=== PATIENT | female | born 1940 | race Caucasian/White ===

== ENCOUNTER 2016-12-11 19:08 | Emergency (ER) | payer OTHER ==
[~2016-12-11] VITALS: Ht 160 cm; Wt 60.0 kg
[~2016-12-11 19:08] MED LIST: ACYC-251 PO; B-COCAP2 PO; BIMA0.038 OPB; CRS10 PO; EYE; GLCPUNK PO; LABE300T PO; SYMIN160 INH
[2016-12-11 19:15] VITALS: TEMP 36.5; Ht 160 cm; Wt 60.0 kg
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
[2016-12-11] MEDS ORDERED: LEVO25TA5 PO (21:01)
[2016-12-11] MEDS ORDERED: LABE100T23 PO (21:01)
[2016-12-11] MEDS ORDERED: CLOTCRE33 TOP (21:01)
[2016-12-11] MEDS ORDERED: CHOL2000 PO (21:01)
[2016-12-11] MEDS ORDERED: SPRIN/30 INH (21:02)
[2016-12-11] MEDS ORDERED: VNTHFA/IN INH (21:02)
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
[2016-12-11 21:48] VITALS: BP 192/125; PULSE 85; O2SAT 95
== END 2016-12-11 21:49 | disposition home or self-care (01) ==
LOC: EDBD 19:08 → EDSEX 19:08 → C.EDB 19:10 → MERGE 19:10 → C.EDB 21:49
DX: S70.02XA Contusion of left hip, initial encounter (principal); S20.212A Contusion of left front wall of thorax, initial encounter; V09.20XA Pedestrian injured in traffic accident involving unspecified motor vehicles, initial encounter; Z79.899 Other long term (current) drug therapy

== ENCOUNTER → 2016-12-14 | Outpatient (CLI) | payer OTHER ==
[~2016-12-14] MED LIST changes: +ACET-1311 PO; +ASPI81TA28 PO; +BIMA0.01 OPB; +CHOL2000 PO; +CHOL20007 PO; +CLOTCRE33 TOP; +CRS/10 PO; +LABE100T23 PO; +LEVO25TA5 PO; +LEVO88TA3 PO; +MECL1TAB42 PO; +SPRIN/30 INH; +VNTHFA/IN INH
--- NOTE | 2016-12-14 16:42 | MAMMOGRAPHY REPORT ---
BILATERAL DIGITAL SCREENING MAMMOGRAM WITH CAD: 12/14/2016 CLINICAL HISTORY: Routine screening examination. TECHNIQUE: Bilateral CC and MLO views were obtained. Current study was also evaluated with a Comput er Aided Detection (CAD) system. COMPARISON: Comparison is made to exams dated: 12/12/2015 mammogram, 12/11/2014 mammogram, 10/24/2013 mammogram, and 08/15/2013 ultrasound - [facility]. BREAST COMPOSITION: The tissue of both breasts is heterogeneously dense, which may obscure small ma sses. FINDINGS: There are moderate vascular calcifications in the breasts. Benign popcorn and rim calcifi cations. There is a loose grouping of punctate microcalcifications in the 11:00 left breast that ap pears similar dating back to at least 08/12/2007, therefore likely benign with nearly [address] ability. No new suspicious mass, architectural distortion or cluster of microcalcifications is seen . IMPRESSION: ACR BI-RADS CATEGORY 1: NEGATIVE There is no mammographic evidence of malignancy. A 1 year screening mammogram is recommended. The p atient will receive written notification of the results. Approximately 10% of breast cancers are not detected with mammography. A negative mammographic repor t should not delay biopsy if a clinically suggestive mass is present. Georgina Whalen M.D. ay/:12/14/2016 15:44:47 Flat Ironer: Kalee KEYS)(Jay), [facility] letter sent: Normal 1/2 BI-RADS Code: ACR BI-RADS Category 1: Negative
== END | disposition home or self-care (01) ==
LOC: C.MAMM 14:05
PROVIDERS: ATTEND Family Medicine
DX: Z12.31 Encounter for screening mammogram for malignant neoplasm of breast (principal)

== ENCOUNTER → 2017-01-14 | Outpatient (CLI) | payer OTHER ==
--- NOTE | 2017-01-14 15:30 | DIAGNOSTIC IMAGING REPORT ---
RIGHT SHOULDER MIN 2 VIEWS ROUTINE CLINICAL HISTORY: Right shoulder pain COMPARISON: None. DISCUSSION: No fractures or dislocations are visualized. There are no visible periarticular calcifications. IMPRESSION: No fractures or dislocations are visualized. No destructive lesions are evident. Electronically signed by: Satya Wilkinson M.D. 01/14/2017 3:28 PM Dictated Date/Time: 01/14/2017 3:28 PM
--- NOTE | 2017-01-14 15:32 | DIAGNOSTIC IMAGING REPORT ---
C-SPINE ROUTINE 4 OR 5 VIEWS CLINICAL HISTORY: Neck pain. Right shoulder pain. COMPARISON STUDY: None. FINDINGS: There is straightening of the normal cervical lordosis. There is no acute fracture. No suspicious lesion is identified by radiography. There is moderate disc space narrowing with osteophytosis at C4-C5, C5-C6 and C6-C7. IMPRESSION: 1. Moderate multilevel degenerative disc disease and facet arthrosis, most pronounced at C4-C5. 2. No cervical spine fracture. Electronically signed by: Duglas Baker M.D. 01/14/2017 3:31 PM Dictated Date/Time: 01/14/2017 3:28 PM
== END | disposition home or self-care (01) ==
LOC: C.RAD1850 14:56
PROVIDERS: ATTEND Family Medicine
DX: M25.511 Pain in right shoulder (principal); M50.321 Other cervical disc degeneration at C4-C5 level; M47.892 Other spondylosis, cervical region

== ENCOUNTER → 2017-02-02 | Outpatient (CLI) | payer OTHER ==
--- NOTE | 2017-02-02 21:13 | DIAGNOSTIC IMAGING REPORT ---
HEAD CT NONCONTRAST CT DOSE: 537.48 mGy.cm HISTORY: Headache. TECHNIQUE: Multiaxial CT images of the head were performed without the use of intravenous contrast. Automated exposure control was utilized for this study. Comparison: Head CT 12/27/2007. Findings: The paranasal sinuses and mastoid air cells are clear. The calvarium and skull base are intact. There is no mass, hematoma, midline shift, acute infarct. White matter hypodensity is nonspecific but suggestive of moderate microvascular ischemic change. This has progressed. The ventricles and sulci demonstrate mild age-related involutional changes. 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 Impression: No acute intracranial abnormality. Atrophy and microvascular ischemic changes. Electronically signed by: Thaddeus Morgan M.D. 02/02/2017 9:12 PM Dictated Date/Time: 02/02/2017 9:07 PM
== END | disposition home or self-care (01) ==
LOC: C.CTS 20:27
PROVIDERS: ATTEND Family Medicine
DX: R51 Headache (principal)

== ENCOUNTER → 2017-02-02 | Outpatient (CLI) | payer OTHER ==
[2017-02-02 20:49] LABS: BASO % 0.5 %; BASO ABS # 0.03 K/uL (0-0.2); COMPLETE YES; EOS % 3.3 %; HEMATOCRIT 36.9 % (37-47); IG% 0.2 %; LYMPH % 36.3 %; LYMPH ABS # 2.07 K/uL (1.2-3.4); MEAN CELL VOLUME 93.2 fL (80-100); MEAN CORPUSCULAR HEMOGLOBIN 31.6 pg (25-34); MEAN CORPUSCULAR HGB CONC 33.9 g/dl (32-36); MEAN PLATELET VOLUME 9.8 fL (7.4-10.4); MONO % 8.4 %; NEUT % 51.3 %; PLATELET COUNT 354 K/uL (130-400); RED BLOOD COUNT 3.96 M/uL (4.2-5.4); WHITE BLOOD COUNT 5.71 K/uL (4.8-10.8)
[2017-02-02 20:59] LABS: PROTHROMBIN TIME (PATIENT) 10.7 SECONDS (9.0-12.0)
[2017-02-02 21:10] LABS: ALT/SGPT 25 U/L (12-78); AST/SGOT 13 U/L (15-37); BLOOD UREA NITROGEN 12 mg/dl (7-18); CALCIUM 8.6 mg/dl (8.5-10.1); CARBON DIOXIDE 30 mmol/L (21-32); CHLORIDE 105 mmol/L (98-107); CREATININE 0.72 mg/dl (0.60-1.20); GLUCOSE 100 mg/dl (70-99); POTASSIUM 3.8 mmol/L (3.5-5.1); SODIUM 142 mmol/L (136-145)
[2017-02-02 21:21] LABS: ALB/GLOB RATIO 1.3 (0.9-2); ALKALINE PHOSPHATASE 91 U/L (45-117)
== END | disposition home or self-care (01) ==
LOC: C.LAB 20:19
PROVIDERS: ATTEND Family Medicine
DX: R51 Headache (principal)

== ENCOUNTER 2017-07-05 19:22 | Inpatient (IN) | payer OTHER ==
[~2017-07-05] VITALS: Ht 160 cm; Wt 62.1 kg
[~2017-07-05 19:22] MED LIST changes: -ACET-1311 PO; -ASPI81TA28 PO; -BIMA0.01 OPB; -CHOL20007 PO; -CRS/10 PO; -LEVO88TA3 PO; -MECL1TAB42 PO
[2017-07-05] MEDS ORDERED: LABETALOL HCL 300 MG TAB PO STA (19:57)
--- NOTE | 2017-07-05 19:57 | EMERGENCY ROOM VISIT NOTE ---
History Report prepared by Klever: Kriss Torres Under the Supervision of: Dr. Tez Smyth M.D. First contact with patient: 19:47 Chief Complaint: NEURO SYMPTOMS Stated Complaint: ABD PAIN, SENT WITH EKG History of Present Illness The patient is a 76 year old female who presents to the Emergency Room with complaints of constant neurological symptoms beginning today. The patient states that she has been having left sided abdominal pain. She reports that she has been having numbness in her head and stomach and states that she feels like she is answering slowly and her brain is not working properly. The patient states that she has a history of hypertension and notes that she is on medication that she took this morning but not tonight. She notes that she was recently on vacation and did not bring her medication with her. The patient complains of nausea. She denies any vomiting. Source of History: patient Onset: today Position: other (neurological) Timing: constant Associated Symptoms: + nausea, + abdominal pain, + numbness, No vomiting Review of Systems See HPI for pertinent positives & negatives. A total of 10 systems reviewed and were otherwise negative. Past Medical & Surgical Medical Problems: (1) Acute confusional state (2) No Known Active Medical Problems Family History No pertinent family history stated. Social History Smoking Status: Never Smoker Marital Status: Occupation Status: retired Current/Historical Medications Scheduled Aspirin (Aspirin Ec), 81 MG PO DAILY Bimatoprost (Lumigan), 1 DROPS OPB HS Budesonide/Formoterol Fumarate (Symbicort 160/4.5 Inhaler ), 2 PUFFS INH BID Cholecalciferol (Vitamin D3), 2,000 UNITS PO DAILY Labetalol (Normodyne), 300 MG PO BID Levothyroxine Sodium (Levothyroxine Sodium), 88 MCG PO DAILY Rosuvastatin Calcium (Crestor), 10 MG PO DAILY Scheduled PRN Acetaminophen (Tylenol), 650 MG PO Q4H PRN for Pain or Fever Albuterol Hfa (Ventolin Hfa), 2 PUFFS INH Q6H PRN for SOB/Wheezing Meclizine Hcl (Meclizine Hcl), 25 MG PO TID PRN for Dizziness or Vertigo Allergies Coded Allergies: No Known Allergies (Verified , 07/05/17) Physical Exam Vital Signs Date Time Temp Pulse Resp B/P (MAP) Pulse Ox O2 Delivery O2 Flow Rate FiO2 8/22/17 00:05 83 18 146/101 96 07/05/17 23:50 83 18 146/101 96 Room Air 07/05/17 23:06 Room Air 07/05/17 22:30 85 14 177/99 97 Room Air 07/05/17 20:57 84 12 191/101 96 Room Air 07/05/17 20:10 Room Air 07/05/17 19:39 36.7 82 18 212/116 98 Room Air Physical Exam GENERAL: Patient is a healthy-appearing well-nourished female HEAD: Normocephalic atraumatic EYES: Ocular movements intact pupils equal and react to light OROPHARYNX mucous membranes are moist no exudates present no erythema or edema present NECK: Supple no nuchal rigidity CHEST: Good equal expansion LUNGS: Clear and equal to auscultation CARDIAC: Normal S1 and S2 ABDOMEN: Soft, tender to the LUQ, no guarding BACK: No CVA tenderness EXTREMITIES: No pain upon palpation normal muscle strength in all groups no clubbing cyanosis or edema NEURO: Patient is following commands and answering questions appropriately. Alert and oriented x3 Cranial Nerves 2-12 grossly intact Medical Decision & Procedures ER Provider Diagnostic Interpretation: Radiology results as stated below per my review and radiologist interpretation: CHEST ONE VIEW PORTABLE FINDINGS: The lungs are clear. Cardiac silhouette is borderline enlarged. This remains unchanged. No pleural effusions. No pneumothorax. IMPRESSION: No significant change compared to the prior study. No acute process. Electronically signed by: Thaddeus Morgan M.D. 07/05/2017 8:30 PM Dictated Date/Time: 07/05/2017 8:[address] NONCONTRAST Comparison: Head CT 02/02/2017 Findings: The paranasal sinuses and mastoid air cells are clear. The calvarium and skull base are intact. There is no mass, hematoma, midline shift, acute infarct. White matter hypodensity is nonspecific but suggestive of moderate microvascular ischemic change. The ventricles and sulci demonstrate mild age-related involutional changes. 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 Impression: No significant change compared to the prior study. No acute intracranial abnormality. Electronically signed by: Thaddeus Morgan M.D. 07/05/2017 8:53 PM Dictated Date/Time: 07/05/2017 8:51 PM [address] AND PELVIS CT WITH IV CONTRAST FINDINGS: The lung bases are clear. No pneumoperitoneum. No pneumatosis. No fractures within the visualized osseous structures. The liver, gallbladder, spleen, adrenal glands, and kidneys are unremarkable. No retroperitoneal lymphadenopathy. A 7 mm cyst at the tail the pancreas. This is best seen on image 81. No retroperitoneal lymphadenopathy. The bladder, uterus, bilateral adnexa are unremarkable. Trace pelvic free fluid. Colonic diverticulosis. No bowel wall thickening or obstruction. IMPRESSION: 1. No bowel wall thickening or obstruction. 2. Colonic diverticulosis. 3. A 7 mm cystic lesion within the tail the pancreas. 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 A 1 year pancreatic MRI can be performed to ensure stability. Electronically signed by: Thaddeus Morgan M.D. 07/05/2017 9:01 PM Dictated Date/Time: 07/05/2017 8:54 PM Laboratory Results 07/05/17 20:09 Red Blood Count 3.95, Mean Corpuscular Volume 94.9, Mean Corpuscular Hemoglobin 31.9, Mean Corpuscular Hemoglobin Concent 33.6, Mean Platelet Volume 9.7, Neutrophils (%) (Auto) 58.2, Lymphocytes (%) (Auto) 33.6, Monocytes (%) (Auto) 5.5, Eosinophils (%) (Auto) 2.5, Basophils (%) (Auto) 0.1, Neutrophils # (Auto) 4.13, Lymphocytes # (Auto) 2.39, Monocytes # (Auto) 0.39, Eosinophils # (Auto) 0.18, Basophils # (Auto) 0.01 07/05/17 20:09 Test 07/05/17 19:52 07/05/17 20:09 Urine Color YELLOW Urine Appearance CLEAR (CLEAR) Urine pH 6.0 (4.5-7.5) Urine Specific [place] 1.009 (1.000-1.030) Urine Protein NEG (NEG) Urine Glucose (UA) NEG (NEG) Urine Ketones NEG (NEG) Urine Occult Blood NEG (NEG) Urine Nitrite NEG (NEG) Urine Bilirubin NEG (NEG) Urine Urobilinogen NEG (NEG) Urine Leukocyte Esterase NEG (NEG) White Blood Count 7.11 K/uL (4.8-10.8) Red Blood Count 3.95 M/uL (4.2-5.4) Hemoglobin 12.6 g/dL (12.0-16.0) Hematocrit 37.5 % (37-47) Mean Corpuscular Volume 94.9 fL (80-100) Mean Corpuscular Hemoglobin 31.9 pg (25-34) Mean Corpuscular Hemoglobin Concent 33.6 g/dl (32-36) Platelet Count 333 K/uL (130-400) Mean Platelet Volume 9.7 fL (7.4-10.4) Neutrophils (%) (Auto) 58.2 % Lymphocytes (%) (Auto) 33.6 % Monocytes (%) (Auto) 5.5 % Eosinophils (%) (Auto) 2.5 % Basophils (%) (Auto) 0.1 % Neutrophils # (Auto) 4.13 K/uL (1.4-6.5) Lymphocytes # (Auto) 2.39 K/uL (1.2-3.4) Monocytes # (Auto) 0.39 K/uL (0.11-0.59) Eosinophils # (Auto) 0.18 K/uL (0-0.5) Basophils # (Auto) 0.01 K/uL (0-0.2) RDW Standard Deviation 42.9 fL (36.4-46.3) RDW Coefficient of Variation 12.4 % (11.5-14.5) Immature Granulocyte % (Auto) 0.1 % Immature Granulocyte # (Auto) 0.01 K/uL (0.00-0.02) Prothrombin Time 10.4 SECONDS (9.0-12.0) Prothromb Time International Ratio 1.0 (0.9-1.1) Activated Partial Thromboplast Time 27.1 SECONDS (21.0-31.0) Partial Thromboplastin Ratio 1.0 Anion Gap 4.0 mmol/L (3-11) Est Creatinine Clear Calc Drug Dose 51.1 ml/min Estimated GFR () 88.5 Estimated GFR (Non- 76.3 BUN/Creatinine Ratio 12.7 (10-20) Calcium Level 9.0 mg/dl (8.5-10.1) Total Bilirubin 0.4 mg/dl (0.2-1) Direct Bilirubin 0.1 mg/dl (0-0.2) Aspartate Amino Transf (AST/SGOT) 15 U/L (15-37) Alanine Aminotransferase (ALT/SGPT) 29 U/L (12-78) Alkaline Phosphatase 100 U/L (45-117) Total Creatine Kinase 139 U/L (26-192) Creatine Kinase MB 1.6 ng/ml (0.5-3.6) Creatine Kinase MB Ratio 1.2 (0-3.0) Troponin I < 0.015 ng/ml (0-0.045) Total Protein 7.6 gm/dl (6.4-8.2) Albumin 4.6 gm/dl (3.4-5.0) Lipase 123 U/L (73-393) Thyroid Stimulating Hormone (TSH) 1.550 uIu/ml (0.300-4.500) Labs reviewed by ED physician. Medications Administered Medications (Trade) Dose Ordered Sig/Jameson Route Start Time Stop Time Status Last Admin Dose Admin Labetalol HCl (Normodyne Tab) 300 mg NOW STAT PO 07/05/17 19:57 07/05/17 19:59 DC 07/05/17 20:18 300 MG Sodium Chloride 500 ml @ 999 mls/hr Q31M STAT IV 07/05/17 20:14 07/05/17 20:44 DC 07/05/17 20:18 999 MLS/HR Potassium Chloride (Klor-Con Tab) 70 meq NOW STAT PO 07/05/17 21:26 07/05/17 21:27 DC 07/05/17 22:09 70 MEQ ECG Indication: abdominal pain Rate (beats per minute): 87 Rhythm: normal sinus Findings: no acute ischemic change, no ectopy, other (old septal infarct) Comparison ECG Date: 24-OCT-2009 Change: no significant change ED Course 1946: Past medical records reviewed. The patient was evaluated in room C3. A complete history and physical examination was performed. 1956: Labetalol HCl 300mg PO. 2013: Sodium Chloride 500 ml @ 999 mls/hr IV. 2125: Klor-Con Tab 70meq PO. 2133: I discussed the patient's case with Dr. Mcmahon, he has agreed to evaluate the patient for further management and care. 2151: Upon reexamination the patient is doing well. I discussed results and treatment plan with the patient. She verbalizes agreement and understanding. I spoke with Dr. Mcmahon from the [facility] Hospitalist Service. The patient will be evaluated for further management. Medical Decision Differential diagnosis: Etiologies such as appendicitis, diverticulitis, PUD, biliary pathology, UTI, pancreatitis, obstruction, mesenteric ischemia, aortic pathology, infections, inflammatory bowel disease, renal colic, as well as others were entertained. This is 76-year-old female who presents emergency department complaining of altered mental status. The patient to be appears acutely confused and I suspect has been confused all week. She has not been taking her medications as she forgot them at home and went on vacation. She is complaining of left-sided numbness as well as left-sided abdominal pain. She is hypertensive upon arrival to the emergency department. Based on these findings I did discuss the case with the hospitalist service who agreed to admit the patient. Patient was in agreement with the treatment plan. Medication Reconcilliation Current Medication List: was personally reviewed by me Blood Pressure Screening Patient's blood pressure: Elevated blood pressure Blood pressure disposition: Referred to PCP Consults Time Called: 2129 Consulting Physician: Dr. Mcmahon - [facility] Returned Call: [phone] I discussed the patient's case with Dr. Mcmahon, he has agreed to evaluate the patient for further management and care. Impression Primary Impression: Hypertensive urgency Scribe Attestation The scribe's documentation has been prepared under my direction and personally reviewed by me in its entirety. I confirm that the note above accurately reflects all work, treatment, procedures, and medical decision making performed by me. Departure Information Dispostion Being Evaluated By Hospitalist Referrals Cara Cooper M.D. (PCP) Patient Instructions My [facility]
[2017-07-05] MEDS ORDERED: SODIUM CHLORIDE 0.9% 500ML 500 ML IV STA (20:14)
[2017-07-05] MEDS ORDERED: OPTIRAY 320 IV PRN (20:15)
[2017-07-05 20:24] LABS: BASO % 0.1 %; BASO ABS # 0.01 K/uL (0-0.2); COMPLETE YES; EOS % 2.5 %; HEMATOCRIT 37.5 % (37-47); IG% 0.1 %; LYMPH % 33.6 %; LYMPH ABS # 2.39 K/uL (1.2-3.4); MEAN CELL VOLUME 94.9 fL (80-100); MEAN CORPUSCULAR HEMOGLOBIN 31.9 pg (25-34); MEAN CORPUSCULAR HGB CONC 33.6 g/dl (32-36); MEAN PLATELET VOLUME 9.7 fL (7.4-10.4); MONO % 5.5 %; NEUT % 58.2 %; PLATELET COUNT 333 K/uL (130-400); RED BLOOD COUNT 3.95 M/uL (4.2-5.4); WHITE BLOOD COUNT 7.11 K/uL (4.8-10.8)
[2017-07-05 20:27] LABS: URINE APPEARANCE CLEAR (CLEAR); URINE BILIRUBIN NEG (NEG); URINE COLOR YELLOW; URINE NITRITE NEG (NEG); URINE SPECIFIC GRAVITY 1.009 (1.000-1.030); UROBILINOGEN NEG (NEG)
[2017-07-05 20:28] LABS: MANUAL MICROSCOPIC REQUIRED? NO; REVIEW REQ? NO
--- NOTE | 2017-07-05 20:31 | DIAGNOSTIC IMAGING REPORT ---
CHEST ONE VIEW PORTABLE HISTORY: severe hypertension COMPARISON: Chest 12/11/2016. FINDINGS: The lungs are clear. Cardiac silhouette is borderline enlarged. This remains unchanged. No pleural effusions. No pneumothorax. IMPRESSION: No significant change compared to the prior study. No acute process. Electronically signed by: Thaddeus Morgan M.D. 07/05/2017 8:30 PM Dictated Date/Time: 07/05/2017 8:28 PM
[2017-07-05 20:33] LABS: PROTHROMBIN TIME (PATIENT) 10.4 SECONDS (9.0-12.0)
[2017-07-05 20:42] LABS: ALT/SGPT 29 U/L (12-78); AST/SGOT 15 U/L (15-37); BLOOD UREA NITROGEN 10 mg/dl (7-18); BUN/CREATININE RATIO 12.7 (10-20); CARBON DIOXIDE 32 mmol/L (21-32); CHLORIDE 106 mmol/L (98-107); CREATININE 0.75 mg/dl (0.60-1.20); GLUCOSE 106 mg/dl (70-99); POTASSIUM 3.3 mmol/L (3.5-5.1); SODIUM 142 mmol/L (136-145)
[2017-07-05 20:52] LABS: ALKALINE PHOSPHATASE 100 U/L (45-117); CKMB/CK RATIO 1.2 (0-3.0)
--- NOTE | 2017-07-05 20:55 | DIAGNOSTIC IMAGING REPORT ---
HEAD CT NONCONTRAST CT DOSE: 963.14 mGy.cm HISTORY: Hypertension. Headache. TECHNIQUE: Multiaxial CT images of the head were performed without the use of intravenous contrast. Automated exposure control was utilized for this study. A dose lowering technique was utilized adhering to the principles of ALARA. Comparison: Head CT 02/02/2017 Findings: The paranasal sinuses and mastoid air cells are clear. The calvarium and skull base are intact. There is no mass, hematoma, midline shift, acute infarct. White matter hypodensity is nonspecific but suggestive of moderate microvascular ischemic change. The ventricles and sulci demonstrate mild age-related involutional changes. 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 Impression: No significant change compared to the prior study. No acute intracranial abnormality. Electronically signed by: Thaddeus Morgan M.D. 07/05/2017 8:53 PM Dictated Date/Time: 07/05/2017 8:51 PM
--- NOTE | 2017-07-05 21:03 | DIAGNOSTIC IMAGING REPORT ---
ABDOMEN AND PELVIS CT WITH IV CONTRAST CT DOSE: HISTORY: Left upper quadrant abdominal pain. TECHNIQUE: Multiaxial CT images of the abdomen and pelvis were performed following the use of intravenous contrast. A dose lowering technique was utilized adhering to the principles of ALARA. COMPARISON STUDY: None. FINDINGS: The lung bases are clear. No pneumoperitoneum. No pneumatosis. No fractures within the visualized osseous structures. The liver, gallbladder, spleen, adrenal glands, and kidneys are unremarkable. No retroperitoneal lymphadenopathy. A 7 mm cyst at the tail the pancreas. This is best seen on image 81. No retroperitoneal lymphadenopathy. The bladder, uterus, bilateral adnexa are unremarkable. Trace pelvic free fluid. Colonic diverticulosis. No bowel wall thickening or obstruction. IMPRESSION: 1. No bowel wall thickening or obstruction. 2. Colonic diverticulosis. 3. A 7 mm cystic lesion within the tail the pancreas. 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 A 1 year pancreatic MRI can be performed to ensure stability. Electronically signed by: Thaddeus Morgan M.D. 07/05/2017 9:01 PM Dictated Date/Time: 07/05/2017 8:54 PM
[2017-07-05] MEDS ORDERED: POTASSIUM CHLORIDE 10 MEQ TABCR PO STA (21:21)
[2017-07-05] MEDS ORDERED: POTASSIUM CHLORIDE 20 MEQ TABCR PO STA (21:26)
[2017-07-05] MEDS ORDERED: ASPI81TA28 PO (21:59)
[2017-07-05] MEDS ORDERED: BIMA0.01 OPB (22:00)
[2017-07-05] MEDS ORDERED: LEVO88TA3 PO (22:02)
[2017-07-05] MEDS ORDERED: CHOL20007 PO (22:03)
[2017-07-05] MEDS ORDERED: CRS/10 PO (22:04)
[2017-07-05] MEDS ORDERED: SYMIN160 INH (22:05)
[2017-07-05] MEDS ORDERED: MECL1TAB42 PO (22:07)
[2017-07-05] MEDS ORDERED: ACET-1311 PO (22:08)
[2017-07-05] MEDS ORDERED: PHARMACIST DISCHARGE MED REC CONSULT PRN (23:00)
[2017-07-05] MEDS ORDERED: ONDANSETRON INJ 2 MG/ML 2 ML VIAL IV PRN (23:00)
[2017-07-05 23:06] VITALS: Ht 160 cm; Wt 62.1 kg
--- NOTE | 2017-07-05 23:41 | History and Physical ---
History & Physical Date & Time of Service: Jul 05, 2017 at 23:41 Chief Complaint: Abd Pain, Sent With Ekg Primary Care Physician: Cara Cooper M.D. History of Present Illness Source: patient, family The patient is a 76-year-old female presents emergency department with confusion as a primary symptom but also reports some intermittent left-sided abdominal pain and numbness in her head stomach. She was recently on vacation, and did not bring her antihypertensive medications with her, did take medication this morning but not tonight. She also reports having some epigastric area discomfort with radiation up her sternum. Her family is with her, reports that she is confused, can't those symptoms are not her baseline. Family also reports that they have not noticed anything else unusual with the patient. The patient did have spicy [place] food last night, and she takes 2 baby aspirin at bedtime. Family History noncontributory Social History Smoking Status: Never Smoker Smokeless Tobacco Use: No Alcohol Use: none Drug Use: none Marital Status: Housing status: lives with family Occupational Status: retired Immunizations History of Influenza Vaccine: Yes Influenza Vaccine Date: Aug 23, 2009 History of Tetanus Vaccine?: Unknown History of Pneumococcal: Unknown History of Hepatitis B Vaccine: Unknown Multi-Drug Resistant Organisms History of MDRO: No Allergies Coded Allergies: No Known Allergies (Verified , 07/05/17) Home Medications Scheduled Aspirin (Aspirin Ec), 81 MG PO DAILY Bimatoprost (Lumigan), 1 DROPS OPB HS Budesonide/Formoterol Fumarate (Symbicort 160/4.5 Inhaler ), 2 PUFFS INH BID Cholecalciferol (Vitamin D3), 2,000 UNITS PO DAILY Labetalol (Normodyne), 300 MG PO BID Levothyroxine Sodium (Levothyroxine Sodium), 88 MCG PO DAILY Rosuvastatin Calcium (Crestor), 10 MG PO DAILY Scheduled PRN Acetaminophen (Tylenol), 650 MG PO Q4H PRN for Pain or Fever Albuterol Hfa (Ventolin Hfa), 2 PUFFS INH Q6H PRN for SOB/Wheezing Meclizine Hcl (Meclizine Hcl), 25 MG PO TID PRN for Dizziness or Vertigo Review of Systems The patient denies chest pain, palpitations, shortness of breath, cough, lower extremity swelling, vision change, hearing change, sore throat, fevers, chills, sweats, weight change, fatigue, nausea, vomiting, abdominal pain, pelvic pain, blood in urine or stool, dysuria, urinary frequency or urgency, lightheadedness , dizziness, headache, rash, abnormal bruising or bleeding, imbalance, focal or generalized weakness, numbness or tingling in arms or legs, generalized arthralgias or myalgias, back or neck pain, night sweats, or allergy symptoms. The review of systems is otherwise negative other than for that already noted above, and at least 10 systems have been reviewed. Physical Exam Vital Signs Date Time Temp Pulse Resp B/P (MAP) Pulse Ox O2 Delivery O2 Flow Rate FiO2 07/05/17 23:06 Room Air 07/05/17 22:30 85 14 177/99 97 Room Air 07/05/17 20:57 84 12 191/101 96 Room Air 07/05/17 20:10 Room Air 07/05/17 19:39 36.7 82 18 212/116 98 Room Air The patient is awake, well-developed and adequately nourished, alert and oriented 3 for the most part, intermittently confused, normocephalic and atraumatic, sitting upright in bed and in no acute distress. HEENT--PERRL, EOMI, mucous membranes and oropharynx dry. Neck--supple, no JVD or bruits, thyroid normal, trachea midline, no adenopathy. Heart--normal S1 and S2, no extra beats, no murmurs, rubs or gallops. Lungs--clear bilaterally with good air movement, no respiratory distress, no accessory muscle use. Abdomen--normal bowel sounds and soft, nontender and nondistended, no hernias or masses, no organomegaly. Extremities--no cyanosis, clubbing or edema. There are good distal pulses b/l. Dermatologic--normal skin turgor, normal color, warm and dry, no abnormal lymph nodes, no rash. Neurologic--cranial nerves II through XII grossly intact. Rheumatologic--normal range of motion, nontender, muscles and joints. Psychiatric--normal affect. Diagnostics Laboratory Results Results Past 24 Hours Test 07/05/17 19:52 07/05/17 20:09 Range/Units Urine Color YELLOW Urine Appearance CLEAR CLEAR Urine pH 6.0 4.5-7.5 Urine Specific Hugo 1.009 1.000-1.030 Urine Protein NEG NEG Urine Glucose (UA) NEG NEG Urine Ketones NEG NEG Urine Occult Blood NEG NEG Urine Nitrite NEG NEG Urine Bilirubin NEG NEG Urine Urobilinogen NEG NEG Urine Leukocyte Esterase NEG NEG White Blood Count 7.11 4.8-10.8 K/uL Red Blood Count 3.95 4.2-5.4 M/uL Hemoglobin 12.6 12.0-16.0 g/dL Hematocrit 37.5 37-47 % Mean Corpuscular Volume 94.9 80-100 fL Mean Corpuscular Hemoglobin 31.9 25-34 pg Mean Corpuscular Hemoglobin Concent 33.6 32-36 g/dl Platelet Count 333 130-400 K/uL Mean Platelet Volume 9.7 7.4-10.4 fL Neutrophils (%) (Auto) 58.2 % Lymphocytes (%) (Auto) 33.6 % Monocytes (%) (Auto) 5.5 % Eosinophils (%) (Auto) 2.5 % Basophils (%) (Auto) 0.1 % Neutrophils # (Auto) 4.13 1.4-6.5 K/uL Lymphocytes # (Auto) 2.39 1.2-3.4 K/uL Monocytes # (Auto) 0.39 0.11-0.59 K/uL Eosinophils # (Auto) 0.18 0-0.5 K/uL Basophils # (Auto) 0.01 0-0.2 K/uL RDW Standard Deviation 42.9 36.4-46.3 fL RDW Coefficient of Variation 12.4 11.5-14.5 % Immature Granulocyte % (Auto) 0.1 % Immature Granulocyte # (Auto) 0.01 0.00-0.02 K/uL Prothrombin Time 10.4 9.0-12.0 SECONDS Prothromb Time International Ratio 1.0 0.9-1.1 Activated Partial Thromboplast Time 27.1 21.0-31.0 SECONDS Partial Thromboplastin Ratio 1.0 Sodium Level 142 136-145 mmol/L Potassium Level 3.3 3.5-5.1 mmol/L Chloride Level 106 98-107 mmol/L Carbon Dioxide Level 32 21-32 mmol/L Anion Gap 4.0 3-11 mmol/L Blood Urea Nitrogen 10 7-18 mg/dl Creatinine 0.75 0.60-1.20 mg/dl Est Creatinine Clear Calc Drug Dose 51.1 ml/min Estimated GFR () 88.5 Estimated GFR (Non- 76.3 BUN/Creatinine Ratio 12.7 10-20 Random Glucose 106 70-99 mg/dl Calcium Level 9.0 8.5-10.1 mg/dl Total Bilirubin 0.4 0.2-1 mg/dl Direct Bilirubin 0.1 0-0.2 mg/dl Aspartate Amino Transf (AST/SGOT) 15 15-37 U/L Alanine Aminotransferase (ALT/SGPT) 29 12-78 U/L Alkaline Phosphatase 100 45-117 U/L Total Creatine Kinase 139 26-192 U/L Creatine Kinase MB 1.6 0.5-3.6 ng/ml Creatine Kinase MB Ratio 1.2 0-3.0 Troponin I < 0.015 0-0.045 ng/ml Total Protein 7.6 6.4-8.2 gm/dl Albumin 4.6 3.4-5.0 gm/dl Lipase 123 73-393 U/L Thyroid Stimulating Hormone (TSH) 1.550 0.300-4.500 uIu/ml Diagnostic Radiology Patient Name: YULY HAIRSTON Unit Number: [id number] Dictated: 07/05/172027 Transcribed: 07/05/172027 Vint Printed Date/Time: [~ rep prt dt]/[~ rep prt tm] [~ rep ct labl] - [~ rep ct ivnm] [facility] [place] [address] Dictated: 07/05/172027 Transcribed: 07/05/172027 Vint Printed Date/Time: [~ rep prt dt]/[~ rep prt tm] [~ rep ct labl] - [~ rep ct ivnm] CHEST ONE VIEW PORTABLE HISTORY: severe hypertension COMPARISON: Chest 12/11/2016. FINDINGS: The lungs are clear. Cardiac silhouette is borderline enlarged. This remains unchanged. No pleural effusions. No pneumothorax. IMPRESSION: No significant change compared to the prior study. No acute process. Electronically signed by: Thaddeus Morgan M.D. 07/05/2017 8:30 PM Dictated Date/Time: 07/05/2017 8:28 PM The status of this report is Signed. Draft = Not yet reviewed or approved by Radiologist. Signed = Reviewed and approved by Radiologist. <AttendingPhy></AttendingPhy> <FamilyPhy>Cara Cooper M.D.</FamilyPhy> < PrimaryPhy>Cara Cooper M.D.</PrimaryPhy> <UnitNumber>[id number]</UnitNumber > <VisitNumber>[id number]</VisitNumber> <PatientName>MARIKAYULY</ PatientName> <DateOfBirth>1940</DateOfBirth> <Location>[facility]</Location> < ServiceDate>07/05/17</ServiceDate> <MNE>ESINDI</MNE> <OrderingPhy>Tez Smyth MD</OrderingPhy> <OrderingPhyMNE>f rep ord dr faria</OrderingPhyMNE> < DictatingPhyMNE>f rep dict dr faria</DictatingPhyMNE> <CCListMNE>f rep ct mne</ CCListMNE> <AdmittingPhyMNE>f pt admit dr faria</AdmittingPhyMNE> <AttendingPhyMNE >f pt attend dr faria</AttendingPhyMNE> <ConsultingPhyMNE>f pt consult dr faria</ConsultingPhyMNE> <FamilyPhyMNE>f pt fam dr faria</FamilyPhyMNE> <OtherPhyMNE>f pt other dr faria</OtherPhyMNE> < PrimaryPhyMNE>f pt prim care dr faria</PrimaryPhyMNE> <ReferringPhyMNE>f pt referring dr faria</ReferringPhyMNE> Patient Name: HER MARIKABELENRIKEFabián Unit Number: [id number] Dictated: 07/05/172050 Transcribed: 07/05/172050 CHANO Printed Date/Time: [~ rep prt dt]/[~ rep prt tm] [~ rep ct labl] - [~ rep ct ivnm] [facility] [place] [address] Dictated: 07/05/172050 Transcribed: 07/05/172050 [facility] Printed Date/Time: [~ rep prt dt]/[~ rep prt tm] [~ rep ct labl] - [~ rep ct ivnm] [~ rep ct add3]] HEAD CT NONCONTRAST CT DOSE: 963.14 mGy.cm HISTORY: Hypertension. Headache. TECHNIQUE: Multiaxial CT images of the head were performed without the use of intravenous contrast. Automated exposure control was utilized for this study. A dose lowering technique was utilized adhering to the principles of ALARA. Comparison: Head CT 02/02/2017 Findings: The paranasal sinuses and mastoid air cells are clear. The calvarium and skull base are intact. There is no mass, hematoma, midline shift, acute infarct. White matter hypodensity is nonspecific but suggestive of moderate microvascular ischemic change. The ventricles and sulci demonstrate mild age-related involutional changes. 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 Impression: No significant change compared to the prior study. No acute intracranial abnormality. Electronically signed by: Thaddeus Morgan M.D. 07/05/2017 8:53 PM Dictated Date/Time: 07/05/2017 8:51 PM The status of this report is Signed. Draft = Not yet reviewed or approved by Radiologist. Signed = Reviewed and approved by Radiologist. <AttendingPhy></AttendingPhy> <FamilyPhy>Cara Cooper M.D.</FamilyPhy> < PrimaryPhy>Cara Cooper M.D.</PrimaryPhy> <UnitNumber>[id number]</UnitNumber > <VisitNumber>[id number]</VisitNumber> <PatientName>YULY HAIRSTON</ PatientName> <DateOfBirth>1940</DateOfBirth> <Location>[facility]</Location> < ServiceDate>07/05/17</ServiceDate> <MNE>ESINDI</MNE> <OrderingPhy>Tez Smyth MD</OrderingPhy> <OrderingPhyMNE>f rep ord dr faria</OrderingPhyMNE> < DictatingPhyMNE>f rep dict dr faria</DictatingPhyMNE> <CCListMNE>f rep ct mne</ CCListMNE> <AdmittingPhyMNE>f pt admit dr faria</AdmittingPhyMNE> <AttendingPhyMNE >f pt attend dr faria</AttendingPhyMNE> <ConsultingPhyMNE>f pt consult dr faria</ConsultingPhyMNE> <FamilyPhyMNE>f pt fam dr faria</FamilyPhyMNE> <OtherPhyMNE>f pt other dr faria</OtherPhyMNE> < PrimaryPhyMNE>f pt prim care dr faria</PrimaryPhyMNE> <ReferringPhyMNE>f pt referring dr faria</ReferringPhyMNE> Patient Name: YULY HAIRSTON Unit Number: [id number] Dictated: 07/05/172053 Transcribed: 07/05/172053 [facility] Printed Date/Time: [~ rep prt dt]/[~ rep prt tm] [~ rep ct labl] - [~ rep ct ivnm] [facility] [place] [address] Dictated: 07/05/172053 Transcribed: 07/05/172053 [facility] Printed Date/Time: [~ rep prt dt]/[~ rep prt tm] [~ rep ct labl] - [~ rep ct ivnm] [~ rep ct add3]] ABDOMEN AND PELVIS CT WITH IV CONTRAST CT DOSE: HISTORY: Left upper quadrant abdominal pain. TECHNIQUE: Multiaxial CT images of the abdomen and pelvis were performed following the use of intravenous contrast. A dose lowering technique was utilized adhering to the principles of ALARA. COMPARISON STUDY: None. FINDINGS: The lung bases are clear. No pneumoperitoneum. No pneumatosis. No fractures within the visualized osseous structures. The liver, gallbladder, spleen, adrenal glands, and kidneys are unremarkable. No retroperitoneal lymphadenopathy. A 7 mm cyst at the tail the pancreas. This is best seen on image 81. No retroperitoneal lymphadenopathy. The bladder, uterus, bilateral adnexa are unremarkable. Trace pelvic free fluid. Colonic diverticulosis. No bowel wall thickening or obstruction. IMPRESSION: 1. No bowel wall thickening or obstruction. 2. Colonic diverticulosis. 3. A 7 mm cystic lesion within the tail the pancreas. 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 A 1 year pancreatic MRI can be performed to ensure stability. Electronically signed by: Thaddeus Morgan M.D. 07/05/2017 9:01 PM Dictated Date/Time: 07/05/2017 8:54 PM The status of this report is Signed. Draft = Not yet reviewed or approved by Radiologist. Signed = Reviewed and approved by Radiologist. <AttendingPhy></AttendingPhy> <FamilyPhy>Cara Cooper M.D.</FamilyPhy> < PrimaryPhy>Cara Cooper M.D.</PrimaryPhy> <UnitNumber>[id number]</UnitNumber > <VisitNumber>[id number]</VisitNumber> <PatientName>YULY HAIRSTON</ PatientName> <DateOfBirth>1940</DateOfBirth> <Location>[facility]</Location> < ServiceDate>07/05/17</ServiceDate> <MNE>ESINDI</MNE> <OrderingPhy>Tez Smyth MD</OrderingPhy> <OrderingPhyMNE>f rep ord dr faria</OrderingPhyMNE> < DictatingPhyMNE>f rep dict dr faria</DictatingPhyMNE> <CCListMNE>f rep ct daphnee</ CCListMNE> <AdmittingPhyMNE>f pt admit dr faria</AdmittingPhyMNE> <AttendingPhyMNE >f pt attend dr faria</AttendingPhyMNE> <ConsultingPhyMNE>f pt consult dr faria</ConsultingPhyMNE> <FamilyPhyMNE>f pt fam dr faria</FamilyPhyMNE> <OtherPhyMNE>f pt other dr faria</OtherPhyMNE> < PrimaryPhyMNE>f pt prim care dr faria</PrimaryPhyMNE> <ReferringPhyMNE>f pt referring dr faria</ReferringPhyMNE> EKG EKG shows normal sinus rhythm at 87 bpm, there are no acute ST-T changes. Impression Assessment and Plan Altered mental status--The patient will be admitted to telemetry for serial cardiac enzymes, cardiac rhythm monitoring and a 2-D echocardiogram with Dopplers. Order an MRI the brain combo, MRA of the neck combo, and MRA of the head without contrast. Continue aspirin 81 mg by mouth daily. Differential includes TIA, CVA, metabolic encephalopathy, uncorrected hypothyroidism, hypertensive encephalopathy among others. CT of the brain without contrast does show an old left cerebellar infarct and moderate small vessel disease. Consult neurology. Hypertension--resume patient's usual medications of labetalol 300 mg by mouth twice a day and aspirin 81 mg by mouth daily. Follow her mental status improvement in association with improved control of blood pressure. Hypothyroidism--continue levothyroxine sodium 88 g by mouth daily. COPD--continue Symbicort 160/4.5, 2 puffs twice a day. Hyperlipidemia--continue Crestor 10 mg by mouth daily. Glaucoma--continue Lumigan 1 drop OPB at bedtime IPMN --7 mm lesion in the tail of the pancreas was noted on CT. She will need a follow-up MRCP and/or endoscopic ultrasound for further assessment. This was communicated to patient and family Level of Care Telemetry Advanced Directives Existing Advance Directive: No Existing Living Will: No Existing Power of Railroad Emergency Services Manager: No Resuscitation Status FULL RESUSCITATION VTE Prophylaxis VTE Risk Assessment Done? Y/N: Yes Risk Level: Moderate Given or contraindicated: SCD's Social Service Consult None Apply
[2017-07-06] VITALS (7 sets, daily range): BP systolic 132–156; BP diastolic 77–93; PULSE 66–81; TEMP 36.5–37; O2SAT 95–97
[2017-07-06] MEDS ORDERED: ACETAMINOPHEN 325 MG TAB PO PRN (01:15)
[2017-07-06] MEDS ORDERED: GADAVIST IV PRN (01:15)
[2017-07-06] MEDS ORDERED: ALBUTEROL HFA 8 GM INHALER INH PRN (01:15)
[2017-07-06] MEDS ORDERED: MECLIZINE HCL 25 MG TAB PO PRN (01:15)
[2017-07-06 05:08] LABS: BASO % 0.3 %; BASO ABS # 0.02 K/uL (0-0.2); COMPLETE YES; EOS % 2.7 %; HEMATOCRIT 35.6 % (37-47); IG% 0.2 %; LYMPH % 21.6 %; LYMPH ABS # 1.26 K/uL (1.2-3.4); MEAN CELL VOLUME 93.4 fL (80-100); MEAN CORPUSCULAR HEMOGLOBIN 31.8 pg (25-34); MEAN PLATELET VOLUME 9.3 fL (7.4-10.4); MONO % 3.4 %; NEUT % 71.8 %; PLATELET COUNT 285 K/uL (130-400); RED BLOOD COUNT 3.81 M/uL (4.2-5.4); WHITE BLOOD COUNT 5.82 K/uL (4.8-10.8)
[2017-07-06 05:50] LABS: BLOOD UREA NITROGEN 6 mg/dl (7-18); BUN/CREATININE RATIO 8.9 (10-20); CALCIUM 8.7 mg/dl (8.5-10.1); CARBON DIOXIDE 29 mmol/L (21-32); CHLORIDE 107 mmol/L (98-107); CHOLESTEROL 139 mg/dl (0-200); CHOLESTEROL/HDL RATIO 1.8; CKMB/CK RATIO 1.3 (0-3.0); CREATININE 0.72 mg/dl (0.60-1.20); GLUCOSE 115 mg/dl (70-99); HDL CHOLESTEROL 79 mg/dl; LDL CHOLESTEROL CALCULATED 43 mg/dl; SODIUM 141 mmol/L (136-145); TRIGLYCERIDES 86 mg/dl (0-150); VERY LOW DENSITY LIPOPROT CALC 17 mg/dl
[2017-07-06] MEDS ORDERED: LEVOTHYROXINE 88 MCG TAB PO SCH (06:00)
[2017-07-06 06:57] LABS: ESTIMATED AVERAGE GLUCOSE 131 mg/dl; HA1C FLAG Normal (Normal)
--- NOTE | 2017-07-06 07:14 | DIAGNOSTIC IMAGING REPORT ---
MR ANGIOGRAM OF THE BRAIN CLINICAL HISTORY: Hypertension and headache. Strokelike symptoms.. COMPARISON STUDY: MRI of the brain performed concurrently on 07/06/2017. TECHNIQUE: 3-D [id number] MR angiography of the intracranial circulation is performed. 3-D tumble views are created and assessed. IV contrast was not administered for this examination. FINDINGS: The ute of [place] is developmentally complete with large posterior communicating arteries. The internal carotid arteries are widely patent bilaterally, as are the anterior and middle cerebral arteries. The vertebrobasilar system and posterior cerebral arteries are widely patent. The vertebral arteries are codominant. There is no aneurysm, high-grade stenosis, or focal vessel cutoff seen throughout the intracranial circulation. The brain parenchyma is normal as visualized. IMPRESSION: Unremarkable MR angiogram of the brain. Electronically signed by: Maycol Mullen M.D. 07/06/2017 7:12 AM Dictated Date/Time: 07/06/2017 7:09 AM
--- NOTE | 2017-07-06 07:18 | DIAGNOSTIC IMAGING REPORT ---
MRA NECK COMBO CLINICAL HISTORY: 76 years-old Female presenting with stroke. TECHNIQUE: MR angiography of the neck was performed before and after the administration of intravenous contrast. 3-D volumetric and/or maximum intensity projection (MIP) images were subsequently reconstructed for review. IV contrast: 6 mL of Gadavist. All measurements were calculated based on NASCET-like criteria. COMPARISON: None. FINDINGS: Localizer images: Unremarkable. Three-vessel aortic arch. Bilateral common and internal carotid arteries patent without significant stenosis, aneurysm, or dissection. Patent origins and courses of the codominant vertebral arteries. Limited visualization of the intracranial arteries demonstrates grossly normal anterior and posterior circulation. Delayed images demonstrate patent cervical veins. IMPRESSION: 1. No significant stenosis, aneurysm, or focal vessel occlusion. Electronically signed by: Kenrick Adame M.D. 07/06/2017 7:17 AM Dictated Date/Time: 07/06/2017 7:13 AM
--- NOTE | 2017-07-06 07:39 | DIAGNOSTIC IMAGING REPORT ---
BRAIN COMBO HISTORY: 76 years-old Female acute stroke-like symptoms with elevated blood pressure, headache and dizziness. COMPARISON: MRA head and neck of same day, CT head 07/05/2017. TECHNIQUE: Multiplanar multisequence MRI of the brain was obtained both with and without the use of 6 mL Gadavist. FINDINGS: There is no restricted diffusion to suggest acute ischemia or infarction. Midline structures including the corpus callosum, optic chiasm, brainstem, pituitary gland appear unremarkable. There is no cerebellar tonsillar herniation. There is mild to moderate brain atrophy with associated ex vacuo ventriculomegaly. [place] areas of T2 prolongation are present within the deep, subcortical and periventricular white matter of the cerebral arteries bilaterally compatible with moderate chronic microvascular ischemic changes. Focal area of T2 prolongation involving the left mid cerebellar hemisphere measuring up to 7 mm suggests prior lacunar infarction. No acute intracranial hemorrhage, midline shift, hydrocephalus, abnormal extra-axial collections or intracranial mass. Flow voids at the skull base appear normal. There has been prior right cataract repair. There is mild mucosal thickening of the ethmoid air cells. No abnormal foci of enhancement are identified. IMPRESSION: 1. No acute intracranial abnormality. No evidence of acute ischemia or hemorrhage. 2. Age-related findings of atrophy and moderate chronic microvascular ischemic changes. Small remote lacunar infarction involves the mid left cerebellar hemisphere. 3. No abnormal enhancement. The above report was generated using voice recognition software. It may contain grammatical, syntax or spelling errors. Electronically signed by: Gino Millan M.D. 07/06/2017 7:38 AM Dictated Date/Time: 07/06/2017 7:24 AM
[2017-07-06] MEDS ORDERED: PNEUMOCOCCAL POLYSACCHARIDES 25 MCG/0.5 ML VIAL/SYR IM. ONE (08:00)
[2017-07-06] MEDS ORDERED: PNEUMOCOCCAL ADMINISTRATION CHARGE ONE (08:00)
[2017-07-06] MEDS ORDERED: ROSUVASTATIN CALCIUM 10 MG TAB PO SCH (09:00)
[2017-07-06] MEDS ORDERED: BUDESONIDE/FORMOTEROL FUMARATE 160/4.5 60 PUFFS/INHALER INH SCH (09:00)
[2017-07-06] MEDS ORDERED: ASPIRIN 81 MG ECTAB PO SCH ×2 (09:00)
[2017-07-06] MEDS ORDERED: LABETALOL HCL 300 MG TAB PO SCH (09:00)
[2017-07-06] MEDS ORDERED: CHOLECALCIFEROL 1000 INTER.UNIT TAB PO SCH (09:00)
--- NOTE | 2017-07-06 09:44 | Medical Student: [facility] ---
Med Student Progress Note Date of Service Jul 06, 2017. Subjective Pt evaluation today including: conversation w/ patient, physical exam, lab review, review of studies Voiding: no voiding problems Patient was examined sitting up at edge of bed this morning. No acute events overnight. She feels that her mentation is back to baseline. She no longer has abdominal pain. No bowel or bladder issues. Also denies fever, chills, headache , dizziness, slurring of speech, cp, sob, numbness/tingling, muscle weakness, calf pain. No other complaints at this time and she is looking forward to discharge this morning. Review of Systems Constitutional: No fever, No chills Eyes: No worsening of vision, No diplopia ENT: No sore throat, No trouble swallowing Respiratory: No cough, No shortness of breath Cardiac: No chest pain, No palpitations Abdomen: No pain, No nausea, No vomiting, No diarrhea, No constipation Musculoskeletal: No muscle pain, No calf pain Female : No dysuria, No incontinence Neurologic: No paralysis, No weakness, No numbness/tingling, No vertigo, No balance problems Psychiatric: No depression symptoms, No anxiety Skin: No rash, No itch Objective Vital Signs Date Time Temp Pulse Resp B/P (MAP) Pulse Ox O2 Delivery O2 Flow Rate FiO2 07/06/17 08:12 36.5 66 16 152/80 (104) 97 Room Air 07/06/17 08:00 Room Air 07/06/17 03:58 36.7 71 16 156/88 (110) 95 Room Air 07/06/17 03:24 36.6 74 22 146/86 (106) 97 Room Air 07/06/17 02:04 80 20 132/77 (95) Room Air 07/06/17 01:38 Room Air 07/06/17 01:30 37.0 81 21 150/93 (112) 97 Room Air 07/06/17 00:05 83 18 146/101 96 07/05/17 23:50 83 18 146/101 96 Room Air 07/05/17 23:06 Room Air 07/05/17 22:30 85 14 177/99 97 Room Air 07/05/17 20:57 84 12 191/101 96 Room Air 07/05/17 20:10 Room Air 07/05/17 19:39 36.7 82 18 212/116 98 Room Air Physical Exam General Appearance: WD/WN, no apparent distress Eyes: bilateral eyes normal inspection, bilateral eyes PERRL, bilateral eyes EOMI ENT: normal ENT inspection, hearing grossly normal, pharynx normal Neck: supple, no adenopathy, no carotid bruits Respiratory/Chest: lungs clear, normal breath sounds, no respiratory distress, no accessory muscle use Cardiovascular: regular rate, rhythm, no gallop, no murmur Abdomen: normal bowel sounds, non tender, soft Extremities: normal range of motion, no pedal edema, no calf tenderness, normal capillary refill 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, no motor/sensory deficits, alert, normal mood/affect, oriented x 3 Skin: normal color, warm/dry, no rash Lymphatic: no adenopathy Comments: Neuro exam CN II: visual barrientos full III, IV, : PERRLA, EOMI V: intact sensation bilaterally V1, V2, V3, symmetrical jaw opening and closing VII: symmetrical eyebrow raise, eyelid close, smile, pucker VIII: hearing grossly intact IX, X: normal palate elevation, swallow XI: lateral head rotation and shoulder shrug symmetrical and strong XII: tongue protrudes in the midline Sensation to pinprick and light touch grossly intact BUE and BLE Strength: 5/5 all muscle groups BUE and BLE Reflexes: 2+ at biceps, triceps, brachioradialis, patellar reflexes bilaterally , Achilles reflexes 1+ bilaterally, Babinski is downgoing bilaterally Cerebellum: finger to nose and heel to galarza are normal bilaterally, Romberg normal, tandem Romberg normal Gait: tandem gait normal with no deviation Laboratory Results Last 24 Hours Test 07/05/17 19:52 07/05/17 20:09 07/06/17 04:58 Urine Color YELLOW Urine Appearance CLEAR Urine pH 6.0 Urine Specific [place] 1.009 Urine Protein NEG Urine Glucose (UA) NEG Urine Ketones NEG Urine Occult Blood NEG Urine Nitrite NEG Urine Bilirubin NEG Urine Urobilinogen NEG Urine Leukocyte Esterase NEG White Blood Count 7.11 K/uL 5.82 K/uL Red Blood Count 3.95 M/uL 3.81 M/uL Hemoglobin 12.6 g/dL 12.1 g/dL Hematocrit 37.5 % 35.6 % Mean Corpuscular Volume 94.9 fL 93.4 fL Mean Corpuscular Hemoglobin 31.9 pg 31.8 pg Mean Corpuscular Hemoglobin Concent 33.6 g/dl 34.0 g/dl Platelet Count 333 K/uL 285 K/uL Mean Platelet Volume 9.7 fL 9.3 fL Neutrophils (%) (Auto) 58.2 % 71.8 % Lymphocytes (%) (Auto) 33.6 % 21.6 % Monocytes (%) (Auto) 5.5 % 3.4 % Eosinophils (%) (Auto) 2.5 % 2.7 % Basophils (%) (Auto) 0.1 % 0.3 % Neutrophils # (Auto) 4.13 K/uL 4.17 K/uL Lymphocytes # (Auto) 2.39 K/uL 1.26 K/uL Monocytes # (Auto) 0.39 K/uL 0.20 K/uL Eosinophils # (Auto) 0.18 K/uL 0.16 K/uL Basophils # (Auto) 0.01 K/uL 0.02 K/uL RDW Standard Deviation 42.9 fL 42.4 fL RDW Coefficient of Variation 12.4 % 12.5 % Immature Granulocyte % (Auto) 0.1 % 0.2 % Immature Granulocyte # (Auto) 0.01 K/uL 0.01 K/uL Prothrombin Time 10.4 SECONDS Prothromb Time International Ratio 1.0 Activated Partial Thromboplast Time 27.1 SECONDS Partial Thromboplastin Ratio 1.0 Sodium Level 142 mmol/L 141 mmol/L Potassium Level 3.3 mmol/L 4.0 mmol/L Chloride Level 106 mmol/L 107 mmol/L Carbon Dioxide Level 32 mmol/L 29 mmol/L Anion Gap 4.0 mmol/L 5.0 mmol/L Blood Urea Nitrogen 10 mg/dl 6 mg/dl Creatinine 0.75 mg/dl 0.72 mg/dl Est Creatinine Clear Calc Drug Dose 51.1 ml/min 53.2 ml/min Estimated GFR () 88.5 93.0 Estimated GFR (Non- 76.3 80.2 BUN/Creatinine Ratio 12.7 8.9 Random Glucose 106 mg/dl 115 mg/dl Estimated Average Glucose 131 mg/dl Hemoglobin A1c 6.2 % Calcium Level 9.0 mg/dl 8.7 mg/dl Total Bilirubin 0.4 mg/dl Direct Bilirubin 0.1 mg/dl Aspartate Amino Transf (AST/SGOT) 15 U/L Alanine Aminotransferase (ALT/SGPT) 29 U/L Alkaline Phosphatase 100 U/L Total Creatine Kinase 139 U/L 115 U/L Creatine Kinase MB 1.6 ng/ml 1.5 ng/ml Creatine Kinase MB Ratio 1.2 1.3 Troponin I < 0.015 ng/ml < 0.015 ng/ml Total Protein 7.6 gm/dl Albumin 4.6 gm/dl Lipase 123 U/L Thyroid Stimulating Hormone (TSH) 1.550 uIu/ml Triglycerides Level 86 mg/dl Cholesterol Level 139 mg/dl HDL Cholesterol 79 mg/dl LDL Cholesterol, Calculated 43 mg/dl VLDL Cholesterol, Calculated 17 mg/dl Cholesterol/HDL Ratio 1.8 Assessment and Plan Assessment and Plan: This is a 76yo female with history of HTN and HLD who presented to the ED with altered mental status and vague left-sided abdominal pain. BP 212/116 on arrival and she had not taken her labetalol for one day. Cardiac workup negative. Extensive stroke workup negative. She has returned to her baseline cognition and no longer has abdominal pain. Her symptoms are most likely due to hypertensive encephalopathy although TIA cannot be excluded. At this time she is medically stable for discharge to home. Plan 1. 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 Recommend a 1yr pancreatic MRI f/u # HTN -continue labetalol 300mg BID as above # Hypothyroidism -TSH 1.55 -levothyroxine 88mcg PO daily # Hyperlipidemia -lipid panel wnl -continue rosuvastatin 10mg PO daily # COPD -symbicort 2puff BID # Glaucoma -bimatoprost 1 drop each eye QHS # DVT prophylaxis -pharmacologic AC held at this time -SCD # Discharge planning -Location: home -Date: 07/06/17 Discharge planning: home
--- NOTE | 2017-07-06 09:55 | Discharge Instructions ---
Discharge Instructions Date of Service Jul 06, 2017. Admission Reason for Admission: Hypertensive encephalopathy Discharge Discharge Diagnosis / Problem: Hypertensive encephalopathy Discharge Goals Goal(s): Improve function, Improve disease control Activity Recommendations Activity Limitations: resume your previous activity Exercise/Sports Limitations: as tolerated May Resume Sexual Activity: when tolerated Shower/Bathe: no limitations Driving or Machine Use: no limitations . Instructions / Follow-Up Instructions / Follow-Up Medications: no changes, be sure to always take your blood pressure medications as prescribed, do not miss doses In summary, you had a full work up for you symptoms of confusion and left upper quadrant abdominal pain... - MRI and MRA brain and neck: no evidence of acute stroke, normal arteries - CT abdomen/pelvis: no acute inflammatory or infectious changes, incidental finding of small lesion in tail of pancreas recommend MRI of the pancreas in ONE YEAR - normal EKG and negative heart enzymes, no signs of heart attack Diagnosis is hypertensive encephalopathy which is altered mental status due to extremely high blood pressure mental status now improved with blood pressure control, systolic pressures in the 150's from 200's yesterday FOLLOW UP - call Dr. Cooper for follow up in one week, blood pressure check Current Hospital Diet Patient's current hospital diet: AHA Diet (Heart Healthy) Discharge Diet Recommended Diet: AHA Diet (Heart Healthy) Pending Studies Studies pending at discharge: no Laboratory Results Hemoglobin A1c Test 07/05/17 20:09 Range/Units Estimated Average Glucose 131 mg/dl Hemoglobin A1c 6.2 H 4.5-5.6 % Lipid Panel Test 07/06/17 04:58 Range/Units Triglycerides Level 86 0-150 mg/dl Cholesterol Level 139 0-200 mg/dl HDL Cholesterol 79 mg/dl Cholesterol/HDL Ratio 1.8 LDL Cholesterol, Calculated 43 mg/dl Medical Emergencies . Who to Call and When: Medical Emergencies: If at any time you feel your situation is an emergency, please call 911 immediately. . Non-Emergent Contact Non-Emergency issues call your: Primary Care Provider Call Non-Emergent contact if: you have any medication questions . . "Provider Documentation" section prepared by Chidi Ovalles. . VTE Core Measure Inpt VTE Proph given/why not?: SCD's [place] Drug Monitoring Program Search Results: no issues identified
--- NOTE | 2017-07-06 13:16 | ECHOCARDIOGRAM REPORT ---
*NOTICE TO RECEIVING REPUBLICAN AGENCY This information is strictly Confidential and protected under [place] law. [place] law prohibits you from making any further disclosure of this information unless further disclosure is expressly permitted by the written consent of the person to whom it pertains or is authorized by law. A general authorization for the release of medical or other information is not sufficient for this purpose. Hospital accepts no responsibility if the information is made available to any other person, INCLUDING THE PATIENT. Interpretation Summary * Name: YULY MCKEON Study Date: 07/06/2017 10:16 AM BP: 152/80 mmHg * Patient Location: [facility] HR: 66 * : 1940 (M/d/yyyy) Gender: Female Height: 63 in * Age: 76 yrs Ethnicity: [place] Weight: 136 lb * Ordering Physician: CHRISTINE * Referring Physician: CHRISTINE * Performed By: Monik Sapp RDCS * * Reason For Study: CEREBRAL ISCHEMIA/EMBOLUS * BSA: 1.6 m2 * -- Conclusions -- * Left ventricular systolic function is normal. * No regional wall motion abnormalities noted. * Ejection Fraction = 55-60%. * There is mild tricuspid regurgitation. * No patent foramen ovale or atrial septal defect. Procedure Details * A saline contrast injection was performed to assess for cardiac shunting. * The injection was performed through an intravenous line in the right arm. * The attending nurse who injected the saline contrast was ROWAN PAUL RN. * A total of 20 cc of agitated saline was given. Left Ventricle * The left ventricle is normal in size. * There is borderline concentric left ventricular hypertrophy. * Ejection Fraction = 55-60%. * Left ventricular systolic function is normal. * No regional wall motion abnormalities noted. Right Ventricle * The right ventricle is normal size. * The right ventricular systolic function is normal as assessed by tricuspid annular plane systolic excursion (TAPSE) (normal >1.5 cm). Atria * The left atrial size is normal. * Right atrial size is normal. * Injection of contrast documented no interatrial shunt. Mitral Valve * The mitral valve is grossly normal. * There is no mitral valve stenosis. * Significant mitral regurgitation is absent. Tricuspid Valve * The tricuspid valve is not well visualized, but is grossly normal. * There is no tricuspid stenosis. * There is mild tricuspid regurgitation. * Right ventricular systolic pressure is normal. Aortic Valve * The aortic valve is normal in structure and function. * No hemodynamically significant valvular aortic stenosis. * Trace aortic regurgitation. Pulmonic Valve * The pulmonary valve is not well seen, but the Doppler examination is normal without significant regurgitation or stenosis. Great Vessels * The aortic root is normal size. * The pulmonary is not well visualized. Pericardium/Pleural * There is no pericardial effusion. Great Vessels * Normal inferior vena cava size and collapsability with sniff indicates a normal right atrial pressure of 3 mmHg Left Ventricular Diastolic Function * Grade I diastolic dysfunction, (abnormal relaxation pattern). MMode 2D Measurements and Calculations IVSd 1.0 cm IVSs 1.5 cm LVIDd 4.5 cm LVIDs 3.0 cm LVPWd 1.0 cm LVPWs 1.4 cm IVS/LVPW 0.99 FS 33.1 % EDV(Teich) 91.1 ml ESV(Teich) 34.7 ml EF(Teich) 61.9 % EDV(cubed) 89.4 ml ESV(cubed) 26.7 ml EF(cubed) 70.1 % % IVS thick 51.9 % % LVPW thick 35.6 % LV mass(C)d 154.9 grams LV mass(C)dI 94.3 grams/m\S\2 LV mass(C)s 149.8 grams LV mass(C)sI 91.3 grams/m\S\2 SV(Teich) 56.4 ml SI(Teich) 34.3 ml/m\S\2 SV(cubed) 62.7 ml SI(cubed) 38.2 ml/m\S\2 Ao root diam 3.1 cm Ao root area 7.6 cm\S\2 LA dimension 3.6 cm LA/Ao 1.1 LVAd ap4 25.8 cm\S\2 LVLd ap4 7.5 cm EDV(MOD-sp4) 75.6 ml EDV(sp4-el) 74.8 ml LVAs ap4 15.3 cm\S\2 LVLs ap4 6.3 cm ESV(MOD-sp4) 33.9 ml ESV(sp4-el) 31.9 ml EF(MOD-sp4) 55.2 % EF(sp4-el) 57.4 % SV(MOD-sp4) 41.7 ml SI(MOD-sp4) 25.4 ml/m\S\2 SV(sp4-el) 42.9 ml SI(sp4-el) 26.2 ml/m\S\2 Doppler Measurements and Calculations MV E max karthikeyan 64.5 cm/sec MV A max karthikeyan 73.2 cm/sec MV E/A 0.88 MV dec time 0.28 sec Ao V2 max 107.6 cm/sec Ao max PG 4.6 mmHg Ao max PG (full) 2.8 mmHg LV V1 max PG 1.8 mmHg LV V1 max 67.9 cm/sec
--- NOTE | 2017-07-06 13:50 | Discharge Summary ---
Discharge Summary Date of Service Jul 06, 2017. Discharge Summary Admission Date: Jul 05, 2017 at 22:57 Discharge Date: Jul 06, 2017 Discharge Disposition: Home Principal Diagnosis: Hypertensive encephalopathy Problems/Secondary Diagnoses: Pancreatic tail lesion Anxiety Nausea/vomiting and abdominal pain Immunizations: Have You Had Influenza Vaccine: Yes Influenza Vaccine Date: Aug 23, 2009 History of Tetanus Vaccine?: Unknown History of Pneumococcal: Unknown History of Hepatitis B Vaccine: Unknown Procedures: Echocardiogram - normal MRI brain - normal MRA head and neck - normal Consultations: none Medication Reconciliation Continued Medications: Acetaminophen (Tylenol) 325 Mg Tab 650 MG PO Q4H PRN for Pain or Fever, TAB Albuterol Hfa (Ventolin Hfa) 200 Puffs/57916 Mcg Aers 2 PUFFS INH Q6H PRN for SOB/Wheezing, INHALER Aspirin (Aspirin Ec) 81 Mg Tab 81 MG PO DAILY Bimatoprost (Lumigan) 0.01 % Basia 1 DROPS OPB HS Budesonide/Formoterol Fumarate (Symbicort 160/4.5 Inhaler ) Aero 2 PUFFS INH BID, INHALER Cholecalciferol (Vitamin D3) 2,000 Unit Tab 2000 UNITS PO DAILY Labetalol (Normodyne) 300 Mg Tab 300 MG PO BID, 0 Refills Levothyroxine Sodium (Levothyroxine Sodium) 88 Mcg Tab 88 MCG PO DAILY Meclizine Hcl (Meclizine Hcl) 25 Mg Tab 25 MG PO TID PRN for Dizziness or Vertigo Rosuvastatin Calcium (Crestor) 10 Mg Tab 10 MG PO DAILY Discharge Exam Patient was feeling much better in the morning with better blood pressure control. Her memory was intact. She denied any further abdominal pain or N/V. She was eating well. Systolic BP in the 150's now back on labetalol. full work up all normal. Review of Systems: Constitutional: No fever, No chills, No sweats, No weight loss, No weakness , No fatigue, No problem reported Eyes: No worsening of vision, No eye pain, No redness, No discharge, No diplopia, No problem reported ENT: No hearing loss, No unusual epistaxis, No nasal symptoms, No sore throat, No tinnitus, No dental problems, No trouble swallowing, No problem reported Respiratory: No cough, No sputum, No wheezing, No shortness of breath, No dyspnea on exertion, No dyspnea at rest, No hemoptysis, No problem reported Cardiovascular: No chest pain, No orthopnea, No PND, No edema, No claudication, No palpitations, No problem reported Abdomen: No pain, No nausea, No vomiting, No diarrhea, No constipation, No GI bleeding, No problem reported Musculoskeletal: No joint pain, No muscle pain, No swelling, No calf pain, No problem reported Genitourinary - Female: No dysuria, No urinary frequency, No urinary urgency , No urinary incontinence, No urinary retention Neurologic: + memory loss (surrounding events of her admission yesterday), No paralysis, No weakness, No numbness/tingling, No vertigo, No balance problems , No problem reported Psychiatric: + anxiety (lots of stress with family issues currently), No depression symptoms, No anhedonism, No insomnia, No substance abuse, No problem reported Endocrine: No fatigue, No excessive thirst, No excessive urination, No problem reported Hematologic / Lymphatic: No abnormal bleeding/bruising, No clotting problems , No swollen lymph nodes, No night sweats, No problem reported Integumentary: No rash, No itch, No new/changing skin lesions, No color change, No bleeding, No problem reported Physical Exam: General Appearance: WD/WN, no apparent distress Eyes: normal inspection, EOMI, sclerae normal ENT: normal ENT inspection, hearing grossly normal, pharynx normal Neck: supple, no adenopathy, no JVD, trachea midline Respiratory/Chest: chest non-tender, lungs clear, normal breath sounds, no respiratory distress, no accessory muscle use Cardiovascular: regular rate, rhythm, no edema, no gallop, no JVD, no murmur , normal peripheral pulses Abdomen / GI: normal bowel sounds, non tender, soft, no organomegaly Extremities: normal inspection, no calf tenderness, normal capillary refill , no pedal edema, normal range of motion, pelvis stable 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, no motor/sensory deficits , alert, normal mood/affect, normal reflexes, oriented x 3 Skin: normal color, warm/dry, no rash Lymphatic: no adenopathy Hospital Course 76 yo female presented with acute mental status changes and elevated blood pressure greater than 200 systolic, missed a few doses of Labetalol Hypertensive encephalopathy: resolved with blood pressure control, simply resuming Labetalol at 300mg BID MRI and MRA brain and neck was normal, no evidence of stroke as cause of altered mental status Cr and electrolytes stable, echocardiogram normal, troponin negative no signs of infection patient mentating clearly this morning and would like to go home instructed to be compliant with Labetalol and low sodium diet, follow up with PCP 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 COPD--continue Symbicort 160/4.5, 2 puffs twice a day. Hyperlipidemia--continue Crestor 10 mg by mouth daily. Glaucoma--continue Lumigan 1 drop OPB at bedtime Total Time Spent: Greater than 30 minutes This includes examination of the patient, discharge planning, medication reconciliation, and communication with other providers. Discharge Instructions Please refer to the electronic Patient Visit Report (Discharge Instructions) for additional information. Follow-Up Dr. Cooper in one week Additional Copies To Cara Cooper M.D.
[2017-07-06] MEDS ORDERED: BIMATOPROST 0.01% OP SOLN 2.5 ML BTL OPB SCH (21:00)
== END 2017-07-06 11:18 | disposition home or self-care (01) | DRG 79 ==
LOC: C.EDB 19:23 → C.2T 22:57 → ENRESERV 23:12
PROVIDERS: ADMIT Hospitalist; ATTEND Internal Medicine
DX: I67.4 Hypertensive encephalopathy (principal); I10 Essential (primary) hypertension; E03.9 Hypothyroidism, unspecified; J44.9 Chronic obstructive pulmonary disease, unspecified; E78.5 Hyperlipidemia, unspecified; H40.9 Unspecified glaucoma; F41.9 Anxiety disorder, unspecified; Z79.82 Long term (current) use of aspirin; Z79.899 Other long term (current) drug therapy

== ENCOUNTER → 2017-08-20 | Outpatient (CLI) | payer OTHER ==
[~2017-08-20] MED LIST changes: +ACET-1311 PO; -ACYC-251 PO; +ASPI81TA28 PO; -B-COCAP2 PO; +BIMA0.01 OPB; -BIMA0.038 OPB; -CHOL2000 PO; +CHOL20007 PO; -CLOTCRE33 TOP; +CRS/10 PO; -CRS10 PO; -EYE; -GLCPUNK PO; -LABE100T23 PO; -LEVO25TA5 PO; +LEVO88TA3 PO; +MECL1TAB42 PO; -SPRIN/30 INH
--- NOTE | 2017-08-20 14:21 | DIAGNOSTIC IMAGING REPORT ---
THORACIC SPINE 3 VIEWS CLINICAL HISTORY: Dorsalgia. FINDINGS: AP, lateral, and swimmer's views of the thoracic spine are obtained. No prior studies are available for comparison at the time of dictation. The skeletal structures are osteopenic. There is no radiographic evidence of fracture or malalignment involving the thoracic spine. Vertebral body height and alignment are maintained. There is hyperkyphosis. Anterior osteophytes are seen throughout. Multilevel degenerative disc space narrowing is noted. The transverse processes and pedicles are grossly intact as seen on the frontal view. The imaged lung parenchyma appears clear. There is mild atherosclerotic calcification of the thoracic aorta. IMPRESSION: 1. No acute bony abnormality is seen involving the thoracic spine. 2. Osteopenia with degenerative change and hyperkyphosis as above. Electronically signed by: Maycol Mullen M.D. 08/20/2017 2:20 PM Dictated Date/Time: 08/20/2017 2:18 PM
== END | disposition home or self-care (01) ==
LOC: C.RAD1850 14:00
PROVIDERS: ATTEND Family Medicine
DX: M54.6 Pain in thoracic spine (principal); M85.88 Other specified disorders of bone density and structure, other site

== ENCOUNTER 2017-10-20 16:49 | Emergency (ER) | payer OTHER ==
[~2017-10-20] VITALS: Ht 160 cm; Wt 61.7 kg
[2017-10-20 17:05] VITALS: TEMP 36.7; Ht 160 cm; Wt 61.7 kg
[2017-10-20 17:18] VITALS: O2SAT 96
--- NOTE | 2017-10-20 17:48 | EMERGENCY ROOM VISIT NOTE ---
History Report prepared by Klever: Simran Avila Under the Supervision of: Dr. Yaneth Ennis D.O. First contact with patient: 17:22 Chief Complaint: HYPERTENSION Stated Complaint: HIGH BP History of Present Illness The patient is a 77 year old female who presents to the Emergency Room with complaints of an episode of high blood pressure occurring last night. The patient states that when she took her blood pressure last night it was 199/115. She reports taking three lisinopril last night and her labetalol this morning. She takes labetalol twice a day and lisinopril once a day. Today, the patient reports her blood pressure was 159/113. The patient takes her blood pressure daily. At baseline, the patient's blood pressure runs high. The patient notes that her lisinopril was recently decreased. The patient also reports episodes of feeling dizzy and off balance when she gets up. States has been going on for a while, and is not new. She is unsure if her dizziness symptoms occur when her blood pressure goes up. However, she notes feeling shaky, having a headache, blurry vision, and shortness of breath when her blood pressure goes up. The patient was in the hospital on July 04 for similar symptoms. Pt denies fevers, nausea, vomiting, diarrhea, pain with urination, and melena. Patient states she feels that her anxiety contributes to her elevated blood pressure. Source of History: patient Onset: last night Position: other (global) Quality: other (high blood pressure) Timing: other (episode) Associated Symptoms: + headache, + chest pain, + SOB, No nausea, No vomiting , No urinary symptoms Review of Systems See HPI for pertinent positives & negatives. A total of 10 systems reviewed and were otherwise negative. Past Medical & Surgical Medical Problems: (1) Acute confusional state (2) No Known Active Medical Problems Family History Patient reports no known family medical history. Social History Smoking Status: Never Smoker Drug Use: none Marital Status: Occupation Status: retired Current/Historical Medications Scheduled Aspirin (Aspirin Ec), 81 MG PO DAILY Brimonidine Tartrate-Timolol M (Combigan), 1 DROP OP UD Budesonide/Formoterol Fumarate (Symbicort 160/4.5 Inhaler ), 2 PUFFS INH BID Cholecalciferol (Vitamin D3), 2,000 UNITS PO DAILY Clotrimazole (Topical) (Anti-Fungal), 1 APPLN TOP UD Labetalol (Normodyne), 300 MG PO BID Levothyroxine Sodium (Levothyroxine Sodium), 88 MCG PO DAILY Ranitidine HCl (Ranitidine HCl), 1 TAB PO PRN Rosuvastatin Calcium (Crestor), 10 MG PO DAILY Scheduled PRN Acetaminophen (Tylenol), 650 MG PO Q4H PRN for Pain or Fever Albuterol Hfa (Ventolin Hfa), 2 PUFFS INH Q6H PRN for SOB/Wheezing Allergies Coded Allergies: No Known Allergies (Verified , 10/20/17) Physical Exam Vital Signs Date Time Temp Pulse Resp B/P (MAP) Pulse Ox O2 Delivery O2 Flow Rate FiO2 10/20/17 23:40 79 16 145/100 98 Room Air 10/20/17 21:53 88 16 146/93 98 Room Air 90 135/83 90 120/83 10/20/17 19:51 82 16 161/92 98 10/20/17 18:54 67 16 167/108 98 Room Air 10/20/17 17:43 72 10/20/17 17:22 66 16 168/90 98 Room Air 10/20/17 17:18 96 Room Air 10/20/17 17:05 36.7 72 20 162/92 97 Room Air Physical Exam GENERAL: alert, well appearing, well nourished, no distress, non-toxic EYE EXAM: normal conjunctiva, PERRL and EOM's grossly intact OROPHARYNX: no exudate, no erythema, lips, buccal mucosa, and tongue normal and mucous membranes are moist NECK: supple, no nuchal rigidity, no adenopathy, non-tender LUNGS: Clear to auscultation. Normal chest wall mechanics HEART: no murmurs, S1 normal and S2 normal ABDOMEN: abdomen soft, non-tender, normo-active bowel sounds, no masses, no rebound or guarding. BACK: Back is symmetrical on inspection and there is no deformity, no midline tenderness, no CVA tenderness. SKIN: no rashes and no bruising UPPER EXTREMITIES: upper extremities are grossly normal. Normal range of motion and normal pulses. LOWER EXTREMITIES: No pitting edema. Normal range of motion and normal pulses. NEURO EXAM: Normal sensorium, cranial nerves II-XII grossly intact, normal speech, no gross weakness of arms, no gross weakness of legs. No ataxia, no facial droop. Medical Decision & Procedures ER Provider Diagnostic Interpretation: Radiology results have been interpreted by the radiologist and reviewed by me. SINGLE VIEW CHEST FINDINGS: An AP, portable, upright chest radiograph is compared to study dated 07/05/2017. The examination is degraded by portable technique and patient rotation. The cardiomediastinal heart is enlarged and there is atherosclerotic calcification of the thoracic aorta. The pulmonary vasculature is noncongested. The lungs and pleural spaces are clear. No pneumothorax is seen. The skeletal structures are osteopenic. The bony thorax is grossly intact. IMPRESSION: Cardiomegaly with no acute cardiopulmonary abnormality. Electronically signed by: Maycol Mullen M.D. CT SCAN OF THE BRAIN WITHOUT IV CONTRAST FINDINGS: Brain parenchyma: There are age-related involutional changes noting moderate to advanced subcortical and periventricular microangiopathic change. There is no hemorrhage, mass effect, or evidence of acute territorial ischemia by CT criteria. Jennings-white matter is preserved. No extra-axial fluid collection is seen. Ventricles, sulci, cisterns: Prominent secondary to involutional change. Intracranial vasculature: There is atherosclerotic calcification of the cavernous carotid arteries. Calvarium: Unremarkable. Sinuses and mastoids: The visualized paranasal sinuses are clear. The mastoid air cells are well pneumatized. Orbits: The bony orbits are grossly intact. There is a right ocular lens implant. IMPRESSION: Senescent changes as above with no hemorrhage, mass effect, or evidence of acute territorial ischemia by CT criteria. Electronically signed by: Maycol Mullen M.D. Laboratory Results 10/20/17 17:56 Red Blood Count 4.06, Mean Corpuscular Volume 92.9, Mean Corpuscular Hemoglobin 31.5, Mean Corpuscular Hemoglobin Concent 34.0, Mean Platelet Volume 10.4, Neutrophils (%) (Auto) 63.7, Lymphocytes (%) (Auto) 25.6, Monocytes (%) (Auto) 6.1, Eosinophils (%) (Auto) 3.9, Basophils (%) (Auto) 0.5, Neutrophils # (Auto) 4.21, Lymphocytes # (Auto) 1.69, Monocytes # (Auto) 0.40, Eosinophils # (Auto) 0.26, Basophils # (Auto) 0.03 10/20/17 17:56 Test 10/20/17 17:56 10/20/17 19:00 White Blood Count 6.60 K/uL (4.8-10.8) Red Blood Count 4.06 M/uL (4.2-5.4) Hemoglobin 12.8 g/dL (12.0-16.0) Hematocrit 37.7 % (37-47) Mean Corpuscular Volume 92.9 fL (80-100) Mean Corpuscular Hemoglobin 31.5 pg (25-34) Mean Corpuscular Hemoglobin Concent 34.0 g/dl (32-36) Platelet Count 316 K/uL (130-400) Mean Platelet Volume 10.4 fL (7.4-10.4) Neutrophils (%) (Auto) 63.7 % Lymphocytes (%) (Auto) 25.6 % Monocytes (%) (Auto) 6.1 % Eosinophils (%) (Auto) 3.9 % Basophils (%) (Auto) 0.5 % Neutrophils # (Auto) 4.21 K/uL (1.4-6.5) Lymphocytes # (Auto) 1.69 K/uL (1.2-3.4) Monocytes # (Auto) 0.40 K/uL (0.11-0.59) Eosinophils # (Auto) 0.26 K/uL (0-0.5) Basophils # (Auto) 0.03 K/uL (0-0.2) RDW Standard Deviation 41.9 fL (36.4-46.3) RDW Coefficient of Variation 12.3 % (11.5-14.5) Immature Granulocyte % (Auto) 0.2 % Immature Granulocyte # (Auto) 0.01 K/uL (0.00-0.02) Anion Gap 7.0 mmol/L (3-11) Est Creatinine Clear Calc Drug Dose 37.0 ml/min Estimated GFR () 60.6 Estimated GFR (Non- 52.3 BUN/Creatinine Ratio 9.9 (10-20) Calcium Level 9.1 mg/dl (8.5-10.1) Magnesium Level 2.3 mg/dl (1.8-2.4) Total Bilirubin 0.3 mg/dl (0.2-1) Aspartate Amino Transf (AST/SGOT) 15 U/L (15-37) Alanine Aminotransferase (ALT/SGPT) 20 U/L (12-78) Alkaline Phosphatase 106 U/L (45-117) Troponin I < 0.015 ng/ml (0-0.045) Pro-B-Type Natriuretic Peptide 514 pg/ml (0-1800) Total Protein 7.3 gm/dl (6.4-8.2) Albumin 4.1 gm/dl (3.4-5.0) Globulin 3.2 gm/dl (2.5-4.0) Albumin/Globulin Ratio 1.3 (0.9-2) Urine Color YELLOW Urine Appearance CLEAR (CLEAR) Urine pH 8.0 (4.5-7.5) Urine Specific [place] 1.006 (1.000-1.030) Urine Protein NEG (NEG) Urine Glucose (UA) NEG (NEG) Urine Ketones NEG (NEG) Urine Occult Blood NEG (NEG) Urine Nitrite NEG (NEG) Urine Bilirubin NEG (NEG) Urine Urobilinogen NEG (NEG) Urine Leukocyte Esterase NEG (NEG) Laboratory results per my review. ECG Indication: other (hypertension) Rhythm: normal sinus Findings: no acute ischemic change, no ectopy, other (normal axis, normal interval) ED Course 1725: The patient was evaluated in room B7. A complete history and physical exam was performed. 1852: I updated the patient on her test results. She is going to take her routine night time Lebetalol. 2159: The patient completed walk test and would like to go home. 2240: The patient lives with her daughter and will go home with her. 2330: The patient's daughter is at bedside. The patient is ready to go home 2338: Upon reevaluation, the patient is feeling better. I discussed the findings and the treatment plan with the patient. She verbalizes agreement and understanding. The patient was discharged home. Medical Decision Differential diagnosis: Etiologies such as benign hypertension, hypertensive emergency, cardiovascular pathology, pheochromocytoma, electrolyte abnormality, renal disease, endorgan damage, as well as others were entertained. Patient well-appearing here despite complaints. Patient with recent admission for hypertensive urgency with negative MRI and MRA. Patient states medication adjustments have been made recently to by her primary care physician. Patient states she does check her blood pressure once daily, does feel that her anxiety contributes to elevated readings. Patient took extra of her lisinopril overnight, and then took her usual medications today. On arrival here patient states she is having some symptoms and first blood pressure was mildly elevated. Patient with no focal neuro deficits to suggest CVA or intracranial hemorrhage. Patient with stable blood pressure while here despite mild elevation, given her usual routine medications for the evening and blood pressure did improve. Patient he drinking normally, discussed with her adequate oral hydration given mild dehydration noted with the labs and mild drop in blood pressure on checking orthostatics. Patient however and not symptomatic with checking orthostatics or with ambulation. I do not suspect ACS , dissection, tamponade, effusion, no evidence of hypertensive emergency, doubt occult infectious etiology. Patient well-appearing time of discharge, offered admission for continued monitoring and would like to go home and follow up with her family doctor. Discussed symptoms to watch and return for, appropriate checking of blood pressure as an outpatient, use of her routine medications, hydration, she verbalized understanding was agreeable with plan. Medication Reconcilliation Current Medication List: was personally reviewed by me Blood Pressure Screening Patient's blood pressure: Elevated blood pressure Blood pressure disposition: Referred to PCP Impression Primary Impression: Hypertensive urgency Additional Impression: Anxiety Scribe Attestation The scribe's documentation has been prepared under my direction and personally reviewed by me in its entirety. I confirm that the note above accurately reflects all work, treatment, procedures, and medical decision making performed by me. Departure Information Dispostion Home / Self-Care Referrals Cara Cooper M.D. (PCP) Forms HOME CARE DOCUMENTATION FORM, IMPORTANT VISIT INFORMATION, WORK / SCHOOL INSTRUCTIONS Patient Instructions My [facility] Additional Instructions Please take your regular medications as prescribed and follow up with your family doctor as your blood pressure medications may need to be changed. Please do not take your blood pressure more than once a day unless you develop symptoms such as headaches, chest pain, vision changes, dizziness. If you have any recurrent symptoms or have a blood pressure reading that is greater than 180 /100, please return to the emergency room. Problem Qualifiers
--- NOTE | 2017-10-20 18:07 | DIAGNOSTIC IMAGING REPORT ---
SINGLE VIEW CHEST CLINICAL HISTORY: Atypical chest pain. FINDINGS: An AP, portable, upright chest radiograph is compared to study dated 07/05/2017. The examination is degraded by portable technique and patient rotation. The cardiomediastinal heart is enlarged and there is atherosclerotic calcification of the thoracic aorta. The pulmonary vasculature is noncongested. The lungs and pleural spaces are clear. No pneumothorax is seen. The skeletal structures are osteopenic. The bony thorax is grossly intact. IMPRESSION: Cardiomegaly with no acute cardiopulmonary abnormality. Electronically signed by: Maycol Mullen M.D. 10/20/2017 6:06 PM Dictated Date/Time: 10/20/2017 6:05 PM
[2017-10-20 18:18] LABS: BASO % 0.5 %; BASO ABS # 0.03 K/uL (0-0.2); COMPLETE YES; EOS % 3.9 %; HEMATOCRIT 37.7 % (37-47); IG% 0.2 %; LYMPH % 25.6 %; LYMPH ABS # 1.69 K/uL (1.2-3.4); MEAN CELL VOLUME 92.9 fL (80-100); MEAN CORPUSCULAR HEMOGLOBIN 31.5 pg (25-34); MEAN PLATELET VOLUME 10.4 fL (7.4-10.4); MONO % 6.1 %; NEUT % 63.7 %; PLATELET COUNT 316 K/uL (130-400); RED BLOOD COUNT 4.06 M/uL (4.2-5.4)
--- NOTE | 2017-10-20 18:18 | DIAGNOSTIC IMAGING REPORT ---
CT SCAN OF THE BRAIN WITHOUT IV CONTRAST CLINICAL HISTORY: Dizziness. Hypertension. COMPARISON STUDY: CT of the brain dated 07/05/2017. TECHNIQUE: Unenhanced axial CT scan of the brain is performed from the vertex to the skull base. CT DOSE: 601.98 mGy.cm FINDINGS: Brain parenchyma: There are age-related involutional changes noting moderate to advanced subcortical and periventricular microangiopathic change. There is no hemorrhage, mass effect, or evidence of acute territorial ischemia by CT criteria. Jennings-white matter is preserved. No extra-axial fluid collection is seen. Ventricles, sulci, cisterns: Prominent secondary to involutional change. Intracranial vasculature: There is atherosclerotic calcification of the cavernous carotid arteries. Calvarium: Unremarkable. Sinuses and mastoids: The visualized paranasal sinuses are clear. The mastoid air cells are well pneumatized. Orbits: The bony orbits are grossly intact. There is a right ocular lens implant. IMPRESSION: Senescent changes as above with no hemorrhage, mass effect, or evidence of acute territorial ischemia by CT criteria. Electronically signed by: Maycol Mullen M.D. 10/20/2017 6:17 PM Dictated Date/Time: 10/20/2017 6:15 PM
[2017-10-20 18:37] LABS: ALT/SGPT 20 U/L (12-78); BLOOD UREA NITROGEN 10 mg/dl (7-18); BUN/CREATININE RATIO 9.9 (10-20); CALCIUM 9.1 mg/dl (8.5-10.1); CARBON DIOXIDE 29 mmol/L (21-32); CHLORIDE 102 mmol/L (98-107); CREATININE 1.02 mg/dl (0.60-1.20); GLUCOSE 99 mg/dl (70-99); MAGNESIUM 2.3 mg/dl (1.8-2.4); POTASSIUM 3.7 mmol/L (3.5-5.1); SODIUM 137 mmol/L (136-145)
[2017-10-20 18:42] LABS: ALB/GLOB RATIO 1.3 (0.9-2); ALKALINE PHOSPHATASE 106 U/L (45-117); AST/SGOT 15 U/L (15-37)
[2017-10-20] MEDS ORDERED: BRIM0.2S OP (19:00)
[2017-10-20] MEDS ORDERED: RANI150T2 PO (19:00)
[2017-10-20] MEDS ORDERED: CLOT1CRE80 TOP (19:02)
[2017-10-20 19:47] LABS: URINE APPEARANCE CLEAR (CLEAR); URINE BILIRUBIN NEG (NEG); URINE COLOR YELLOW; URINE NITRITE NEG (NEG); URINE SPECIFIC GRAVITY 1.006 (1.000-1.030); UROBILINOGEN NEG (NEG); ZZUR CULT IF INDIC CLEAN CATCH NO
[2017-10-20 20:07] LABS: MANUAL MICROSCOPIC REQUIRED? NO; REVIEW REQ? NO
[2017-10-20 23:40] VITALS: BP 145/100; PULSE 79; O2SAT 98
== END 2017-10-20 23:45 | disposition home or self-care (01) ==
LOC: C.EDB 16:52
DX: I10 Essential (primary) hypertension (principal); F41.9 Anxiety disorder, unspecified; Z79.82 Long term (current) use of aspirin; Z79.899 Other long term (current) drug therapy

== ENCOUNTER → 2017-12-16 | Outpatient (CLI) | payer OTHER ==
[~2017-12-16] MED LIST changes: -BIMA0.01 OPB; +BRIM0.2S OP; +CLOT1CRE80 TOP; -MECL1TAB42 PO; +RANI150T2 PO
--- NOTE | 2017-12-20 07:40 | MAMMOGRAPHY REPORT ---
BILATERAL DIGITAL SCREENING MAMMOGRAM TOMOSYNTHESIS WITH CAD: 12/16/2017 CLINICAL HISTORY: Routine screening. Patient has no complaints. TECHNIQUE: Breast tomosynthesis in addition to standard 2D mammography was performed. Current study was also evaluated with a Computer Aided Detection (CAD) system. COMPARISON: Comparison is made to exams dated: 12/14/2016 mammogram, 12/12/2015 mammogram, 12/11/2014 m ammogram, 10/24/2013 mammogram, 10/13/2012 mammogram, and 09/10/2011 mammogram - [facility]. BREAST COMPOSITION: The tissue of both breasts is heterogeneously dense, which may obscure small mas ses. FINDINGS: No suspicious masses, calcifications, or areas of architectural distortion are noted in ei ther breast. There has been no significant interval change compared to prior exams. Bilateral benign -appearing calcifications are not significantly changed. IMPRESSION: ACR BI-RADS CATEGORY 2: BENIGN There is no mammographic evidence of malignancy. A 1 year screening mammogram is recommended. The pa tient will receive written notification of the results. Approximately 10% of breast cancers are not detected with mammography. A negative mammographic report should not delay biopsy if a clinically suggestive mass is present. Melani Frost M.D. /:12/16/2017 15:15:59 [employer]: Diane KEYS)(M), [facility] letter sent: Normal 1/2 BI-RADS Code: ACR BI-RADS Category 2: Benign
== END | disposition home or self-care (01) ==
LOC: C.MAMM 14:21
PROVIDERS: ATTEND Family Medicine
DX: Z12.31 Encounter for screening mammogram for malignant neoplasm of breast (principal)

== ENCOUNTER → 2017-12-29 | Outpatient (CLI) | payer OTHER ==
--- NOTE | 2017-12-29 12:20 | DIAGNOSTIC IMAGING REPORT ---
(BARIUM SWALLOW) ESOPHAGUS CLINICAL HISTORY: LUMP IN THROAT COMPARISON STUDY: None. FLUOROSCOPY TIME: 1.4 minutes. 20 images submitted. FINDINGS: The patient swallowed barium without difficulty. The contours of the hypopharynx are within normal limits. The esophagus is normal in course and caliber. Mild esophageal dysmotility. No hiatus hernia. No gastroesophageal reflux. The barium tablet passed without difficulty. IMPRESSION: Mild esophageal dysmotility. Otherwise, normal barium swallow. Electronically signed by: Thaddeus Morgan M.D. 12/29/2017 12:18 PM Dictated Date/Time: 12/29/2017 12:17 PM
== END | disposition home or self-care (01) ==
LOC: C.RAD 11:35
PROVIDERS: ATTEND Family Medicine
DX: R22.1 Localized swelling, mass and lump, neck (principal)

== ENCOUNTER 2024-01-20 13:28 | Inpatient (IN) ==
--- NOTE | 2024-01-20 13:35 | Emergency Department Note ---
ED Provider Note History of Present Illness Chief Complaint: Fall Stated Complaint: FALL, PAIN WITH AMBULATION Time Seen by Provider: 01/20/24 13:37 This patient is a 83-year-old Female who presents to the ED via EMS for evaluation of injuries from a fall in her home. The patient reports that she was reaching for a television remote, lost her balance and fell between her bed and the wall. The physical therapist was at her home around noon time, when the stated reported that she fell earlier this morning. The patient complains of left hip pain since the fall. The patient does not think that she hit her head, and denies any loss of consciousness. She denies headache, neck pain, back pain or other injuries other than her hip. EMS reports that she was able to stand and bear weight upon their arrival, and did walk to her door to let her therapist into her home. The patient rates her discomfort a 6 out of 10. Home Medications Medication Instructions Recorded Confirmed Type brimonidine 0.2 %-timolol 0.5 % 1 drp OPB BID 08/23/18 01/20/24 History eye drops (Combigan) levothyroxine 75 mcg tablet 75 mcg PO QAM 09/06/19 01/20/24 History latanoprost 0.005 % eye drops 1 drp OPB HS 07/20/23 01/20/24 History rosuvastatin 10 mg tablet 10 mg PO DAILY 07/20/23 01/20/24 History lisinopril 20 mg tablet 20 mg PO DAILY 01/20/24 01/20/24 History Allergies Allergy/AdvReac Type Severity Reaction Status Date / Time No Known Drug Allergies Allergy Unknown Verified 01/20/24 17:47 Past Med/Surg History Medical History Stomach ulcer Asthma well controlled per pt Depression Diabetes mellitus diet controlled > no meds Thyroid disorder Vulvitis History of syncope 2018 ER visit [facility]. Presented with elevated BP. Treated in ER and d/c. Syncopal episode upon returning to home. Believes r/t antihypertensives administered in ER. ? med compliance at home. Osteoarthritis Insomnia Poor historian Pancreatic cyst just monitoring GERD (gastroesophageal reflux disease) Depression History of TIA (transient ischemic attack) pt poor historian. could not recall date of TIA. says it should be in records. "years ago" Glaucoma Hyperlipidemia COPD (chronic obstructive pulmonary disease) well controlled per pt report Hypothyroidism Hypertension Surgical History Status post ORIF of fracture of ankle Left History of esophagogastroduodenoscopy (EGD) History of colonoscopy History of toe surgery BL great toe History of cataract surgery bilat Family History Other Family history non-contributory Hypertension Denies family history of Hearing loss No family history of adverse response to anesthesia No family history of bleeding disorder Heart disease Allergies Cancer Stroke Asthma Social History Smoking Status: Never smoker Second Hand Exposure: No; Do You Dip or Chew Tobacco: No; Hx Alcohol Use: No Hx Substance Use: No Preferred Language: Congolese Communication Ability: Effective Diaper Machine Tender Required: No Beliefs That Will Affect Care: Mu-Ism Mu-Ism Beliefs: lizbetmau wittness > no blood marital status: / Current Living Situation: Family Current Living Situation Comment: dtr lives with patient current occupational status: retired Feels Safe at Home: Yes Assistive Devices: Cane and Glasses Physical Exam Vital Signs Vital Signs - 24 hr 01/20/24 13:31 Temperature 36.6 C Temperature Source Temporal Artery Scan Pulse Rate 70 Respiratory Rate 20 Respiratory Effort / Characteristics Non-Labored Spontaneous Respiratory Depth Normal Blood Pressure 189/93 H Blood Pressure Mean 125 Blood Pressure Position Sitting Pulse Oximetry 95 Oxygen Delivery Method Room Air Sepsis Recent Fever Within 48 Hours No Sepsis New/Unexplained Change in Mental Status N/A Sepsis Action Taken by Nursing No Action Required CONSTITUTIONAL: Healthy and well nourished. Alert and oriented X 3. Patient does not appear in any acute distress. HEENT: Normocephalic, atraumatic. No hematomas, facial abrasions, subconjunctival hemorrhage, raccoon's eyes or Wilson sign. NECK: Full active range of motion without discomfort. RESPIRATORY: Clear to auscultation bilaterally with no wheezing, crackles, rhonchi or stridor. CARDIOVASCULAR: Regular rate and rhythm with no murmurs, rubs or gallops. MUSCULOSKELETAL: Examination shows minimal discomfort with logroll of the left hip. No focal tenderness to palpation through the lower lumbar spine. INTEGUMENTARY: No rash or other significant dermatologic conditions noted. HEMATOLOGIC: No ecchymosis or petechiae. PSYCHIATRIC: Positive affect. NEUROLOGIC: Left lower extremity is sensory intact. Course Course Patient history and physical exam were performed. Nurses notes reviewed. Vital signs were reviewed. The patient refused any analgesics on initial exam. X- rays of the left hip and pelvis shows a subcapital hip fracture. Findings were discussed with the patient and daughter, and I recommended further admission for orthopedic evaluation. The patient was in agreement to do so. The case was then further discussed with the [facility] Hospitalist service (Dr. Coronel). I also discussed the case with orthopedic surgeon on-call (Dr. Valentine with [facility]). Prior to transfer of care, I did order initial labs, portable chest x-ray and ECG. Labs were reviewed and show a mild hypokalemia and hyponatremia. Urinalysis is not suggestive of infection. Coag studies were normal. A portable chest x-ray showed cardiomegaly without evidence for failure pattern, pneumothorax or pneumonia. Noncontrast CT imaging of the head and cervical spine also were normal. The case was also discussed with Dr. Camarena, ED attending physician, who agrees with workup and admission for hip fracture. Administered Medications Potassium Chloride/Dextrose/Sod Cl (D5nss + 20meq Kcl) 20 meq in 1,000 mls @ 80 mls/hr IV .[id number] Stop: 02/19/24 17:44 Last Admin: 01/20/24 18:39 Dose: 80 mls/hr Documented By: Medical Decision Making Medical Records Attestation: I reviewed the patient's medical records. Home Medications was personally reviewed by pr Laboratory Data Attestation: I reviewed the patient's lab results. 01/20/24 16:10 01/20/24 16:10 Lab Results 01/20/24 Range/Units 16:10 WBC 11.05 H (4.8-10.8) K/ul RBC 4.20 (4.20-5.40) M/uL Hgb 13.1 (12.0-16.0) g/dl Hct 37.2 (37.0-47.0) % MCV 88.6 (80.0-100.0) fL MCH 31.2 (25.0-34.0) pg MCHC 35.2 (32.0-36.0) g/dL RDW Std Deviation 38.8 (36.4-46.3) fL RDW Coeff of Antonia 12.0 (11.5-14.5) % Plt Count 372 (130-400) K/uL MPV 9.8 (9.4-12.4) fL Immature Gran % (Auto) 0.5 % Neut % (Auto) 80.3 % Lymph % (Auto) 13.6 % [place] % (Auto) 4.5 % Eos % (Auto) 0.7 % Baso % (Auto) 0.4 % Neut # (Auto) 8.88 H (1.40-6.50) K/uL Lymph # (Auto) 1.50 (1.20-3.40) K/uL [place] # (Auto) 0.50 (0.11-0.59) K/uL Eos # (Auto) 0.08 (0.00-0.50) K/uL Baso # (Auto) 0.04 (0.00-0.20) K/uL Immature Gran # (Auto) 0.05 (0.01-0.20) K/uL Sodium 132 L (136-145) mmol/L Potassium 3.3 L (3.5-5.1) mmol/L Chloride 96 L (98-107) mmol/L Carbon Dioxide 29 (21-32) mmol/L Anion [place] 7 (3-11) BUN 6 (6-23) mg/dl Creatinine 0.60 (0.6-1.2) mg/dl Est Cr Clr Drug Dosing 51.7 ml/min Est GFR ( Amer) 96.3 ml/min Est GFR (Non-Af Amer) 83.1 ml/min BUN/Creatinine Ratio 10.0 (10-20) Glucose 94 (70-99(Fasting)) mg/dl Calcium 8.9 (8.6-10.3) mg/dl Total Bilirubin 0.7 (0.2-1.0) mg/dl AST 14 (13-39) U/L ALT 12 (7-52) U/L Alkaline Phosphatase 80 (34-104) U/L Total Creatine Kinase 63 (26-192) U/L Total Protein 7.0 (6.0-8.3) gm/dl Albumin 4.7 (3.4-5.0) gm/dl Globulin 2.3 L (2.5-4.0) gm/dl Albumin/Globulin Ratio 2.0 (0.9-2) Urine Color Yellow Urine Appearance Clear (Clear) Urine pH 7.5 (4.5-7.5) Ur Specific [place] 1.006 (1.000-1.030) Urine Protein Negative (Negative) Urine Glucose (UA) Negative (Negative) Urine Ketones Negative (Negative) Urine Blood Negative (Negative) Urine Nitrite Negative (Negative) Urine Bilirubin Negative (Negative) Urine Urobilinogen Negative (Negative) Ur Leukocyte Esterase Trace H (Negative) Urine WBC (Auto) 1-5 (0-5) /hpf Urine RBC (Auto) 0-4 (0-4) /hpf U Hyaline Cast (Auto) 0 (0-5) /lpf U Epithel Cells (Auto) 20-30 H (0-5) /lpf Urine Bacteria (Auto) Negative (Negative) Imaging Data Attestation: I personally reviewed and interpreted this imaging study as follows: My Impression: My interpretation of a left hip x-ray with pelvic view shows a subcapital hip fracture. My interpretation of a portable chest x-ray does not show evidence for pneumothorax, pneumonia or failure pattern. Radiologist reports were also reviewed with concurrence. Radiologist's Impression: Hip/Pelvis X-Ray 01/20/24 13:37 SINGLE VIEW PELVIS; 2 VIEWS LEFT HIP CLINICAL HISTORY: Fall with left hip injury. FINDINGS: An AP view of the pelvis with AP and frog leg views of the left hip are compared to study dated 12/11/2016. The skeletal structures are osteopenic. There is an impacted subcapital fracture of the left femur with overlying soft tissue edema. No additional acute fracture is seen involving the right hip or the bony pelvis. Mild arthritic change and joint space narrowing is seen in the hips. There is degenerative sclerosis of the sacroiliac joints. Lumbosacral spondylosis is partially visualized. There is advanced atherosclerotic calcification of the femoral arteries. IMPRESSION: Impacted subcapital fracture of the left femur. Electronically signed by: Maycol Mullen M.D. 01/20/2024 2:08 PM ECG Data Attestation: I personally reviewed and interpreted this ECG as follows: Indication: + other (Preop) Rate (beats per minute): 66 Rhythm: + normal sinus ECG Intervals/blocks: + Normal QRS, + Normal QT and + Normal MN ECG [place]: + Normal ECG ST segments: + Nonspecific ST abnormalities Comparison ECG Date: from (03/19/2023) Change: no significant change MDM Narrative See ED Course section for further details of today's visit. The patient reports falling in her bedroom earlier this morning. She was able to get up off of the floor herself, and ambulate around her home. The patient does have a therapist that comes to her house at noon time, and she was able to let them into her home. With complaint of left hip pain, EMS was contacted, and the patient was able to transfer to a litter. X-rays of the left hip shows an impacted subcapital left hip fracture. The patient denies any other injuries from her fall. The case was discussed with [facility], as well as the [facility] Hospitalist service. Please see their dictations for further treatment and final disposition. Further preoperative testing was ordered and reviewed by me, showing a mild hyponatremia and hypokalemia. ECG and troponin were not suggestive of acute myocardial injury. Total CK was also normal, therefore I do not suspect rhabdomyolysis. The case was also discussed with Dr. Camarena, ED attending physician, who agrees with workup and admission for hip fracture. Impression Subcapital fracture of left hip, Status post fall, Hyponatremia, Hypokalemia Discharge Plan Visit Data Chief Complaint: Fall Stated Complaint: FALL, PAIN WITH AMBULATION ED Provider: Mehrdad Camarena ED Midlevel Provider: Rodrick Dickson Discharge Problem: Subcapital fracture of left hip, Status post fall, Hyponatremia, Hypokalemia Patient Disposition: Admitted As Inpatient Discharge Instructions Interventions: ED Discharge Assessment Last Done: 01/20/24 17:44 Discharge Problem: Subcapital fracture of left hip Qualifiers: Encounter type: initial encounter Fracture type: closed Qualified Code(s): S 72.012A - Unspecified intracapsular fracture of left femur, initial encounter for closed fracture
--- NOTE | 2024-01-20 14:09 | XRay Report ---
SINGLE VIEW PELVIS; 2 VIEWS LEFT HIP CLINICAL HISTORY: Fall with left hip injury. FINDINGS: An AP view of the pelvis with AP and frog leg views of the left hip are compared to study d ated 12/11/2016. The skeletal structures are osteopenic. There is an impacted subcapital fracture of t he left femur with overlying soft tissue edema. No additional acute fracture is seen involving the ri ght hip or the bony pelvis. Mild arthritic change and joint space narrowing is seen in the hips. Ther e is degenerative sclerosis of the sacroiliac joints. Lumbosacral spondylosis is partially visualized . There is advanced atherosclerotic calcification of the femoral arteries. IMPRESSION: Impacted subcapital fracture of the left femur. Electronically signed by: Maycol Mullen M.D. 01/20/2024 2:08 PM
--- NOTE | 2024-01-20 15:41 | Emergency Department Note ---
ED Visit Note I was consulted in regards to the patient's presentation and plan of care by the Advanced Practice Provider. I engaged in a detailed/meaningful discussion with the Advanced Practice Provider in regards to this patient's workup and plan of care. Please see the Advanced Practice Provider's note for full details of the patient encounter. I agree with the assessment and plan of Rodrick Dickson PA-C. Mehrdad Camarena, DO Emergency Medicine .
--- NOTE | 2024-01-20 16:02 | History & Physical Report ---
Date of Service January 20, 2024 Assessment & Plan (1) Hip fracture, left: Plan: Assessment: 1. Acute fracture left hip/impacted subcapital femur fracture. Orthopedics consulted. N.p.o. after midnight. Laboratory studies are pending at the time of this dictation we have an order to be called with results. 2. Left head contusion status post fall. Stat CT of the head and cervical spine have been ordered. We have orders to call with results. 3. History of hypertension continue home medications. 4. History of hypothyroidism continue home medications check level TSH in the morning. 5. Dyslipidemia continue statin therapy. 6. Mechanical DVT prophylaxis for now postoperatively chemical DVT prophylaxis can be ordered appropriately Plan: As described above. Please refer to orders for further planning. History of Present Illness Chief Complaint: Fall, left hip pain. Primary Care Provider: Cara Cooper MD Very pleasant 83-year-old female of Citizen Of [place] descent. She was trying to stretch across her bed to get her TV remote today when the bedsheet slipped she fell to the ground between her nightstand and bed with left hip pain. She came to the ER for further evaluation and treatment. The patient denies any loss of consciousness pre or post fall. She did strike her head as discussed below. In the ER plain film x-rays demonstrated a left hip fracture -impacted subcapital fracture of the left femur. We are contacted admit the patient for further evaluation and treatment orthopedics was contacted by the ER provider. Will keep the patient n.p.o. after midnight anticipating ORIF in the morning. At the time of this dictation laboratory studies are pending. EKG was done at the bedside which per my read showed a normal sinus rhythm without acute ST-T abnormalities.With ventricular rate of approximately 65 bpm. With a ventricular rate of approximately 65 bpm. The patient did hit her head when she fell with the left occipital region. She is mildly tender there without any obvious injury however. Therefore we have ordered a stat CT of the head and CT of the cervical spine to rule out occult injury. Allergies Allergy/AdvReac Type Severity Reaction Status Date / Time No Known Drug Allergies Allergy Verified 04/22/22 13:55 Home Medications Medication Instructions Recorded Confirmed Type brimonidine 0.2 %-timolol 0.5 % 1 drp OPB BID 08/23/18 01/20/24 History eye drops (Combigan) levothyroxine 75 mcg tablet 75 mcg PO QAM 09/06/19 01/20/24 History latanoprost 0.005 % eye drops 1 drp OPB HS 07/20/23 01/20/24 History rosuvastatin 10 mg tablet 10 mg PO DAILY 07/20/23 01/20/24 History lisinopril 20 mg tablet 20 mg PO DAILY 01/20/24 01/20/24 History Past Med/Surg History Medical History Stomach ulcer Asthma well controlled per pt Depression Diabetes mellitus diet controlled > no meds Thyroid disorder Vulvitis History of syncope 2018 ER visit [facility]. Presented with elevated BP. Treated in ER and d/c. Syncopal episode upon returning to home. Believes r/t antihypertensives administered in ER. ? med compliance at home. Osteoarthritis Insomnia Poor historian Pancreatic cyst just monitoring GERD (gastroesophageal reflux disease) Depression History of TIA (transient ischemic attack) pt poor historian. could not recall date of TIA. says it should be in records. "years ago" Glaucoma Hyperlipidemia COPD (chronic obstructive pulmonary disease) well controlled per pt report Hypothyroidism Hypertension Surgical History Status post ORIF of fracture of ankle Left History of esophagogastroduodenoscopy (EGD) History of colonoscopy History of toe surgery BL great toe History of cataract surgery bilat Family History Other Family history non-contributory Hypertension Denies family history of Hearing loss No family history of adverse response to anesthesia No family history of bleeding disorder Heart disease Allergies Cancer Stroke Asthma Social History Smoking Status: Never smoker Second Hand Exposure: No; Do You Dip or Chew Tobacco: No; Hx Alcohol Use: No Hx Substance Use: No Preferred Language: Setswana Communication Ability: Effective Survey Rodman Required: No Beliefs That Will Affect Care: Tenriism Tenriism Beliefs: gloria wittness > no blood marital status: / Current Living Situation: Family Current Living Situation Comment: dtr lives with patient current occupational status: retired Feels Safe at Home: Yes Assistive Devices: Cane and Glasses Review of Systems Review of Systems: A 10 point review of system was obtained and unless otherwise stated here or in history of present illness are negative and noncontributory to chief complaint. Physical Exam Physical Exam: In General: Pleasant 83-year-old female of Citizen Of [place] descent who is alert and oriented x 3 at the time my examination and accompanied by her daughter at the time my exam. She has no other complaints except left hip pain. As well as mild soreness of her left occipital/parietal region HEENT: Normocephalic atraumatic pupils are equal round and reactive to light bilaterally. No scleral icterus no conjunctival injection external auditory canals are patent septum is in the midline nose is without discharge oral mucosa is pink and moist without lesion. NECK: Supple no rigidity no lymphadenopathy no thyromegaly no carotid bruits no JVD no masses. There is no midline tenderness. HEART: Regular rate and rhythm I do not appreciate any ectopy or rub. No murmur. LUNGS: Clear to auscultation bilaterally and anteriorly with no evidence of adventitious sounds/wheezes rales or rhonchi. ABDOMEN: Soft nontender, no rebound, no peritoneal signs, positive bowel sounds, no appreciable organomegaly. EXTREMITIES: Intact, no peripheral cyanosis, clubbing or edema. Neurovascularly her extremities are intact. NEUROLOGICAL: Cranial nerves II through XII are grossly intact with no focal deficit elicited upon examination. No tremor. Results & Data Results & Data Vital Signs (Past 12 Hours) Vital Signs Temp Pulse Resp BP Pulse Ox O2 Del Method 01/20/24 13:31 36.6 C 70 20 189/93 H 95 Room Air Code Status & VTE Plan Code Status Full code. I did discuss with the patient personally today. VTE Prophylaxis Plan VTE Prophylaxis will be ordered: Yes PG Care Time/CCT Total # of Minutes Spent Total Time Spent with Patient: Total time spent is greater than 50% in coordination of care (as documented) at patient's floor/unit and/or counseling patient: Coding Level of Care Code 71343 INT INP/OBS CARE 3/75MIN Diagnoses Hip fracture, left S72.002A
[2024-01-20 16:38] LABS: Appearance Urine Clear (Clear); Bacteria Urine Automated Negative (Negative); Bilirubin Urine Negative (Negative); Blood Urine Negative (Negative); Cast Urine Automated 0 /lpf (0-5); Color Urine Yellow; Epithelial Cell Urine Auto 20-30 /lpf (0-5); Glucose Urine UA Negative (Negative); Ketones Urine Negative (Negative); Leukocyte Esterase Urine Trace (Negative); Nitrite Urine Negative (Negative); Protein Urine Negative (Negative); RBC Urine Automated 0-4 /hpf (0-4); Specific Gravity Urine 1.006 (1.000-1.030); Urobilinogen Urine Negative (Negative); pH Urine 7.5 (4.5-7.5)
[2024-01-20 17:01] LABS: Basophils # (auto) 0.04 K/uL (0.00-0.20); Basophils % (auto) 0.4 %; Eosinophils # (auto) 0.08 K/uL (0.00-0.50); Eosinophils % (auto) 0.7 %; Hematocrit (blood only) 37.2 % (37.0-47.0); Hemoglobin 13.1 g/dl (12.0-16.0); Immature Granulocytes # (auto) 0.05 K/uL (0.01-0.20); Immature Granulocytes % (auto) 0.5 %; Lymphocytes % (auto) 13.6 %; Mean Corpuscular Hemoglobin 31.2 pg (25.0-34.0); Mean Corpuscular Hgb Conc 35.2 g/dL (32.0-36.0); Mean Corpuscular Volume 88.6 fL (80.0-100.0); Mean Platelet Volume 9.8 fL (9.4-12.4); Monocytes % (auto) 4.5 %; Neutrophils # (auto) 8.88 K/uL (1.40-6.50); Neutrophils % (auto) 80.3 %; Platelet Count 372 K/uL (130-400); RDW Standard Deviation 38.8 fL (36.4-46.3); White Blood Count 11.05 K/ul (4.8-10.8)
--- NOTE | 2024-01-20 17:14 | CT Scan Report ---
CT SCAN OF THE BRAIN WITHOUT IV CONTRAST CLINICAL HISTORY: Fall. Head injury. COMPARISON STUDY: CT of the brain dated 08/05/2023. TECHNIQUE: Unenhanced axial CT scan of the brain is performed from the vertex to the skull base. A do se lowering technique was utilized adhering to the principles of ALARA. FINDINGS: Brain parenchyma: There is age-related involutional change noting moderate to advanced confluent subc ortical and periventricular microangiopathic disease. There is no hemorrhage, mass effect, or evidenc e of acute territorial ischemia by CT criteria. A focus of left temporal encephalomalacia is consiste nt with a remote insult. 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 Jennings -white matter differentiation is preserved. No extra-axial fluid collection is seen. Ventricles, sulci, cisterns: Prominent secondary to involutional change. Intracranial vasculature: There is atherosclerotic calcification of the cavernous carotid and vertebr al arteries. Calvarium: The skeletal structures are osteopenic. No depressed calvarial fracture is seen. Sinuses and mastoids: The visualized paranasal sinuses are clear. The mastoid air cells are well pneu matized. Orbits: The bony orbits are grossly intact. There are bilateral ocular lens implants. IMPRESSION: There is no hemorrhage, mass effect, or evidence of acute territorial ischemia by CT adam macario. ACT 112: Negative or not required by law. Electronically signed by: Maycol Mullen M.D. 01/20/2024 5:12 PM
[2024-01-20 17:18] LABS: Albumin Level 4.7 gm/dl (3.4-5.0); Bilirubin,Total 0.7 mg/dl (0.2-1.0); Calcium 8.9 mg/dl (8.6-10.3); Creatinine Clr Calc Pharmacy 51.7 ml/min; Est GFR (African American) 96.3 ml/min; Est GFR (Non-African American) 83.1 ml/min; Globulin 2.3 gm/dl (2.5-4.0); Potassium 3.3 mmol/L (3.5-5.1)
--- NOTE | 2024-01-20 17:18 | CT Scan Report ---
CT SCAN OF THE CERVICAL SPINE CLINICAL HISTORY: Trauma. Fall. COMPARISON STUDY: Cervical spine CT dated 08/05/2023. TECHNIQUE: CT scan of the cervical spine is performed from the skull base to the upper thoracic spine . Images are reviewed in the axial, sagittal, and coronal planes. IV contrast was not administered fo r this examination. A dose lowering technique was utilized adhering to the principles of ALARA. CT DOSE: 1013.21 mGy.cm FINDINGS: Skeletal structures: The skeletal structures are osteopenic. There is no evidence of fracture or subl uxation involving the cervical spine. Vertebral body height and alignment are maintained. There is st raightening of the cervical lordosis. Anterior osteophytes are seen throughout. The odontoid process and lateral masses are intact. The atlantoaxial articulation is preserved noting productive degenerat amadeo change. The spinous processes appear intact. There is mild to moderate multilevel cervical spondy losis. Uncovertebral and facet arthropathy contribute to neural foraminal narrowing at several levels . Intervertebral discs: There is moderate to severe disc space narrowing at C4-C5, C5-C6, and C6-C7. Mi ld narrowing is seen at the remaining cervical levels. Central canal: Posterior disc osteophyte complexes at C4-C5, C5-C6, and C6-C7 may contribute to mild acquired compromise of the central canal. Soft tissues: The prevertebral and paraspinous soft tissues are within normal limits. There is athero sclerotic calcification of the carotid bulbs. Calvarium: The visualized calvarium at the skull base appears intact. Brain parenchyma: Partially visualized brain parenchyma at the skull base is within normal limits. Sinuses and mastoids: The visualized paranasal sinuses are clear. The mastoid air cells are well pneu matized. Lung apices: Clear as visualized. IMPRESSION: 1. There is no evidence of cervical spine fracture or subluxation. 2. Osteopenia and spondylotic change as above. ACT 112: Negative or not required by law. Electronically signed by: Maycol Mullen M.D. 01/20/2024 5:17 PM
--- NOTE | 2024-01-20 17:21 | Electrocardiogram Report ---
Test Reason : Blood Pressure : / mmHG Vent. Rate : 066 BPM Atrial Rate : 066 BPM P-R Int : 188 ms QRS Dur : 094 ms QT Int : 404 ms P-R-T Axes : 093 032 030 degrees QTc Int : 423 ms Normal sinus rhythm Left ventricular hypertrophy with repolarization abnormality ( Nonspecific T wave abnormality Inferior leads Nonspecific T wave abnormality Lateral leads Abnormal ECG When compared with ECG of 20-JUL-2023 15:32, Nonspecific T wave abnormality now evident in Inferior leads Confirmed by Anmol Wang ([id number]) on 01/20/2024 5:21:21 PM Referred By: REFERRED SELF Confirmed By:Anmol Wang
[2024-01-20 17:28] LABS: Partial Thromboplastin Time 28 Seconds (21-31); Prothrombin Time 11.4 Seconds (9.0-12.0)
--- NOTE | 2024-01-20 18:03 | Consultation ---
Date of Consultation January 20, 2024 Assessment & Plan (1) Subcapital fracture of left hip: Plan I discussed the findings of the x-rays with her. Given subcapital hip fracture, she is best served with surgical treatment. Surgical treatment options can include closed reduction and pinning versus bipolar hemiarthroplasty. Given her age, bipolar hemiarthroplasty may be more reliable fix for her. At this point in time we will await medical clearance and results of CAT scan of the head given that she did strike her head when she fell. She to be cleared for surgery plan for surgical treatment tomorrow. Will discuss with the orthopedic team further timing and surgeon available for fixation. History of Present Illness Reason for Consultation: Left hip fracture Attending Physician: Prasanth Coronel, PhD, DO History of Present Illness An 83-year-old female who sustained a fall from standing height when she reached to grab the remote control. She is complains of pain in the left hip. She was initially able to bear weight. But subsequent noted increasing pain in the left hip. Allergies Allergy/AdvReac Type Severity Reaction Status Date / Time No Known Drug Allergies Allergy Unknown Verified 01/20/24 17:47 Home Medications Medication Instructions Recorded Confirmed Type brimonidine 0.2 %-timolol 0.5 % 1 drp OPB BID 08/23/18 01/20/24 History eye drops (Combigan) levothyroxine 75 mcg tablet 75 mcg PO QAM 09/06/19 01/20/24 History latanoprost 0.005 % eye drops 1 drp OPB HS 07/20/23 01/20/24 History rosuvastatin 10 mg tablet 10 mg PO DAILY 07/20/23 01/20/24 History lisinopril 20 mg tablet 20 mg PO DAILY 01/20/24 01/20/24 History Patient History Medical History Stomach ulcer Asthma well controlled per pt Depression Diabetes mellitus diet controlled > no meds Thyroid disorder Vulvitis History of syncope 2018 ER visit [facility]. Presented with elevated BP. Treated in ER and d/c. Syncopal episode upon returning to home. Believes r/t antihypertensives administered in ER. ? med compliance at home. Osteoarthritis Insomnia Poor historian Pancreatic cyst just monitoring GERD (gastroesophageal reflux disease) Depression History of TIA (transient ischemic attack) pt poor historian. could not recall date of TIA. says it should be in records. "years ago" Glaucoma Hyperlipidemia COPD (chronic obstructive pulmonary disease) well controlled per pt report Hypothyroidism Hypertension Surgical History Status post ORIF of fracture of ankle Left History of esophagogastroduodenoscopy (EGD) History of colonoscopy History of toe surgery BL great toe History of cataract surgery bilat Family History Other Family history non-contributory Hypertension Denies family history of Hearing loss No family history of adverse response to anesthesia No family history of bleeding disorder Heart disease Allergies Cancer Stroke Asthma Social History Smoking Status: Never smoker Second Hand Exposure: No; Do You Dip or Chew Tobacco: No; Hx Alcohol Use: No Hx Substance Use: No Preferred Language: Lithuanian Communication Ability: Effective Trust And Estates Attorney Required: No Beliefs That Will Affect Care: Taoism Taoism Beliefs: [place] > no blood marital status: / Current Living Situation: Family Current Living Situation Comment: dtr lives with patient current occupational status: retired Feels Safe at Home: Yes Assistive Devices: Cane and Glasses Review of Systems Musculoskeletal: Denies numbness Physical Exam Musculoskeletal: Left upper extremity exam: She has pain with logroll of the hip. Her compartments are soft. She can flex and extend the ankle and is grossly neurovascularly intact. No open injuries. Results & Data Vital Signs (Past 12 Hours) Vital Signs Temp Pulse Resp BP Pulse Ox O2 Del Method 01/20/24 13:31 36.6 C 70 20 189/93 H 95 Room Air Diagnostic Findings I dependently reviewed AP and lateral of the left hip does show an impacted nondisplaced femoral neck fracture, subcapital.
[2024-01-20 18:10] LABS: Troponin I High Sensitivity 8.5 pg/ml (0-14)
--- NOTE | 2024-01-20 18:20 | XRay Report ---
SINGLE VIEW CHEST CLINICAL HISTORY: Preoperative examination. Hip fracture. FINDINGS: An AP, supine, upright chest radiograph is compared to study dated 08/05/2023. The heart is enlarged noting atherosclerotic calcification of the thoracic aorta. The pulmonary vasculature is non congested. Chronic interstitial thickening similar to previous. The lungs and pleural spaces are jose r. No pneumothorax is seen. The skeletal structures are osteopenic. The bony thorax is grossly intact . IMPRESSION: Cardiomegaly with no active disease in the chest. ACT 112: Negative or not required by law. Electronically signed by: Maycol Mullen M.D. 01/20/2024 6:19 PM
[2024-01-20] MEDS: D5NSS + 20MEQ KCL 20 MEQ/1,000 ML BAG IV SCH (18:39)
[2024-01-20] MEDS ORDERED: NON-FORMULARY MEDICATION (Brimonidine-Timolol [Combigan] 0.2-0.5 % Drops) OPB SCH (21:00)
[2024-01-20] MEDS: LATANOPROST 0.005% OP SOLN 2.5 ML BTL OPB SCH (21:58)
[2024-01-20] MEDS: BRIMONIDINE TARTRATE 0.2% 5ML OPB SCH (21:59)
[2024-01-20] MEDS: TIMOLOL GFS 0.5% OPH SOLN 74 DROPS/5 ML BTL OPB SCH (21:59)
[2024-01-20] MEDS: ACETAMINOPHEN 325 MG TAB PO PRN (22:50)
[2024-01-20] MEDS ORDERED: SODIUM CHLORIDE 0.9% 1,000 ML IV SCH (23:55)
[2024-01-21 06:54] LABS: INR 1.1 (0.9-1.1); Prothrombin Time 11.7 Seconds (9.0-12.0)
[2024-01-21 07:01] LABS: Albumin Globulin Ratio 1.9 (0.9-2); Albumin Level 3.9 gm/dl (3.4-5.0); BUN Creatinine Ratio 10.7 (10-20); Bilirubin,Total 0.9 mg/dl (0.2-1.0); Calcium 8.3 mg/dl (8.6-10.3); Creatinine Clr Calc Pharmacy 55.4 ml/min; Est GFR (African American) 98.5 ml/min; Globulin 2.1 gm/dl (2.5-4.0); Magnesium 1.9 mg/dl (1.7-2.4); Potassium 3.7 mmol/L (3.5-5.1)
[2024-01-21 07:16] LABS: Thyroid Stimulating Hormone 1.269 uIu/ml (0.300-4.500)
--- OUTSIDE RECORDS SUMMARY | 2024-01-21 07:46 | External Medical Summary | Continuity of Care Document ---
Author Name Unknown Organization [address] Address [address] [place] [address] [place], [place] [id number] Care Team Providers Care [facility] Technician Name Role Phone Cara Cooper Primary Care Physician [phone] Encounter [facility] [id number] Date(s): 12/22/23 - 12/22/[address] [place] [id number] [facility] [address] [place] [address] [place] [phone] Encounter Diagnosis Body mass index [BMI] 22.0-22.9, adult(Discharge Diagnosis) - 12/22/23 Recurrent falls while walking(Discharge Diagnosis) - 12/22/23 Asthma(Discharge Diagnosis) - 12/22/23 Hypertension(Discharge Diagnosis) - 12/22/23 Pain around toenail, right foot(Discharge Diagnosis) - 12/22/23 Chest pain(Discharge Diagnosis) - 12/22/23 Discharge Disposition: Home or Self Care Attending Physician: JESSICA Alas Katy Marie Referring Physician: JESSICA Alas Katy Marie Allergies, Adverse Reactions, Alerts No Known Allergies Assessment and Plan Extracted from: Title:HTN Author:JESSICA Alas Katy Marie Date:12/22/23 1.Recurrent falls while wa lking Problem isChronic Goal:maintence Data:_ Plan:use cane as needed, rise slowly 2.Asthma Problem isChronic Goal:maintence Data:_ Plan:start using inhalers again to relieve chest tightness 3.Hypertension Problem isChronic Goal:maintence Data:_ Plan:Get a new home BP cuff, discussed risk of adding on a new medication with her history of falls. Discussed the option of adding a low dose of amlodipine if BP remains elevated with home readings. Daughter and patient agree to get a new BP cuff and log home readings and return in 4 weeks with readings or sooner if needed. 4.Pain around toenail, right foot Problem isAcute Goal:resolution Data:_ Plan:needs to referral to podiatry, previously managed by them 5.Chest pain Problem isSubacute Goal:resolution Data:_EKG without acute findings. Reviewed with Dr. Vigil Plan:use inhalers regularly, discussed red flag s/s that would prompt an ER visit. Immunizations Given and Recorded Vaccine Date Status Refusal Reason influenza virus vaccine, inactivated 11/04/23 Give n influenza virus vaccine, inactivated 1 09/09/22 Gi katie influenza virus vaccine, inactivated 2 09/03/21 Gi katie influenza virus vaccine, inactivated 08/07/19 Give n influenza virus vaccine, inactivated 08/17/18 Give n influenza virus vaccine, inactivated 08/20/17 Give n influenza virus vaccine, inactivated 3 07/24/16 Gi katie influenza virus vaccine, inactivated 07/23/15 Give n influenza virus vaccine, inactivated 10/04/14 Give n influenza virus vaccine, inactivated 07/31/13 Give n influenza virus vaccine, inactivated 08/03/12 Give n tetanus/diphtheria/pertuss, acel (Tdap) 04/22/23 G iven tetanus/diphtheria/pertuss, acel (Tdap) 10/29/11 G iven tetanus/diphtheria/pertuss, acel (Tdap) 10/29/11 G iven SARS-CoV-2 mRNA (tozinameran 5y-11y) 11/18/22 Neri rded pneumococcal 23-valent vaccine 4 07/06/17 Recorded pneumococcal 23-valent vaccine 5 08/28/10 Recorded diphtheria/tetanus/pertuss, acel (DTaP) 6 06/22/17 Recorded measles/mumps/rubella/varicella vaccine 7 02/17/17 Recorded measles/mumps/rubella/varicella vaccine 8 02/17/17 Recorded pneumococcal 13-valent vaccine 9 07/24/16 Given hepatitis B adult vaccine 10/27/13 Given hepatitis B adult vaccine 10/27/13 Recorded hepatitis B adult vaccine 08/03/12 Given zoster vaccine live 02/02/12 Recorded tetanus toxoids-diphtheria, Td (Adult) 10 05/27/99 Recorded 1Result 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 immunization not given 7Result Comment: wrong record. vaccine not given 8Result Comment: wrong record. vaccine not given 9Result Comment: witnessed by Venus Paiz LPN 10Result Comment: 2019-12-19: Historical information-source unspecified Medications Advil Start: 08/05/23 16:12:00 EDT, See Instructions, uses as needed for pain Start Date: 08/05/23 Status: Ordered albuterol CFC free 90 mcg/inh MDI Start: 07/24/16 13:42:00, 1 puff, inhaled, qid, Disp# 1 each, Refills: 2, PRN: as needed for wheezing, [id number] Start Date: 07/24/16 Status: Ordered budesonide-formoterol 160 mcg-4.5 mcg/inh inhalation aerosol Start: 02/10/23 11:21:00 EDT, See Instructions, Disp# 10.2 each, Refills: 3, TAKE 2 PUFFS BY MOUTH TWICE A DAY, Pharmacy: [id number] Start Date: 02/10/23 Status: Ordered clotrimazole 1% topical cream Start: 11/04/23 9:52:00 EST, 1 appl, topical, bid Start Date: 11/04/23 Status: Ordered Combigan Start: 11/04/23 9:52:00 EST Start Date: 11/04/23 Status: Ordered levothyroxine 75 mcg (0.075 mg) oral tablet Start: 04/28/23 13:39:00 EDT, See Instructions, Disp# 90 tab, Refills: 3, TAKE 1 TABLET BY MOUTH EVERY DAY, Pharmacy: [id number] Start Date: 04/28/23 Status: Ordered lisinopril 20 mg oral tablet Start: 11/22/23 14:28:00 EST, 1 tab, PO, Daily, Disp# 30 tab, Refills: 3, [id number] Start Date: 11/22/23 Stop Date: 03/21/24 Status: Ordered Lumigan Start: 08/11/11 11:42:00, both eyes, qPM, mL Start Date: 08/11/11 Status: Ordered pantoprazole 40 mg oral delayed release tablet Start: 11/04/23 9:53:00 EST, 1 tab, PO, Daily Start Date: 11/04/23 Status: Ordered rosuvastatin 10 mg oral tablet Start: 04/28/23 13:39:00 EDT, See Instructions, Disp# 90 tab, Refills: 3, TAKE 1 TABLET BY MOUTH EVERY DAY FOR 30 DAYS, Pharmacy: [id number] Start Date: 04/28/23 Status: Ordered Problem List Condition Confirmation Course Effective Dates Status H ealth Status Informant Asthma Confirmed Active Hypothyroidism Confirmed 10/29/11 Active Back pain Confirmed Active Carotid artery syndrome 1 Confirmed Active Carotid atherosclerosis Confirmed Active Pancreatic lesion 2 Confirmed Active Disturbance, sleep Confirmed Active GERD (gastroesophageal reflux disease) Confirmed Active Glaucoma Confirmed Active Glaucoma 3, 4 Confirmed 08/16/19 Active HYPERTENSION Confirmed Active Hyponatremia Confirmed Active Cognitive deficits Confirmed Active Irregular heartbeat Confirmed Active Hyperlipidemia Confirmed 10/29/11 Active Osteopenia Confirmed Active Recurrent falls while walking Confirmed Active Thrombocytosis Confirmed Active Type 2 diabetes mellitus with hemoglobin A1c goal of less than 8.5% Confirmed Active Urinary incontinence Confirmed Active Venous stasis syndrome Confirmed Active 02/04/2023 - carotid doppler ordered by ophthalmology showing <50% stenosis. 27 mm 07/05/17 3Dgianni Lawrence 4[facility] K[facility] eye. Diagnosis Diagnosis Type Effective Dates Health Status Clinical Service Informant Recurrent falls while walking Discharge Diagnosis 12/22/23 Body mass index [BMI] 22.0-22.9, adult Discharge Diagnosis 12/22/23 Non-Specified Pain around toenail, right foot Discharge Diagnosis 12/22/23 Non-Specified Asthma Discharge Diagnosis 12/22/23 Hypertension Discharge Diagnosis 12/22/23 Non-Specified Chest pain Discharge Diagnosis 12/22/23 Non-Specified Procedures Procedure Date Related Diagnosis Body Site Status Doppler ultrasound scan of b ilateral carotid arteries 1 07/20/23 Completed Chest X-ray 2 10/22/22 Completed Upper GI (gastrointestinal) endoscopy 3, 4, 5 04/22/22 Completed MRI of abdomen 6 12/31/21 Complete d Ultrasound 7 11/12/21 Completed Mammogram 8 09/17/21 Completed Cataract Surgery 9 09/19/19 Comple geraldine Diabetic retinal eye exam 08/17/19 Completed Mammogram 10 02/03/19 Completed MRI of abdomen 11 04/20/18 Complet ed Ultrasound--abdomen 12 04/20/18 Co mpleted Barium swallow 13 12/29/17 Complet ed Mammogram 14, 15 12/16/[address] brain w/o contrast 16 10/20/17 Completed X-ray of thoracic spine 17 08/20/17 Completed MRA neck 18 07/06/17 Completed Admission to [facility] [place] 19 07/05/17 Completed Chest x-ray 20 07/05/[address] brain without contrast 21 07/05/[address] of abdomen and pelvis 22 07/05/17 Completed Echocardiogram 23 07/05/17 Complet ed MRA Brain 24 07/05/17 Completed Seen by java groovy developer 25 02/04/17 Completed Shoulder X-ray 26 01/14/17 Complet ed X-ray of cervical spine 27 01/14/17 Completed DEXA - Dual energy X-ray meir ton absorptiometry 28 09/11/16 Completed Mammogram - screening 29 12/12/15 Completed Doppler ultrasonography (US) of vein of lower limb 30 07/02/15 Completed Hand X-ray 31 02/03/15 Completed Mammogram 32 12/11/14 Completed Papanicolaou smear 33 07/13/14 Com pleted Eye examination 34 03/16/14 Comple geraldine mri of breast bilateral 35 08/23/13 Completed Colonoscopy 09/23/10 Completed Ankle reoperations [facility] unilateral left digital diag nostic mammogram and targeted left ultra sound 36 Completed 1RIGHT CAROTID: The peak systolic velocity measured within the right ICA is 53 cm/sec. The end diastolic velocity measured 17 cm/sec. The ICA to CCA ratio measured 0.9 which correlates with a stenosis of 0-50%. Moderate atherosclerotic plaque within the carotid bulb and proximal cervical segment right ICA. LEFT CAROTID: The peak systolic velocity measured within the left ICA is 57 cm/sec. The end diastolic velocity measured 15 cm/sec. The ICA to CCA ratio measured 1.0 which correlates with a stenosis of 0-50%. Moderate to severe atherosclerotic plaque within the carotid bulb and proximal cervical segment left ICA. There is normal antegrade vertebral flow bilaterally. IMPRESSION: 1. Atherosclerosis without hemodynamically significant stenosis. 2. Normal antegrade vertebral flow bilaterally. 2Impression: No acute abnormalities and in particular no evidence of pneumonia. 3Repeat in 5 years 4Zline regular, 36 cm from the incisors. 1cm hiatal hernia. Two gastric polyps- resected and retrieved. Normal examined duodenum. 5Pathology results: Stomach, polyps, polypectomy: Hyperplastic polyp, negative for dysplasia and malignancy 6Stable pancreatic tail cyst. Pancreas divisum is seen. 71) No gallstones or biliary ductal dilation 2) Nonvisualization of the previously described small pancreatic tail cystic lesion d/t technigque.Partially obscured pancreas. 3) No hydronephrosis. 8IMPRESSION: ACR BI-RADS CATEGORY 2: BENIGN, ULTRASOUND ACR BI-RADS CATEGORY 2: BENIGN 1. Stable bilateral mammograms, without mammographic evidence of malignancy. 2. No new suspicious mammographic or sonographic findings, focal ductal dilation or intraductal mass identified to explain the patient's bilateral nonspontaneous nipple discharge with squeezing. Continued clinical follow-up is therefore recommended. Also recommend routine screening mammography in 1year (September 2022). 9Left Eye cataract surgery 10ACR BI RADS CAT 2 BENIGN: There is no mammographic evidence of malignancy . 1 year screen recommended 11Stable 7mm cystic density the pancreatic tail. 12Stable 7mm cystic density the pancreatic tail. 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 A repeat 12-18 months MRI study is again suggested. 13mild esophageal dysmotility. Otherwise, normal barium swallow 14there is no mammographic evidence of malignancy. A 1 year screening mammogram is recommended 15No malignancy. repeat 1 year 16Senescent changes with no hemorrhage, mass effect or evidence of acute territorial achemi by CT criteria 17Impression: 1. No acute bony abnormality is seen involving the thoracic spine. 2. Osteopenia with deggenerative change and hyperkyphosis as above. 18no significant stenosis, aneurysm or focal vessel occlusion 19from [place] to [facility] for eval then admitted. Pt felt stroke like sx. 20no significant changed compared to the prior study. 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 Colonic diverticulosis. A 7 mm cystic lesion within the tail of the pancreas. 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 a 1 year pacreatic MRI can be performed to ensure stability 23left ventricular function is normal No regional wall motion abnormalities 24Unremarkable MRA of brain 25Recent neurologic symptoms which resolved within 24-30 hours, most likely due to ministroke, which I discussed with the patient 26No fractures or dislocations are visualized. No destructive lesions are evident. 271. Moderate multilevel degenerative disc disease and facet arthrosis, most pronounced at C4-C5 2. No cervical spine fracture 28ap spine/wnl dual/femur / osteopenia 29WNL-1 yr 30No evidence of deep venous thrombus within the left lower extremity. 31No acute bony abnormality. Mild to moderate degenerative change. 32wnl/repeat 1 yr 33Neg for intraepithelial lesion or malignancy 34No diabetic retinopathy. 35see scanned report 36The oval asymmetry in the left breast persists on mammography, but there is no sonographic correlate. It is intermediate. Given the concurrent nipple discharge, an MRI is recommended. Clinical followup is advised for the left areola pruritis. Patient has been notified of the results Vital Signs Most recent to oldest [Reference Range]: 1 Height 155.2 cm (12/22/23 8:40 AM) Patient Weight 53.6 kg (12/22/23 8:40 AM) Body Mass Index 22.25 kg/m2 (12/22/23 8:40 AM) Temperature [36.5-37.9 DegC] 36.5 DegC (12/22/23 8:40 AM) Heart Rate 78 bpm (12/22/23 8:40 AM) Respiratory Rate 16 br/min (12/22/23 8:40 AM) Blood Pressure 138/88mmHg (12/22/23 8:40 AM) Social History Social History Type Response Smoking Status Never smoked cigaret [place] Sex Female Cardiology * Contributor_system, [id number]: VERIFY, PERFORM Event Display: EKG Authored Date: Please click on link to see image. FCM Outpt Note * JESSICA Alas Katy Marie: PERFORM Event Display: FCM Outpt Note Authored Date: [id number] Chief Complaint follow up on medication for bp History of Present Illness Bryanna is an 83 year old female who presents for re-evaluation of blood pressure. At home she reports that her readings have been significantly elevated. Gets home PT and they were concerned. My manual reading is156/88 and her home BP monitor is reading 166/102. concern for cuff reliability. Is compliant with her lisinopril No recent falls, no dizziness or headaches, no vision changes Reports daily chest pain and tightness, does not change or radiate, hx of asthma and has not been using her inhalers Review of Systems A total of 10 systems were reviewed. Pertinent positive and negatives addressed in HPI, all other findings are negative. Physical Exam Vitals & Measurements T:36.5C HR:78(Monitored) RR:16 BP:138/88 SpO2:98% HT:155.2cm WT:53.600kg(Dosing) WT:53.6kg BMI:22.25 Constitutional: Alert and oriented, No acute distress, Well-appearing, Normal mood and affect Respiratory: Lung sounds are clear, equal chest rise and fall with breathing, no pursed lip breathing Cardiovascular: Heart sounds regular rate and rhythm, without gallop or murmur, no edema HEENT: Normocephalic, atraumatic, conjunctiva are clear, sclera non-icteric, EOM intact, Ear canalsclear, TM pearly vo and mobile, hearing intact, Mucous membranes are moist, No tonsillar exudate,neck is supple without lymphadenopathy, thyroid is mobile without palpable masses Neurological: CN 2-12 grossly intact, sensation intact Skin: Warm, pink, dry, intact Assessment/Plan 1.Recurrent falls while walking Problem isChronic Goal:maintence Data:_ Plan:use cane as needed, rise slowly 2.Asthma Problem isChronic Goal:maintence Data:_ Plan:start using inhalers again to relieve chest tightness 3.Hypertension Problem isChronic Goal:maintence Data:_ Plan:Get a new home BP cuff, discussed risk of adding on a new medication with her history of falls. Discussed the option of adding a low dose of amlodipine if BP remains elevated with home readings. Daughter and patient agree to get a new BP cuff and log home readings and return in 4 weeks with readings or sooner if needed. 4.Pain around toenail, right foot Problem isAcute Goal:resolution Data:_ Plan:needs to referral to podiatry, previously managed by them 5.Chest pain Problem isSubacute Goal:resolution Data:_EKG without acute findings. Reviewed with Dr. Vigil Plan:use inhalers regularly, discussed red flag s/s that would prompt an ER visit. Problem List/Past Medical History Ongoing Asthma Back pain Carotid artery syndrome Carotid atherosclerosis Cognitive deficits Disturbance, sleep Gait disturbance Genital herpes GERD (gastroesophageal reflux disease) Glaucoma Glaucoma Hyperlipidemia HYPERTENSION Hyponatremia Hypothyroidism Irregular heartbeat Osteopenia Pancreatic lesion Recurrent falls while walking Thrombocytosis Type 2 diabetes mellitus with hemoglobin A1c goal of less than 8.5% Urinary incontinence Venous stasis syndrome Vitamin D insufficiency Weight disorder Historical Ankle fracture, left DM (diabetes mellitus), type 2 Laceration of fifth finger, right Mid back pain on left side Rash ROUTINE GENERAL MEDICAL EXAMINATION AT A HEALTH CARE FACILITY SHINGLES Procedure/Surgical History Doppler ultrasound scan of bilateral carotid arteries (07/20/2023)Chest X- ray (10/22/2022)Upper GI (gastrointestinal) endoscopy (04/22/2022)MRI of abdomen (12/31/2021)Ultrasound (11/12/2021)Mammogram (09/17/2021)Cataract Surgery (09/19/2019)Diabetic retinal eye exam (08/17/2019)Mammogram (02/03/2019)Ultrasound--abdomen (04/20/2018)MRI of abdomen (04/20/2018)Barium swallow (12/29/2017)Mammogram (12/16/2017)CT brain w/o contrast (10/20/2017)X-ray of thoracic spine (08/20/2017)MRA neck (07/06/2017)Echocardiogram (07/05/2017)MRA Brain (07/05/2017)CT of abdomen and pelvis (07/05/2017)CT brain without contrast (07/05/2017)Chest x-ray (07/05/2017)Admission to [facility] [place] (07/05/2017)Seen by java groovy developer (02/04/2017)X-ray of cervical spine (01/14/2017)Shoulder X-ray (01/14/2017)DEXA - Dual energy X-ray photon absorptiometry (09/11/2016)Mammogram - screening (12/12/2015)Doppler ultrasonography (US) ofvein of lower limb (07/02/2015)Hand X-ray (02/03/2015)Mammogram (12/11/2014)Papanicolaou smear (07/13/2014)Eye examination (03/16/2014)mri of breast bilateral (08/23/2013)Colonoscopy (09/23/2010)unilateral left digital diagnostic mammogram and targeted left ultra soundAnkle reoperations Medications albuterol(albuterol CFC free 90 mcg/inh MDI), 90 mcg= 1 puff, inhaled, qid, PRN, 2 refills bimatoprost ophthalmic(Lumigan), both eyes, qPM brimonidine-timolol ophthalmic(Combigan) budesonide-formoterol(budesonide-formoterol 160 mcg-4.5 mcg/inh inhalation aerosol), See Instructions clotrimazole topical(clotrimazole 1% topical cream), 1 appl, topical, bid ibuprofen(Advil), See Instructions levothyroxine(levothyroxine 75 mcg (0.075 mg) oral tablet), See Instructions, 3 refills lisinopril(lisinopril 20 mg oral tablet), 20 mg= 1 tab, PO, Daily, 3 refills pantoprazole(pantoprazole 40 mg oral delayed release tablet), 40 mg= 1 tab, PO, Daily rosuvastatin(rosuvastatin 10 mg oral tablet), See Instructions, 3 refills Allergies NKA Social History Smoking Status Never smoked cigarettes Alcohol - Denies Alcohol Use Employment/School Status:Retired Description:use to work at [employer] Exercise - Regular exercise Home/Environment - Comments: Oldest daughter in [place] - helps mom in managing her health problems - Dominguez Desouza - [phone] Substance Abuse - Denies Substance Abuse Tobacco - Denies Tobacco Use Family History Asthma: Unknown. Diabetes mellitus type 2: Mother and Father. Heart Failure: Father. Heart attack: Mother and Father. Hypertension: Mother and Father. Stroke: Unknown. Health Status Family Member(s) Family Member(s) Relationship: Mother, Age: 82 Years, Cause: HEART ATTACK Immunizations Vaccine Date Status influenza virus vaccine, inactivated 11/04/2023 Given tetanus/diphtheria/pertuss, acel (Tdap) 04/22/2023 Given SARS-CoV-2 mRNA (tozinameran 5y-11y) 11/18/2022 Recorded influenza virus vaccine, inactivated 09/09/2022 Given Comments : Irena hill CMA influenza virus vaccine, inactivated 2021 Given Comments : constantine hill ma influenza virus vaccine, inactivated 08/07/2019 Given influenza virus vaccine, inactivated 08/17/2018 Given influenza virus vaccine, inactivated 08/20/2017 Given pneumococcal 23-valent vaccine 07/06/2017 Recorded Comments : 2019-12-19: Historical information-source unspecified influenza virus vaccine, inactivated 07/24/2016 Given Comments : ex: 04/18/2017 pneumococcal 13-valent vaccine 07/24/2016 Given Comments : witnessed by Venus Paiz LPN influenza virus vaccine, inactivated 07/23/2015 Given influenza virus vaccine, inactivated 10/04/2014 Given hepatitis B adult vaccine 10/27/2013 Given hepatitis B adult vaccine 10/27/2013 Recorded influenza virus vaccine, inactivated 07/31/2013 Given hepatitis B adult vaccine 08/03/2012 Given influenza virus vaccine, inactivated 08/03/2012 Given zoster vaccine live 02/02/2012 Recorded tetanus/diphtheria/pertuss, acel (Tdap) 10/29/2011 Given tetanus/diphtheria/pertuss, acel (Tdap) 10/29/2011 Given pneumococcal 23-valent vaccine 08/28/2010 Recorded Comments : 2019-12-19: Historical information-source unspecified tetanus toxoids-diphtheria, Td (Adult) 05/27/1999 Recorded Comments : 2019-12-19: Historical information-source unspecified Recommendations Health Maintenance Pending(in the next year) OverDue Diabetic Eye Exam due08/31/21and every 366day Falls Plan of Care due09/09/23and every 1year Medicare Annual Wellness Visit due09/09/23and every 1year Due Adult COVID-19 Vaccination due12/22/23Unknown Frequency Adult Social Determinants of Health Screening due12/22/23Unknown Frequency Shingles Vaccine due12/22/23One-time only Due In Future Adult Influenza Vaccine not due until05/14/24and every 1year Diabetes Management A1c not due until10/26/24and every 366day Satisfied(in the past 1 year) Satisfied Adult Influenza Vaccine on11/04/23.Satisfied by JAMAL Wang Paula Adult Tdap/Td Vaccine on04/22/23.Satisfied by JAMAL Wang Paula Body Mass Index on12/22/23.Satisfied by ERMA Garcia Angela Breast Cancer Screening on01/20/23.Satisfied by ERMA Jasmine Kiara Diabetes Management A1c on10/26/23.Satisfied by Contributor_system, [id number] Electronic Signature on File CC: Josi Carrasco, DO [address] [facility] [address] [facility] [address] Electronically Reviewed/Signed by: JESSICA Winters Author Signature Dt/Tm:12/22/2023 09:58 AM Department of Family Medicine [facility] Patient Care team information Care Team Personnel Name: MD Kenneth, Cara Position: Physician - Family Med Member Role: Primary Care Provider Address: Address: [address] [place] [address] [address] [place] [address] [place] Care Team Related Persons Name: DOMINGUEZ DESOUZA Address: home Unknown [place], [place] [id number] Name: DOMINGUEZ DESOUZA Name: BERNICE DEL ROSARIO Address: [place] Address: home [address] [facility] [address] [place] [phone]
--- OUTSIDE RECORDS SUMMARY | 2024-01-21 07:47 | External Medical Summary | Continuity of Care Document ---
Author Name Unknown Organization [facility] [address] Address [address] [place] [place], [place] [id number] Care Team Providers Care Teller Coordinator Name Role Phone Cara Cooper Primary Care Physician [phone] [id number] Date(s): 10/26/23 - 10/26/23 [facility] [address] [facility] [address] [facility] 1 [place], [place] [phone] Encounter Diagnosis Type 2 diabetes mellitus without complications(Final) - Discharge Disposition: Home or Self Care Attending Physician: MD Cooper Madhavi Referring Physician: MD Cooper Madhavi Allergies, Adverse Reactions, Alerts No Known Allergies Immunizations Given and Recorded Vaccine Date Status Refusal Reason tetanus/diphtheria/pertuss, acel (Tdap) 04/22/23 G iven tetanus/diphtheria/pertuss, acel (Tdap) 10/29/11 G iven tetanus/diphtheria/pertuss, acel (Tdap) 10/29/11 G iven SARS-CoV-2 mRNA (tozinameran 5y-11y) 11/18/22 Neri rded influenza virus vaccine, inactivated 1 09/09/22 Gi [...] influenza virus vaccine, inactivated 08/03/12 Give n pneumococcal 23-valent vaccine 4 07/06/17 Recorded pneumococcal [...] 10 05/27/99 Recorded 1Result Comment: Irena hill CMA 2Result Comment: constantine hill ma 3Result Comment: [...] 2, PRN: as needed for wheezing, Pharmacy: [facility]/pharmacy #[id number] Start Date: 07/24/16 Status: Ordered budesonide-formoterol 160 mcg-4.5 mcg/inh inhalation aerosol Start: 02/10/23 11:21:00 EDT, See Instructions, Disp# 10.2 each, Refills: 3, TAKE 2 PUFFS BY MOUTH TWICE A DAY, Pharmacy: [facility] STORE [id number] Start Date: 02/10/23 Status: Ordered levothyroxine 75 mcg (0.075 mg) oral tablet Start: 04/28/23 13:39:00 EDT, See Instructions, Disp# 90 tab, Refills: 3, TAKE 1 TABLET BY MOUTH EVERY DAY, Pharmacy: [facility]/pharmacy #[id number] Start Date: 04/28/23 Status: Ordered lisinopril 5 mg oral tablet Start: 04/28/23 13:39:00 EDT, See Instructions, Disp# 90 tab, Refills: 3, TAKE 1 TABLET BY MOUTH EVERY DAY FOR 30 DAYS, Pharmacy: [facility]/pharmacy #[id number] Start Date: 04/28/23 Status: Ordered Lumigan Start: 08/11/11 11:42:00, both eyes, qPM, mL Start Date: 08/11/11 Status: Ordered rosuvastatin 10 mg oral tablet Start: 04/28/23 13:39:00 EDT, See Instructions, Disp# 90 tab, Refills: 3, TAKE 1 TABLET BY MOUTH EVERY DAY FOR 30 DAYS, Pharmacy: [facility] #[id number] Start Date: 04/28/23 Status: Ordered Problem List Condition Confirmation Course Effective Dates Status H ealth Status Informant Asthma Confirmed Active Hypothyroidism Confirmed 10/29/11 Active Back pain Confirmed Active Carotid artery syndrome 1 Confirmed Active Pancreatic lesion 2 Confirmed Active Disturbance, sleep Confirmed Active GERD (gastroesophageal reflux disease) Confirmed Active Glaucoma Confirmed Active Glaucoma 3, 4 Confirmed 08/16/19 Active HYPERTENSION Confirmed Active Hyponatremia Confirmed Active Cognitive deficits Confirmed Active Irregular heartbeat Confirmed Active Hyperlipidemia Confirmed 10/29/11 Active Osteopenia Confirmed Active Type 2 diabetes mellitus with hemoglobin A1c goal of less than 8.5% Confirmed Active Urinary incontinence Confirmed Active Venous stasis syndrome Confirmed Active 02/04/2023 - carotid doppler ordered by ophthalmology showing <50% stenosis. 27 mm 07/05/17 3Dr. Melinda 4[facility]. Procedures Procedure Date Related Diagnosis Body Site [...] MRA neck 18 07/06/17 Completed Admission to [facility] 19 07/05/17 Completed Chest x-ray 20 07/05/[address] brain without contrast 21 07/05/[address] of abdomen and pelvis 22 07/05/17 Completed Echocardiogram 23 07/05/17 Complet ed MRA Brain 24 07/05/17 Completed Seen by home care nurse 25 02/04/17 Completed Shoulder X-ray 26 01/14/17 [...] 08/23/13 Completed Colonoscopy 09/23/10 Completed Ankle reoperations Comple geraldine unilateral left digital diag nostic mammogram and [...] or focal vessel occlusion 19from [place] to [facility] for eval then admitted. Pt felt stroke [...] Patient has been notified of the results Results Laboratory List Name Date Hemoglobin A1C (HEMOGLOBIN, A1C) 3 Most recent to oldest [Reference Range]: 1 Estimated Average Glucose 146 mg/dL 1 (10/26/23 2:05 PM) HbA1c [4.0-6.0 %] 6.7 % *HI* (10/26/23 2:05 PM) 1Result Comment: Testing Performed By: Dept of Pathology [facility] [address], [address], [place] [address] Social History Social History Type Response Smoking Status Never smoked cigaret garrison Sex Female Patient Care team information Care Team Personnel Name: MD Kenneth, Cara Position: Physician - Family Med Member Role: Primary Care Provider Address: Address: [facility] [facility] [address] [place] [address] [place] Care Team Related Persons Name: DOMINGUEZ DESOUZA Address: home Unknown [place], [place] [id number] Name: DOMINGUEZ DESOUZA Name: BERNICE DEL ROSARIO Address: [place] Address: home [address] [place], [place] [id number]
--- OUTSIDE RECORDS SUMMARY | 2024-01-21 07:47 | External Medical Summary | Continuity of Care Document ---
Author Name Unknown Organization [facility] [address] [facility] [address] [place] [phone] Care Team Providers Care Electronic Sales And Service Technician Name Role Phone Diane Hastings Primary Care Physician [phone] [facility] [id number] Date(s): 08/05/23 - 08/05/23 [facility] [address] [facility] 207 [facility] [address] [facility], [facility] 207 [place] [address] [place] [phone] Discharge Disposition: Home or Self Care Attending Physician: ADELINA Cortes, Shraddha Lockwood Allergies, Adverse Reactions, Alerts No Known Allergies Immunizations Given and Recorded Vaccine Date Status Refusal Reason tetanus/diphtheria/pertuss, acel (Tdap) 04/22/23 G iven tetanus/diphtheria/pertuss, acel (Tdap) 10/29/11 G iven tetanus/diphtheria/pertuss, acel (Tdap) 10/29/11 G iven SARS-CoV-2 mRNA (tohumzanameran 5y-11y) 11/18/22 Neri rded influenza virus vaccine, [...] 2, PRN: as needed for wheezing, [facility]: [id number] Start Date: 07/24/16 Status: Ordered budesonide-formoterol 160 mcg-4.5 mcg/inh inhalation aerosol Start: 02/10/23 11:21:00 EDT, See Instructions, Disp# 10.2 each, Refills: 3, TAKE 2 PUFFS BY MOUTH TWICE A DAY, Pharmacy: [id number] Start Date: 02/10/23 Status: Ordered levothyroxine 75 mcg (0.075 mg) oral tablet Start: 04/28/23 13:39:00 EDT, See Instructions, Disp# 90 tab, Refills: 3, TAKE 1 TABLET BY MOUTH EVERY DAY, [facility]: [id number] Start Date: 04/28/23 Status: Ordered lisinopril 5 mg oral tablet Start: 04/28/23 13:39:00 EDT, See Instructions, Disp# 90 tab, Refills: 3, TAKE 1 TABLET BY MOUTH EVERY DAY FOR 30 DAYS, Pharmacy: [id number] Start Date: 04/28/23 Status: Ordered Lumigan Start: 08/11/11 11:42:00, both eyes, qPM, mL Start Date: 08/11/11 Status: Ordered rosuvastatin 10 mg oral tablet Start: 04/28/23 13:39:00 EDT, See Instructions, Disp# 90 tab, Refills: 3, TAKE 1 TABLET BY MOUTH EVERY DAY FOR 30 DAYS, Pharmacy: [id number] Start Date: 04/28/23 Status: Ordered Problem [...] ophthalmology showing <50% stenosis. 27 mm 07/05/17 3DrObed Lawrence 4[facility]. Procedures Procedure Date [...] Complete d CT brain w/o contrast 16 12/6/17 Completed X-ray of thoracic spine 17 08/20/17 Completed MRA neck 18 07/06/17 [facility] 07/05/17 Completed Chest x-ray 20 07/05/[address] brain without contrast 21 07/05/[address] of abdomen and pelvis 22 07/05/17 Completed Echocardiogram 23 07/05/17 Complet ed MRA Brain 24 07/05/17 Completed Seen by county administrator 25 02/04/17 Completed Shoulder X-ray 26 01/14/17 [...] focal vessel occlusion 19from [place] to [facility] for eval then admitted. Pt felt [...] Patient has been notified of the results Social History Social History Type Response Smoking Status Never smoked cigaret garrison Sex Female Patient Care team information Care Team Personnel Name: JESSICA Hastings Susan M Position: Provider - Terminated Member Role: Primary Care Provider Address: Address: [address] [facility] [address] [place] [address] Care Team Related Persons Name: DOMINGUEZ DESOUZA Address: home Unknown [place], [place] [id number] Name: DOMINGUEZ DESOUZA Name: BERNICE DEL ROSARIO Address: [place] Address: home [address] [place], [place] [id number]
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
--- OUTSIDE RECORDS SUMMARY | 2024-01-21 07:47 | External Medical Summary | Continuity of Care Document ---
Author Name Unknown Organization [address] Address [address] [place], [place] [id number] Care Team Providers Care Data Abstractor Name Role Phone Diane Hastings Primary Care Physician [phone] Encounter [facility] [id number] Date(s): 08/05/23 - 08/05/23 [address] [address] [phone] Encounter Diagnosis Fall at home(Discharge Diagnosis) - 08/05/23 Carotid artery syndrome(Discharge Diagnosis) - 08/05/23 Discharge Disposition: Home or Self Care Attending Physician: JESSICA Santana Tara Allergies, Adverse Reactions, Alerts No Known Allergies Assessment and Plan Extracted from: Title:follow up Author:JESSICA Santana Tara Date: 1.Fall at home Acute/Chronic: acute Goal:Resolution/ control Status:ongoing Data: records/pt report Plan:Prior to patient's appointment she states that she fell in the bathtub. Shereports that she fell backwards and did hit her head. She is havingheadache, dizzinessand some nausea. We did callher daughterand my recommendation was thatshe was taken to the emergency room for evaluationas she most likely needs imaging of the head and also imaging of the neck and the shoulders. Daughter was in agreement. The patient and the sister are going to meet the daughter at home and then they will take her to the emergency room. 2.Carotid artery syndrome Acute/Chronic: chronic Goal:Resolution/ control Status:stable/controlled Data: records/pt report Plan: Patient's carotid ultrasound did show atherosclerosis however it did not showany stenosis. Follow with Dr. Cooper in Oct. time spent reviewing chart, face to face visit, ordersand documentation: 32 min Immunizations Given and Recorded Vaccine Date Status Refusal Reason tetanus/diphtheria/pertuss, acel (Tdap) 04/22/23 G iven tetanus/diphtheria/pertuss, acel (Tdap) 10/29/11 G iven tetanus/diphtheria/pertuss, acel (Tdap) 10/29/11 G iven SARS-CoV-2 mRNA (onin 5y-11y) 11/18/22 Neri rded influenza virus vaccine, [...] 2, PRN: as needed for wheezing, Pharmacy: [id number] Start Date: 07/24/16 Status: Ordered budesonide-formoterol 160 mcg-4.5 mcg/inh inhalation aerosol Start: 02/10/23 11:21:00 EDT, See Instructions, Disp# 10.2 each, Refills: 3, TAKE 2 PUFFS BY MOUTH TWICE A DAY, Pharmacy: [facility] ST[id number] Start Date: 02/10/23 Status: Ordered levothyroxine 75 mcg (0.075 mg) oral tablet Start: 04/28/23 13:39:00 EDT, See Instructions, Disp# 90 tab, Refills: 3, TAKE 1 TABLET BY MOUTH EVERY DAY, Pharmacy: [id number] Start Date: 04/28/23 Status: Ordered lisinopril 5 mg oral tablet Start: 04/28/23 13:39:00 EDT, See Instructions, Disp# 90 tab, Refills: 3, TAKE 1 TABLET BY MOUTH EVERY DAY FOR 30 DAYS, Pharmacy: [id number] Start Date: 04/28/23 Status: Ordered Lumigan Start: 08/11/11 11:42:00, both eyes, qPM, mL Start Date: 08/11/11 Status: Ordered rosuvastatin 10 mg oral tablet Start: 04/28/23 13:39:00 EDT, See Instructions, Disp# 90 tab, Refills: 3, TAKE 1 TABLET BY MOUTH EVERY DAY FOR 30 DAYS, Pharmacy: [id number] Start Date: 04/28/23 Status: Ordered Mental Status 08/05/23 Barriers to Learning one year Cognitive deficit, Cultural barrier Mandatory Health Literacy Documentation Yes Health Literacy Communication Barriers N ever Primary Language Yemeni Problem List Condition Confirmation Course Effective Dates [...] stenosis. 27 mm 07/05/17 3DrObed Lawrence 4Advanced Boby King eye. Diagnosis Diagnosis Type Effective Dates Health Status Cl inical Service Informant Carotid artery syndrome Discharge Diagnosis 08/05/23 Fall at home Discharge Diagnosis 08/05/23 Procedures Procedure Date Related Diagnosis Body Site [...] MRA neck 18 07/06/17 Completed Admission to [facility] [place] [place] 19 07/05/17 Completed Chest x-ray 20 07/05/[address] brain without contrast 21 07/05/[address] of abdomen and pelvis 22 07/05/17 Completed Echocardiogram 23 07/05/17 Complet ed MRA Brain 24 07/05/17 Completed Seen by counseling center director 25 02/04/17 Completed Shoulder X-ray 26 01/14/17 [...] or focal vessel occlusion 19from [place] to [facility] for eval then admitted. Pt felt [...] recent to oldest [Reference Range]: 1 Height 154.6 cm (08/05/23 4:13 PM) Patient Weight 54 kg (08/05/23 4:13 PM) Body Mass Index 22.59 kg/m2 (08/05/23 4:13 PM) Heart Rate 81 bpm (08/05/23 4:13 PM) Respiratory Rate 18 br/min (08/05/23 4:13 PM) Blood Pressure 146/88mmHg (08/05/23 4:13 PM) Cuff Pulse Pressure 58 mmHg (08/05/23 4:13 PM) Social History Social History Type Response Smoking Status Never smoked cigaret garrison Sex Female [facility] Outpt Note * JESSICA Santana Tara: PERFORM Event Display: [facility] Outpt Note Authored Date: Chief Complaint routine follow up. fell in tub today and hit head. having head and shoulder pain from fall- advil helped some with the pain History of Present Illness Patient was brought in today by her sister. At first it was unclear what the appointment was for so we calledthe daughterwho stated thatit was to go overan ultrasound that her eye doctor hadorderedand the results should have been forwarded. After some searching we found the ultrasoundof the carotids. It showed atherosclerosis but did not show anystenosis. Patient alsohad noted thatprior to coming into the office that she did fallin the tub. She fell backwards and did hit her head. She was reporting a headache, dizzinessand some nausea. She also states that she was having some pain in her neck and her shoulders. Review of Systems Constitutional: No fever, chills, sweats EENT:No vision change, eye pain, rhinorrhea, sinus pain, epistaxis, dysphagia, change in hearing,tinnitus, vertigo, oral ulcers or lesions. Pulmonary: No shortness of breath, dyspnea with exertion, cough, hemoptysis, wheezing, chest pain. Cardiovascular: No chest pain, palpitations, syncope, edema, cyanosis, claudication, orthopnea.. Musculoskeletal: No joint swelling or pain, muscle pain.+neck pain Neurologic: No headache, lightheadedness. +dizziness Physical Exam Vitals & Measurements HR:81(Monitored) RR:18 BP:146/88 SpO2:97% HT:154.6cm WT:54.000kg(Dosing) WT:54kg BMI:22.59 head- normocephalic eyes- PERRLA , conjunctiva clear, sclera white, anicteric, neck-no lymphadenopathy, masses, or thyromegaly, +carotid pulses, no bruits, trachea midline Pulmonary- chest expansion symmetric, CTA (clear to auscultation), eupnea, no adventitious sounds (rales, crackles, wheezes) CV (cardiovascular)- RRR no m/r/g (systolic ejection murmur, rubs, gallops), good peripheral perfusion extremitiesNo edema or erythema. skin-good turgor w/o lesions, redness, cyanosis, edema. No abrasions, lacerationsbruising or swelling notedon back of skull. nails- no clubbing or deformities w good cap refill Neuro:Alert, Oriented, Cranial Nerves II-XII intact, Psy:no homicidal or suicidal ideations. Assessment/Plan 1.Fall at home Acute/Chronic: acute Goal:Resolution/ control Status:ongoing Data: records/pt report Plan:Prior to patient's appointment she states that she fell in the bathtub. Shereports that she fell backwards and did hit her head. She is havingheadache, dizzinessand some nausea. Cathy debora daughterand my recommendation was thatshe was taken to the emergency room for evaluationas she most likely needs imaging of the head and also imaging of the neck and the shoulders. Daughter was in agreement. The patient and the sister are going to meet the daughter at home and then they will take her to the emergency room. 2.Carotid artery syndrome Acute/Chronic: chronic Goal:Resolution/ control Status:stable/controlled Data: records/pt report Plan:Patient's carotid ultrasound did show atherosclerosis however it did not showany stenosis. Follow with Dr. Cooper in Oct. time spent reviewing chart, face to face visit, ordersand documentation: 32 min Problem List/Past Medical History Ongoing Asthma Back pain Carotid artery syndrome Cognitive deficits Disturbance, sleep Gait disturbance Genital herpes GERD (gastroesophageal reflux disease) Glaucoma Glaucoma Hyperlipidemia HYPERTENSION Hyponatremia Hypothyroidism Irregular heartbeat Osteopenia Pancreatic lesion Type 2 diabetes mellitus with hemoglobin A1c [...] brain without contrast (07/05/2017)Chest x-ray (07/05/2017)Admission to [facility] [place] [place] (07/05/2017)Seen by counseling center director (02/04/2017)X-ray of cervical spine (01/14/2017)Shoulder X-ray (01/14/2017)DEXA [...] 2 refills bimatoprost ophthalmic(Lumigan), both eyes, qPM budesonide-formoterol(budesonide-formoterol 160 mcg-4.5 mcg/inh inhalation aerosol), See Instructions ibuprofen(Advil), See Instructions levothyroxine(levothyroxine 75 mcg (0.075 mg) oral tablet), See Instructions, 3 refills lisinopril(lisinopril 5 mg oral tablet), See Instructions, 3 refills rosuvastatin(rosuvastatin 10 mg oral tablet), See Instructions, 3 refills Allergies NKA Social History Smoking Status Never smoked cigarettes Alcohol - Denies Alcohol Use 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 Diabetes mellitus type 2: Mother and Father. Heart Failure: Father. Heart attack: Mother and Father. Hypertension: Mother and Father. Stroke: Unknown. Health Status Family Member(s) Family Member(s) Relationship: Mother, Age: 82 Years, Cause: HEART ATTACK Immunizations Vaccine Date Status tetanus/diphtheria/pertuss, acel (Tdap) 04/22/2023 Given SARS-CoV-2 mRNA (tohumzanameran 5y-11y) 11/18/2022 Recorded influenza virus vaccine, inactivated [...] the next year) OverDue Diabetic Eye Exam due08/30/21and every 1year Adult Influenza Vaccine due05/15/23and every 1year Due Adult COVID-19 Vaccination due08/05/23Unknown Frequency Shingles Vaccine due08/05/23One-time only Due In Future Falls Plan of Care not due until09/09/23and every 1year Medicare Annual Wellness Visit not due until09/09/23and every 1year Diabetes Management A1c not due until04/12/24and every 1year Body Mass Index not due until08/04/24and every 1year Satisfied(in the past 1 year) Satisfied Adult Influenza Vaccine on09/09/22.Satisfied by ERMA Garcia Angela Adult Tdap/Td Vaccine on04/22/23.Satisfied by JAMAL Wang Paula Body Mass Index on08/05/23.Satisfied by ERMA Schmidt Bobbi Breast Cancer Screening on01/20/23.Satisfied by ERMA Jasmine Kiara Diabetes Management A1c on04/13/23.Satisfied by Contributor_system, [id number] Medicare Annual Wellness Visit on09/09/22.Satisfied by SYSTEM Osteoporosis Screening on12/18/22.Satisfied by JAMAL Stein Courtney Electronic Signature on File Electronically Reviewed/Signed by: JESSICA De Leon Author Signature Dt/Tm:08/05/2023 08:01 PM Department of Family Medicine TB Patient Care team information Care Team Personnel Name: JESSICA Hastings Susan M Position: Provider - Terminated Member Role: Primary Care Provider Address: Address: [address] [facility] [address] [address] [place] [address] [place] Care Team Related Persons Name: DOMINGUEZ DESOUZA Address: home Unknown [place], [place] [id number] Name: DOMINGUEZ DESOUZA Name: BERNICE DEL ROSARIO Address: [place] Address: home [address] [place], [place] [id number]
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
[2024-01-21 07:54] LABS: Basophils # (auto) 0.05 K/uL (0.00-0.20); Basophils % (auto) 0.7 %; Eosinophils # (auto) 0.26 K/uL (0.00-0.50); Eosinophils % (auto) 3.6 %; Hematocrit (blood only) 34.5 % (37.0-47.0); Immature Granulocytes # (auto) 0.03 K/uL (0.01-0.20); Immature Granulocytes % (auto) 0.4 %; Lymphocytes # (auto) 1.15 K/uL (1.20-3.40); Lymphocytes % (auto) 15.7 %; Mean Corpuscular Hemoglobin 30.7 pg (25.0-34.0); Mean Corpuscular Hgb Conc 34.8 g/dL (32.0-36.0); Mean Corpuscular Volume 88.2 fL (80.0-100.0); Mean Platelet Volume 9.2 fL (9.4-12.4); Monocytes % (auto) 6.8 %; Neutrophils # (auto) 5.32 K/uL (1.40-6.50); Neutrophils % (auto) 72.8 %; Platelet Count 323 K/uL (130-400); RDW Coefficient of Variation 12.2 % (11.5-14.5); RDW Standard Deviation 39.5 fL (36.4-46.3); Red Blood Count 3.91 M/uL (4.20-5.40); White Blood Count 7.31 K/ul (4.8-10.8)
--- NOTE | 2024-01-21 08:01 | Hospitalist Progress Note ---
Date of Service January 21, 2024 Assessment & Plan (1) Hip fracture, left: Plan: Acute fracture left hip/impacted subcapital femur fracture. Mechanical reported stretching across bed to get TV remote and bedsheet slpped and she fell to ground between night stand and bed with resultant left hip pain Xray with Impacted subcapital fracture of the left femur. Orthopedics consulted. N.p.o. this morning in event for possible surgery IVF D5NS + 20meq KCL while NPO Pain control, antiemetics prn, added PO oxycodone WBC normalized on repeat CXR w/o acute process, UA did not appear infected EKG w/ non-specific T wave abn in inferior/lateral leads--> K was low on admission, repleted on AM labs. Troponin NOT elevated on high sensitivity testing. Will repeat EKG for this morning/monitoring on telemetry Repeat EKG obtained, reviewed by supervising provider and stable. No further CP Discussed w Dr Valentine and waiting to hear back about surgery --> notified this afternoon Dr Hale will plan for surgery in AM and NPO cancelled/diet ordered and will hold further IVF and resume at midnight Asked about 1x dose of lovenox for overnight -- orthopedics wanting to hold off for now as surgery likely being <18hrs away. SCDs ordered for now Labs in AM Will need PT/OT evals eventually 2. Left head contusion status post fall. CT head negative for acute process Mild headache/soreness, controlled with tylenol. Not confused Continued to monitor 3. History of hypertension continue home medications. Lisinopril continued, will hold post-operatively 4. History of hypothyroidism continue home medications check level TSH in the morning. TSH wnl, continues on Synthroid 5. Dyslipidemia continue statin therapy. 6. DVT proph: SCDs for now, chemo proph following surgery when appropriate from surgery standpoint Continued inpatient stay Admission and Anticipated Discharge Date Admission Date: January 20, 2024 Supervising Physician Co-Signing Physician Notes The patient was not seen by me. The chart was reviewed. Case discussed with CHANO Gaston. Agree with assessment and plan Subjective Eval this morning, resting in bed. Reports got tylenol last night and this morning, has a little bit of a headache from hitting her head with the fall but controlled and improved since tylenol. Denied need for increased control at present time currently but will monitor. Pain to her left hip and unable to move her leg at this time. She reports she did have a little bit of chest discomfort yesterday but that has "gone away". ?2nd to fall. Has been NSR on monitor, no CP/SOB at present, currently 95% on room air. She lives with her daughter - reports has cane with alert button on and had with her last night as this is her "helper" but they have been searching for this. She denies her daughter taking this home and will have nursing investigate. Remains NPO for hopeful surgical intervention later today -- messaged orthopedics, Dr Valentine, for follow up this morning. Questions/concerns addressed at this time. Physical Exam Physical Exam: General: 83yo female resting in bed, NAD, medicated with tylenol for pain/headache HEENT: head atraumatic (mild soreness to L occipital region), headband in place, trachea midline, mm slightly dry Resp: even/unlabored, no w/c/r, on room air CV: RRR, no significant m/r/g, no pitting edema GI: +BS, soft/NT MSK/Neuro: L hip tenderness, +pain with logroll, compartments soft, pulses palpable, sensation intact Psych: AOX3, cooperative with exam Results & Data Results & Data Vital Signs (Past 12 Hours) Vital Signs Temp Pulse Pulse Pulse Resp BP Pulse Ox 01/21/24 03:37 36.9 C 74 18 138/77 96 01/20/24 22:43 79 01/20/24 22:35 36.8 C 77 18 176/95 H 95 01/20/24 22:00 80 20 159/94 H 95 01/20/24 22:00 80 20 95 01/20/24 21:00 100 H 25 H 90 01/20/24 20:00 88 21 95 O2 Del Method 01/21/24 03:37 Room Air 01/20/24 22:43 01/20/24 22:35 Room Air 01/20/24 22:00 Room Air 01/20/24 22:00 Room Air 01/20/24 21:00 Room Air 01/20/24 20:00 Room Air Laboratory Results 01/21/24 01/21/24 01/20/24 Range/Units 12:25 05:43 16:10 WBC 7.31 11.05 H (4.8-10.8) K/ul RBC 3.91 L 4.20 (4.20-5.40) M/uL Hgb 12.0 13.1 (12.0-16.0) g/dl Hct 34.5 L 37.2 (37.0-47.0) % MCV 88.2 88.6 (80.0-100.0) fL MCH 30.7 31.2 (25.0-34.0) pg MCHC 34.8 35.2 (32.0-36.0) g/dL RDW Std Deviation 39.5 38.8 (36.4-46.3) fL RDW Coeff of [place] 12.2 12.0 (11.5-14.5) % Plt Count 323 372 (130-400) K/uL MPV 9.2 L 9.8 (9.4-12.4) fL Immature Gran % (Auto) 0.4 0.5 % Neut % (Auto) 72.8 80.3 % Lymph % (Auto) 15.7 13.6 % [place] % (Auto) 6.8 4.5 % Eos % (Auto) 3.6 0.7 % Baso % (Auto) 0.7 0.4 % Neut # (Auto) 5.32 8.88 H (1.40-6.50) K/uL Lymph # (Auto) 1.15 L 1.50 (1.20-3.40) K/uL [place] # (Auto) 0.50 0.50 (0.11-0.59) K/uL Eos # (Auto) 0.26 0.08 (0.00-0.50) K/uL Baso # (Auto) 0.05 0.04 (0.00-0.20) K/uL Immature Gran # (Auto) 0.03 0.05 (0.01-0.20) K/uL PT 11.7 11.4 (9.0-12.0) Seconds INR 1.1 1.0 (0.9-1.1) APTT 28 (21-31) Seconds PTT Ratio 1.0 Sodium 132 L 132 L (136-145) mmol/L Potassium 3.7 3.3 L (3.5-5.1) mmol/L Chloride 99 96 L (98-107) mmol/L Carbon Dioxide 28 29 (21-32) mmol/L Anion Gap 5 7 (3-11) BUN 6 6 (6-23) mg/dl Creatinine 0.56 L 0.60 (0.6-1.2) mg/dl Est Cr Clr Drug Dosing 55.4 51.7 ml/min Est GFR ( Amer) 98.5 96.3 ml/min Est GFR (Non-Af Amer) 85.0 83.1 ml/min BUN/Creatinine Ratio 10.7 10.0 (10-20) Glucose 128 H 94 (70-99(Fasting)) mg/dl POC Glucose 145 H (70-99) mg/dl Calcium 8.3 L 8.9 (8.6-10.3) mg/dl Magnesium 1.9 (1.7-2.4) mg/dl Total Bilirubin 0.9 0.7 (0.2-1.0) mg/dl AST 11 L 14 (13-39) U/L ALT 10 12 (7-52) U/L Alkaline Phosphatase 67 80 (34-104) U/L Total Creatine Kinase 63 (26-192) U/L Troponin I High Sens 8.5 (0-14) pg/ml Total Protein 6.0 7.0 (6.0-8.3) gm/dl Albumin 3.9 4.7 (3.4-5.0) gm/dl Globulin 2.1 L 2.3 L (2.5-4.0) gm/dl Albumin/Globulin Ratio 1.9 2.0 (0.9-2) TSH 1.269 (0.300-4.500) uIu/ml Urine Color Yellow Urine Appearance Clear (Clear) Urine pH 7.5 (4.5-7.5) Ur Specific [place] 1.006 (1.000-1.030) Urine Protein Negative (Negative) Urine Glucose (UA) Negative (Negative) Urine Ketones Negative (Negative) Urine Blood Negative (Negative) Urine Nitrite Negative (Negative) Urine Bilirubin Negative (Negative) Urine Urobilinogen Negative (Negative) Ur Leukocyte Esterase Trace H (Negative) Urine WBC (Auto) 1-5 (0-5) /hpf Urine RBC (Auto) 0-4 (0-4) /hpf U Hyaline Cast (Auto) 0 (0-5) /lpf U Epithel Cells (Auto) 20-30 H (0-5) /lpf Urine Bacteria (Auto) Negative (Negative) Diagnostic Findings Hip/Pelvis X-Ray 01/20/24 13:37 SINGLE VIEW PELVIS; 2 VIEWS LEFT HIP CLINICAL HISTORY: Fall with left hip injury. FINDINGS: An AP view of the pelvis with AP and frog leg views of the left hip are compared to study dated 12/11/2016. The skeletal structures are osteopenic. There is an impacted subcapital fracture of the left femur with overlying soft tissue edema. No additional acute fracture is seen involving the right hip or the bony pelvis. Mild arthritic change and joint space narrowing is seen in the hips. There is degenerative sclerosis of the sacroiliac joints. Lumbosacral spondylosis is partially visualized. There is advanced atherosclerotic calcification of the femoral arteries. IMPRESSION: Impacted subcapital fracture of the left femur. Electronically signed by: Maycol Mullen M.D. 01/20/2024 2:[address] 01/20/24 15:54 CT SCAN OF THE CERVICAL SPINE CLINICAL HISTORY: Trauma. Fall. COMPARISON STUDY: Cervical spine CT dated 08/05/2023. TECHNIQUE: CT scan of the cervical spine is performed from the skull base to the upper thoracic spine. Images are reviewed in the axial, sagittal, and coronal planes. IV contrast was not administered for this examination. A dose lowering technique was utilized adhering to the principles of ALARA. CT DOSE: 1013.21 mGy.cm FINDINGS: Skeletal structures: The skeletal structures are osteopenic. There is no ev idence of fracture or subluxation involving the cervical spine. Vertebral body height and alignment are maintained. There is straightening of the cervical lordosis. Anterior osteophytes are seen throughout. The odontoid process and lateral masses are intact. The atlantoaxial articulation is preserved noting productive degenerative change. The spinous processes appear intact. There is mild to moderate multilevel cervical spondylosis. Uncovertebral and facet arthropathy contribute to neural foraminal narrowing at several levels. Intervertebral discs: There is moderate to severe disc space narrowing at C4-C5, C5-C6, and C6-C7. Mild narrowing is seen at the remaining cervical levels. Central canal: Posterior disc osteophyte complexes at C4-C5, C5-C6, and C6-C7 may contribute to mild acquired compromise of the central canal. Soft tissues: The prevertebral and paraspinous soft tissues are within normal limits. There is atherosclerotic calcification of the carotid bulbs. Calvarium: The visualized calvarium at the skull base appears intact. Brain parenchyma: Partially visualized brain parenchyma at the skull base is within normal limits. Sinuses and mastoids: The visualized paranasal sinuses are clear. The mastoid air cells are well pneumatized. Lung apices: Clear as visualized. IMPRESSION: 1. There is no evidence of cervical spine fracture or subluxation. 2. Osteopenia and spondylotic change as above. ACT 112: Negative or not required by law. Electronically signed by: Maycol Mullen M.D. 01/20/2024 5:[address] 01/20/24 15:54 CT SCAN OF THE BRAIN WITHOUT IV CONTRAST CLINICAL HISTORY: Fall. Head injury. COMPARISON STUDY: CT of the brain dated 08/05/2023. TECHNIQUE: Unenhanced axial CT scan of the brain is performed from the vertex to the skull base. A dose lowering technique was utilized adhering to the principles of ALARA. FINDINGS: Brain parenchyma: There is age-related involutional change noting moderate to advanced confluent subcortical and periventricular microangiopathic disease. There is no hemorrhage, mass effect, or evidence of acute territorial ischemia by CT criteria. A focus of left temporal encephalomalacia is consistent with a remote insult. 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 Jennings-white matter differentiation is preserved. No extra-axial fluid collection is seen. Ventricles, sulci, cisterns: Prominent secondary to involutional change. Intracranial vasculature: There is atherosclerotic calcification of the cavernous carotid and vertebral arteries. Calvarium: The skeletal structures are osteopenic. No depressed calvarial fracture is seen. Sinuses and mastoids: The visualized paranasal sinuses are clear. The mastoid air cells are well pneumatized. Orbits: The bony orbits are grossly intact. There are bilateral ocular lens implants. IMPRESSION: There is no hemorrhage, mass effect, or evidence of acute territorial ischemia by CT criteria. ACT 112: Negative or not required by law. Electronically signed by: Maycol Mullen M.D. 01/20/2024 5:12 PM Chest X-Ray 01/20/24 17:22 SINGLE VIEW CHEST CLINICAL HISTORY: Preoperative examination. Hip fracture. FINDINGS: An AP, supine, upright chest radiograph is compared to study dated 08/05/2023. The heart is enlarged noting atherosclerotic calcification of the thoracic aorta. The pulmonary vasculature is noncongested. Chronic interstitial thickening similar to previous. The lungs and pleural spaces are clear. No pneumothorax is seen. The skeletal structures are osteopenic. The bony thorax is grossly intact. IMPRESSION: Cardiomegaly with no active disease in the chest. ACT 112: Negative or not required by law. Electronically signed by: Maycol Mullen M.D. 01/20/2024 6:19 PM PG Care Time/CCT Total # of Minutes Spent Total Time Spent with Patient: Total time spent is greater than 50% in coordination of care (as documented) at patient's floor/unit and/or counseling patient: Coding Level of Care Code 38610 SUB INP/OBS CARE 3/50MIN Diagnoses Hip fracture, left S72.002A
[2024-01-21] MEDS ORDERED: oxyCODONE HCL IR 5 MG TAB (IMMEDIATE RELEASE) PO PRN (09:08)
[2024-01-21] MEDS ORDERED: ONDANSETRON INJ 2 MG/ML 2 ML VIAL IV PRN (09:08)
[2024-01-21] MEDS: LEVOTHYROXINE SODIUM 75 MCG TABLET PO SCH (09:41)
[2024-01-21] MEDS: lisinopril 20 MG TAB PO SCH (09:42)
[2024-01-21] MEDS: ROSUVASTATIN CALCIUM 10 MG TAB PO SCH (09:42)
--- NOTE | 2024-01-21 10:57 | Electrocardiogram Report ---
Test Reason : Blood Pressure : / mmHG Vent. Rate : 078 BPM Atrial Rate : 078 BPM P-R Int : 196 ms QRS Dur : 094 ms QT Int : 382 ms P-R-T Axes : 075 -29 098 degrees QTc Int : 435 ms Normal sinus rhythm Anteroseptal infarct , age undetermined (cited on or before 21-JAN-2024) Left ventricular hypertrophy with repolarization abnormality Abnormal ECG When compared with ECG of 20-JAN-2024 15:23, No significant change Confirmed by Anmol Wang ([id number]) on 01/21/2024 10:56:29 AM Referred By: REFERRED SELF Confirmed By:Anmol Wang
[2024-01-22 06:28] LABS: BUN Creatinine Ratio 10.2 (10-20); Calcium 8.3 mg/dl (8.6-10.3); Creatinine Clr Calc Pharmacy 52.6 ml/min; Est GFR (African American) 96.9 ml/min; Est GFR (Non-African American) 83.6 ml/min; Potassium 4.1 mmol/L (3.5-5.1)
[2024-01-22 06:29] LABS: Hematocrit (blood only) 36.5 % (37.0-47.0); Hemoglobin 12.3 g/dl (12.0-16.0); Mean Corpuscular Hemoglobin 30.6 pg (25.0-34.0); Mean Corpuscular Hgb Conc 33.7 g/dL (32.0-36.0); Mean Corpuscular Volume 90.8 fL (80.0-100.0); Mean Platelet Volume 9.5 fL (9.4-12.4); Platelet Count 308 K/uL (130-400); RDW Coefficient of Variation 12.3 % (11.5-14.5); RDW Standard Deviation 40.8 fL (36.4-46.3); Red Blood Count 4.02 M/uL (4.20-5.40); White Blood Count 7.08 K/ul (4.8-10.8)
[2024-01-22] MEDS ORDERED: fentaNYL citrate PF 100 MCG/2 ML VIAL ONE ×3 (07:04→09:10)
[2024-01-22] MEDS ORDERED: PROPOFOL IV EMULSION 10 MG/ML 20 ML VIAL IV ONE (07:06)
[2024-01-22] MEDS ORDERED: LIDOCAINE 2% 2 ML VIAL/AMP(20MG/ML) INFIL ONE (07:06)
[2024-01-22] MEDS ORDERED: ACETAMINOPHEN 1000 MG/100 ML IV IV ONE (07:07)
[2024-01-22] MEDS ORDERED: FAMOTIDINE/PF 20 MG/2 ML VIAL IV ONE (07:07)
[2024-01-22] MEDS ORDERED: ONDANSETRON INJ 2 MG/ML 2 ML VIAL ONE (07:10)
[2024-01-22 07:12] LABS: Estimated Average Glucose 146 mg/dl; Hemoglobin A1C 6.7 % (4.5-5.6)
[2024-01-22] MEDS ORDERED: ATROPINE SULFATE 0.1 MG/ML 10ML SYR IV PRN (07:26)
[2024-01-22] MEDS ORDERED: ePHEDrine sulfate 50 MG/ML AMP IV PRN (07:26)
[2024-01-22] MEDS ORDERED: ONDANSETRON INJ 2 MG/ML 2 ML VIAL IV PRN (07:26)
[2024-01-22] MEDS ORDERED: HYDROmorphone INJ 1 MG/ML SYRINGE IV PRN (07:26)
[2024-01-22] MEDS ORDERED: fentaNYL citrate PF 100 MCG/2 ML VIAL IV PRN (07:26)
--- NOTE | 2024-01-22 07:26 | Anesthesiology Consultation ---
Date of Service January 22, 2024 Assessment & Plan ASA ASA3 Proposed Anesthesia Anesthesia Type: General Risk / Benefits Reviewed With: PT / POA / Parent / Guardian, Accepts Plan and Informed Consent Obtained History Surgery Operation Date: 01/22/24 07:30 Proposed Procedures p Left Hip Anterior Bipolar Arthroplasty - Daniel Hale, Height/Weight Height: 5 ft 1 in Weight: 54.3 kg Allergies Allergy/AdvReac Type Severity Reaction Status Date / Time No Known Drug Allergies Allergy Unknown Verified 01/20/24 17:47 Medications Home Medications Medication Instructions Recorded Confirmed Last Taken brimonidine 0.2 %-timolol 0.5 % 1 drp OPB BID 08/23/18 01/20/24 04/21/22 eye drops (Combigan) levothyroxine 75 mcg tablet 75 mcg PO QAM 09/06/19 01/20/24 04/21/22 latanoprost 0.005 % eye drops 1 drp OPB HS 07/20/23 01/20/24 Unknown rosuvastatin 10 mg tablet 10 mg PO DAILY 07/20/23 01/20/24 Unknown lisinopril 20 mg tablet 20 mg PO DAILY 01/20/24 01/20/24 Unknown Active Medications Generic Name Dose Route Start Last Admin Trade Name Freq PRN Reason Stop Dose Admin Acetaminophen 650 mg 01/20/24 15:44 01/21/24 20:47 Acetaminophen 325 Mg Tab PO 02/19/24 15:43 650 mg Q4H PRN Administration Pain or Fever Brimonidine Tartrate 1 drops 01/20/24 21:00 01/21/24 20:46 Brimonidine Tartrate 0.2% 5ml OPB 02/19/24 20:59 1 drops BID RAMYA Administration Potassium Chloride/Dextrose/Sod Cl 20 meq in 1,000 mls @ 80 mls/hr 01/20/24 17:45 01/22/24 07:23 D5nss + 20meq Kcl IV 02/19/24 17:44 0 mls/hr .[id number] RAMYA Infusion Latanoprost 1 drops 01/20/24 21:00 01/21/24 20:45 Latanoprost 0.005% Op Soln 2.5 Ml Btl OPB 02/19/24 20:59 1 drops HS RAMYA Administration Levothyroxine Sodium 75 mcg 01/21/24 06:30 01/22/24 06:42 Levothyroxine Sodium 75 Mcg Tablet PO 02/20/24 06:29 75 mcg DAILYBB RAMYA Administration Lisinopril 20 mg 01/21/24 09:00 01/21/24 09:42 Lisinopril 20 Mg Tab PO 02/20/24 08:59 20 mg DAILY RAMYA Administration Rosuvastatin Calcium 10 mg 01/21/24 09:00 01/21/24 09:42 Rosuvastatin Calcium 10 Mg Tab PO 02/20/24 08:59 10 mg DAILY RAMYA Administration Timolol Maleate 1 drops 01/20/24 21:00 01/21/24 20:47 Timolol Gfs 0.5% Oph Soln 74 Drops/5 Ml Btl OPB 02/19/24 20:59 Not Given BID RAMYA NPO Date Last Intake of Fluids: 01/22/24 Time Last Intake of Fluids: 00:00 Date Last Intake of Solids: 01/22/24 Time Last Intake of Solids: 00:00 Past Medical History Medical History Stomach ulcer Asthma well controlled per pt Depression Diabetes mellitus diet controlled > no meds Thyroid disorder Vulvitis History of syncope [address] [facility]. Presented with elevated BP. Treated in ER and d/c. Syncopal episode upon returning to home. Believes r/t antihypertensives administered in ER. ? med compliance at home. Osteoarthritis Insomnia Poor historian Pancreatic cyst just monitoring GERD (gastroesophageal reflux disease) Depression History of TIA (transient ischemic attack) pt poor historian. could not recall date of TIA. says it should be in records. "years ago" Glaucoma Hyperlipidemia COPD (chronic obstructive pulmonary disease) well controlled per pt report Hypothyroidism Hypertension Exercise / Class Metabolic Activity II 4-5 Yardwork/Stairs/Walk up hill Past Family History Family History Other Family history non-contributory Hypertension Denies family history of Hearing loss No family history of adverse response to anesthesia No family history of bleeding disorder Heart disease Allergies Cancer Stroke Asthma Past Surgical History Surgical History Status post ORIF of fracture of ankle Left History of esophagogastroduodenoscopy (EGD) History of colonoscopy History of toe surgery BL great toe History of cataract surgery bilat Past Anesthesia History No Hx of Anesthesia Complications and No Family Hx of Anesthesia Complications History of PONV No Hx of PONV and No Hx of Motion Sickness Social History Smoking Status: Never smoker Do You Dip or Chew Tobacco: No Hx Alcohol Use: No Hx Substance Use: No substance use type: does not use Review of Systems denies fever/cough/ colds/ chest pain/ SOB/ CHET denies CHET Physical Exam Vital Signs Last Vital Signs Temp 36.6 C 01/22/24 02:58 Pulse 77 01/22/24 02:58 Resp 16 01/22/24 02:58 BP 159/89 H 01/22/24 02:58 Pulse Ox 96 01/22/24 02:58 O2 Del Method Room Air 01/22/24 02:58 ENMT Mouth: no TMJ abnormality and no dentition abnormality Thyromental Distance: > or= 3.5 Finger Breadths Mallampati Class: II Neck neck extension not limited Respiratory normal respiratory effort; no respiratory distress Auscultation: lungs clear to auscultation bilaterally Cardiovascular Rate/Rhythm: regular rate and regular rhythm Neurologic moves all extremities Psychiatric Orientation: alert and oriented x 3 Testing Laboratory Results 01/22/24 05:45 01/22/24 05:45 PT 11.7 Seconds (9.0-12.0) 01/21/24 05:43 INR 1.1 (0.9-1.1) 01/21/24 05:43 APTT 28 Seconds (21-31) 01/20/24 16:10 Hemoglobin A1c 6.7 % (4.5-5.6) H 01/22/24 05:45 Urine Color Yellow 01/20/24 16:10 Urine Appearance Clear (Clear) 01/20/24 16:10 Urine pH 7.5 (4.5-7.5) 01/20/24 16:10 Ur Specific [place] 1.006 (1.000-1.030) 01/20/24 16:10 Urine Protein Negative (Negative) 01/20/24 16:10 Urine Glucose (UA) Negative (Negative) 01/20/24 16:10 Urine Ketones Negative (Negative) 01/20/24 16:10 Urine Nitrite Negative (Negative) 01/20/24 16:10 Ur Leukocyte Esterase Trace (Negative) H 01/20/24 16:10 Urine WBC (Auto) 1-5 /hpf (0-5) 01/20/24 16:10 Urine RBC (Auto) 0-4 /hpf (0-4) 01/20/24 16:10 U Hyaline Cast (Auto) 0 /lpf (0-5) 01/20/24 16:10 U Epithel Cells (Auto) 20-30 /lpf (0-5) H 01/20/24 16:10 Urine Bacteria (Auto) Negative (Negative) 01/20/24 16:10 01/22/24 01/22/24 01/21/24 05:57 00:15 20:21 POC Glucose 176 H 108 H 133 H
--- NOTE | 2024-01-22 07:26 | History & Physical Bridge Note ---
Date of Service January 22, 2024 History & Physical Bridge Note I have examined the patient, reviewed the History & Physical and in the interval since the performance of the History & Physical I have noted the following changes of clinical significance: no changes noted
--- NOTE | 2024-01-22 07:29 | Orthopedic Progress Note ---
Date of Service January 22, 2024 Assessment & Plan (1) Subcapital fracture of left hip: I discussed the diagnosis and treatment options with her and her family at bedside. Given her age, and the likely poor bone quality, I recommended left hip hemiarthroplasty. Her and her family understand the risk, benefits, alternatives to procedure elected to proceed. Questions were answered at bedside and consents were signed. Time was spent scribing the procedure and postop expectations. A decision was made for surgery. Subjective The patient was seen and examined at bedside. Her family was present. She still having some pain in the left hip but she is resting comfortably. Review of Systems All systems reviewed & are unremarkable except as noted in HPI & below. Physical Exam Physical examination left hip shows significant pain in the left groin with logroll of the left leg. There are no abrasions, lesions, or lacerations of the skin.. Results & Data Results & Data Laboratory Results . Diagnostic Findings X-rays of the left hip and pelvis show a very minimally displaced valgus impacted left femoral neck fracture.. PG Care Time/CCT Total # of Minutes Spent Total Time Spent with Patient: Total time spent is greater than 50% in coordination of care (as documented) at patient's floor/unit and/or counseling patient: Coding Level of Care Code 30845 SUB INP/OBS CARE 2/35MIN (57 - DECISION FOR SURGERY) Diagnoses Subcapital fracture of left hip S72.012A
[2024-01-22] MEDS: ceFAZolin 1000MG 1,000 MG/7.5 ML SYR IV ONE (07:54)
--- NOTE | 2024-01-22 07:57 | Hospitalist Progress Note ---
Date of Service January 22, 2024 Assessment & Plan (1) Hip fracture, left: Plan: Acute fracture left hip/impacted subcapital femur fracture. Mechanical reported stretching across bed to get TV remote and bedsheet slpped and she fell to ground between night stand and bed with resultant left hip pain Xray with Impacted subcapital fracture of the left femur. Orthopedics consulted, Dr Valentine NPO on 01/20 however surgery moved to today IVF while NPO Pain control, bowel regimen, antiemetics prn -- reporting pain controlled at present time/no pain DVT proph: SCDs, added ASA 81mg BID post-op PT/OT consults pending, expect need for rehab. Daughter updated at bedside afternoon 01/21 post-op and on board. CM to follow once therapy evals completed Has been stable on telemetry, no CP reported. If stable overnight, will downgrade to med/surg Monitor labs on repeat (2) Vitamin D deficiency: Plan: checked due to fall/fracture LOW at 10.8, ergocalciferol ordered q7d and should continue at discharge (3) Hypothyroidism: Plan: Chronic, stable TSH wnl on check continues on Synthroid 75mcg daily (4) Hypertension: Plan: BP stable/elevated post-op in setting of pain Home lisinopril not given prior to surgery but was given post-op -- BP presently 157/[address] order for hold in AM until BP/Cr assessed Hydralazine available prn if needed Monitor HLD chronic, stable. continues on home rosuvastatin 10mg daily (5) Contusion: Plan: Left head contusion status post fall. Slight tenderness/headache AM 01/20, improved/resolved with tylenol CT head negative for acute process No further tenderness on 01/21, no confusion Monitor (6) Hyponatremia: Plan: Na remaining 132. ?2nd to head trauma from fall vs uncontrolled pain. TSH wnl IVF as outlined above, pain control Monitor BMP in AM (7) Hypokalemia: Plan: low on admission, replacement ordered and resolved on repeat. monitor bmp in am (8) Diabetes mellitus: Plan: hx pre-DM, diet controlled at home A1c checked, 6.7 on repeat, BSG AC/HS and sliding scale insulin ordered while inpatient POC most recently 152 and has been stable/controlled continue to monitor/adjustment to SSI as needed (family brought in cookies this afternoon of note -- monitor) Will need f/u discussions about current level -- consider starting metformin 500mg XR daily at discharge vs f/u discussion with PCP Plan continued inpatient stay and likely need for acute inpatient rehab at discharge, PT/OT consults pending. CM to follow Updated daughters at bedside 01/21 If telemetry remaining stable overnight will downgrade to med/surg in AM. Admission and Anticipated Discharge Date Admission Date: January 20, 2024 Supervising Physician Co-Signing Physician Notes The patient was not seen by me. The chart was reviewed. Case discussed with CHANO Gaston. Agree with assessment and plan Subjective Evaluated post-op in room 239-2, daughter at bedside. When asked if having pain, she said "what pain" and joked as she is not having any at present. Currently just ate lunch, tolerated well. Discussed will await therapy evals and likely need for rehab -- daughter are on board with rehab. NO CP/SOB. On room air. No abdominal pain/nausea/vomiting reported. No headache reported today. Wanting to take a shower -- will have nursing assist with cleaning up as needed but did discuss some third floor rooms do have showers and if stable on tele overnight will transfer to med/surg bed. Questions/concerns addressed at this time. Physical Exam Physical Exam: General: 83yo female resting in bed, just finished lunch, daughter at bedside, NAD Head atraumatic, normocephalic, no further scalp tenderness, headband in place, mmm, trachea midline Resp: even/unlabored, no w/c/r, on room air CV: RRR, no significant m/r/g, no pitting edema GI: +BS, soft/NT MSK/Neuro: dressing to LEFT hip c/d/i, nontender, mild edema, pulses palpable, toes mobile Psych: AOx3, cooperative with exam Results & Data Results & Data Vital Signs (Past 12 Hours) Vital Signs Temp Pulse Pulse Resp BP Pulse Ox O2 Del Method 01/22/24 07:00 75 01/22/24 02:58 36.6 C 77 16 159/89 H 96 Room Air 01/22/24 00:15 81 01/21/24 23:00 37.0 C 78 16 144/78 H 92 Room Air Laboratory Results 01/22/24 01/22/24 01/22/24 Range/Units 05:57 05:45 00:15 WBC 7.08 (4.8-10.8) K/ul RBC 4.02 L (4.20-5.40) M/uL Hgb 12.3 (12.0-16.0) g/dl Hct 36.5 L (37.0-47.0) % MCV 90.8 (80.0-100.0) fL MCH 30.6 (25.0-34.0) pg MCHC 33.7 (32.0-36.0) g/dL RDW Std Deviation 40.8 (36.4-46.3) fL RDW Coeff of Antonia 12.3 (11.5-14.5) % Plt Count 308 (130-400) K/uL MPV 9.5 (9.4-12.4) fL Sodium 132 L (136-145) mmol/L Potassium 4.1 (3.5-5.1) mmol/L Chloride 100 (98-107) mmol/L Carbon Dioxide 28 (21-32) mmol/L Anion Gap 4 (3-11) BUN 6 (6-23) mg/dl Creatinine 0.59 L (0.6-1.2) mg/dl Est Cr Clr Drug Dosing 52.6 ml/min Est GFR ( Amer) 96.9 ml/min Est GFR (Non-Af Amer) 83.6 ml/min BUN/Creatinine Ratio 10.2 (10-20) Glucose 143 H (70-99(Fasting)) mg/dl POC Glucose 176 H 108 H (70-99) mg/dl Estimat Average Glucose 146 mg/dl Hemoglobin A1c 6.7 H (4.5-5.6) % Calcium 8.3 L (8.6-10.3) mg/dl Magnesium 2.0 (1.7-2.4) mg/dl 25-OH Vitamin D Total 10.8 L (30-100) ng/ml 01/21/24 01/21/24 01/21/24 Range/Units 20:21 16:12 12:25 WBC (4.8-10.8) K/ul RBC (4.20-5.40) M/uL Hgb (12.0-16.0) g/dl Hct (37.0-47.0) % MCV (80.0-100.0) fL MCH (25.0-34.0) pg MCHC (32.0-36.0) g/dL RDW Std Deviation (36.4-46.3) fL RDW Coeff of Antonia (11.5-14.5) % Plt Count (130-400) K/uL MPV (9.4-12.4) fL Sodium (136-145) mmol/L Potassium (3.5-5.1) mmol/L Chloride (98-107) mmol/L Carbon Dioxide (21-32) mmol/L Anion Gap (3-11) BUN (6-23) mg/dl Creatinine (0.6-1.2) mg/dl Est Cr Clr Drug Dosing ml/min Est GFR ( Amer) ml/min Est GFR (Non-Af Amer) ml/min BUN/Creatinine Ratio (10-20) Glucose (70-99(Fasting)) mg/dl POC Glucose 133 H 167 H 145 H (70-99) mg/dl Estimat Average Glucose mg/dl Hemoglobin A1c (4.5-5.6) % Calcium (8.6-10.3) mg/dl Magnesium (1.7-2.4) mg/dl 25-OH Vitamin D Total (30-100) ng/ml Diagnostic Findings Hip X-Ray 01/22/24 00:00 FL hip LT 1V CLINICAL HISTORY: LEFT ANTERIOR LISSETT TECHNIQUE: 1 views were obtained with the C-arm in the OR with the above procedure. Total fluoroscopy time was 6 seconds. Radiation dose was 0.54 mGy. Comparison: Comparison is made to left hip radiograph 01/20/2024 FINDINGS/IMPRESSION: Intraoperative images were obtained of left anterior total hip arthroplasty. Please correlate with intraoperative fluoroscopy and operative report. ACT 112: Negative or not required by law. Electronically signed by: Chidi Merrill M.D. 01/22/2024 9:20 AM PG Care Time/CCT Total # of Minutes Spent Total Time Spent with Patient: Total time spent is greater than 50% in coordination of care (as documented) at patient's floor/unit and/or counseling patient: Coding Level of Care Code 09422 SUB INP/OBS CARE 3/50MIN Diagnoses Hip fracture, left S72.002A Vitamin D deficiency E55.9 Hypothyroidism, unspecified type E03.9 Hypothyroidism type: unspecified Hypertension I10 Contusion T14.8XXA Hyponatremia E87.1 Hypokalemia E87.6 Diabetes mellitus E11.9 (3) Hypothyroidism Hypothyroidism type: unspecified Qualified Code(s): E03.9 - Hypothyroidism, unspecified
[2024-01-22] MEDS ORDERED: ceFAZolin 330 MG/ML 1 GM VIAL ONE (08:01)
[2024-01-22] MEDS ORDERED: ePHEDrine sulfate 50 MG/5 ML SYR ONE (08:02)
[2024-01-22] MEDS: ROPIVACAINE 0.5% HCL/PF 246 MG, Ketorolac (*for OR use only*) 30 MG, EPINEPHrine 30MG/3... INFIL ONE (08:33)
--- NOTE | 2024-01-22 08:56 | Operative Report ---
PG Post Operative Report Pre & Post Diagnosis Operation Date: 01/22/24 07:30 Pre-Op Diagnosis: Displaced left femoral neck fracture Post-Op Diagnosis: Displaced left femoral neck fracture I identified the patient and participated in the time-out.: Yes Procedure Operation Date: 01/22/24 07:30 Actual Procedures p Left Hip Anterior Bipolar Arthroplasty(Left) - Daniel Hale DO Surgeon Daniel Hale DO Centrifuge Separator Tender Daniel Fernandez PA-C Estimated Blood Loss 200 Findings Consistent with Post-Op Diagnosis Specimens Left femoral head Description of Procedure On January 22, 2024 the patient was brought down from her hospital room to the preoperative holding area. The operative extremity identified and signed. She was given a preoperative antibiotic. She was taken back the operating room and laid on the table in supine position. She was put under general anesthesia. The left leg was then brought out to a purist and leg positioner. The left hip was then prepped and draped in sterile fashion. A timeout was done. The patient and the operative extremity was properly identified. An anterior approach was used. Dissection was taken down through the fascia. The rectus was retracted anteriorly and the tensor was retracted laterally. The capsule was exposed. The capsule was then incised and tagged for later repair. The femoral neck was then resected and the femoral neck was removed. The femoral head was then removed. The acetabulum was then exposed. Time was spent removing any soft tissue remnants from within the acetabulum. I did not see any cartilage damage in the acetabulum. The femoral head manage should to be a size 43. A 43 trial was used and seem to be a good fit. The proximal femur was then exposed. Sequential broaching up to a size 12 broach was done. A standard femoral neck was placed and a 28 mm head with a 43 mm shell was then snapped into place. The hip was then reduced. Fluoroscopic images showed anatomic alignment of the hip. The hip was then dislocated. The trials were removed. The final size 11 Umberto LDFX smooth stem was then cemented into place with Palacos cement. Once cement had hardened a 28 mm head with a 0 neck was then snapped into a 43 mm shell. The head and shell assembly was then impacted onto the femoral stem. The hip was then reduced. Final fluoroscopic images showed anatomic alignment. The wound was then irrigated. Surrounding soft tissues were injected with 100 cc of an orthopedic pain control cocktail. The capsule was then closed with #1 Vicryl. The fascia was then closed with #0 PDS suture. Skin was closed with 2-0 Vicryl and yimi. She was then placed in a Silverlon dressing. She was then extubated and transferred to a hospital bed. She was taken to the postanesthesia care unit in stable condition. She tolerated the procedure well. Daniel Fernandez PA-C, was present for the entire procedure. He was critical for patient positioning, prepping, draping, retraction exposure, wound closure and application of sterile dressing. I attest to the content of the Intraoperative Record and any orders documented therein. Any exceptions are noted below.
[2024-01-22] MEDS ORDERED: LABETALOL HCL IV 5 MG/ML 20ML IV ONE (09:10)
--- NOTE | 2024-01-22 09:23 | Fluoroscopy Report ---
FL hip LT 1V CLINICAL HISTORY: LEFT ANTERIOR LISSETT TECHNIQUE: 1 views were obtained with the C-arm in the OR with the above procedure. Total fluoroscopy time was 6 seconds. Radiation dose was 0.54 mGy. Comparison: Comparison is made to left hip radiograph 01/20/2024 FINDINGS/IMPRESSION: Intraoperative images were obtained of left anterior total hip arthroplasty. Please correlate with intraoperative fluoroscopy and operative report. ACT 112: Negative or not required by law. Electronically signed by: Chidi Merrill M.D. 01/22/2024 9:20 AM
[2024-01-22] MEDS ORDERED: hydrALAZINE HCL 20 MG/ML VIAL IV PRN (10:21)
--- NOTE | 2024-01-22 10:45 | Anesthesiology Progress Note ---
Date of Service January 22, 2024 Anesthesia Post Procedure Vital Signs Vital Signs: Temp Pulse Pulse Pulse Resp BP BP 01/22/24 10:12 65 18 175/76 H 01/22/24 09:53 36.5 C 62 16 169/81 H 01/22/24 09:35 36.6 C 67 16 164/91 H 01/22/24 09:25 65 18 182/104 H 01/22/24 09:15 66 16 171/101 H 01/22/24 09:05 36.2 C L 77 12 184/94 H 01/22/24 07:00 75 01/22/24 02:58 36.6 C 77 16 159/89 H 01/22/24 00:15 81 01/21/24 23:00 37.0 C 78 16 144/78 H 01/21/24 19:00 36.7 C 80 18 150/88 H 01/21/24 17:03 36.6 C 75 18 153/54 H 01/21/24 11:29 36.7 C 77 19 139/81 Pulse Ox O2 Del Method O2 Flow Rate 01/22/24 10:12 92 Room Air 01/22/24 09:53 93 Room Air 01/22/24 09:35 94 Room Air 01/22/24 09:25 96 Oxymask 4 01/22/24 09:15 99 Oxymask 4 01/22/24 09:05 99 Oxymask 6 01/22/24 07:00 01/22/24 02:58 96 Room Air 01/22/24 00:15 01/21/24 23:00 92 Room Air 01/21/24 19:00 96 Room Air 01/21/24 17:03 95 Room Air 01/21/24 11:29 95 Room Air Pain Intensity Left Hip: Pain Intensity: 3 Transfer of Care Handoff Completed per policy Notes Mental Status: alert / awake / arousable and participated in evaluation Patient Amnestic to Procedure: Yes Nausea / Vomiting: adequately controlled Pain: adequately controlled Airway Patency, RR, SpO2: stable & adequate BP & HR: stable & adequate Hydration State: stable & adequate Anesthetic Complications: no major complications apparent and Pt Satisfied with anesthetic care
[2024-01-22] MEDS: ERGOCALCIFEROL 1250 MCG (50,000 UNITS) CAP PO SCH (11:10)
[2024-01-22] MEDS: ASPIRIN 81 MG ECTAB PO SCH (11:10)
[2024-01-22] MEDS: ceFAZolin 2000MG 2,000 MG/15 ML SYR IV SCH (15:52)
--- NOTE | 2024-01-22 20:01 | XRay Report ---
XR hip LT min 2V CLINICAL HISTORY: Post-Operative implant position TECHNIQUE: 2 views of the left hip and single frontal view of the pelvis were obtained. Comparison: Comparison is made to hip radiographs 01/20/2024 FINDINGS: Patient is status post total hip arthroplasty with expected postsurgical changes including soft tissu e swelling and subcutaneous emphysema. IMPRESSION: Expected postoperative appearance status post placement of total hip arthroplasty. ACT 112: Negative or not required by law. Electronically signed by: Chidi Merrill M.D. 01/22/2024 8:00 PM
[2024-01-23 07:01] LABS: Hemoglobin 10.4 g/dl (12.0-16.0); Mean Corpuscular Hemoglobin 30.7 pg (25.0-34.0); Mean Corpuscular Hgb Conc 33.5 g/dL (32.0-36.0); Mean Corpuscular Volume 91.4 fL (80.0-100.0); Mean Platelet Volume 9.8 fL (9.4-12.4); Platelet Count 274 K/uL (130-400); RDW Coefficient of Variation 12.3 % (11.5-14.5); RDW Standard Deviation 40.8 fL (36.4-46.3); Red Blood Count 3.39 M/uL (4.20-5.40); White Blood Count 7.61 K/ul (4.8-10.8)
[2024-01-23 07:21] LABS: BUN Creatinine Ratio 16.9 (10-20); Calcium 8.2 mg/dl (8.6-10.3); Creatinine Clr Calc Pharmacy 43.7 ml/min; Est GFR (Non-African American) 77.7 ml/min; Magnesium 1.9 mg/dl (1.7-2.4); Potassium 4.1 mmol/L (3.5-5.1)
--- NOTE | 2024-01-23 07:53 | Orthopedic Progress Note ---
Date of Service January 23, 2024 Assessment & Plan (1) Subcapital fracture of left hip: Overall she is doing about as well as expected. She is having some soreness in the hip and she is pretty exhausted. She can be weightbearing as tolerated on the left hip. She will be seen by physical therapy today for ambulation and range of motion exercises. She is on aspirin for DVT prophylaxis. She is orthopedically stable for discharge when medically ready. Full orthopedic discharge instructions were placed in the discharge summary. Subjective The patient was seen and examined at bedside this morning. Overall she is doing okay. She seems to be pretty exhausted. She is having some pain in her hip but it is tolerable. Review of Systems All systems reviewed & are unremarkable except as noted in HPI & below. Physical Exam On physical examination left hip, the dressing is clean and dry. Her leg is out full extension. She has active dorsiflexion plantarflexion of her left ankle.. Results & Data Results & Data Laboratory Results . Diagnostic Findings Postoperative x-rays of the left hip show the prosthesis to be in anatomic alignment without any evidence of fracture complication, or loosening.. PG Care Time/CCT Total # of Minutes Spent Total Time Spent with Patient: Total time spent is greater than 50% in coordination of care (as documented) at patient's floor/unit and/or counseling patient: Coding Level of Care Code 73169 Post Operative Follow-Up Diagnoses Subcapital fracture of left hip S72.012A
--- NOTE | 2024-01-23 08:02 | Hospitalist Progress Note ---
Date of Service January 23, 2024 Assessment & Plan (1) Hip fracture, left: Plan: Acute fracture left hip/impacted subcapital femur fracture. Mechanical reported stretching across bed to get TV remote and bedsheet slipped and she fell to ground between night stand and bed with resultant left hip pain Xray with Impacted subcapital fracture of the left femur. Orthopedics consulted, Dr Valentine 01/22 s/p p Left Hip Anterior Bipolar Arthroplasty(Left) - Daniel Hale, DO on 01/21. EBL 200cc - WBC wnl, afebrile - Hgb 12.3--> 10.4, acute blood loss anemia from surgery as well as some dilutional aspect from IVF - BUN/Cr stable, BP elevated 159/91 and home lisinopril resumed - Na 131, checking serum osm, however could be aspect of uncontrolled pain. Check serum osm. Was agreeable to oxycodone 2.5mg dose and will monitor. Tylenol increased to 1g q8h prn from 650mg Added colace BID, miralax prn DVT proph: SCDs, added ASA 81mg BID post-op Monitor PT/OT evals but suspect some rehab, discussed w/ daughter at bedside Pain being controlled with tylenol alone at present time. Adding colace BID, miralax prn (2) Vitamin D deficiency: Plan: checked due to fall/fracture LOW at 10.8, ergocalciferol ordered q7d and should continue at discharge (3) Hypothyroidism: Plan: Chronic, stable TSH wnl on check continues on Synthroid 75mcg daily (4) Hypertension: Plan: BP stable/elevated post-op in setting of pain Lisinopril resumed for this morning, hydralazine available prn HLD chronic, stable. continues on home rosuvastatin 10mg daily (5) Contusion: Plan: Left head contusion status post fall. Slight tenderness/headache AM 01/20, improved/resolved with tylenol CT head negative for acute process No further tenderness on 01/21, no confusion above her baseline status Monitor (6) Hyponatremia: Plan: Na remaining 132. ?2nd to head trauma from fall vs uncontrolled pain. TSH wnl IVF as outlined above, pain control and ddid not appear controlled w/ 650mg tylenol as had been taking but doesn't like to take medications. Discussed low dose oxycodone 2.5mg as above and will monitor Monitor BMP in AM (7) Hypokalemia: Plan: low on admission, replacement ordered and resolved on repeat. monitor bmp in am (8) Diabetes mellitus: Plan: hx pre-DM, diet controlled at home A1c checked, 6.7 on repeat, BSG AC/HS and sliding scale insulin ordered while inpatient Will need f/u discussions about current level -- consider starting metformin 500mg XR daily at discharge vs f/u discussion with PCP (9) PAT (paroxysmal atrial tachycardia): Plan: episode 10:30am 3/10 when using bathroom, was not alerted. patient denied having any chest pain, electrolytes wnl except Na 131 from 132 but denied lightheaded/dizziness no CP/SOB reported will continue to monitor on telemetry overnight, EKG w/ CP if needed Plan PT/OT consulted and likely will need rehab, family updated in room 3/10 CM to f/u in AM Monitor on telemetry overnight, if no further episodes PAT or other issue can downgrade in AM Admission and Anticipated Discharge Date Admission Date: January 20, 2024 Supervising Physician Co-Signing Physician Notes The patient was not seen by me. The chart was reviewed. Case discussed with CHANO Gaston. Agree with assessment and plan Subjective Evaluated this morning, had been up to bathroom with nursing. Around time of using bathroom, moving her bowels, had brief episode of MAT, quickly terminated. Patient denies CP/SOB at present, working with therapy. Given tylenol this morning however patient reported increased pain with therapy and discussed with daughter at bedside about low dose oxycodone, possibly even decreased to 2.5mg as needed. Patient agreeable but said she didn't feel like herself last night, doesn't like to take medicine. Daughter in room also endorsed she doesn't like to take medications at baseline. Notes she had been on the ground but crawled to the door to let therapy in prior to admission. Daughter notes she can be forgetful and was unable to call, sometimes does forget. No increased confusion per daughters at bedside. Physical Exam Physical Exam: General: 83yo female working with therapy, painful with movement but using walker and did fairly well, NAD, daughter at bedside Head atraumatic, normocephalic, no further scalp tenderness, headband in place, mmm, trachea midline Resp: even/unlabored, no w/c/r, on room air CV: RRR, no significant m/r/g, no pitting edema GI: +BS, soft/NT MSK/Neuro: dressing to LEFT hip c/d/i, nontender, mild edema, pulses palpable, toes mobile Psych: AO, cooperative with exam, jokes at times per family but at baseline Results & Data Results & Data Vital Signs (Past 12 Hours) Vital Signs Temp Pulse Pulse Resp BP Pulse Ox O2 Del Method 01/23/24 07:13 36.7 C 78 16 159/91 H 97 Room Air 01/23/24 04:00 36.7 C 77 18 137/78 97 Room Air 01/23/24 00:00 81 01/22/24 22:58 37 C 84 20 165/81 H 94 Room Air 01/22/24 19:11 36.8 C 84 20 136/76 95 Room Air Laboratory Results 01/23/24 01/22/24 01/22/24 Range/Units 06:08 09:16 05:45 WBC 7.61 (4.8-10.8) K/ul RBC 3.39 L (4.20-5.40) M/uL Hgb 10.4 L (12.0-16.0) g/dl Hct 31.0 L (37.0-47.0) % MCV 91.4 (80.0-100.0) fL MCH 30.7 (25.0-34.0) pg MCHC 33.5 (32.0-36.0) g/dL RDW Std Deviation 40.8 (36.4-46.3) fL RDW Coeff of Antonia 12.3 (11.5-14.5) % Plt Count 274 (130-400) K/uL MPV 9.8 (9.4-12.4) fL Sodium 131 L (136-145) mmol/L Potassium 4.1 (3.5-5.1) mmol/L Chloride 97 L (98-107) mmol/L Carbon Dioxide 27 (21-32) mmol/L Anion Gap 7 (3-11) BUN 12 (6-23) mg/dl Creatinine 0.71 (0.6-1.2) mg/dl Est Cr Clr Drug Dosing 43.7 ml/min Est GFR ( Amer) 90.0 ml/min Est GFR (Non-Af Amer) 77.7 ml/min BUN/Creatinine Ratio 16.9 (10-20) Glucose 124 H (70-99(Fasting)) mg/dl POC Glucose 152 H (70-99) mg/dl Estimat Average Glucose 146 mg/dl Hemoglobin A1c 6.7 H (4.5-5.6) % Calcium 8.2 L (8.6-10.3) mg/dl Magnesium 1.9 (1.7-2.4) mg/dl Diagnostic Findings Hip X-Ray 01/22/24 09:53 XR hip LT min 2V CLINICAL HISTORY: Post-Operative implant position TECHNIQUE: 2 views of the left hip and single frontal view of the pelvis were obtained. Comparison: Comparison is made to hip radiographs 01/20/2024 FINDINGS: Patient is status post total hip arthroplasty with expected postsurgical changes including soft tissue swelling and subcutaneous emphysema. IMPRESSION: Expected postoperative appearance status post placement of total hip arthroplasty. ACT 112: Negative or not required by law. Electronically signed by: Chidi Merrill M.D. 01/22/2024 8:00 PM PG Care Time/CCT Total # of Minutes Spent Total Time Spent with Patient: Total time spent is greater than 50% in coordination of care (as documented) at patient's floor/unit and/or counseling patient: Coding Level of Care Code 80618 SUB INP/OBS CARE 350MIN Diagnoses Hip fracture, left S72.002A Vitamin D deficiency E55.9 Hypothyroidism, unspecified type E03.9 Hypothyroidism type: unspecified Hypertension I10 Contusion T14.8XXA Hyponatremia E87.1 Hypokalemia E87.6 Diabetes mellitus E11.9 PAT (paroxysmal atrial tachycardia) I47.19 (3) Hypothyroidism Hypothyroidism type: unspecified Qualified Code(s): E03.9 - Hypothyroidism, unspecified
[2024-01-23] MEDS: DOCUSATE SODIUM 100 MG CAP PO SCH (08:12)
[2024-01-23] MEDS: oxyCODONE HCL IR 5 MG TAB (IMMEDIATE RELEASE) PO PRN (18:09)
[2024-01-23] MEDS: FAMOTIDINE 10 MG TABLET PO SCH (18:12)
[2024-01-23] MEDS ORDERED: THIAMINE HCL 100 MG TAB PO SCH (21:00)
[2024-01-23] MEDS: ACETAMINOPHEN 500 MG TAB PO PRN (23:14)
[2024-01-24 07:38] LABS: Hematocrit (blood only) 31.8 % (37.0-47.0); Hemoglobin 10.7 g/dl (12.0-16.0); Mean Corpuscular Hemoglobin 30.5 pg (25.0-34.0); Mean Corpuscular Hgb Conc 33.6 g/dL (32.0-36.0); Mean Corpuscular Volume 90.6 fL (80.0-100.0); Mean Platelet Volume 9.5 fL (9.4-12.4); Platelet Count 320 K/uL (130-400); RDW Coefficient of Variation 12.5 % (11.5-14.5); RDW Standard Deviation 40.8 fL (36.4-46.3); Red Blood Count 3.51 M/uL (4.20-5.40); White Blood Count 6.76 K/ul (4.8-10.8)
[2024-01-24 07:54] LABS: BUN Creatinine Ratio 11.9 (10-20); Calcium 8.6 mg/dl (8.6-10.3); Creatinine Clr Calc Pharmacy 50.5 ml/min; Est GFR (African American) 92.9 ml/min; Est GFR (Non-African American) 80.2 ml/min
--- NOTE | 2024-01-24 07:59 | Hospitalist Progress Note ---
Date of Service January 24, 2024 Assessment & Plan (1) Hip fracture, left: Plan: Acute fracture left hip/impacted subcapital femur fracture. Mechanical reported stretching across bed to get TV remote and bedsheet slipped and she fell to ground between night stand and bed with resultant left hip pain Xray with Impacted subcapital fracture of the left femur. Orthopedics consulted, Dr Valentine 01/23 s/p p Left Hip Anterior Bipolar Arthroplasty(Left) - Daniel Hale, DO on 01/21. EBL 200cc WBC wnl, afebrile Hgb 12.3--> 10.4, acute blood loss anemia from surgery as well as some dilutional aspect from IVF. IMproved on repeat to 10.7 Pain control -- tylenol increased to 1gm Q8H w/ effectiveness, ice pack. Low dose oxycodone 2.5mg available however patient wanting to avoid Bowel regimen - colace BID, miralax prn. small BM reported, monitor Vit D 10.8-- PO supplementation ordered DVT proph: SCDs, ASA 81mg BID Of note, patient had brief episode of PAT overnight around 10:30pm (day prior in morning w/ using bathroom) , denied symptoms. Cards consulted but if no issues can downgrade to med/surg this afternoon PT/OT consults recommend rehab --> CM notified. Wanting referrals to [facility], will monitor, possible SNF if denied (2) Vitamin D deficiency: Plan: checked due to fall/fracture LOW at 10.8, ergocalciferol ordered q7d and should continue at discharge (3) Hypothyroidism: Plan: Chronic, stable TSH wnl on check continues on Synthroid 75mcg daily (4) Hypertension: Plan: BP stable/elevated post-op in setting of pain, lisinopril resumed and hydralazine available prn --> BP stable at present time 116/71 Of note, prior on labetalol however issues w/ hypotension and not on anymore Monitor HLD chronic, stable. continues on home rosuvastatin 10mg daily (5) Contusion: Plan: Left head contusion status post fall. Slight tenderness/headache AM 3/8, improved/resolved with tylenol CT head negative for acute process No further tenderness, no increased confusion above baseline per family (6) Hyponatremia: Plan: Na remaining 132. ?2nd to head trauma from fall vs uncontrolled pain. TSH wnl IVF as outlined above, pain control and did not appear controlled w/ 650mg tylenol as had been taking 01/22, increased to 1gm q8h as above, low dose oxycodo ne --> Reports improvement in pain today, Na improved/stable 133 and monitor. Placed on fluid restriction in meantime given low serum osm BMP in AM (7) Hypokalemia: Plan: low on admission, replacement ordered and resolved on repeat. (8) Diabetes mellitus: Plan: hx pre-DM, diet controlled at home A1c checked, 6.7 on repeat, BSG AC/HS and sliding scale insulin ordered while inpatient w/ stable BSGs Will need f/u discussions about current level -- consider starting metformin 500mg XR daily at discharge vs f/u discussion with PCP (9) PAT (paroxysmal atrial tachycardia): Plan: episode 10:30am 01/22 when using bathroom, was not alerted. patient denied having any chest pain, electrolytes wnl except Na 131 from 132 but denied lightheaded/dizziness no CP/SOB reported will continue to monitor on telemetry overnight, EKG w/ CP if needed cards consulted above but appearing brief, await eval - otherwise remaining NSR on tele --> if not further issues/ok w/ cards plan to downgrade this afternoon Plan needing rehab at discharge, CM to send referrals continued inpatient stay likely downgrade off tele this evening if no further issues Admission and Anticipated Discharge Date Admission Date: January 20, 2024 Subjective Evaluated this morning, sitting up in the chair eating lunch. Ate most of her food with exception of the fish which she doesn't like. Pain improving, did avoid the oxycodone but took increased dose tylenol and presently with ice pack in place. DId have bried run PAT overnight to 160s, patient unaware of any symptoms. Moving her bowels, small amounts. Continues on colace BID. Appears at baseline, no concerns from daughter at bedside who was with her day prior. PT/OT consults recommend rehab -- CM following, [facility] vs SNF. Questions/concerns addressed at this time. Physical Exam Physical Exam: General: 83yo female sitting up in chair, NAD, eating lunch, daughter in room Head atraumatic, normocephalic, no further scalp tenderness, headband in place, mmm, trachea midline Resp: even/unlabored, no w/c/r, on room air CV: RRR, no significant m/r/g, no pitting edema GI: +BS, soft, slight distension but nontender MSK/Neuro: dressing to LEFT hip c/d/i, slight edema, +tenderness around incision, no drainage/redness/erythema, pulses palpable/calves nontender Psych: AO, cooperative, at baseline per family in room Results & Data Results & Data Vital Signs (Past 12 Hours) Vital Signs Temp Pulse Pulse Resp BP BP Pulse Ox 01/24/24 07:00 68 01/24/24 02:22 36.5 C 79 18 139/78 95 01/23/24 23:00 82 01/23/24 22:39 37.0 C 88 16 158/87 H 97 O2 Del Method 01/24/24 07:00 01/24/24 02:22 Room Air 01/23/24 23:00 01/23/24 22:39 Room Air Laboratory Results 01/24/24 01/23/24 01/23/24 Range/Units 07:16 20:11 15:00 WBC 6.76 (4.8-10.8) K/ul RBC 3.51 L (4.20-5.40) M/uL Hgb 10.7 L (12.0-16.0) g/dl Hct 31.8 L (37.0-47.0) % MCV 90.6 (80.0-100.0) fL MCH 30.5 (25.0-34.0) pg MCHC 33.6 (32.0-36.0) g/dL RDW Std Deviation 40.8 (36.4-46.3) fL RDW Coeff of Antonia 12.5 (11.5-14.5) % Plt Count 320 (130-400) K/uL MPV 9.5 (9.4-12.4) fL Sodium 133 L (136-145) mmol/L Potassium 4.0 (3.5-5.1) mmol/L Chloride 97 L (98-107) mmol/L Carbon Dioxide 31 (21-32) mmol/L Anion Gap 5 (3-11) BUN 8 (6-23) mg/dl Creatinine 0.67 (0.6-1.2) mg/dl Est Cr Clr Drug Dosing 50.5 ml/min Est GFR ( Amer) 92.9 ml/min Est GFR (Non-Af Amer) 80.2 ml/min BUN/Creatinine Ratio 11.9 (10-20) Glucose 112 H (70-99(Fasting)) mg/dl POC Glucose 168 H (70-99) mg/dl Osmolality Pending (280-300) mOsm/kg Calcium 8.6 (8.6-10.3) mg/dl Magnesium 2.0 (1.7-2.4) mg/dl Vitamin B1 Pending Cortisol AM Sample Pending Urine Osmolality 362 L (500-800) mOsm/kg 01/23/24 Range/Units 08:19 WBC (4.8-10.8) K/ul RBC (4.20-5.40) M/uL Hgb (12.0-16.0) g/dl Hct (37.0-47.0) % MCV (80.0-100.0) fL MCH (25.0-34.0) pg MCHC (32.0-36.0) g/dL RDW Std Deviation (36.4-46.3) fL RDW Coeff of Antonia (11.5-14.5) % Plt Count (130-400) K/uL MPV (9.4-12.4) fL Sodium (136-145) mmol/L Potassium (3.5-5.1) mmol/L Chloride (98-107) mmol/L Carbon Dioxide (21-32) mmol/L Anion Gap (3-11) BUN (6-23) mg/dl Creatinine (0.6-1.2) mg/dl Est Cr Clr Drug Dosing ml/min Est GFR ( Amer) ml/min Est GFR (Non-Af Amer) ml/min BUN/Creatinine Ratio (10-20) Glucose (70-99(Fasting)) mg/dl POC Glucose (70-99) mg/dl Osmolality 273 L (280-300) mOsm/kg Calcium (8.6-10.3) mg/dl Magnesium (1.7-2.4) mg/dl Vitamin B1 Cortisol AM Sample Urine Osmolality (500-800) mOsm/kg PG Care Time/CCT Total # of Minutes Spent Total Time Spent with Patient: Total time spent is greater than 50% in coordination of care (as documented) at patient's floor/unit and/or counseling patient: Coding Level of Care Code 46168 SUB INP/OBS CARE 35MIN Diagnoses Hip fracture, left S72.002A Vitamin D deficiency E55.9 Hypothyroidism, unspecified type E03.9 Hypothyroidism type: unspecified Hypertension I10 Contusion T14.8XXA Hyponatremia E87.1 Hypokalemia E87.6 Diabetes mellitus E11.9 PAT (paroxysmal atrial tachycardia) I47.19 (3) Hypothyroidism Hypothyroidism type: unspecified Qualified Code(s): E03.9 - Hypothyroidism, unspecified
[2024-01-24] MEDS: POLYETHYLENE (MIRALAX) 17 GM PACK PO PRN (09:01)
--- NOTE | 2024-01-24 14:01 | Orthopedic Progress Note ---
Date of Service January 24, 2024 Assessment & Plan (1) Subcapital fracture of left hip: Overall she is doing about as well as expected. She is having some soreness in the hip but overall says she is doing quite well. She can be weightbearing as tolerated on the left hip. She will continue with physical therapy for ambulation and range of motion exercises. She is on aspirin for DVT prophylaxis. She is orthopedically stable for discharge when medically ready. Full orthopedic discharge instructions were placed in the discharge summary. Subjective . Meaghan was seen and evaluated resting comfortably at bedside in no apparent distress. She notes that she is doing very well today with good pain control. She has been up and out of bed with physical therapy with no significant issues. She denies any other concerns today. Review of Systems All systems reviewed & are unremarkable except as noted in HPI & below. Physical Exam . On physical examination of the left hip, the dressings are clean, dry, intact. Her leg is out in full extension. She has active plantarflexion dorsiflexion to the left ankle. +2 DP and PT pulses. Less than 2-second capillary refill. Normal sensation. Neurovascular intact. Results & Data Results & Data Laboratory Results . Diagnostic Findings . PG Care Time/CCT Total # of Minutes Spent Total Time Spent with Patient: Total time spent is greater than 50% in coordination of care (as documented) at patient's floor/unit and/or counseling patient: Coding Level of Care Code 68772 Post Operative Follow-Up Diagnoses Subcapital fracture of left hip S72.012A
[2024-01-24] MEDS: THIAMINE HCL 100 MG TAB PO SCH (20:38)
--- NOTE | 2024-01-24 22:07 | Cardiology Consultation ---
Date of Consultation January 24, 2024 Assessment & Plan (1) PAT (paroxysmal atrial tachycardia): (2) Hypertension: Plan ASSESSMENT/PLAN: 1. Paroxysmal atrial tachycardia: Brief nonsustained episodes that appear to be asymptomatic as she has not had palpitations or any symptoms that seem attributable to these very brief episodes that have happened intermittently throughout her hospital stay. No specific treatment is necessary or recommended at this time. If she has more sustained episodes in the future, would consider initiating a beta-wendy. 2. Hypertension: Blood pressure has been normotensive to mildly hypertensive for the most part. Can continue current regimen now and make adjustments if necessary as she recovers from her surgical procedure. 3. Disposition: Cardiology will sign off. Follow-up with PCP. Patient care communicated with primary hospitalist, Vanessa Jimenez PA-C. Today's visit was 45 minutes in duration, which includes [id number] time, counseling patient/friend, coordinating care, reviewing records, and completing documentation. History of Present Illness Reason for Consultation: "in w/ fall/hip fracture, PAT, ? contributing" Requesting Physician: Vanessa Jimenez PA-C Attending Physician: Vinny Penny MD History of Present Illness Ms. Fallon is a pleasant 83-year-old female with a history significant for type 2 diabetes (diet-controlled), possible TIA, dyslipidemia, COPD, and hypertension. She was admitted on 01/20/2024 with left hip fracture after mechanical fall. She was seen by orthopedics and underwent left hip anterior bipolar arthroplasty on 01/22/2024. Hospitalist service consulted cardiology today for concern of atrial tachycardia. She was seen earlier this evening. She does not recall having palpitations during this hospital stay. She denies chest pain, shortness of breath, syncope, near syncope, edema, or bleeding. She had a close friend at the bedside (Addie) who stated that she has been somewhat confused since being sedated but generally is relatively sharp from a memory standpoint. She states that she chronically has dizziness, even before this hospital stay but has not been dizzy here. She has chronic sleeping issues. She ambulates with a cane typically. Review of systems: As above. Review of systems otherwise negative/unremarkable. Family history: No known premature CAD. Social history: She denies tobacco, alcohol, or drug abuse. She is from [place]. She lives with her daughter. She has daughters and 1 son. She was accompanied by her friend, Addie. Allergies Allergy/AdvReac Type Severity Reaction Status Date / Time No Known Drug Allergies Allergy Unknown Verified 01/20/24 17:47 Home Medications Medication Instructions Recorded Confirmed Type brimonidine 0.2 %-timolol 0.5 % 1 drp OPB BID 08/23/18 01/20/24 History eye drops (Combigan) levothyroxine 75 mcg tablet 75 mcg PO QAM 09/06/19 01/20/24 History latanoprost 0.005 % eye drops 1 drp OPB HS 07/20/23 01/20/24 History rosuvastatin 10 mg tablet 10 mg PO DAILY 07/20/23 01/20/24 History lisinopril 20 mg tablet 20 mg PO DAILY 01/20/24 01/20/24 History Patient History Medical History Stomach ulcer Asthma well controlled per pt Depression Diabetes mellitus diet controlled > no meds Thyroid disorder Vulvitis History of syncope 2018 ER visit [facility]. Presented with elevated BP. Treated in ER and d/c. Syncopal episode upon returning to home. Believes r/t antihypertensives administered in ER. ? med compliance at home. Osteoarthritis Insomnia Poor historian Pancreatic cyst just monitoring GERD (gastroesophageal reflux disease) Depression History of TIA (transient ischemic attack) pt poor historian. could not recall date of TIA. says it should be in records. "years ago" Glaucoma Hyperlipidemia COPD (chronic obstructive pulmonary disease) well controlled per pt report Hypothyroidism Hypertension Surgical History Status post ORIF of fracture of ankle Left History of esophagogastroduodenoscopy (EGD) History of colonoscopy History of toe surgery BL great toe History of cataract surgery bilat Family History Other Family history non-contributory Hypertension Denies family history of Hearing loss No family history of adverse response to anesthesia No family history of bleeding disorder Heart disease Allergies Cancer Stroke Asthma Social History Smoking Status: Never smoker Second Hand Exposure: No; Do You Dip or Chew Tobacco: No; Hx Alcohol Use: No Hx Substance Use: No Preferred Language: Thai Communication Ability: Effective Hand Glove Cleaner Required: No Beliefs That Will Affect Care: Latter-Day Latter-Day Beliefs: Jehovahs Witness- no blood containing products marital status: / Current Living Situation: Family Current Living Situation Comment: Lives with daughterDot current occupational status: retired Feels Safe at Home: Yes Assistive Devices: Cane and Walker Physical Exam Physical Exam: Gen.: No acute distress. Alert. HEENT: Anicteric sclera. Neck: No JVD. No bruits. Normal carotid upstrokes bilaterally. Cardiac: No ventricular heave. Regular. Normal S1-S2. No murmurs, rubs, or gallops. Pulmonary: Clear to auscultation bilaterally without wheezes, rales, or rhonchi. Abdomen: Soft, nontender, nondistended, with normoactive bowel sounds. No bruits noted. Extremities: 2+ radial pulses bilaterally. 2+ posterior tibialis pulses bilaterally. No edema or cyanosis. Results & Data Vital Signs (Past 12 Hours) Vital Signs Temp Pulse Pulse Resp BP BP Pulse Ox 01/24/24 19:25 36.9 C 86 17 150/82 H 98 01/24/24 15:44 36.3 C L 66 18 145/77 H 97 01/24/24 15:00 78 01/24/24 11:51 36.7 C 77 18 116/71 96 O2 Del Method 01/24/24 19:25 Room Air 01/24/24 15:44 Room Air 01/24/24 15:00 01/24/24 11:51 Room Air Laboratory Results Laboratory Results - last 24 hr 01/24/24 07:16 WBC 6.76 RBC 3.51 L Hgb 10.7 L Hct 31.8 L MCV 90.6 MCH 30.5 MCHC 33.6 RDW Std Deviation 40.8 RDW Coeff of Antonia 12.5 Plt Count 320 MPV 9.5 Sodium 133 L Potassium 4.0 Chloride 97 L Carbon Dioxide 31 Anion Gap 5 BUN 8 Creatinine 0.67 Est Cr Clr Drug Dosing 50.5 Est GFR ( Amer) 92.9 Est GFR (Non-Af Amer) 80.2 BUN/Creatinine Ratio 11.9 Glucose 112 H Osmolality 276 L Calcium 8.6 Magnesium 2.0 Vitamin B1 Pending Cortisol AM Sample 16.22 Diagnostic Findings Telemetry personally reviewed: Predominantly sinus rhythm. There have been several episodes of nonsustained atrial tachycardia: On 01/21/2024 at 6:40 AM and 9:10 PM; 01/22/2024 at 0036, 0553, 1527; 01/23/2024 at 0735, 1038; and 01/24/2024 at 0514 and 11/21/2006. All noted episodes were nonsustained, typically 10-12 beats. Chart reviewed including hospitalist notes, history and physical report, Ortho op note and progress note from today. Labs reviewed and notable for mild postop anemia, stable renal function, normal potassium, mild hyponatremia, nonelevated transaminase levels, normal TSH. ECGs personally reviewed: ECG 01/20/2024 at 1523: Sinus rhythm 66 bpm. LVH. Possible anteroseptal infarct. Nonspecific T wave abnormality. ECG 01/21/2024 at 9:28 AM: Sinus rhythm 78 bpm. Anteroseptal infarct. LVH. Chest x-ray 01/20/2024: Chronic interstitial thickening similar to previous chest x-ray per radiology. Medications Administered Current Inpatient Medications Acetaminophen (Acetaminophen 500 Mg Tab) 1,000 mg PO Q8H PRN PRN Reason: Pain or Fever Stop: 02/19/24 15:43 Last Admin: 01/24/24 18:12 Dose: 1,000 mg Aspirin (Aspirin 81 Mg Ectab) 81 mg PO BID [facility] Stop: 02/21/24 09:52 Last Admin: 01/24/24 20:38 Dose: 81 mg Brimonidine Tartrate (Brimonidine Tartrate 0.2% 5ml) 1 drops OPB BID [facility] Stop: 02/19/24 20:59 Last Admin: 01/24/24 20:39 Dose: 1 drops Docusate Sodium (Docusate Sodium 100 Mg Cap) 100 mg PO BID [facility] Stop: 02/22/24 08:59 Last Admin: 01/24/24 20:38 Dose: 100 mg Ergocalciferol (Ergocalciferol 1250 Mcg (50,000 Units) Cap) 1,250 mcg PO Q7D@0900 [facility] Stop: 02/21/24 08:59 Last Admin: 01/22/24 11:10 Dose: 1,250 mcg Famotidine (Famotidine 10 Mg Tablet) 10 mg PO QAM [facility] Stop: 02/22/24 17:29 Last Admin: 01/24/24 08:56 Dose: 10 mg Hydralazine HCl (Hydralazine Hcl 20 Mg/Ml Vial) 10 mg IV Q8H PRN PRN Reason: hypertension Stop: 02/21/24 10:20 Latanoprost (Latanoprost 0.005% Op Soln 2.5 Ml Btl) 1 drops OPB HS [facility] Stop: 02/19/24 20:59 Last Admin: 01/24/24 20:39 Dose: 1 drops Levothyroxine Sodium (Levothyroxine Sodium 75 Mcg Tablet) 75 mcg PO DAILYBB [facility] Stop: 02/20/24 06:29 Last Admin: 01/24/24 06:39 Dose: 75 mcg Lisinopril (Lisinopril 20 Mg Tab) 20 mg PO DAILY [facility] Stop: 02/20/24 08:59 Last Admin: 01/24/24 08:55 Dose: 20 mg Ondansetron HCl (Ondansetron Inj 2 Mg/Ml 2 Ml Vial) 4 mg IV Q4H PRN PRN Reason: Nausea Stop: 02/20/24 09:07 Oxycodone HCl (Oxycodone Hcl Ir 5 Mg Tab (Immediate Release)) 2.5 mg PO Q4H PRN PRN Reason: moderate to severe pain Stop: 02/04/24 09:07 Last Admin: 01/23/24 18:09 Dose: 2.5 mg Polyethylene Glycol (Polyethylene (Miralax) 17 Gm Pack) 17 gm PO DAILY PRN PRN Reason: Constipation Stop: 02/22/24 08:05 Last Admin: 01/24/24 09:01 Dose: 17 gm Rosuvastatin Calcium (Rosuvastatin Calcium 10 Mg Tab) 10 mg PO DAILY [facility] Stop: 02/20/24 08:59 Last Admin: 01/24/24 08:56 Dose: 10 mg Thiamine HCl (Thiamine Hcl 100 Mg Tab) 100 mg PO BID [facility] Stop: 02/23/24 20:59 Last Admin: 01/24/24 20:38 Dose: 100 mg Timolol Maleate (Timolol Gfs 0.5% Oph Soln 74 Drops/5 Ml Btl) 1 drops OPB BID [facility] Stop: 02/19/24 20:59 Last Admin: 01/24/24 20:39 Dose: 1 drops PG Care Time/CCT Total # of Minutes Spent Total Time Spent with Patient: Total time spent is greater than 50% in coordination of care (as documented) at patient's floor/unit and/or counseling patient: Coding Level of Care Code 60690 INT INP/OBS CARE 2/55MIN Diagnoses PAT (paroxysmal atrial tachycardia) I47.19 Hypertension I10
[2024-01-25 07:09] LABS: BUN Creatinine Ratio 13.5 (10-20); Calcium 8.6 mg/dl (8.6-10.3); Creatinine Clr Calc Pharmacy 59.7 ml/min; Est GFR (Non-African American) 87.1 ml/min
--- NOTE | 2024-01-25 10:57 | Orthopedic Progress Note ---
Date of Service January 25, 2024 Assessment & Plan (1) Subcapital fracture of left hip: Overall she is doing about as well as expected. She is having some soreness in the hip but overall says she is doing quite well. She can be weightbearing as tolerated on the left hip. She will continue with physical therapy for ambulation and range of motion exercises. She is on aspirin for DVT prophylaxis. She is orthopedically stable for discharge when medically ready. Full orthopedic discharge instructions were placed in the discharge summary. Subjective .Meaghan was seen and evaluated resting comfortably at bedside in no apparent distress. She notes that she is doing very well today with good pain control. She has been up and out of bed with physical therapy with no significant issues. She denies any other concerns today. Review of Systems All systems reviewed & are unremarkable except as noted in HPI & below. Physical Exam .On physical examination of the left hip, the dressings are clean, dry, intact. Her leg is out in full extension. She has active plantarflexion dorsiflexion to the left ankle. +2 DP and PT pulses. Less than 2-second capillary refill. Normal sensation. Neurovascular intact. Results & Data Results & Data Laboratory Results . Diagnostic Findings . PG Care Time/CCT Total # of Minutes Spent Total Time Spent with Patient: Total time spent is greater than 50% in coordination of care (as documented) at patient's floor/unit and/or counseling patient: Coding Level of Care Code 36856 Post Operative Follow-Up Diagnoses Subcapital fracture of left hip S72.012A
--- NOTE | 2024-01-25 17:23 | Hospitalist Progress Note ---
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: Plan: Acute left hip/impacted subcapital femur fracture s/p p Left Hip Anterior Bipolar Arthroplasty by Dr Daniel Hale - 01/22/24 Thus, POD #3 Pain control -- tylenol 1gm TID, oxycodone 2.5mg prn Bowel regimen -- colace BID, miralax daily 25-OH Vit D 10.8 -- replace DVT proph -- ASA 81mg BID Doing well from orthopedic standpoint (2) Vitamin D deficiency: Plan: 25-OH vit D level = 10.8 ergocalciferol 50,000 units qweekly x 8 weeks (3) Hypothyroidism: Plan: TSH wnl continue Synthroid 75mcg daily (4) Hypertension: Plan: stable, controlled on lisinopril (5) Contusion: Plan: Left head contusion s/p fall with head injury prior to admission Still with soreness but no large area of swelling on scalp today Monitor carefully (6) Hyponatremia: Plan: present since admission Na level 131 today Appears euvolemic on examination Not on medication that would cause low Na Serum osm < urine osm Urine Na 36 Supplement NaCl 1gm daily, repeat BMP am (7) Hypokalemia: Plan: replaced resolved (8) Diabetes mellitus: Plan: HbA1c 6.7% Check BSGs ac/hs Change diet to DM diet Should be able to control this with diet alone (9) PAT (paroxysmal atrial tachycardia): Plan: appreciate cardiology consultation no Rx needed if her episodes become more frequent or if she has symptoms consider beta wendy (10) Abnormal head CT: Plan: 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 hospital psychosis? other? no agitation will follow for now u/a at admission was wnl doubt low sodium is contributing as hyponatremia is only mild at this time (13) DVT prophylaxis: Plan: aspirin 81mg BID Plan pt's daughter updated by phone I was notified by social work that peer to peer has been requested by her [employer] insurance I have peer to peer phone call with Dr Caleb Matias on 01/25 (will call between 2 and 4pm) phone # - [phone] family aware of the above Admission and Anticipated Discharge Date Admission Date: January 20, 2024 Subjective no issues overnight per staff she has episodes of confusion did have bowel movement today ate well at breakfast/lunch (100% per nursing flowsheets) during the visit a close family friend was at bedside patient herself was sitting in the chair she was cheerful, laughing, telling jokes, etc due to her heavy accent it was sometimes difficult to understand her speech however, her only complaints were that of left scalp tenderness/soreness and mild L hip pain had mild stomach pain earlier today but she felt better after having a BM I spoke with the pt's daughter by phone -- she reports her mother has been forgetful for some time (months, year or two? but otherwise has remained very independent Review of Systems Review of Systems: cv - no chest pain GI - no nausea/emesis pulm - no cough or dyspnea Physical Exam Physical Exam: gen - sitting in chair, NAD, pleasant neck - no JVD mouth - MMM skin - dressings left thigh intact, clean heart - RRR, s1 s2, no murmur lungs - CTA b/l abd - soft NT ND BS+ ext - mild L thigh swelling, but no ankle edema b/l, pulses 2+ b/l feet head - mildly tender L scalp but no significant swelling Results & Data Results & Data Vital Signs (Past 12 Hours) Vital Signs Temp Pulse Pulse Resp BP BP Pulse Ox 01/25/24 15:47 36.6 C 90 18 118/78 98 01/25/24 13:00 67 01/25/24 11:31 36.6 C 69 18 151/75 H 100 01/25/24 07:30 36.4 C L 77 16 145/84 H 97 O2 Del Method 01/25/24 15:47 Room Air 01/25/24 13:00 01/25/24 11:31 Room Air 01/25/24 07:30 Room Air Laboratory Results Laboratory Results - last 24 hr 01/25/24 01/25/24 01/25/24 05:52 11:05 Unknown Sodium 131 L Potassium 4.0 Chloride 96 L Carbon Dioxide 30 Anion Gap 5 BUN 7 Creatinine 0.52 L Est Cr Clr Drug Dosing 59.7 Est GFR ( Amer) 101.0 Est GFR (Non-Af Amer) 87.1 BUN/Creatinine Ratio 13.5 Glucose 125 H Osmolality 276 L Calcium 8.6 Urine Osmolality 328 L Ur Random Sodium 36 PG Care Time/CCT Total # of Minutes Spent Total Time Spent with Patient: Total time spent is greater than 50% in coordination of care (as documented) at patient's floor/unit and/or counseling patient: Coding Level of Care Code 97210 SUB INP/OBS CARE 235MIN Diagnoses 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
[2024-01-25] MEDS: SODIUM CHLORIDE 1 GM TABLET PO SCH (20:11)
[2024-01-26 07:32] LABS: BUN Creatinine Ratio 12.9 (10-20); Calcium 8.6 mg/dl (8.6-10.3); Creatinine Clr Calc Pharmacy 54.1 ml/min; Est GFR (African American) 95.3 ml/min; Est GFR (Non-African American) 82.2 ml/min; Potassium 4.2 mmol/L (3.5-5.1)
[2024-01-26] MEDS: POLYETHYLENE (MIRALAX) 17 GM PACK PO SCH (09:08)
--- NOTE | 2024-01-26 20:28 | Hospitalist Progress Note ---
Date of Service January 26, 2024 Assessment & Plan (1) Pathological fracture 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: Plan: Acute left hip/impacted subcapital femur fracture s/p p Left Hip Anterior Bipolar Arthroplasty by Dr Daniel Hale - 01/22/24 Thus, POD #4 Pain control -- tylenol 1gm TID (make scheduled rather than prn), oxycodone 2.5mg prn Bowel regimen -- colace BID, miralax daily 25-OH Vit D 10.8 -- replace with ergocalciferol 59419 units qweekly x 8 weeks DVT proph -- ASA 81mg BID Doing well from orthopedic standpoint (2) Vitamin D deficiency: Plan: 25-OH vit D level = 10.8 ergocalciferol 50,000 units qweekly x 8 weeks (3) Hypothyroidism: Plan: TSH wnl continue Synthroid 75mcg daily (4) Hypertension: Plan: stable, controlled on lisinopril occasional high readings but most are acceptable (5) Contusion: Plan: Left head contusion s/p fall with head injury prior to admission Still with soreness but no large area of swelling on scalp Monitor (6) Hyponatremia: Plan: present since admission Na level 133 today Appears euvolemic on examination Not on medication that would cause low Na Serum osm < urine osm Urine Na 36 Supplement NaCl 1gm daily, repeat BMP am once again (7) Hypokalemia: Plan: replaced resolved (8) Diabetes mellitus: Plan: HbA1c 6.7% Check BSGs ac/hs Change diet to DM diet Cont dietary control alone (9) PAT (paroxysmal atrial tachycardia): Plan: appreciate cardiology consultation no Rx needed if her episodes become more frequent or if she has symptoms consider beta wendy (10) Abnormal head CT: Plan: 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 hospital psychosis? other? no agitation will follow for now u/a at admission was wnl doubt low sodium is contributing as hyponatremia is only mild at this time daughter reports her mother is at neurocognitive baseline today thus, suspect her confusion was "hospital delirium" earlier in the admission (13) DVT prophylaxis: Plan: aspirin 81mg BID Plan pt's daughter updated at bedside today Unsuccessful peer to peer today with [employer] insurance - Dr Caleb Matias phone # - [phone] denial for inpatient rehab at [facility] thus, referrals to SNF have been made Admission and Anticipated Discharge Date Admission Date: January 20, 2024 Subjective no PAT or other dysrhythmia overnight I completed the peer to peer with her [employer] insurance today denial for acute rehab at [facility] medical csr stated she did not meet Medicare criteria for inpatient rehab including "medical complexity" requiring visits by a provider on daily basis family made aware of denial - referrals to SNFs made pt sitting in chair during the visit pleasant, no complaints except mild L hip pain daughter at bedside - states her mother is at neurocognitive baseline Review of Systems Review of Systems: gen - eating well cv - no chest pain pulm - no dyspnea GI - no abd pain Physical Exam Physical Exam: gen - sitting in chair, NAD, pleasant neck - no JVD mouth - MMM skin - dressings left thigh intact, clean heart - RRR, s1 s2, no murmur lungs - CTA b/l, scant dry rales R base only abd - soft NT ND BS+ ext - mild L thigh swelling, but no edema b/l of feet; pulses 2+ b/l feet Results & Data Results & Data Vital Signs (Past 12 Hours) Vital Signs Temp Pulse Pulse Resp BP BP Pulse Ox 01/26/24 19:38 36.6 C 75 20 149/83 H 96 01/26/24 15:20 36.7 C 89 18 118/80 98 01/26/24 15:00 79 01/26/24 10:46 36.5 C 77 16 117/70 96 O2 Del Method 01/26/24 19:38 Room Air 01/26/24 15:20 Room Air 01/26/24 15:00 01/26/24 10:46 Room Air Laboratory Results Laboratory Results - last 24 hr 01/26/24 01/26/24 01/26/24 06:22 07:06 11:18 Sodium 133 L Potassium 4.2 Chloride 97 L Carbon Dioxide 31 Anion Gap 5 BUN 8 Creatinine 0.62 Est Cr Clr Drug Dosing 54.1 Est GFR ( Amer) 95.3 Est GFR (Non-Af Amer) 82.2 BUN/Creatinine Ratio 12.9 Glucose 118 H POC Glucose 122 H 185 H Calcium 8.6 01/26/24 15:56 Sodium Potassium Chloride Carbon Dioxide Anion Gap BUN Creatinine Est Cr Clr Drug Dosing Est GFR ( Amer) Est GFR (Non-Af Amer) BUN/Creatinine Ratio Glucose POC Glucose 109 H Calcium PG Care Time/CCT Total # of Minutes Spent Total Time Spent with Patient: Total time spent is greater than 50% in coordination of care (as documented) at patient's floor/unit and/or counseling patient: Coding Level of Care Code 40085 SUB INP/OBS CARE 2MIN Diagnoses 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
[2024-01-27 07:25] LABS: Calcium 8.3 mg/dl (8.6-10.3); Creatinine Clr Calc Pharmacy 61.3 ml/min; Est GFR (African American) 99.1 ml/min; Est GFR (Non-African American) 85.5 ml/min; Potassium 3.8 mmol/L (3.5-5.1)
[2024-01-27] MEDS: ACETAMINOPHEN 500 MG TAB PO SCH (08:01)
--- NOTE | 2024-01-27 20:56 | Hospitalist Progress Note ---
Date of Service January 27, 2024 Assessment & Plan (1) Pathological fracture 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: Plan: Acute left hip/impacted subcapital femur fracture s/p p Left Hip Anterior Bipolar Arthroplasty by Dr Daniel Hale - 01/22/24 Thus, POD #5 Pain control -- tylenol 1gm TID (make scheduled rather than prn), oxycodone 2.5mg prn Bowel regimen -- colace BID, miralax daily 25-OH Vit D 10.8 -- replace with ergocalciferol 15616 units qweekly x 8 weeks DVT proph -- ASA 81mg BID Doing well from orthopedic standpoint (2) Vitamin D deficiency: Plan: 25-OH vit D level = 10.8 ergocalciferol 50,000 units qweekly x 8 weeks (3) Hypothyroidism: Plan: TSH wnl continue Synthroid 75mcg daily (4) Hypertension: Plan: stable, controlled on lisinopril (5) Contusion: Plan: Left head contusion s/p fall with head injury prior to admission CT head without ICH Monitor (6) Hyponatremia: Plan: present since admission Na level 133 again today Appears euvolemic on examination Not on medication that would cause low Na Serum osm < urine osm Urine Na 36 Supplement NaCl 1gm daily, repeat BMP am (7) Hypokalemia: Plan: replaced resolved (8) Diabetes mellitus: Plan: HbA1c 6.7% Check BSGs ac/hs Change diet to DM diet Cont dietary control alone all BSGs < 200 (9) PAT (paroxysmal atrial tachycardia): Plan: appreciate cardiology consultation no Rx needed if her episodes become more frequent or if she has symptoms consider beta wendy (10) Abnormal head CT: Plan: 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 CT last MRI brain was 10+ years ago -- no stroke seen on that MRI could consider repeat MRI brain if #12 persists or worsens (11) Acute blood loss anemia: Plan: mild repeat H/H in am for stability could consider IV venofer if H/H remain low (12) Encephalopathy acute: Plan: resolved now at baseline per family likely had hospital delirium earlier on in the stay (13) DVT prophylaxis: Plan: aspirin 81mg BID Plan pt's daughters updated at bedside today Unsuccessful peer to peer yesterday with [employer] insurance - Dr Caleb Matias phone # - [phone] denial for inpatient rehab at [facility] upheld Ally requesting peer to peer for SNF auth phone call scheduled for 1430 on 01/28/24 Admission and Anticipated Discharge Date Admission Date: January 20, 2024 Subjective no issues overnight tele - no a.fib, no PAT ambulating with walker, a little unsteady, and impulsive (I walked with her from bathroom to chair) mild pleasant confusion remains 2 daughters at bedside informed today by Al[employer] they are requesting peer to peer for SNF auth Physical Exam Physical Exam: gen - sitting in chair, NAD, pleasant neck - no JVD mouth - MMM skin - dressings left thigh intact, clean heart - RRR, s1 s2, no murmur lungs - CTA b/l abd - soft NT ND BS+ ext - mild L thigh swelling unchanged, but no edema b/l of feet; pulses 2+ b/l feet psych - alert, pleasant confusion Results & Data Results & Data Vital Signs (Past 12 Hours) Vital Signs Temp Pulse Pulse Resp BP Pulse Ox O2 Del Method 01/27/24 20:04 36.4 C L 73 20 167/84 H 99 Room Air 01/27/24 15:36 76 01/27/24 14:44 36.6 C 68 20 157/87 H 97 Room Air 01/27/24 11:16 36.6 C 81 18 132/77 97 Room Air Laboratory Results Laboratory Results - last 24 hr 01/27/24 01/27/24 01/27/24 06:25 07:27 11:35 Sodium 133 L Potassium 3.8 Chloride 99 Carbon Dioxide 29 Anion Gap 5 BUN 11 Creatinine 0.55 L Est Cr Clr Drug Dosing 61.3 Est GFR ( Amer) 99.1 Est GFR (Non-Af Amer) 85.5 BUN/Creatinine Ratio 20.0 Glucose 107 H POC Glucose 109 H 172 H Calcium 8.3 L Vitamin B12 398 01/27/24 01/27/24 16:31 20:31 Sodium Potassium Chloride Carbon Dioxide Anion Gap BUN Creatinine Est Cr Clr Drug Dosing Est GFR ( Amer) Est GFR (Non-Af Amer) BUN/Creatinine Ratio Glucose POC Glucose 94 115 H Calcium Vitamin B12 PG Care Time/CCT Total # of Minutes Spent Total Time Spent with Patient: Total time spent is greater than 50% in coordination of care (as documented) at patient's floor/unit and/or counseling patient: Coding Level of Care Code 90968 SUB INP/OBS CARE Diagnoses 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
[2024-01-28 06:55] LABS: Hematocrit (blood only) 27.8 % (37.0-47.0); Hemoglobin 9.5 g/dl (12.0-16.0)
[2024-01-28] MEDS: IRON SUCROSE 200 MG in 0.9 % SODIUM CHLORIDE 100 ML IV ONE (10:31)
--- NOTE | 2024-01-28 20:03 | Hospitalist Progress Note ---
Date of Service January 28, 2024 Assessment & Plan (1) Pathological fracture 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: Plan: Acute left hip/impacted subcapital femur fracture s/p p Left Hip Anterior Bipolar Arthroplasty by Dr Daniel Hale - 01/22/24 Thus, POD #6 Pain control -- tylenol 1gm TID (make scheduled rather than prn), oxycodone 2.5mg prn Bowel regimen -- colace BID, miralax daily 25-OH Vit D 10.8 -- replace with ergocalciferol 03880 units qweekly x 8 weeks DVT proph -- ASA 81mg BID Doing well from orthopedic standpoint (2) Vitamin D deficiency: Plan: 25-OH vit D level = 10.8 ergocalciferol 50,000 units qweekly x 8 weeks (3) Hypothyroidism: Plan: TSH wnl continue Synthroid 75mcg daily (4) Hypertension: Plan: stable, controlled cont lisinopril (5) Contusion: Plan: Left head contusion s/p fall with head injury prior to admission CT head without ICH No concussion symptoms at this time (6) Hyponatremia: Plan: present since admission Na level 133 again today Appears euvolemic on examination Not on medication that would cause low Na Serum osm < urine osm Urine Na 36 Cont NaCl 1gm daily, repeat BMP am (7) Hypokalemia: Plan: replaced resolved (8) Diabetes mellitus: Plan: HbA1c 6.7% Check BSGs ac/hs Change diet to DM diet Cont dietary control alone all BSGs < 200 (9) PAT (paroxysmal atrial tachycardia): Plan: appreciate cardiology consultation no Rx needed if her episodes become more frequent or if she has symptoms consider beta wendy no PAT on tele in 4+ days can d/c tele - move to med/surg (10) Abnormal head CT: Plan: 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 CT last MRI brain was 10+ years ago -- no stroke seen on that MRI could consider repeat MRI brain if #12 persists or worsens (11) Acute blood loss anemia: Plan: mild repeat H/H noted (Hb 9.5) will give 2 doses of IV venofer - 200mg today and 200mg tomorrow repeat a CBC later in weekend (12) Encephalopathy acute: Plan: resolved now at baseline per family likely had hospital delirium earlier on in the stay (13) DVT prophylaxis: Plan: aspirin 81mg BID Plan pt's daughter updated at bedside today they are aware of successful peer to peer call today with [employer] insurance approved for rehab at [facility] can likely take on Wednesday, 01/30 Admission and Anticipated Discharge Date Admission Date: January 20, 2024 Subjective tele - no a.fib or PAT overnight; NSR only pt eating/drinking well +stool dressing changed over L hip today she was in good spirits with only c/o L hip pain daughter at bedside I performed peer to peer phone call with [facility] medical records administrator - yoanna Casanova - this afternoon SNF rehab APPROVED family made aware Review of Systems Review of Systems: cv - no cp pulm - no dyspnea or SPIVEY GI - no abd pain or N/V; passing lots of flatus Physical Exam Physical Exam: gen - sitting in chair, NAD, pleasant neck - no JVD mouth - MMM skin - dressings left thigh clean heart - RRR, s1 s2, no murmur lungs - CTA b/l abd - soft NT ND BS+ ext - mild L thigh swelling unchanged; no edema b/l feet; pulses 2+ b/l feet psych - alert, pleasant confusion - baseline Results & Data Results & Data Vital Signs (Past 12 Hours) Vital Signs Temp Pulse Pulse Resp BP Pulse Ox O2 Del Method 01/28/24 15:42 36.3 C L 67 17 144/84 H 98 Room Air 01/28/24 15:02 73 01/28/24 12:08 50 L 01/28/24 11:25 36.8 C 73 16 155/76 H 97 Room Air Laboratory Results Laboratory Results - last 24 hr 01/24/24 01/27/24 01/28/24 07:16 20:31 05:25 Hgb 9.5 L Hct 27.8 L Sodium 133 L POC Glucose 115 H Vitamin B1 12 01/28/24 01/28/24 01/28/24 07:03 11:23 16:25 Hgb Hct Sodium POC Glucose 102 H 259 H 82 Vitamin B1 PG Care Time/CCT Total # of Minutes Spent Total Time Spent with Patient: Total time spent is greater than 50% in coordination of care (as documented) at patient's floor/unit and/or counseling patient: Coding Level of Care Code 82287 SUB INP/OBS CARE 2/35MIN Diagnoses 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
[2024-01-29 07:51] LABS: BUN Creatinine Ratio 15.8 (10-20); Creatinine Clr Calc Pharmacy 60.2 ml/min; Est GFR (Non-African American) 84.5 ml/min
[2024-01-29 07:52] LABS: Calcium 8.7 mg/dl (8.6-10.3)
[2024-01-29] MEDS: IRON SUCROSE 200 MG in 0.9 % SODIUM CHLORIDE 100 ML IV ONE (11:01)
--- NOTE | 2024-01-29 19:50 | Hospitalist Progress Note ---
Date of Service January 29, 2024 Assessment & Plan (1) Pathological fracture 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: Plan: Acute left hip/impacted subcapital femur fracture s/p p Left Hip Anterior Bipolar Arthroplasty by Dr Daniel Hale - 01/22/24 Thus, POD #7 Pain control -- tylenol 1gm TID (make scheduled rather than prn), oxycodone 2.5mg prn Bowel regimen -- colace BID, miralax daily 25-OH Vit D 10.8 -- replace with ergocalciferol 32466 units qweekly x 8 weeks DVT proph -- ASA 81mg BID Doing well from orthopedic standpoint (2) Vitamin D deficiency: Plan: 25-OH vit D level = 10.8 ergocalciferol 50,000 units qweekly x 8 weeks (3) Hypothyroidism: Plan: TSH wnl continue Synthroid 75mcg daily (4) Hypertension: Plan: cont lisinopril labile BPs - consider titration of dose (5) Contusion: Plan: Left head contusion s/p fall with head injury prior to admission CT head without ICH No concussion symptoms at this time (6) Hyponatremia: Plan: present since admission Na level 135 today Continues to appear euvolemic on examination Not on medication that would cause low Na Serum osm < urine osm Urine Na 36 Cont NaCl 1gm daily, repeat Na level am (7) Hypokalemia: Plan: replaced resolved (8) Diabetes mellitus: Plan: HbA1c 6.7% Check BSGs ac/hs Change diet to DM diet Cont dietary control alone all BSGs < 200 (9) PAT (paroxysmal atrial tachycardia): Plan: appreciate cardiology consultation no Rx needed if her episodes become more frequent or if she has symptoms consider beta block er no PAT on tele in 4+ days thus it was d/c (10) Abnormal head CT: Plan: 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 in [place] can likely take on Wednesday, 01/30 Admission and Anticipated Discharge Date Admission Date: January 20, 2024 Subjective no new issues overnight sitting in chair during the visit minimal L hip pain good spirits, eating well denies other complaints tolerated IV iron today Review of Systems Review of Systems: gen - feels good, good appetite, sleeping fair cv - no chest pain pulm - no dyspnea GI - no N/V Physical Exam Physical Exam: gen - sitting in chair, NAD, pleasant - looks great neck - no JVD mouth - MMM skin - dressings left thigh clean heart - RRR, s1 s2, no murmur lungs - CTA b/l abd - soft NT ND BS+ ext - mild L thigh swelling unchanged; no edema b/l feet; pulses 2+ b/l feet psych - alert, pleasant confusion as previous Results & Data Results & Data Vital Signs (Past 12 Hours) Vital Signs Temp Pulse Resp BP BP Pulse Ox O2 Del Method 01/29/24 14:20 36.6 C 74 16 132/81 96 Room Air 01/29/24 11:15 36.6 C 66 17 135/69 99 Room Air 01/29/24 11:01 36.7 C 66 18 170/82 H 99 Room Air Laboratory Results Laboratory Results - last 24 hr 01/28/24 01/29/24 01/29/24 20:42 07:00 07:40 Sodium 135 L Potassium 4.0 Chloride 100 Carbon Dioxide 30 Anion Gap 5 BUN 9 Creatinine 0.57 L Est Cr Clr Drug Dosing 60.2 Est GFR ( Amer) 98.0 Est GFR (Non-Af Amer) 84.5 BUN/Creatinine Ratio 15.8 Glucose 103 H POC Glucose 144 H 97 Calcium 8.7 Urine Osmolality Ur Random Sodium 01/29/24 01/29/24 01/29/24 09:50 11:26 16:30 Sodium Potassium Chloride Carbon Dioxide Anion Gap BUN Creatinine Est Cr Clr Drug Dosing Est GFR ( Amer) Est GFR (Non-Af Amer) BUN/Creatinine Ratio Glucose POC Glucose 261 H 106 H Calcium Urine Osmolality 328 L Ur Random Sodium 83 PG Care Time/CCT Total # of Minutes Spent Total Time Spent with Patient: Total time spent is greater than 50% in coordination of care (as documented) at patient's floor/unit and/or counseling patient: Coding Level of Care Code 22874 SUB INP/OBS CARE Diagnoses 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
[2024-01-30 09:29] LABS: Hematocrit (blood only) 34.4 % (37.0-47.0); Hemoglobin 11.1 g/dl (12.0-16.0)
--- NOTE | 2024-01-30 20:49 | Hospitalist Progress Note ---
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: Plan: Acute left hip/impacted subcapital femur fracture s/p p Left Hip Anterior Bipolar Arthroplasty by Dr Daniel Hale - 01/22/24 Thus, POD #8 Pain control -- tylenol 1gm TID (make scheduled rather than prn), oxycodone 2.5mg prn Bowel regimen -- colace BID, miralax daily 25-OH Vit D 10.8 -- replace with ergocalciferol 87516 units qweekly x 8 weeks DVT proph -- ASA 81mg BID Doing well from orthopedic standpoint Needs f/u with ortho in clinic about 2 weeks post surgery date (~02/04) [place] will be removed at 2 week f/u appt will f/u with [facility] (2) Vitamin D deficiency: Plan: 25-OH vit D level = 10.8 ergocalciferol 50,000 units qweekly x 8 weeks (3) Hypothyroidism: Plan: TSH wnl continue Synthroid 75mcg daily (4) Hypertension: Plan: continues with labile BPs, some very high - 170s systolic add amlodipine 2.5mg HS cont lisinopril (5) Contusion: Plan: Left head contusion s/p fall with head injury prior to admission CT head without ICH No concussion symptoms at this time (6) Hyponatremia: Plan: present since admission Na level 135 today - stable Continues to appear euvolemic on examination Not on medication that would cause low Na Serum osm < urine osm Urine Na 36 Cont NaCl 1gm daily (7) Hypokalemia: Plan: replaced resolved (8) Diabetes mellitus: Plan: HbA1c 6.7% Controlled with dietary control alone all BSGs < 200 (9) PAT (paroxysmal atrial tachycardia): Plan: appreciate cardiology consultation no Rx needed if her episodes become more frequent or if she has symptoms consider beta wendy no PAT on tele in 4+ days thus it was d/c (10) Abnormal head CT: Plan: 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 CT last MRI brain was 10+ years ago -- no stroke seen on that MRI could consider repeat MRI brain if #12 persists or worsens cont asa for secondary prevention after her asa BID dosing is complete for DVT prevention in setting of hip fracture would KEEP HER ON 81mg daily indefinitely thereafter (11) Acute blood loss anemia: Plan: mild s/p 2 doses of IV venofer 200mg each hemoglobin today robust no further Fe supplementation (12) Encephalopathy acute: Plan: resolved now at baseline per family likely had hospital delirium earlier on in the stay (13) DVT prophylaxis: Plan: aspirin 81mg BID Plan pt's daughters updated at bedside today [facility] in [place] can likely take on Wednesday, 01/30 Admission and Anticipated Discharge Date Admission Date: January 20, 2024 Subjective saw patient late afternoon 2 daughters and other persons were visiting with her she was sitting in the chair denies ALL complaints no L hip pain eating well she asks "am I leaving tomorrow?" Review of Systems Review of Systems: Cv - no chest pain pulm - no cough, no dyspnea GI - no abd pain, no N/V Physical Exam Physical Exam: gen - sitting in chair, NAD, pleasant; laughing/smiling neck - no JVD mouth - MMM skin - dressings left thigh clean heart - RRR, s1 s2, no murmur lungs - CTA b/l abd - soft NT ND BS+ ext - mild L thigh swelling unchanged; trace edema left galarza/foot; no edema right ankle/foot; pulses 2+ b/l psych - alert, pleasant Results & Data Results & Data Vital Signs (Past 12 Hours) Vital Signs Temp Pulse Resp BP BP Pulse Ox O2 Del Method 01/30/24 19:24 36.9 C 77 19 170/90 H 99 Room Air 01/30/24 14:27 36.6 C 70 16 112/67 97 Room Air Laboratory Results Laboratory Results - last 24 hr 01/29/24 01/30/24 01/30/24 20:51 07:48 09:10 Hgb 11.1 L Hct 34.4 L Sodium 135 L POC Glucose 162 H 119 H 01/30/24 01/30/24 01/30/24 11:31 16:47 20:11 Hgb Hct Sodium POC Glucose 186 H 118 H 122 H PG Care Time/CCT Total # of Minutes Spent Total Time Spent with Patient: Total time spent is greater than 50% in coordination of care (as documented) at patient's floor/unit and/or counseling patient: Coding Level of Care Code 12529 SUB INP/OBS CARE 12/09MIN Diagnoses 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
[2024-01-30] MEDS: amLODIPine BESYLATE 5 MG TAB PO SCH (22:00)
--- NOTE | 2024-01-31 14:56 | Discharge Summary ---
Date of Service January 31, 2024 Admission HPI Per Admitting Provider Very pleasant 83-year-old female of [place] descent. She was trying to stretch across her bed to get her TV remote today when the bedsheet slipped she fell to the ground between her nightstand and bed with left hip pain. She came to the ER for further evaluation and treatment. The patient denies any loss of consciousness pre or post fall. She did strike her head as discussed below. In the ER plain film x-rays demonstrated a left hip fracture -impacted subcapital fracture of the left femur. We are contacted admit the patient for further evaluation and treatment orthopedics was contacted by the ER provider. Will keep the patient n.p.o. after midnight anticipating ORIF in the morning. At the time of this dictation laboratory studies are pending. EKG was done at the bedside which per my read showed a normal sinus rhythm without acute ST-T abnormalities.With ventricular rate of approximately 65 bpm. With a ventricular rate of approximately 65 bpm. The patient did hit her head when she fell with the left occipital region. She is mildly tender there without any obvious injury however. Therefore we have ordered a stat CT of the head and CT of the cervical spine to rule out occult injury. Discharge Exam gen - sitting in chair, NAD, pleasant; laughing/smiling neck - no JVD mouth - MMM skin - dressings left thigh clean heart - RRR, s1 s2, no murmur lungs - CTA b/l abd - soft NT ND BS+ ext - mild L thigh swelling unchanged; trace edema left galarza/foot; no edema right ankle/foot; pulses 2+ b/l psych - alert, pleasant Discharge Data Allergies Allergy/AdvReac Type Severity Reaction Status Date / Time No Known Drug Allergies Allergy Unknown Verified 01/20/24 17:47 Consultations 01/20/24 15:23 ED Decision to Admit Stat 01/24/24 10:38 Consult Cardiology Routine Procedures Performed Operation Date: 01/22/24 07:30 Actual Procedures p Left Hip Anterior Bipolar Arthroplasty(Left) - Daniel Hale, Ordered Studies 01/20/24 15:54 CT cervical spine wo con Stat CT head/brain wo con Stat 01/22/24 FL hip LT 1V Routine Hospital Course (1) Pathological fracture 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: Acute left hip/impacted subcapital femur fracture s/p p Left Hip Anterior Bipolar Arthroplasty by Dr Daniel Hale - 01/22/24 Thus, POD #8 Pain control -- tylenol 1gm TID (make scheduled rather than prn), oxycodone 2.5mg prn Bowel regimen -- colace BID, miralax daily 25-OH Vit D 10.8 -- replace with ergocalciferol 42334 units qweekly x 8 weeks DVT proph -- ASA 81mg BID Doing well from orthopedic standpoint Needs f/u with ortho in clinic about 2 weeks post surgery date (~02/04) Paloma will be removed at 2 week f/u appt will f/u with CHANO Le (2) Vitamin D deficiency: 25-OH vit D level = 10.8 ergocalciferol 50,000 units qweekly x 8 weeks (3) Hypothyroidism: TSH wnl continue Synthroid 75mcg daily (4) Hypertension: continues with labile BPs, some very high - 170s systolic add amlodipine 2.5mg HS cont lisinopril (5) Contusion: Left head contusion s/p fall with head injury prior to admission CT head without ICH No concussion symptoms at this time (6) Hyponatremia: present since admission Na level 135 today - stable Continues to appear euvolemic on examination Not on medication that would cause low Na Serum osm < urine osm Urine Na 36 Cont NaCl 1gm daily (7) Hypokalemia: replaced resolved (8) Diabetes mellitus: HbA1c 6.7% Controlled with dietary control alone all BSGs < 200 (9) PAT (paroxysmal atrial tachycardia): appreciate cardiology consultation no Rx needed if her episodes become more frequent or if she has symptoms consider beta wendy no PAT on tele in 4+ days thus it was d/c (10) Abnormal head CT: 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 CT last MRI brain was 10+ years ago -- no stroke seen on that MRI could consider repeat MRI brain if #12 persists or worsens cont asa for secondary prevention after her asa BID dosing is complete for DVT prevention in setting of hip fracture would KEEP HER ON 81mg daily indefinitely thereafter (11) Acute blood loss anemia: mild s/p 2 doses of IV venofer 200mg each hemoglobin today robust no further Fe supplementation (12) Encephalopathy acute: resolved now at baseline per family likely had hospital delirium earlier on in the stay (13) DVT prophylaxis: aspirin 81mg BID Plan pt's daughters updated at bedside today [facility] in [place] can likely take on Wednesday, 01/30 Discharge Plan Discharge Items Patient Disposition: Transfer Care Home Fac Reason For Visit: Left hip fracture Discharge Diagnosis: 1. left hip fracture s/p repair - Dr Daniel Hale on 01/22/24 2. acute blood loss anemia - s/p 2 infusions of IV iron; discharge hemoglobin 11.1 3. mild diet-controlled type 2 diabetes - hemoglobin a1c 6.7% 4. vitamin D deficiency; level - 10.8 (normal >30) 5. paroxysmal atrial tachycardia - asymptomatic, infrequent 6. hyponatremia (low sodium) - resolved, discharge sodium level 135; ?mild SIADH 7. high blood pressure 8. hypothyroidism 9. head injury with scalp contusion only; CT head negative 10. confusion - resolved 11. probable mild cognitive impairment Activity: Per Instructions section Non-emergency contact: Primary Care Provider and Surgeon Call non-emergency contact if: you have any medication questions, your pain is not controlled, your pain is worsening, your wound has increased redness, your wound has increased drainage and your wound pain has increased Follow-up/Referrals: Cara Cooper MD [Primary Care Provider] - (within 1 week of discharge from rehab ) Daniel Hale DO [Physician] - (5-7 days for incision check, staple removal, post-op check ) Diet: Carb Consistent or DM2 Fluids: 1500ml (6 cups) Addtl Attending Provider Instructions: Mrs Finch was hospitalized after suffering a left hip fracture at her home (slid off her bed, hitting her head and breaking the left hip). Surgical repair was performed on 01/22/[address] Daniel Hale. Stay was complicated by hyponatremia (low sodium), acute blood loss anemia (mild), hospital delirium/confusion, and a few episodes of asymptomatic atrial tachycardia seen on telemetry monitoring. Sodium improved with salt tablets and fluid restriction; sodium level on 01/29 was 135. No blood transfusion was needed for her mild anemia however 2 runs of IV iron were given. Hospital delirium improved and her mental status is at baseline per her family. CT head was negative despite hitting her head when she slid off her bed at home. Type 2 diabetes was well-controlled while here without any medication or insulin. Recommendations - 1. check fingerstick blood sugars twice daily (morning and at bedtime). 2. recheck CBC and BMP in 3-5 days for stability; results to medical transcriber. Sodium level on next blood draw will determine whether salt tablet supplementation and/or fluid restriction should continue. 3. see dedicated orthopedic instructions below. It was our pleasure to care for Mrs Finch! -Dr Zohaib Chawla Agricultural Technician Provider Instructions: ORTHOPEDIC INSTRUCTIONS Hip Hemiarthroplasty Activity and Therapy Recommendations: 1. You were shown a series of exercises in the hospital. Do these exercises three times each day if you are able. 2. Get up and walk several times each day if you are capable. Make sure you have assistance is needed. For the first four weeks, try not to stand or walk for more than one hour at a time. If you do stand or walk for more than one hour, you will not hurt anything, but your leg will likely swell. 3. As you feel comfortable, you may change from the walker or crutches to a cane and then to independent walking if you are able. Please be safe. Medications: 1. Narcotic You will likely be sent from the hospital with the narcotic pain medication that worked best throughout your stay. 2. Aspirin You will be required to take Aspirin 81mg twice a day for 6 weeks after surgery to prevent blood clots. 3. Other medications may be given for specific circumstances. If you have any questions, please call the office at [phone]. 4. Resume previous home medications unless otherwise instructed TEDs/Elastic Stockings: The white elastic stockings help limit swelling and prevent blood clots from forming in your legs. The more you wear them, the more they work. Wear them for six weeks. Dressing Care: Leave the Silverlon dressing in place for 7 days. After 7 days you may remove the dressing. If the incision is not draining then you may leave the paloma open to air. If there is a little bit of drainage or if the paloma are getting stuck on your clothing then cover the incision with a dry dressing. The paloma will be removed at your 2 week follow-up appointment. Showering: You may shower with the Silverlon dressing in place. Do not let the shower spray hit the dressing directly. Pat the Silverlon dressing dry. If the dressing becomes wet underneath, then simply remove the dressing. Keep the incision dry until you are 7 days out from the day of surgery. After 7 days you may remove the Silverlon dressing and shower with the paloma exposed. Let soapy water run over the paloma and pat them dry. Do not scrub or soak the incision. Things To Watch For: 1. Drainage from the incision site that occurs more than one week after your surgery. 2. Increased redness at the incision site. 3. Fever above 102 degrees Fahrenheit. 4. Unusual chest pain or shortness of breath. 5. Call [facility] at with any of the above problems Follow-Up Visit: Follow-up with Dr. Hale's PA (Daniel Fernandez) 2-3 weeks after your day of surgery. Surgery date was 01/22/24. He will remove your paloma and answer any questions. If you have any additional questions or concerns, Dr Hale is usually in the office at the same time and will be available Please call the office to set up an appointment for a time that works for you Pending Studies at Discharge: No Stand-Alone Forms: My [facility] Skilled Items Patient informed of condition?: Yes DNR: No Discharge Level of Care: Skilled Communicable Disease: No Discharge Prognosis: Stable Lines: None Urinary Catheter: No Medications and DC Order Prescriptions: New amlodipine [Norvasc] 5 mg Tablet 2.5 mg PO HS Qty: 30 0RF acetaminophen [Tylenol Extra Strength] 500 mg Tablet 1,000 mg PO TID 14 Days Qty: 84 0RF aspirin 81 mg Tablet,Delayed Release (Dr/Ec) 81 mg PO BID 42 Days Qty: 84 0RF Rx Instructions: for DVT prevention. polyethylene glycol 3350 [Miralax] 17 gram Powder In Packet 17 g PO DAILY Qty: 30 1RF sodium chloride 1,000 mg Tablet,Soluble 1,000 mg PO DAILY 7 Days Qty: 7 0RF thiamine HCl (vitamin B1) 100 mg Tablet 100 mg PO BID 30 Days Qty: 60 0RF ergocalciferol (vitamin D2) 1,250 mcg (50,000 unit) Capsule 1,250 mcg PO .once a week 49 Days Qty: 7 0RF Rx Instructions: start 02/02/24, take 1 capsule ONCE A WEEK x 7 weeks. pantoprazole [Protonix] 40 mg tablet,delayed release (DR/EC) 40 mg PO QAM 42 Days Qty: 42 0RF Continued brimonidine-timolol [Combigan] 0.2-0.5 % Drops 1 drp OPB BID levothyroxine 75 mcg Tablet 75 mcg PO QAM latanoprost 0.005 % drops 1 drp OPB HS rosuvastatin 10 mg tablet 10 mg PO DAILY lisinopril 20 mg tablet 20 mg PO DAILY Discharge Orders: Discharge Order (Routine); Ordered 01/31/24 Ordered By: Vinny Lawson/Other Patient Handouts: Managing Type 2 Diabetes Admission Data Admit Date/Time: 01/20/24 15:50 Attending Provider: Vinny Penny Admit Provider: Prasanth Coronel Primary Care Provider: Cara Cooper Other Providers: Prasanth Coronel; Samuel Jackson Coding Diagnoses 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
== END 2024-01-31 15:29 | DRG 522 ==
LOC: ED 13:28 → EDINP 15:50 → SUATTDRO 15:50 → 2S 17:44 → 3N 01-28 19:59

== ENCOUNTER 2025-10-05 09:51 | Inpatient (IN) ==
--- NOTE | 2025-10-05 10:19 | Emergency Department Note ---
Impression & Plan Atrial fibrillation with rapid ventricular response, Lightheadedness, Acute dyspnea ED Provider Note NAME: YULY HAIRSTON AGE: 85 SEX: F : 1940 ARRIVES VIA: Walk-In INFORMANT: Patient ED PROVIDER(S): Jason Ferris DO CHIEF COMPLAINT: Shortness of breath HPI: Patient is an 85-year-old female with a past medical history of GERD, hip fracture, hypothyroidism and hyperlipidemia as well as asthma who presents to the ER for shortness of breath. She was brought in by the daughter notes that she has had a little bit of a cough for the past several days and a runny nose. Patient does not think this has changed much. She denies any chest pain but admits to some mild shortness of breath. No belly pain. No nausea, vomiting or diarrhea. No dysuria, urgency, or frequency. No swelling of the cast. No other exacerbating or remitting factors. ADDITIONAL HISTORY OBTAINED: Per HPI Chronic Medical/Social Conditions Affecting Care: Per HPI PAST MEDICAL HISTORY:See Below PAST SURGICAL HISTORY:See Below FAMILY HISTORY:See Below SOCIAL HISTORY:See Below HOME MEDICATIONS:See Below ALLERGIES:See Below VITALS:See Below PHYSICAL EXAMINATION: GENERAL: Sitting up in bed, alert, well appearing, well nourished, no distress, non-toxic EYE EXAM: normal conjunctiva. OROPHARYNX: no exudate, no erythema, lips, buccal mucosa, and tongue normal and mucous membranes are moist NECK: supple, no nuchal rigidity, no adenopathy, non-tender LUNGS: Clear to auscultation. Normal chest wall mechanics HEART: no murmurs, S1 normal and S2 normal ABDOMEN: abdomen soft, non-tender, normo-active bowel sounds, no masses, no rebound or guarding. UPPER EXTREMITIES: upper extremities are grossly normal. LOWER EXTREMITIES: No pitting edema. Calves are equal bilaterally NEURO EXAM: Normal sensorium, cranial nerves II-XII grossly intact, normal speech, no gross weakness of arms, no gross weakness of legs. MEDICAL DECISION MAKING: Patient is a 85-year-old female with a past medical history of diabetes, GERD who presents ER for the above-stated complaint. IV was established and blood work was obtained. Labs show mild leukocytosis 11,000. No significant anemia. BMP with mild hyponatremia at 131. Troponin was elevated at 40. LFTs and bilirubin were unremarkable. TSH slightly elevated 5.8. Patient has no other complaints at this time. She was placed on a Cardizem drip and given a bolus. Heart rate trended down to 80s to 90s. Patient remained on the Cardizem drip. She had bilateral pleural effusions. Discussed case with the hospitalist for further evaluation management treatment. Consults/Care Managements Discussions: Per [facility] Triage Nursing notes reviewed. Limited review of prior medical records performed Vital Signs: reviewed and remarkable for tachy Differential diagnosis: Cardiac ischemia, aortic dissection, pulmonary embolism, pneumothorax, pneumonia, pericarditis, myocarditis, esophageal rupture, GERD, cholecystitis, pancreatitis, musculoskeletal, as well as other pathologies. ER treatment provided: See below Diagnostics interpreted by me include EKG and cardiac monitoring as listed below: -Cardiac Monitoring: An order was placed for continuous cardiac monitoring. The monitor shows a rate of 120 with sinus rhythm. -ECG: A-fib RVR rate of 137 Left axis Septal Q waves T wave inversions in V4 through V6 QTc 519 -Laboratory studies:Interpreted by me as stated above in MDM and shown below. Imaging studies: Xrays: As interpreted by me: Portable AP upright 1 view of the chest shows bilateral opacities in the bases CTs show: none Procedures:none Critical Care: I have personally spent 33 minutes of critical care time in the direct management of this patient. This includes bedside care, interpretation of diagnostic studies, and testing, discussion with consultants, patient, and family members, and other required patient management activities. This 33 minutes is in excess of all separately billable procedures. Past Med/Surg History Problem List (Updated 10/05/25 @ 15:52 by Jason Ferris DO) Acute dyspnea (Acute) Lightheadedness (Acute) Atrial fibrillation with rapid ventricular response (Acute) Acute on chronic systolic CHF (congestive heart failure) New onset a-fib Femur fracture Abnormal head CT Pathological fracture 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 PAT (paroxysmal atrial tachycardia) Diabetes mellitus diet controlled > no meds Hypertension Vitamin D deficiency Hypokalemia (Acute) Hyponatremia (Acute) Subcapital fracture of left hip Status post fall (Acute) Subcapital fracture of left hip (Acute) Hip fracture, left GERD (gastroesophageal reflux disease) Pancreatic cyst just monitoring LUQ abdominal pain Encounter for pre-operative examination Acute confusional state Hand contusion (Acute) Hypothyroidism Hyperlipidemia GERD (gastroesophageal reflux disease) Hypotension due to drugs (Acute) Syncope and collapse (Acute) Encounter for pre-operative examination LPRD (laryngopharyngeal reflux disease) 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 Vasomotor rhinitis Medical History Acute blood loss anemia Stomach ulcer Asthma Depression Diabetes mellitus Thyroid disorder Vulvitis History of syncope Osteoarthritis Insomnia Poor historian Pancreatic cyst GERD (gastroesophageal reflux disease) Depression History of TIA (transient ischemic attack) Glaucoma Hyperlipidemia COPD (chronic obstructive pulmonary disease) Hypothyroidism Hypertension Surgical History Status post ORIF of fracture of ankle History of esophagogastroduodenoscopy (EGD) History of colonoscopy History of toe surgery History of cataract surgery Family History Other Family history non-contributory Hypertension Denies family history of Hearing loss No family history of adverse response to anesthesia No family history of bleeding disorder Heart disease Allergies Cancer Stroke Asthma Social History Smoking Status: Never smoker Second Hand Exposure: No; Do You Dip or Chew Tobacco: No; Hx Alcohol Use: No Hx Substance Use: No Preferred Language: Swedish Communication Ability: Effective Pizza Baker Required: No Beliefs That Will Affect Care: Episcopalian Episcopalian Beliefs: Jehovahs Witness- no blood containing products marital status: / Current Living Situation: Family Current Living Situation Comment: Lives with daughterDot current occupational status: retired Feels Safe at Home: Yes Assistive Devices: Cane and Walker Allergies Allergies Allergy/AdvReac Type Severity Reaction Status Date / Time No Known Drug Allergies Allergy Unknown Verified 01/20/24 17:47 Home Meds Home Medications Medication Instructions Recorded Confirmed levothyroxine 75 mcg tablet 25 mcg PO QAM 09/06/19 10/05/25 rosuvastatin 10 mg tablet 10 mg PO DAILY 07/20/23 10/05/25 lisinopril 20 mg tablet 0 mg PO DAILY 01/20/24 10/05/25 Previous Rx's Medication Instructions Recorded polyethylene glycol 3350 17 gram 17 g PO DAILY #30 ea 01/31/24 oral powder packet (Miralax) Results & Data (ED) Vital Signs Vital Signs - 24 hr 10/05/25 10:02 10/05/25 10:48 10/05/25 10:48 Temperature 36.5 C Temperature Source Temporal Artery Scan Pulse Rate 122 H 128 H Pulse Rate from SpO2 Sensor Respiratory Rate 18 Respiratory Effort / Characteristics Non-Labored Spontaneous Non-Labored Spontaneous Respiratory Depth Normal Normal Respiratory Pattern Regular Blood Pressure 119/85 Blood Pressure Mean 96 Pulse Oximetry 96 Oxygen Delivery Method Room Air Sepsis Recent Fever Within 48 Hours No Sepsis New/Unexplained Change in Mental Status No Sepsis Action Taken by Nursing No Action Required 10/05/25 10:48 10/05/25 10:48 10/05/25 11:00 Temperature Temperature Source Pulse Rate 83 Pulse Rate from SpO2 Sensor 84 Respiratory Rate 26 H Respiratory Effort / Characteristics Respiratory Depth Respiratory Pattern Blood Pressure 104/84 Blood Pressure Mean 90 Pulse Oximetry 94 94 95 Oxygen Delivery Method Room Air Room Air Sepsis Recent Fever Within 48 Hours Sepsis New/Unexplained Change in Mental Status Sepsis Action Taken by Nursing 10/05/25 11:11 10/05/25 11:30 Temperature Temperature Source Pulse Rate 112 H Pulse Rate from SpO2 Sensor 102 H Respiratory Rate 18 Respiratory Effort / Characteristics Respiratory Depth Respiratory Pattern Blood Pressure 124/77 122/85 Blood Pressure Mean 103 97 Pulse Oximetry 93 Oxygen Delivery Method Room Air Sepsis Recent Fever Within 48 Hours Sepsis New/Unexplained Change in Mental Status Sepsis Action Taken by Nursing Laboratory Data 10/05/25 10:25 10/05/25 10:25 Lab Results 10/05/25 Range/Units 10:25 WBC 11.38 H (4.8-10.8) K/ul RBC 4.52 (4.20-5.40) M/uL Hgb 13.5 (12.0-16.0) g/dL Hct 40.5 (37.0-47.0) % MCV 89.6 (80.0-100.0) fL MCH 29.9 (25.0-34.0) pg MCHC 33.3 (32.0-36.0) g/dL RDW Std Deviation 40.2 (36.4-46.3) fL RDW Coeff of Antonia 12.2 (11.5-14.5) % Plt Count 506 H (130-400) K/uL MPV 10.2 (9.4-12.4) fL Immature Gran % (Auto) 0.5 % Neut % (Auto) 81.6 % Lymph % (Auto) 11.2 % Elk % (Auto) 6.2 % Eos % (Auto) 0.2 % Baso % (Auto) 0.3 % Neut # (Auto) 9.29 H (1.40-6.50) K/uL Lymph # (Auto) 1.28 (1.20-3.40) K/uL Elk # (Auto) 0.70 H (0.11-0.59) K/uL Eos # (Auto) 0.02 (0.00-0.50) K/uL Baso # (Auto) 0.03 (0.00-0.20) K/uL Immature Gran # (Auto) 0.06 (0.01-0.20) K/uL Sodium 131 L (136-145) mmol/L Potassium 3.8 (3.5-5.1) mmol/L Chloride 93 L (98-107) mmol/L Carbon Dioxide 28 (21-32) mmol/L Anion Gap 10 (3-11) BUN 12 (6-23) mg/dl Creatinine 0.78 (0.6-1.2) mg/dl Est Cr Clr Drug Dosing Not Reportable eGFR 73.47 BUN/Creatinine Ratio 15.4 (10-20) Glucose 290 H (70-99(Fasting)) mg/dl Calcium 9.0 (8.6-10.3) mg/dl Total Bilirubin 0.7 (0.2-1.0) mg/dl AST 25 (13-39) U/L ALT 29 (7-52) U/L Alkaline Phosphatase 261 H (34-104) U/L Troponin I High Sens 45.1 H (0-14) pg/ml Total Protein 7.4 (6.0-8.3) gm/dl Albumin 3.9 (3.4-5.0) gm/dl Globulin 3.5 (2.5-4.0) gm/dl Albumin/Globulin Ratio 1.1 (0.9-2) Lipase 20 (11-82) U/L TSH 5.818 H (0.300-4.500) uIu/ml Free T4 1.19 (0.61-1.60) ng/dl Administered Medications Apixaban (Apixaban 5 Mg Tablet) 5 mg PO BID RAMYA Stop: 11/04/25 11:44 Last Admin: 10/05/25 11:49 Dose: 5 mg Documented By: OLU Furosemide (Furosemide 40 Mg/4 Ml Vial) 40 mg IV DAILY RAMYA Stop: 11/04/25 12:59 Last Admin: 10/05/25 12:46 Dose: 40 mg Documented By: Diltiazem HCl 125 mg/ Dextrose 125 mls @ 5 mls/hr IV .Q24H RAMYA; Protocol Stop: 11/04/25 10:44 Last Admin: 10/05/25 11:10 Dose: 5 mg/hr, 5 mls/hr Documented By: OLU Co-signed By: ZAKIA Discontinued Medications Diltiazem HCl (Diltiazem Hcl 5 Mg/Ml 5 Ml Vial) 10 mg IV NOW STA Stop: 10/05/25 10:38 Last Admin: 10/05/25 10:42 Dose: 10 mg Documented By: Co-signed By: ZAKIA Miscellaneous (Stat Iv Infusion Titration Per Protocol) 1 each N/A NOW STA Stop: 10/05/25 10:38 Last Admin: 10/05/25 11:19 Dose: Not Given Documented By: OLU Imaging Data Radiologist's Impression: Chest X-Ray 10/05/25 10:06 XR chest 1V portable CLINICAL HISTORY: Chest pain, nonspecific COMPARISON STUDY: 03/13/2025 FINDINGS: There is stable cardiomegaly with increased pulmonary vascular congestion. There is hazy opacity in the lung bases with blunting of the left costophrenic angle. No pneumothorax. IMPRESSION: 1. CHF. 2. Hazy opacity in the lung bases likely represents small pleural effusions and associated lung base consolidation, left greater than right. ACT 112: Negative or not required by law. Electronically signed by: Ulises Simmons M.D. 10/05/2025 10:31 AM Discharge Plan Visit Data Chief Complaint: Respiratory Problems Stated Complaint: ASTHMA/COPD ISSUES, RESPIRATORY ISSUES ED Provider: Jason Ferris Discharge Problem: Atrial fibrillation with rapid ventricular response, Lightheadedness, Acute dyspnea Patient Disposition: Admitted As Inpatient Condition: Serious Discharge Instructions Interventions: ED Discharge Assessment Last Done: 10/05/25 12:11
--- NOTE | 2025-10-05 10:32 | XRay Report ---
XR chest 1V portable CLINICAL HISTORY: Chest pain, nonspecific COMPARISON STUDY: 03/13/2025 FINDINGS: There is stable cardiomegaly with increased pulmonary vascular congestion. There is hazy op acity in the lung bases with blunting of the left costophrenic angle. No pneumothorax. IMPRESSION: 1. CHF. 2. Hazy opacity in the lung bases likely represents small pleural effusions and associated lung base consolidation, left greater than right. ACT 112: Negative or not required by law. Electronically signed by: Ulises Simmons M.D. 10/05/2025 10:31 AM
[2025-10-05 10:50] LABS: Hematocrit (blood only) 40.5 % (37.0-47.0); Hemoglobin 13.5 g/dL (12.0-16.0); Immature Granulocytes # (auto) 0.06 K/uL (0.01-0.20); Immature Granulocytes % (auto) 0.5 %; Mean Corpuscular Hemoglobin 29.9 pg (25.0-34.0); Mean Corpuscular Volume 89.6 fL (80.0-100.0); Platelet Count 506 K/uL (130-400); RDW Standard Deviation 40.2 fL (36.4-46.3); Red Blood Count 4.52 M/uL (4.20-5.40); White Blood Count 11.38 K/ul (4.8-10.8)
[2025-10-05 11:10] LABS: Alanine Aminotransferase 29 U/L (7-52); Albumin Globulin Ratio 1.1 (0.9-2); Albumin Level 3.9 gm/dl (3.4-5.0); Alkaline Phosphatase 261 U/L (34-104); Anion Gap 10 (3-11); Bilirubin,Total 0.7 mg/dl (0.2-1.0); Blood Urea Nitrogen 12 mg/dl (6-23); Calcium 9.0 mg/dl (8.6-10.3); Carbon Dioxide 28 mmol/L (21-32); Chloride 93 mmol/L (98-107); Globulin 3.5 gm/dl (2.5-4.0); Glucose 290 mg/dl (70-99(Fasting)); Lipase 20 U/L (11-82); Potassium 3.8 mmol/L (3.5-5.1); Sodium 131 mmol/L (136-145); Total Protein 7.4 gm/dl (6.0-8.3)
[2025-10-05] MEDS: STAT IV Infusion **Titration per Protocol STA (11:19)
[2025-10-05] MEDS: APIXABAN 5 MG TABLET PO SCH (11:49)
--- NOTE | 2025-10-05 11:56 | History & Physical Report ---
Date of Service October 05, 2025 Assessment & Plan (1) New onset a-fib: (2) Acute on chronic systolic CHF (congestive heart failure): (3) Diabetes mellitus: (4) Hypertension: Plan Is an 85-year-old female with a history of paroxysmal atrial tachycardia, hypertension, type 2 diabetes who presents to the hospital worsening shortness of breath. Found to be in new send A-fib with RVR 1. New onset A-fib with RVR: No history of previous A-fib however has a history of paroxysmal atrial tachycardia. Heart rate in the 150s, has been started on Cardizem drip Will also initiate Eliquis 5 mg twice daily Ordered 2D echo 2. Possible acute congestive heart failure: Patient reports worsening shortness of breath, orthopnea CT scan showed evidence of pulmonary congestion Will order 2D echo IV Lasix 40 mg daily Monitor input and output, daily weight 3. Hypertension: Blood pressures under good control Continue home medication. 4. Type 2 diabetes: Blood glucose under good control Starting insulin scale Full code DVT prophylaxis Eliquis History of Present Illness Chief Complaint: SOB Primary Care Provider: Mark Saini MD This is an 85-year-old female from [place] with a history of hypertension, paroxysmal atrial tachycardia, type 2 diabetes, presents to the hospital on account of worsening shortness of breath. Most of the history was obtained through the daughter who was at the bedside. According to the daughter, over the past few days, patient has been having worsening shortness of breath, orthopnea. She denies chest pain no cough or fever. Upon arrival to the emergency department, she was found to be in A-fib with RVR. CT scan of the chest also showed evidence of pulmonary congestion. In the ED, she was started on Cardizem drip and will be admitted to the hospital for diuresis and further management. Allergies Allergy/AdvReac Type Severity Reaction Status Date / Time No Known Drug Allergies Allergy Unknown Verified 01/20/24 17:47 Home Medications Medication Instructions Recorded Confirmed Type levothyroxine 75 mcg tablet 25 mcg PO QAM 09/06/19 10/05/25 History rosuvastatin 10 mg tablet 10 mg PO DAILY 07/20/23 10/05/25 History lisinopril 20 mg tablet 0 mg PO DAILY 01/20/24 10/05/25 History polyethylene glycol 3350 17 gram 17 g PO DAILY #30 ea 01/31/24 10/05/25 Rx oral powder packet (Miralax) Past Med/Surg History Problem List (Updated 10/05/25 @ 11:53 by Alaina Mccormack MD) Acute on chronic systolic CHF (congestive heart failure) New onset a-fib Femur fracture Abnormal head CT Pathological fracture 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 PAT (paroxysmal atrial tachycardia) Diabetes mellitus diet controlled > no meds Hypertension Vitamin D deficiency Hypokalemia (Acute) Hyponatremia (Acute) Subcapital fracture of left hip Status post fall (Acute) Subcapital fracture of left hip (Acute) Hip fracture, left GERD (gastroesophageal reflux disease) Pancreatic cyst just monitoring LUQ abdominal pain Encounter for pre-operative examination Acute confusional state Hand contusion (Acute) Hypothyroidism Hyperlipidemia GERD (gastroesophageal reflux disease) Hypotension due to drugs (Acute) Syncope and collapse (Acute) Encounter for pre-operative examination LPRD (laryngopharyngeal reflux disease) 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 Vasomotor rhinitis Medical History Acute blood loss anemia Stomach ulcer Asthma Depression Diabetes mellitus Thyroid disorder Vulvitis History of syncope Osteoarthritis Insomnia Poor historian Pancreatic cyst GERD (gastroesophageal reflux disease) Depression History of TIA (transient ischemic attack) Glaucoma Hyperlipidemia COPD (chronic obstructive pulmonary disease) Hypothyroidism Hypertension Surgical History Status post ORIF of fracture of ankle History of esophagogastroduodenoscopy (EGD) History of colonoscopy History of toe surgery History of cataract surgery Family History Other Family history non-contributory Hypertension Denies family history of Hearing loss No family history of adverse response to anesthesia No family history of bleeding disorder Heart disease Allergies Cancer Stroke Asthma Social History Smoking Status: Never smoker Second Hand Exposure: No; Do You Dip or Chew Tobacco: No; Hx Alcohol Use: No Hx Substance Use: No Preferred Language: Welsh Communication Ability: Effective Automobiles Salesperson Required: No Beliefs That Will Affect Care: Adventist Adventist Beliefs: Jehovahs Witness- no blood containing products marital status: / Current Living Situation: Family Current Living Situation Comment: Lives with daughterDot current occupational status: retired Feels Safe at Home: Yes Assistive Devices: Cane and Walker Review of Systems Review of Systems: All systems reviewed are negative, apart from the ones contained in the history. Physical Exam Physical Exam: The patient is awake, alert and oriented 3, well developed and well nourished, normocephalic and atraumatic, lying in bed and in no acute distress. HEENT--PERRL, EOMI, mucous membranes and oropharynx mildly dry Neck--supple. No JVD. No bruits. Thyroid normal, trachea midline, no adenopathy. Heart--normal S1 and S2. No murmurs, rubs or gallops. Lungs--clear bilaterally, no respiratory distress, no accessory muscle use. Abdomen--normal bowel sounds and soft. Extremities--no cyanosis or clubbing. No edema. Dermatologic--normal skin turgor, normal color, no abnormal lymph nodes, no rash. Neurologic--cranial nerves II through XII grossly intact. Rheumatologic--normal range of motion. Psychiatric--normal affect. Results & Data Results & Data Vital Signs (Past 12 Hours) Vital Signs Temp Pulse Resp BP Pulse Ox O2 Del Method 10/05/25 11:30 112 H 18 122/85 93 Room Air 10/05/25 11:11 124/77 10/05/25 11:00 83 26 H 104/84 95 10/05/25 10:48 94 Room Air 10/05/25 10:48 94 Room Air 10/05/25 10:48 128 H 10/05/25 10:02 97.7 F 122 H 18 119/85 96 Room Air PG Care Time/CCT Total # of Minutes Spent Total Time Spent with Patient: Total time spent is greater than 50% in coordination of care (as documented) at patient's floor/unit and/or counseling patient: Coding Level of Care Code 62203 INT INP/OBS CARE 2/55MIN Diagnoses New onset a-fib I48.91 Acute on chronic systolic CHF (congestive heart failure) I50.23 Diabetes mellitus E11.9 Hypertension I10 Time Spent (min) 55
[2025-10-05] MEDS: FUROSEMIDE 40 MG/4 ML VIAL IV SCH (12:46)
[2025-10-05 13:38] LABS: Thyroid Stimulating Hormone 5.818 uIu/ml (0.300-4.500)
[2025-10-05 13:40] LABS: T4 Free Thyroxine 1.19 ng/dl (0.61-1.60)
--- NOTE | 2025-10-05 17:04 | XCELERA ---
[id number]
[2025-10-05] MEDS: INSULIN ASPART PER UNIT CHARGE SC SCH (17:39)
[2025-10-05] MEDS: METOPROLOL TARTRATE 25 MG TAB PO SCH (20:24)
--- NOTE | 2025-10-05 22:39 | Electrocardiogram Report ---
Test Reason : Blood Pressure : */* mmHG Vent. Rate : 137 BPM Atrial Rate : * BPM P-R Int : * ms QRS Dur : 84 ms QT Int : 344 ms P-R-T Axes : * -23 183 degrees QTcB Int : 519 ms Atrial fibrillation with rapid ventricular response Minimal voltage criteria for LVH, may be normal variant ( Pillo product ) Anterior infarct Inferior infarct T wave abnormality, consider anterolateral ischemia Prolonged QT Abnormal ECG When compared with ECG of 13-Mar-2025 11:53, Atrial fibrillation has replaced Sinus rhythm Confirmed by Samuel Jackson ([id number]) on 10/05/2025 10:39:43 PM Referred By: Confirmed By: Samuel Jackson
[2025-10-06] MEDS: LEVOTHYROXINE SODIUM 25 MCG TABLET PO SCH (05:56)
[2025-10-06 06:21] LABS: Anion Gap 10.0 (3-11); Blood Urea Nitrogen 14.0 mg/dl (6-23); Calcium 8.5 mg/dl (8.6-10.3); Carbon Dioxide 29.0 mmol/L (21-32); Chloride 91.0 mmol/L (98-107); Creatinine Clr Calc Pharmacy 45.7 ml/min; Glucose 104.0 mg/dl (70-99(Fasting)); Potassium 3.7 mmol/L (3.5-5.1); Sodium 130.0 mmol/L (136-145)
[2025-10-06 07:49] LABS: Hematocrit (blood only) 36.6 % (37.0-47.0); Hemoglobin 12.2 g/dL (12.0-16.0); Mean Corpuscular Hemoglobin 29.8 pg (25.0-34.0); Mean Corpuscular Volume 89.3 fL (80.0-100.0); Platelet Count 421 K/uL (130-400); RDW Standard Deviation 39.7 fL (36.4-46.3); Red Blood Count 4.10 M/uL (4.20-5.40); White Blood Count 9.49 K/ul (4.8-10.8)
[2025-10-06] MEDS: ROSUVASTATIN CALCIUM 10 MG TAB PO SCH (08:11)
--- NOTE | 2025-10-06 11:04 | Cardiology Consultation ---
Date of Consultation October 06, 2025 Assessment & Plan (1) Atrial fibrillation with rapid ventricular response: (2) New onset a-fib: (3) HFrEF (heart failure with reduced ejection fraction): (4) Hyperlipidemia: Plan Given the severe LV dysfunction, would opt to ween off the diltiazem and use BB for HR control and lisinopril. She should be started on NOAC cautiously--given her age and small size. 2.5mg of Eliquis is preferable. Discussed with family concern for being prone to fall. Would AC x 3-4 weeks-if she remains in Afib, bring for for DC cardioversion as OP. reassess LV function at that time. Would also refer for Watchman procedure due to advances age and risk of NOAC. Will follow overnight. Check Troponin and BNP-neither of which were checked on admission?? History of Present Illness Reason for Consultation: CHF Afib Attending Physician: Alaina Mccormack MD History of Present Illness Mrs. Finch is an 85 yo who presents with a several week (?perhaps longer) hx of increasing SOB, which she was attributing to asthma and was using her rescue inhaler fairly frequently. She may have had some tightness in her chest at times. Her family has noticed that she has not been her usual peppy self. A year ago she had a bad fall resulting in a hip fracture. She had a nother slip in the tub. She does have family with her in the home, but they are not there all the time and she often does not ask for help. She has not had a prior cardiac eval, but did have an old ECHO showing normal Ef. On admission she was found to have Afib with RVR with anterolateral T wave abnormalities. Repeat ECHO with severe LV dysfunction EF 25% Allergies Allergy/AdvReac Type Severity Reaction Status Date / Time No Known Drug Allergies Allergy Unknown Verified 01/20/24 17:47 Home Medications Medication Instructions Recorded Confirmed Type levothyroxine 75 mcg tablet 25 mcg PO QAM 09/06/19 10/05/25 History rosuvastatin 10 mg tablet 10 mg PO DAILY 07/20/23 10/05/25 History lisinopril 20 mg tablet 0 mg PO DAILY 01/20/24 10/05/25 History polyethylene glycol 3350 17 gram 17 g PO DAILY #30 ea 01/31/24 10/05/25 Rx oral powder packet (Miralax) Patient History Medical History Acute blood loss anemia Stomach ulcer Asthma well controlled per pt Depression Thyroid disorder Vulvitis History of syncope 2018 ER visit [facility]. Presented with elevated BP. Treated in ER and d/c. Syncopal episode upon returning to home. Believes r/t antihypertensives administered in ER. ? med compliance at home. Osteoarthritis Insomnia Poor historian Depression History of TIA (transient ischemic attack) pt poor historian. could not recall date of TIA. says it should be in records. "years ago" Glaucoma Hyperlipidemia COPD (chronic obstructive pulmonary disease) well controlled per pt report Hypothyroidism Surgical History Status post ORIF of fracture of ankle Left History of esophagogastroduodenoscopy (EGD) History of colonoscopy History of toe surgery BL great toe History of cataract surgery bilat Family History Other Family history non-contributory Hypertension Denies family history of Hearing loss No family history of adverse response to anesthesia No family history of bleeding disorder Heart disease Allergies Cancer Stroke Asthma Social History Smoking Status: Never smoker Second Hand Exposure: No; Do You Dip or Chew Tobacco: No; Hx Alcohol Use: No Hx Substance Use: No Preferred Language: Slovenian Communication Ability: Effective 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 Beliefs That Will Affect Care: None marital status: / Current Living Situation: Family Current Living Situation Comment: Lives with daughterDot current occupational status: retired Feels Safe at Home: Yes Assistive Devices: Cane and Walker Review of Systems Review of Systems: All systems reviewed & are unremarkable except as noted in HPI & below Physical Exam Physical Exam: elderly, frail Respiratory: rales b/l Cardiovascular: irregular HR Results & Data Vital Signs (Past 12 Hours) Vital Signs Temp Pulse Resp BP Pulse Ox O2 Del Method 10/06/25 10:24 36.8 C 76 20 94/63 L 94 Room Air 10/06/25 07:51 36.0 C L 102 H 26 H 130/91 96 Room Air 10/06/25 04:20 36.4 C L 71 17 131/85 94 Room Air 10/06/25 00:27 36.4 C L 17 108/72 96 Room Air Laboratory Results Abnormal lab results 10/05/25 10/05/25 10/05/25 Range/Units 10: 12:12 16:09 RBC (4.20-5.40) M/uL Hct (37.0-47.0) % Plt Count (130-400) K/uL Sodium 131 L (136-145) mmol/L Chloride 93 L (98-107) mmol/L BUN/Creatinine Ratio (10-20) Glucose 290 H (70-99(Fasting)) mg/dl POC Glucose 240 H (70-99) mg/dl Calcium (8.6-10.3) mg/dl Alkaline Phosphatase 261 H (34-104) U/L Troponin I High Sens 45.1 H 35.6 H (0-14) pg/ml TSH 5.818 H (0.300-4.500) uIu/ml 10/05/25 10/06/25 10/06/25 Range/Units 20:24 05:16 05:21 RBC 4.10 L (4.20-5.40) M/uL Hct 36.6 L (37.0-47.0) % Plt Count 421 H (130-400) K/uL Sodium 130 L (136-145) mmol/L Chloride 91 L (98-107) mmol/L BUN/Creatinine Ratio 21.2 H (10-20) Glucose 104 H (70-99(Fasting)) mg/dl POC Glucose 172 H (70-99) mg/dl Calcium 8.5 L (8.6-10.3) mg/dl Alkaline Phosphatase (34-104) U/L Troponin I High Sens (0-14) pg/ml TSH (0.300-4.500) uIu/ml 10/06/25 10/06/25 Range/Units 07:21 10:59 RBC (4.20-5.40) M/uL Hct (37.0-47.0) % Plt Count (130-400) K/uL Sodium (136-145) mmol/L Chloride (98-107) mmol/L BUN/Creatinine Ratio (10-20) Glucose (70-99(Fasting)) mg/dl POC Glucose 113 H 194 H (70-99) mg/dl Calcium (8.6-10.3) mg/dl Alkaline Phosphatase (34-104) U/L Troponin I High Sens (0-14) pg/ml TSH (0.300-4.500) uIu/ml Medications Administered Current Inpatient Medications Acetaminophen (Acetaminophen 325 Mg Tab) 650 mg PO Q4H PRN PRN Reason: Pain or Fever Stop: 11/04/25 12:32 Apixaban (Apixaban 5 Mg Tablet) 5 mg PO BID [facility] Stop: 11/04/25 11:44 Last Admin: 10/06/25 08:11 Dose: 5 mg Furosemide (Furosemide 40 Mg/4 Ml Vial) 40 mg IV DAILY [facility]YA Stop: 11/04/25 12:59 Last Admin: 10/06/25 08:23 Dose: 40 mg Diltiazem HCl 125 mg/ Dextrose 125 mls @ 5 mls/hr IV .Q24H [facility]; Protocol Stop: 11/04/25 10:44 Last Admin: 10/06/25 07:42 Dose: 5 mg/hr, 5 mls/hr Insulin Aspart (Insulin Aspart Per Unit Charge) 0 units SC ACHS RAMYA Stop: 11/04/25 16:29 Last Admin: 10/06/25 13:44 Dose: 4 units Levothyroxine Sodium (Levothyroxine Sodium 25 Mcg Tablet) 25 mcg PO DAILYBB [facility] Stop: 11/05/25 06:29 Last Admin: 10/06/25 05:56 Dose: 25 mcg Lisinopril (Lisinopril 20 Mg Tab) 20 mg PO DAILY [facility] Stop: 11/05/25 08:59 Last Admin: 10/06/25 08:11 Dose: 20 mg Metoprolol Tartrate (Metoprolol Tartrate 25 Mg Tab) 25 mg PO BID [facility] Stop: 11/04/25 20:59 Last Admin: 10/06/25 08:11 Dose: 25 mg Rosuvastatin Calcium (Rosuvastatin Calcium 10 Mg Tab) 10 mg PO DAILY [facility] Stop: 11/05/25 08:59 Last Admin: 10/06/25 08:11 Dose: 10 mg (4) Hyperlipidemia Hyperlipidemia type: unspecified Qualified Code(s): E78.5 - Hyperlipidemia, unspecified
--- NOTE | 2025-10-06 11:58 | Hospitalist Progress Note ---
Date of Service October 06, 2025 Assessment & Plan (1) New onset a-fib: (2) Acute on chronic systolic CHF (congestive heart failure): (3) Diabetes mellitus: (4) Hypertension: Plan Is an 85-year-old female with a history of paroxysmal atrial tachycardia, hypertension, type 2 diabetes who presents to the hospital worsening shortness of breath. Found to be in new send A-fib with RVR 1. New onset A-fib with RVR: No history of previous A-fib however has a history of paroxysmal atrial tachycardia. Heart rate in the 150s, has been started on Cardizem drip Will also initiate Eliquis 5 mg twice daily 2. acute congestive heart failure With reduced ejection fraction: Patient reports worsening shortness of breath, orthopnea CT scan showed evidence of pulmonary congestion And pleural effusion 2D echo shows severely reduced systolic function, EF 20 to 25%, with global hypokinesis Compared to previous echo done in 2017, systolic function is now severely reduced, there is atrial fibrillation and also mitral Anthrascalp regurgitation now more significant. IV Lasix 40 mg daily Monitor input and output, daily weight Cardiology on consult 3. Hypertension: Blood pressures under good control Continue home medication. 4. Type 2 diabetes: Blood glucose under good control Starting insulin scale Full code DVT prophylaxis Eliquis Admission and Anticipated Discharge Date Admission Date: October 05, 2025 Subjective Patient seen and examined, daughter at bedside, sitting up in the bed, denies chest pain or shortness of breath Review of Systems Review of Systems: All systems reviewed are negative, apart from the ones contained in the history. Physical Exam Physical Exam: The patient is awake, alert and oriented 3, well developed and well nourished, normocephalic and atraumatic, lying in bed and in no acute distress. HEENT--PERRL, EOMI, mucous membranes and oropharynx mildly dry Neck--supple. No JVD. No bruits. Thyroid normal, trachea midline, no adenopathy. Heart--normal S1 and S2. No murmurs, rubs or gallops. Lungs--Reduced and on auscultation Abdomen--normal bowel sounds and soft. Extremities--no cyanosis or clubbing. No edema. Dermatologic--normal skin turgor, normal color, no abnormal lymph nodes, no rash. Neurologic--cranial nerves II through XII grossly intact. Rheumatologic--normal range of motion. Psychiatric--normal affect. Results & Data Results & Data Vital Signs (Past 12 Hours) Vital Signs Temp Pulse Resp BP Pulse Ox O2 Del Method 10/06/25 10:24 98.2 F 76 20 94/63 L 94 Room Air 10/06/25 07:51 96.8 F L 102 H 26 H 130/91 96 Room Air 10/06/25 04:20 97.5 F L 71 17 131/85 94 Room Air 10/06/25 00:27 97.5 F L 17 108/72 96 Room Air PG Care Time/CCT Total # of Minutes Spent Total Time Spent with Patient: Total time spent is greater than 50% in coordination of care (as documented) at patient's floor/unit and/or counseling patient: Coding Level of Care Code 90295 SUB INP/OBS CARE 2/35MIN Diagnoses New onset a-fib I48.91 Acute on chronic systolic CHF (congestive heart failure) I50.23 Diabetes mellitus E11.9 Hypertension I10 Time Spent (min) 35
[2025-10-07 06:59] LABS: Anion Gap 8.0 (3-11); Blood Urea Nitrogen 16.0 mg/dl (6-23); Calcium 8.3 mg/dl (8.6-10.3); Carbon Dioxide 30.0 mmol/L (21-32); Chloride 89.0 mmol/L (98-107); Creatinine Clr Calc Pharmacy 47.9 ml/min; Glucose 114.0 mg/dl (70-99(Fasting)); Potassium 3.5 mmol/L (3.5-5.1); Sodium 127.0 mmol/L (136-145)
--- NOTE | 2025-10-07 09:56 | Hospitalist Progress Note ---
Date of Service October 07, 2025 Assessment & Plan (1) New onset a-fib: (2) Acute on chronic systolic CHF (congestive heart failure): (3) Diabetes mellitus: (4) Hypertension: Plan Is an 85-year-old female with a history of paroxysmal atrial tachycardia, hypertension, type 2 diabetes who presents to the hospital worsening shortness of breath. Found to be in new send A-fib with RVR 1. New onset A-fib with RVR: No history of previous A-fib however has a history of paroxysmal atrial tachycardia. On admission,Heart rate in the 150s, was started on Cardizem drip, But this has been discontinued. Heart rate now under better control Initiate metoprolol 25 mg twice daily Will also initiate Eliquis 2.5 mg twice daily Per cardiology, they will anticoagulate for almost a month before considering cardioversion if the patient is still in A-fib 2. acute congestive heart failure With reduced ejection fraction: Patient reports worsening shortness of breath, orthopnea CT scan showed evidence of pulmonary congestion And pleural effusion 2D echo shows severely reduced systolic function, EF 20 to 25%, with global hypokinesis Compared to previous echo done in 2017, systolic function is now severely reduced, there is atrial fibrillation and also mitral Anthrascalp regurgitation now more significant. IV Lasix 40 mg daily Monitor input and output, daily weight Cardiology on consult 3. Hypertension: Blood pressures under good control Continue home medication. 4. Type 2 diabetes: Blood glucose under good control Starting insulin scale 5.Confusion: Patient may have some underlying dementia, according to one of the daughters, she has been getting confused to Was confused this morning Full code DVT prophylaxis Eliquis Disposition: Awaiting further recommendations from cardiology Admission and Anticipated Discharge Date Admission Date: October 05, 2025 Subjective Patient seen and examined, She is sitting up in the bed, confused Review of Systems Review of Systems: All systems reviewed are negative, apart from the ones contained in the history. Physical Exam Physical Exam: The patient is awake, alert and oriented 1, well developed and well nourished, normocephalic and atraumatic, lying in bed and in no acute distress. HEENT--PERRL, EOMI, mucous membranes and oropharynx mildly dry Neck--supple. No JVD. No bruits. Thyroid normal, trachea midline, no adenopathy. Heart--normal S1 and S2. No murmurs, rubs or gallops. Lungs--Reduced and on auscultation Abdomen--normal bowel sounds and soft. Extremities--no cyanosis or clubbing. No edema. Dermatologic--normal skin turgor, normal color, no abnormal lymph nodes, no rash. Neurologic--cranial nerves II through XII grossly intact. Rheumatologic--normal range of motion. Psychiatric--normal affect. Results & Data Results & Data Vital Signs (Past 12 Hours) Vital Signs Temp Pulse Pulse Resp BP Pulse Ox O2 Del Method 10/07/25 09:21 Nasal Cannula 10/07/25 08:00 98.2 F 83 18 115/83 94 Room Air 10/07/25 05:46 64 10/07/25 03:46 97.7 F 62 20 93/59 L 95 Room Air 10/06/25 23:52 98.2 F 67 20 94/68 L 95 Room Air O2 Flow Rate 10/07/25 09:21 2 10/07/25 08:00 10/07/25 05:46 10/07/25 03:46 10/06/25 23:52 PG Care Time/CCT Total # of Minutes Spent Total Time Spent with Patient: Total time spent is greater than 50% in coordination of care (as documented) at patient's floor/unit and/or counseling patient: Coding Level of Care Code 41669 SUB INP/OBS CARE 2/35MIN Diagnoses New onset a-fib I48.91 Acute on chronic systolic CHF (congestive heart failure) I50.23 Diabetes mellitus E11.9 Hypertension I10 Time Spent (min) 35
--- NOTE | 2025-10-07 10:40 | Cardiology Progress Note ---
Date of Service October 07, 2025 Assessment & Plan (1) Atrial fibrillation with rapid ventricular response: (2) New onset a-fib: (3) HFrEF (heart failure with reduced ejection fraction): (4) Hyperlipidemia: Plan Given the severe LV dysfunction, would opt to ween off the diltiazem and use BB for HR control and lisinopril. She should be started on NOAC cautiously--given her age and small size. 2.5mg of Eliquis is preferable. Discussed with family concern for being prone to fall. Would AC x 3-4 weeks-if she remains in Afib, bring for for DC cardioversion as OP. reassess LV function at that time. Would also refer for Watchman procedure due to advances age and risk of NOAC. Will arrange for EP eval for Watchman considerations after DC. Will also schedule for f/u in 2 weeks with me Admission and Anticipated Discharge Date Admission Date: October 05, 2025 Subjective One again reviewed with patients family. She denies complaints. Family reports a little confused today They are concerned with her going home and falling. They are requesting rehab eval Review of Systems Review of Systems: All systems reviewed & are unremarkable except as noted in HPI & below Physical Exam Physical Exam: elderly, frail Cardiovascular: irregular-HR 80 Results & Data Vital Signs (Past 12 Hours) Vital Signs Temp Pulse Pulse Resp BP Pulse Ox O2 Del Method 10/07/25 09:21 Nasal Cannula 10/07/25 08:00 36.8 C 83 18 115/83 94 Room Air 10/07/25 05:46 64 10/07/25 03:46 36.5 C 62 20 93/59 L 95 Room Air 10/06/25 23:52 36.8 C 67 20 94/68 L 95 Room Air O2 Flow Rate 10/07/25 09:21 2 10/07/25 08:00 10/07/25 05:46 10/07/25 03:46 10/06/25 23:52 Laboratory Results Abnormal lab results 10/07/25 10/07/25 10/07/25 Range/Units 05:58 11:21 15:52 Sodium 127 L (136-145) mmol/L Chloride 89 L (98-107) mmol/L BUN/Creatinine Ratio 25.0 H (10-20) Glucose 114 H (70-99(Fasting)) mg/dl POC Glucose 148 H 159 H (70-99) mg/dl Calcium 8.3 L (8.6-10.3) mg/dl Troponin I High Sens 31.9 H (0-14) pg/ml B-Natriuretic Peptide 321 H (0-100) pg/ml 10/07/25 Range/Units 21:04 Sodium (136-145) mmol/L Chloride (98-107) mmol/L BUN/Creatinine Ratio (10-20) Glucose (70-99(Fasting)) mg/dl POC Glucose 147 H (70-99) mg/dl Calcium (8.6-10.3) mg/dl Troponin I High Sens (0-14) pg/ml B-Natriuretic Peptide (0-100) pg/ml Medications Administered Current Inpatient Medications Acetaminophen (Acetaminophen 325 Mg Tab) 650 mg PO Q4H PRN PRN Reason: Pain or Fever Stop: 11/04/25 12:32 Apixaban (Apixaban 2.5 Mg Tab) 2.5 mg PO BID RAMYA Stop: 11/06/25 20:59 Last Admin: 10/07/25 19:27 Dose: 2.5 mg Furosemide (Furosemide Inj 20 Mg/2 Ml Vial) 20 mg IV DAILY RAMYA Stop: 11/07/25 08:59 Insulin Aspart (Insulin Aspart Per Unit Charge) 0 units SC ACHS RAMYA Stop: 11/04/25 16:29 Last Admin: 10/07/25 21:27 Dose: 1 units Levothyroxine Sodium (Levothyroxine Sodium 25 Mcg Tablet) 25 mcg PO DAILYBB RAMYA Stop: 11/05/25 06:29 Last Admin: 10/07/25 07:02 Dose: 25 mcg Lisinopril (Lisinopril 20 Mg Tab) 20 mg PO DAILY RAMYA Stop: 11/05/25 08:59 Last Admin: 10/07/25 08:13 Dose: 20 mg Metoprolol Succinate (Metoprolol Succ 25mg Ext Rel Tab) 25 mg PO QAM RAMYA Stop: 11/07/25 08:59 Rosuvastatin Calcium (Rosuvastatin Calcium 10 Mg Tab) 10 mg PO DAILY RAMYA Stop: 11/05/25 08:59 Last Admin: 10/07/25 08:14 Dose: 10 mg (4) Hyperlipidemia Hyperlipidemia type: unspecified Qualified Code(s): E78.5 - Hyperlipidemia, unspecified
--- NOTE | 2025-10-07 12:29 | Electrocardiogram Report ---
Test Reason : Blood Pressure : */* mmHG Vent. Rate : 66 BPM Atrial Rate : * BPM P-R Int : * ms QRS Dur : 90 ms QT Int : 518 ms P-R-T Axes : * -15 215 degrees QTcB Int : 543 ms Atrial fibrillation Minimal voltage criteria for LVH, may be normal variant ( Pillo product ) Anteroseptal infarct (cited on or before 20-Jul-2023) T wave abnormality, consider inferolateral ischemia Prolonged QT Abnormal ECG When compared with ECG of 05-Oct-2025 10:21, Vent. rate has decreased by 71 bpm Criteria for Inferior infarct are no longer Present T wave inversion more evident in Anterior leads Confirmed by Shona Arteaga ([id number]) on 10/07/2025 12:29:39 PM Referred By: REFERRED SELF Confirmed By: Shona Arteaga
[2025-10-07] MEDS: APIXABAN 2.5 MG TAB PO SCH (19:27)
[2025-10-08 06:42] LABS: Hematocrit (blood only) 34.9 % (37.0-47.0); Hemoglobin 11.9 g/dL (12.0-16.0); Mean Corpuscular Hemoglobin 30.3 pg (25.0-34.0); Mean Corpuscular Volume 88.8 fL (80.0-100.0); Platelet Count 452 K/uL (130-400); RDW Standard Deviation 38.8 fL (36.4-46.3); Red Blood Count 3.93 M/uL (4.20-5.40); White Blood Count 8.54 K/ul (4.8-10.8)
[2025-10-08 06:59] LABS: Anion Gap 8.0 (3-11); Blood Urea Nitrogen 16.0 mg/dl (6-23); Calcium 8.5 mg/dl (8.6-10.3); Carbon Dioxide 34.0 mmol/L (21-32); Chloride 91.0 mmol/L (98-107); Creatinine Clr Calc Pharmacy 41.1 ml/min; Glucose 104.0 mg/dl (70-99(Fasting)); Potassium 3.5 mmol/L (3.5-5.1); Sodium 133.0 mmol/L (136-145)
[2025-10-08] MEDS: DEXTROSE 50% 50 ML SYRINGE IV ONE (07:19)
--- NOTE | 2025-10-08 07:28 | Hospitalist Progress Note ---
Date of Service October 08, 2025 Assessment & Plan (1) Atrial fibrillation with rapid ventricular response: (2) New onset a-fib: (3) HFrEF (heart failure with reduced ejection fraction): (4) Hyperlipidemia: Plan 85-year-old female with a history of paroxysmal atrial tachycardia, hypertension, type 2 diabetes who presents to the hospital worsening shortness of breath. Found to be in new onset A-fib with RVR #New onset A-fib with RVR: No history of previous A-fib however has a history of paroxysmal atrial tachycardia Continue metoprolol succinate 25mg ER qAM, rates have been better controlled Eliquis 2.5 mg BID for anticoagulation Per cardiology, they will anticoagulate for 3-4wks before considering cardioversion if the patient is still in A-fib #acute congestive heart failure With reduced ejection fraction: Patient reports worsening shortness of breath, orthopnea CT scan showed evidence of pulmonary congestion and pleural effusion O2 requirement improvinL down to 2L in PM 10/09 2D echo shows severely reduced systolic function, EF 20 to 25%, with global hypokinesis Continue diuresis Lasix 40mg IV daily Metoprolol as above Lisinopril 20mg daily, will hold for systolic <90 and/or diastolic <60 Compared to previous echo done in 2017, systolic function is now severely reduced, there is atrial fibrillation and also mitral Anthrascalp regurgitation now more significant. Monitor input and output, daily weight Cardiology on consult, appreciate recs #Hypertension BP has been relatively soft, Above meds with hold parameters as specified #DM2 glucose down to 26 by POC in AM, given IV dextrose and discontinued insulin as likely doesn't need it later glucose labs 100-200 BMP AM #Confusion/falls Patient may have some underlying dementia, according to one of the daughters, she has been getting confused to - PT/OT to evaluate - 1:1 for supervision and ambulatory assistance, will require frequent bathroom trips due to ongoing diuresis Full code DVT prophylaxis Eliquis Admission and Anticipated Discharge Date Admission Date: October 05, 2025 Supervising Physician Co-Signing Physician Notes Resident Physician Supervision Note: I personally examined the patient and verified all alfred points of history and exam, discussed case, and agree with decision making with Dr. Greco Patient seen in company of her daughters and I spoke to her daughter on the phone. We relayed her care plan regarding ongoing diuresis in the face of heart failure reduced ejection fraction and the plans for upcoming outpatient cardioversion for atrial fibrillation. Patient's concern was about having increased urination and being unsteady on her feet. We assured her that we will easily her use a one-on-one to help assist her to the restroom or to have a PureWick catheter to help with increased diuresis attempts. Physically she was pleasant her atrial fibrillation was in the [id number] range her lungs with decreased breath sounds at the bases consistent with her bilateral pleural effusions seen on x-ray. I discussed the case with the resident and agree with the findings and plan as documented in the note. Any exceptions or clarifications are listed here: None Continue diuresis with monitoring of electrolytes and possible evaluation for custodial facility convalescence Documented By: Josr Weiner MD Subjective This morning, pt was appearing tired and on 4L NC, little appetite. Good eye contact but slow to respond. In the afternoon, she appeared much more awake and alert, breathing comfortably on 2L NC, she had eaten and was doing crossword puzzles while watching TV. No pain or other concerns expressed. Physical Exam Physical Exam: Gen: appearing in no acute distress, A&Ox3 CV: irregularly irregular, no m/r/g Resp: decreased breath sounds to bases, otherwise clear to auscultation b/l MSK: no LE edema, nontender to palpation Results & Data Results & Data Vital Signs (Past 12 Hours) Vital Signs Temp Pulse Resp BP Pulse Ox O2 Del Method O2 Flow Rate 10/08/25 07:11 36.7 C 100 H 19 125/85 100 Nasal Cannula 4 10/08/25 00:23 36.5 C 93 H 16 131/74 97 Nasal Cannula 4 10/07/25 20:48 36.6 C 78 17 121/85 95 Nasal Cannula 2 Resident Activity Tracking Resident Involvement: Resident Care Provided Care Provided: Adult Hospital Medicine (4) Hyperlipidemia Hyperlipidemia type: unspecified Qualified Code(s): E78.5 - Hyperlipidemia, unspecified
[2025-10-08] MEDS ORDERED: GLUCOSE 40% GEL 15 GM TUBE PO PRN (07:30)
[2025-10-08] MEDS ORDERED: CARBOHYDRATES FOR HYPOGLYCEMIA PO PRN (07:30)
[2025-10-08] MEDS ORDERED: GLUCAGON FOR INJ 1 MG VIAL SQ PRN (07:30)
[2025-10-08] MEDS ORDERED: DEXTROSE 50% 50 ML SYRINGE IV PRN (07:30)
[2025-10-08] MEDS ORDERED: GLUCOSE 10 TAB/TUBE PO PRN (07:30)
[2025-10-08] MEDS: METOPROLOL SUCC 25MG EXT REL TAB PO SCH (08:55)
[2025-10-08] MEDS: FUROSEMIDE INJ 20 MG/2 ML VIAL IV SCH (08:56)
[2025-10-08 09:19] LABS: Hemoglobin A1C 7.3 % (4.5-5.6)
--- NOTE | 2025-10-08 11:08 | Cardiology Progress Note ---
Date of Service October 08, 2025 Assessment & Plan (1) Atrial fibrillation with rapid ventricular response: (2) New onset a-fib: (3) HFrEF (heart failure with reduced ejection fraction): (4) Hyperlipidemia: Plan Ms. Finch's heart rate is fairly well controlled. She should remain on anticoagulation, low dose Eliquis given her weight and age. In three weeks of uninterrupted anticoagulation, we can have her under cardioversion. Her echo showed severe LV dysfunction. Her BNP is elevated. I would recommend continuing with diuresis until her BUN bumps a little. We could consider switching her lisinopril to Entresto down the line once she is adequately diuresed. Will arrange for EP eval for Watchman considerations after DC. Will also schedule for f/u in [address] Arteaga Admission and Anticipated Discharge Date Admission Date: October 05, 2025 Subjective Ms. Finch is pleasant and appears comfortable this morning. She notes that she feels confused and is losing track of day and night. She is not having any shortness of breath or chest pain. No palpitations. Her heart rates have been 80s and 90s on the monitor. Review of Systems Review of Systems: All systems reviewed & are unremarkable except as noted in HPI & below Physical Exam Constitutional: WD/WN, vitals as above Respiratory: normal respiratory effort, lungs clear to auscultation Cardiovascular: Rate/Rhythm: + abnormal rate and + abnormal rhythm Heart Sounds: no murmur Extremities: no edema Skin: no rashes, warm and dry Neurologic: moves all extremities and awake Psychiatric: Orientation: alert, oriented to person and oriented to place Results & Data Vital Signs (Past 12 Hours) Vital Signs Temp Pulse Pulse Resp BP Pulse Ox O2 Del Method 10/08/25 08:00 73 10/08/25 07:11 36.7 C 100 H 19 125/85 100 Nasal Cannula 10/08/25 00:23 36.5 C 93 H 16 131/74 97 Nasal Cannula O2 Flow Rate 10/08/25 08:00 10/08/25 07:11 4 10/08/25 00:23 4 (4) Hyperlipidemia Hyperlipidemia type: unspecified Qualified Code(s): E78.5 - Hyperlipidemia, unspecified
--- NOTE | 2025-10-08 17:09 | Billing Data ---
Date of Service October 08, 2025 Coding Level of Care Code 38637 SUB INP/OBS CARE
[2025-10-08] MEDS: FUROSEMIDE INJ 20 MG/2 ML VIAL IV ONE (18:07)
[2025-10-09 06:20] LABS: Anion Gap 7.0 (3-11); Blood Urea Nitrogen 13.0 mg/dl (6-23); Calcium 8.5 mg/dl (8.6-10.3); Carbon Dioxide 36.0 mmol/L (21-32); Chloride 91.0 mmol/L (98-107); Creatinine Clr Calc Pharmacy 41.6 ml/min; Glucose 119.0 mg/dl (70-99(Fasting)); Magnesium 1.9 mg/dl (1.7-2.4); Potassium 3.5 mmol/L (3.5-5.1); Sodium 134.0 mmol/L (136-145)
--- NOTE | 2025-10-09 06:46 | Hospitalist Progress Note ---
Date of Service October 09, 2025 Assessment & Plan (1) Atrial fibrillation with rapid ventricular response: (2) New onset a-fib: (3) HFrEF (heart failure with reduced ejection fraction): (4) Hyperlipidemia: Plan 85-year-old female with a history of paroxysmal atrial tachycardia, hypertension, type 2 diabetes who presents to the hospital worsening shortness of breath. Found to be in new onset A-fib with RVR. Continued admission necessary for medical stabilization/optimization while pending inpatient rehab on discharge. #New onset A-fib with RVR: No history of previous A-fib however has a history of paroxysmal atrial tachycardia Metoprolol succinate increased to 50mg ER qAM Eliquis 2.5 mg BID for anticoagulation Per cardiology, they will anticoagulate for 3-4wks before considering cardioversion if the patient is still in A-fib #acute congestive heart failure With reduced ejection fraction: Patient reports worsening shortness of breath, orthopnea but improving CT scan showed evidence of pulmonary congestion and pleural effusion O2 requirement improving: now on room air up to 2L satting at 92% or above 2D echo shows severely reduced systolic function, EF 20 to 25%, with global hypokinesis Continue diuresis with Lasix 40mg PO daily Metoprolol escalated to 50mg qAM Lisinopril scaled back to 10mg daily, hold for systolic <90 and/or diastolic <60 Compared to previous echo done in 2017, systolic function is now severely reduced, there is atrial fibrillation and also mitral Anthrascalp regurgitation now more significant. Monitor input and output, daily weight Cardiology on consult, appreciate recs #RLE dorsal foot pain, acute New as of overnight, denies any trauma or falls - will monitor and obtain uric acid level due to suspicion of possible gout flare #Hypertension BP has been relatively soft Above meds with hold parameters as specified #DM2 glucose down to 26 by POC in AM 10/08/25, given IV dextrose and discontinued insulin A1c 7.3 on 10/08/25 and POC glucose above 200 on 10/09/25 -> will add on short- acting insulin to go with meals for better glycemic control BMP AM #Confusion/falls Patient may have some underlying dementia, according to one of the daughters - PT/OT to continue seeing while inpatient, plan to discharge to acute rehab - 1:1 for supervision and ambulatory assistance, will require frequent bathroom trips due to ongoing diuresis Full code DVT prophylaxis [place] Admission and Anticipated Discharge Date Admission Date: October 05, 2025 Supervising Physician Co-Signing Physician Notes Resident Physician Supervision Note: I personally examined the patient and verified all alfred points of history and exam, discussed case, and agree with decision making with Dr. Greco Patient seen in company of her son and elder male member of her family patient is stabilized regarding her A-fib and heart failure reduced ejection fraction and the plans for upcoming outpatient cardioversion for atrial fibrillation. Patient have any issues going to the bathroom with diuresis overnight and does have improvement in her oxygen requirements. Physically she was pleasant her atrial fibrillation was in the [id number] range h er lungs with decreased breath sounds at the bases consistent with her bilateral pleural effusions seen on x-ray. Allergies increase her metoprolol reduced to lisinopril I discussed the case with the resident and agree with the findings and plan as documented in the note. Any exceptions or clarifications are listed here: None He had a look for placement in shelter facility in the time between now and her cardioversion Documented By: Josr Weiner MD Subjective This morning, pt was walking ambulating in room with walker and nursing assistance. Appearing in good spirits. Only concern is new R dorsal foot pain, new since overnight, denies any trauma or falls. Otherwise no pain or other concerns expressed. Physical Exam Physical Exam: Gen: appearing in no acute distress, A&Ox3 CV: irregularly irregular, no m/r/g Resp: decreased breath sounds to bases, otherwise clear to auscultation b/l MSK: new RLE mid-dorsal foot soft tissue swelling, erythema, and tenderness to palpation; no LE edema, nontender to palpation Results & Data Results & Data Vital Signs (Past 12 Hours) Vital Signs Temp Pulse Pulse Resp BP Pulse Ox O2 Del Method 10/09/25 04:27 36.6 C 110 H 17 111/72 98 Nasal Cannula 10/09/25 00:35 36.6 C 108 H 18 123/82 99 Nasal Cannula 10/08/25 21:30 103 H 10/08/25 20:22 36.7 C 110 H 18 131/89 97 Nasal Cannula O2 Flow Rate 10/09/25 04:27 2 10/09/25 00:35 2 10/08/25 21:30 10/08/25 20:22 2 Resident Activity Tracking Resident Involvement: Resident Care Provided Care Provided: Adult Hospital Medicine (4) Hyperlipidemia Hyperlipidemia type: unspecified Qualified Code(s): E78.5 - Hyperlipidemia, unspecified
[2025-10-09] MEDS: METOPROLOL SUCC 50MG EXT REL TAB PO SCH (08:51)
[2025-10-09] MEDS: FUROSEMIDE INJ 20 MG/2 ML VIAL IV SCH (08:52)
--- NOTE | 2025-10-09 09:25 | Cardiology Progress Note ---
Date of Service October 09, 2025 Assessment & Plan (1) Atrial fibrillation with rapid ventricular response: (2) New onset a-fib: (3) HFrEF (heart failure with reduced ejection fraction): (4) Hyperlipidemia: Plan Ms. Finch's heart rate is a bit faster today. I will decrease her lisinopril and increase her metoprolol to 50 mg. She should remain on anticoagulation, low dose Eliquis given her weight and age. In three weeks of uninterrupted anticoagulation, we can have her undergo cardioversion if she is not back in sinus rhythm. Her echo showed severe LV dysfunction. Her BNP is elevated. I would recommend continuing with diuresis until her BUN bumps a little. We could consider switching her lisinopril to Entresto down the line once she is adequately diuresed. Will arrange for EP eval for Watchman considerations after DC. Will also schedule for f/u in [address] Arteaag Admission and Anticipated Discharge Date Admission Date: October 05, 2025 Subjective Ms. Finch still feels she is a bit confused. She mentions feeling a little tight or sob in her chest but then denies any such feeling when she gets up and walks across the room to the toilet. No palptitations. Her heart rate is a bit faster today. Review of Systems Review of Systems: All systems reviewed & are unremarkable except as noted in HPI & below Physical Exam Constitutional: WD/WN, vitals as above Respiratory: normal respiratory effort, lungs clear to auscultation Cardiovascular: Rate/Rhythm: + abnormal rate and + abnormal rhythm Heart Sounds: normal S1 and normal S2 Extremities: no edema Skin: no rashes, warm and dry Neurologic: moves all extremities and awake Psychiatric: A+Ox3, euthymic affect Results & Data Vital Signs (Past 12 Hours) Vital Signs Temp Pulse Pulse Resp BP Pulse Ox O2 Del Method 10/09/25 08:14 36.9 C 113 H 17 126/87 95 Nasal Cannula 10/09/25 04:27 36.6 C 110 H 17 111/72 98 Nasal Cannula 10/09/25 00:35 36.6 C 108 H 18 123/82 99 Nasal Cannula 10/08/25 21:30 103 H O2 Flow Rate 10/09/25 08:14 2 10/09/25 04:27 2 10/09/25 00:35 2 10/08/25 21:30 (4) Hyperlipidemia Hyperlipidemia type: unspecified Qualified Code(s): E78.5 - Hyperlipidemia, unspecified
--- NOTE | 2025-10-09 17:02 | Ultrasound Report ---
Technique: Venous ultrasound evaluation was performed utilizing grayscale, color Doppler and wave form evaluation. Images were also obtained with and without compression Findings: The right common femoral, superficial femoral, popliteal, and visualized calf veins demonstrate normal anechoic lumens with full compressibility. Normal flow is seen on color Doppler images. Expected waveforms were produced with augmentation maneuvers Impression: No evidence of right leg deep venous thrombosis Electronically signed by Ralph Warren 10-09-2025 5:02 PM
--- NOTE | 2025-10-09 17:28 | Ultrasound Report ---
Clinical history: Dorsal foot pain and redness Technique: Directed sonography was performed of the dorsum of the right foot Findings: There is subcutaneous edema, nonspecific in nature. No definite focal fluid collection is identified. No clear soft tissue mass is seen. No foreign body is evident Impression: 1. Subcutaneous edema of the dorsum of the right foot 2. No definite abscess, foreign body, or mass Electronically signed by Ralph Warren 10-09-2025 5:28 PM
--- NOTE | 2025-10-09 17:45 | Billing Data ---
Date of Service October 09, 2025 Coding Level of Care Code 09562 SUB INP/OBS CARE
[2025-10-09] MEDS: INSULIN ASPART PER UNIT CHARGE SC SCH (17:46)
[2025-10-09] MEDS: ACETAMINOPHEN 325 MG TAB PO PRN (17:47)
[2025-10-09] MEDS: POTASSIUM CHLORIDE CRTAB 20 MEQ TABCR PO STA (18:35)
[2025-10-09] MEDS: MAGNESIUM SULFATE / D5W 1 GM/100 ML BAG IV SCH (18:37)
[2025-10-09] MEDS: POTASSIUM CHLORIDE / WTR 10 MEQ/100 ML PLCT IV SCH (18:37)
--- NOTE | 2025-10-10 06:46 | Hospitalist Progress Note ---
Date of Service October 10, 2025 Assessment & Plan (1) Atrial fibrillation with rapid ventricular response: (2) New onset a-fib: (3) HFrEF (heart failure with reduced ejection fraction): (4) Hyperlipidemia: Plan 85-year-old female with a history of paroxysmal atrial tachycardia, hypertension, type 2 diabetes who presents to the hospital worsening shortness of breath. Found to be in new onset A-fib with RVR. Continued admission necessary for medical stabilization/optimization while pending inpatient rehab on discharge. #New onset A-fib with RVR: No history of previous A-fib however has a history of paroxysmal atrial tachycardia Metoprolol succinate increased to 100mg ER qAM for better rate control, BP has been stable and elevated enough to withstand higher beta-wendy dose Eliquis 2.5 mg BID for anticoagulation Per cardiology, they will anticoagulate for 3-4wks before considering cardioversion if the patient is still in A-fib #acute congestive heart failure With reduced ejection fraction: Patient reports worsening shortness of breath, orthopnea but improving CT scan showed evidence of pulmonary congestion and pleural effusion O2 requirement improving: now on room air up to 2L satting at 92% or above 2D echo shows severely reduced systolic function, EF 20 to 25%, with global hypokinesis HOLDING diuresis with Lasix 40mg PO daily, clinically dry Metoprolol escalated to 100mg qAM Lisinopril held for now while metop increased Compared to previous echo done in 2017, systolic function is now severely reduced, there is atrial fibrillation and also mitral Anthrascalp regurgitation now more significant. Monitor input and output, daily weight Cardiology on consult, appreciate recs #RLE dorsal foot pain, acute Continues to be painful, US showing subcutaneous edema - uric acid WNL, ESR WNL, CRP 1.75 (elevated) Ordered voltaren gel for pain control; can't rule out gout flare however will continue to monitor and provide pain control for now #Hypertension BP has been stable, can handle increased metop dosage however holding lisinopril and lasix for now #DM2 glucose down to 26 by POC in AM 10/08/25, given IV dextrose and discontinued insulin A1c 7.3 on 10/08/25 and POC glucose above 200 on 10/09/25 -> continue short- acting insulin to go with meals for better glycemic control BMP AM #Confusion/falls Patient may have some underlying dementia, according to one of the daughters - PT/OT to continue seeing while inpatient, plan to discharge to acute rehab - 1:1 for supervision and ambulatory assistance, will require frequent bathroom trips due to ongoing diuresis Full code DVT prophylaxis Margueritequis Admission and Anticipated Discharge Date Admission Date: October 05, 2025 Supervising Physician Co-Signing Physician Notes Resident Physician Supervision Note: I personally examined the patient and verified all alfred points of history and exam, discussed case, and agree with decision making with Dr. Greco Patient seen in company of her multiple family members, she is feeling improved, still with some foot pain, her A-fib and heart failure reduced ejection fraction and the plans for upcoming outpatient cardioversion for atrial fibr illation. foot feels improved with some voltaren gel Physically she was pleasant her atrial fibrillation was in the 90-100 range with increased metoprolol. her lungs with decreased breath sounds at the bases consistent with her bilateral pleural effusions seen on x-ray. hold lisinopril with increase in metoprolol and stop diuretics I discussed the case with the resident and agree with the findings and plan as documented in the note. Any exceptions or clarifications are listed here: None He had a look for placement in [facility] facility in the time between now and her cardioversion Documented By: Josr Weiner MD Subjective This morning, pt was sitting up in bed, in good spirits. Only notes continued pain of R dorsal foot. Eating well, no other concerning symptoms or pain reported. Physical Exam Physical Exam: Gen: appearing in no acute distress, A&Ox3 CV: irregularly irregular, no m/r/g Resp: decreased breath sounds to bases, otherwise clear to auscultation b/l MSK: RLE mid-dorsal foot soft tissue swelling, erythema, and tenderness to palpation; no LE edema, nontender to palpation Results & Data Results & Data Vital Signs (Past 12 Hours) Vital Signs Temp Pulse Resp BP Pulse Ox O2 Del Method 10/10/25 03:03 36.6 C 124 H 18 122/91 95 Room Air 10/09/25 23:05 36.6 C 104 H 18 100/68 93 Room Air 10/09/25 19:21 37.0 C 114 H 18 108/81 94 Room Air Resident Activity Tracking Resident Involvement: Resident Care Provided Care Provided: Adult Hospital Medicine (4) Hyperlipidemia Hyperlipidemia type: unspecified Qualified Code(s): E78.5 - Hyperlipidemia, unspecified
[2025-10-10 07:08] LABS: Hematocrit (blood only) 38.4 % (37.0-47.0); Hemoglobin 12.7 g/dL (12.0-16.0); Mean Corpuscular Hemoglobin 30.0 pg (25.0-34.0); Mean Corpuscular Volume 90.6 fL (80.0-100.0); Platelet Count 474 K/uL (130-400); RDW Standard Deviation 40.7 fL (36.4-46.3); Red Blood Count 4.24 M/uL (4.20-5.40); White Blood Count 9.39 K/ul (4.8-10.8)
[2025-10-10 07:26] LABS: Anion Gap 7.0 (3-11); Blood Urea Nitrogen 17.0 mg/dl (6-23); Calcium 8.7 mg/dl (8.6-10.3); Carbon Dioxide 33.0 mmol/L (21-32); Chloride 94.0 mmol/L (98-107); Creatinine Clr Calc Pharmacy 37.1 ml/min; Glucose 133.0 mg/dl (70-99(Fasting)); Potassium 4.3 mmol/L (3.5-5.1); Sodium 134.0 mmol/L (136-145)
[2025-10-10] MEDS: METOPROLOL SUCC 50MG EXT REL TAB PO SCH (08:47)
[2025-10-10] MEDS: DICLOFENAC SOD 1% GEL 100 GM TUBE EXT SCH (13:12)
--- NOTE | 2025-10-10 14:46 | Billing Data ---
Date of Service October 10, 2025 Coding Level of Care Code 01522 SUB INP/OBS CARE MIN
--- NOTE | 2025-10-11 06:58 | Hospitalist Progress Note ---
Date of Service October 11, 2025 Assessment & Plan (1) Atrial fibrillation with rapid ventricular response: (2) New onset a-fib: (3) HFrEF (heart failure with reduced ejection fraction): (4) Hyperlipidemia: Plan 85-year-old female with a history of paroxysmal atrial tachycardia, hypertension, type 2 diabetes who presents to the hospital worsening shortness of breath, admitted for new onset A-fib with RVR. Continued admission necessary for medical stabilization/optimization while pending inpatient rehab on discharge- [facility] vs [facility], likely 10/12. #New onset A-fib with RVR: No history of previous A-fib however has a history of paroxysmal atrial tachycardia Continue metoprolol succinate 100mg ER qAM as rates have been better controlled; BP elevated overnight to 152/105 at highest but generally it is well-controlled as well, asymptomatic Eliquis 2.5 mg BID for anticoagulation Per cardiology, they will anticoagulate for 3-4wks before considering cardioversion if the patient is still in A-fib #acute congestive heart failure With reduced ejection fraction: Patient reports worsening shortness of breath, orthopnea but improving CT scan showed evidence of pulmonary congestion and pleural effusion O2 requirement improving: now on room air up to 2L satting at 92% or above 2D echo shows severely reduced systolic function, EF 20 to 25%, with global hypokinesis HOLDING diuresis with Lasix 40mg PO daily, clinically dry Metoprolol 100mg qAM Lisinopril held for now while metop increased Compared to previous echo done in 2017, systolic function is now severely reduced, there is atrial fibrillation and also mitral Anthrascalp regurgitation now more significant. Monitor input and output, daily weight Cardiology on consult, appreciate recs #RLE dorsal foot pain, acute Continues to be painful, US showing subcutaneous edema - uric acid WNL, ESR WNL, CRP 1.75 (elevated) continue voltaren gel for pain control; can't rule out gout flare however will continue to monitor and provide pain control for now #Hypertension BP has been stable, can handle increased metop dosage however holding lisinopril and lasix for now #DM2 glucose down to 26 by POC in AM 10/08/25, given IV dextrose and discontinued insulin A1c 7.3 on 10/08/25 and POC glucose above 200 on 10/09/25 -> continue short- acting insulin to go with meals for better glycemic control BMP AM #Confusion/falls Patient may have some underlying dementia according to one of the daughters - PT/OT to continue seeing while inpatient, plan to discharge to acute rehab - 1:1 for supervision and ambulatory assistance, will require frequent bathroom trips due to ongoing diuresis Full code DVT prophylaxis Eliquis Admission and Anticipated Discharge Date Admission Date: October 05, 2025 Supervising Physician Co-Signing Physician Notes Patient seen and examined, chart reviewed, case discussed with Dr. Greco and I agree with the assessment and plan as above except as otherwise noted Labs and images reviewed Feels well this morning. No acute questions or concerns. Had a bowel movement this morning. Some pain on the right foot. Treated for new onset A-fib with RVR, is continued on Eliquis for anticoagulation. Irregularly irregular. Rate 60s morning, low 100s on reassessment. No palpitation/chest pain. metoprolol continued. She is pending SNF. She is clinically dry 10/10 and diuretics were held. She remains on room air. Chest x-ray 10/05 with CHF and some small pleural effusions and some associated lung base consolidation. Creatinine is 0.72 today. Trace pedal edema today but no ankle/lower extremity edema, lungs are grossly clear no JVD. Diuresis deferred 10/11 I saw the patient at bedside with her family present. They brought in eyedrops that she was supposed to be taking daily. These are latanoprost 0.005% prescribed to be taken in each eye 1 drop daily. Her Ara is not sure when these were last prescribed, and her family is not sure when this was last filled but thinks that she is supposed to be taking them daily. I did call [facility] [address] who confirmed that patient has been on this, but was last filled approximately a year ago. Attempted to confirm with patient's tree surgeon however they are closed from the holiday. Given that she has brought these in, and family gives a history of "she is supposed to take eyedrops daily due to pressure in her eye contributing to vision loss) consistent with glaucoma restarted latanoprost. Can confirm this with [facility] when open 10/12 Agree with above Subjective This morning, pt was sitting in her chair about to eat breakfast, in good spirits. Only notes continued pain of R dorsal foot. No other concerning symptoms or pain reported. Physical Exam Physical Exam: Gen: appearing in no acute distress, A&Ox3 CV: irregularly irregular though rate is well-controlled, no m/r/g Resp: mildly decreased breath sounds to bases, otherwise clear to auscultation b/l MSK: RLE mid-dorsal foot soft tissue swelling, erythema, and tenderness to palpation; no LE edema, nontender to palpation Results & Data Results & Data Vital Signs (Past 12 Hours) Vital Signs Temp Pulse Pulse Resp BP BP Pulse Ox 10/11/25 03:34 36.4 C L 113 H 20 137/106 H 152/105 H 97 10/10/25 23:24 36.5 C 114 H 20 125/91 95 10/10/25 23:00 121 H 10/10/25 19:24 36.8 C 91 H 20 111/84 96 O2 Del Method 10/11/25 03:34 Room Air 10/10/25 23:24 Room Air 10/10/25 23:00 10/10/25 19:24 Room Air Resident Activity Tracking Resident Involvement: Resident Care Provided Care Provided: Adult Hospital Medicine (4) Hyperlipidemia Hyperlipidemia type: unspecified Qualified Code(s): E78.5 - Hyperlipidemia, unspecified
[2025-10-11 07:05] LABS: Anion Gap 9.0 (3-11); Blood Urea Nitrogen 18.0 mg/dl (6-23); Calcium 8.6 mg/dl (8.6-10.3); Carbon Dioxide 30.0 mmol/L (21-32); Chloride 96.0 mmol/L (98-107); Creatinine Clr Calc Pharmacy 43.1 ml/min; Glucose 128.0 mg/dl (70-99(Fasting)); Potassium 4.0 mmol/L (3.5-5.1); Sodium 135.0 mmol/L (136-145)
[2025-10-11] MEDS: POTASSIUM CHLORIDE 10 MEQ TABCR PO STA (09:17)
[2025-10-11] MEDS: MAGNESIUM OXIDE 400 MG TAB PO SCH (09:45)
[2025-10-11] MEDS: MAGNESIUM SULFATE / D5W 1 GM/100 ML BAG IV ONE (10:47)
--- NOTE | 2025-10-11 10:52 | Billing Data ---
Date of Service October 11, 2025 Coding Level of Care Code 57843 SUB INP/OBS CARE MIN
[2025-10-11] MEDS: LATANOPROST 0.005% OP SOLN 2.5 ML BTL OP SCH (13:23)
[2025-10-12 08:37] LABS: Anion Gap 8.0 (3-11); Blood Urea Nitrogen 16.0 mg/dl (6-23); Calcium 8.8 mg/dl (8.6-10.3); Carbon Dioxide 29.0 mmol/L (21-32); Chloride 97.0 mmol/L (98-107); Creatinine Clr Calc Pharmacy 50.1 ml/min; Glucose 123.0 mg/dl (70-99(Fasting)); Potassium 4.3 mmol/L (3.5-5.1); Sodium 134.0 mmol/L (136-145)
--- NOTE | 2025-10-12 09:28 | Hospitalist Progress Note ---
Date of Service October 12, 2025 Assessment & Plan (1) Atrial fibrillation with rapid ventricular response: (2) New onset a-fib: (3) HFrEF (heart failure with reduced ejection fraction): (4) Hyperlipidemia: Plan 85-year-old female with a history of paroxysmal atrial tachycardia, hypertension, type 2 diabetes who presents to the hospital worsening shortness of breath, admitted for new onset A-fib with RVR. Continued admission necessary for medical stabilization/optimization while pending inpatient [facility] will [facility] today [facility]/12. #New onset A-fib with RVR: No history of previous A-fib however has a history of paroxysmal atrial tachycardia Continue metoprolol succinate 100mg ER qAM as rates have been better controlled; BP elevated overnight to 144/98 at highest but generally it is well-controlled as well, asymptomatic Eliquis 2.5 mg BID for anticoagulation Per cardiology, they will anticoagulate for 3-4wks before considering cardioversion if the patient is still in A-fib #acute congestive heart failure With reduced ejection fraction: Patient reports worsening shortness of breath, orthopnea but improving CT scan showed evidence of pulmonary congestion and pleural effusion O2 requirement improving: now on room air up to 2L satting at 92% or above 2D echo shows severely reduced systolic function, EF 20 to 25%, with global hypokinesis HOLDING diuresis with Lasix 40mg PO daily, clinically dry Metoprolol 100mg qAM Lisinopril held for now while metop increased Compared to previous echo done in 2017, systolic function is now severely reduce d, there is atrial fibrillation and also mitral Anthrascalp regurgitation now more significant. Monitor input and output, daily weight Cardiology on consult, appreciate recs #RLE dorsal foot pain, acute Continues to be painful, US showing subcutaneous edema - uric acid WNL, ESR WNL, CRP 1.75 (elevated) continue voltaren gel for pain control; can't rule out gout flare however will continue to monitor and provide pain control for now #Hypertension BP has been stable, can handle increased metop dosage however holding lisinopril and lasix for now #DM2 glucose down to 26 by POC in AM 10/08/25, given IV dextrose and discontinued insulin A1c 7.3 on 10/08/25 and POC glucose above 200 on 10/09/25 -> continue short-acting insulin to go with meals for better glycemic control BMP AM #Confusion/falls Patient may have some underlying dementia according to one of the daughters - PT/OT to continue seeing while inpatient, plan to discharge to acute rehab - 1:1 for supervision and ambulatory assistance, will require frequent bathroom trips due to ongoing diuresis Full code DVT prophylaxis Eliquis Admission and Anticipated Discharge Date Admission Date: October 05, 2025 Supervising Physician Co-Signing Physician Notes Patient seen and examined, chart reviewed, case discussed with Dr. Greco and I agree with the assessment and plan as above except as otherwise noted Labs and images reviewed Feels well this morning. No acute questions or concerns. Had a bowel movement this morning. Some pain on the right foot. Treated for new onset A-fib with RVR, is continued on Eliquis for anticoagulation. Irregularly irregular. Rate 60s morning, low 100s on reassessment. No palpitation/chest pain. metoprolol continued. She is pending SNF. Resuming diruetics due to CHF, Increasing metoprolol due to A fib RVR. Family at bedside and they are updated. Agree with above Subjective This morning, pt was sitting in her chair about to eat breakfast, in good spirits. Only notes continued pain of R dorsal foot. No other concerning symptoms or pain reported. Physical Exam Physical Exam: Gen: appearing in no acute distress, A&Ox3 CV: irregularly irregular though rate is well-controlled, no m/r/g Resp: mildly decreased breath sounds to bases, otherwise clear to auscultation b/l MSK: RLE mid-dorsal foot soft tissue swelling, erythema, and tenderness to palpation; no LE edema, nontender to palpation Results & Data Results & Data Vital Signs (Past 12 Hours) Vital Signs Temp Pulse Pulse Resp BP Pulse Ox O2 Del Method 10/12/25 07:00 111 H 10/12/25 06:52 36.4 C L 117 H 18 138/106 H 94 Room Air 10/12/25 04:33 36.6 C 107 H 18 114/92 95 Room Air 10/11/25 23:12 121 H 10/11/25 22:51 36.9 C 117 H 20 144/98 H 98 Room Air Resident Activity Tracking Resident Involvement: Resident Care Provided Care Provided: Adult Hospital Medicine (4) Hyperlipidemia Hyperlipidemia type: unspecified Qualified Code(s): E78.5 - Hyperlipidemia, unspecified
[2025-10-12] MEDS: SODIUM CHLORIDE 1 GM TABLET PO ONE (10:16)
[2025-10-12] MEDS: METOPROLOL SUCC 50MG EXT REL TAB PO STA (12:13)
--- NOTE | 2025-10-12 12:32 | XRay Report ---
XR chest 2V PA/lateral CLINICAL HISTORY: labored breathing COMPARISON STUDY: 10/05/2025 FINDINGS: Stable mild cardiomegaly with pulmonary vascular congestion. Stable small bilateral pleural effusions, left greater than right. Stable consolidation at the left lung base. No pneumothorax. IMPRESSION: Stable exam. ACT 112: Negative or not required by law. Electronically signed by: Ulises Simmons M.D. 10/12/2025 12:30 PM
[2025-10-12] MEDS: INDOMETHACIN 25 MG CAP PO SCH (14:29)
[2025-10-12] MEDS: FUROSEMIDE INJ 20 MG/2 ML VIAL IV ONE (17:21)
--- NOTE | 2025-10-13 06:46 | Hospitalist Progress Note ---
Date of Service October 13, 2025 Assessment & Plan (1) Atrial fibrillation with rapid ventricular response: (2) New onset a-fib: (3) HFrEF (heart failure with reduced ejection fraction): (4) Hyperlipidemia: Plan 85-year-old female with a history of paroxysmal atrial tachycardia, hypertension, type 2 diabetes who presents to the hospital worsening shortness of breath, admitted for new onset A-fib with RVR. Continued admission necessary for medical stabilization/optimization while pending inpatient rehab on discharge- [facility] vs [facility], pending acceptance. #New onset A-fib with RVR: No history of previous A-fib however has a history of paroxysmal atrial tachycardia Escalated to metoprolol succinate 150mg ER qAM; BP elevated overnight to 137/110 but question accuracy of diastolic reading; overnight rates generally around 11 0, up to 140 with a 10-beat run of VT Repleting mag with 2g mag IV in addition to morning 400mg PO magox Eliquis 2.5 mg BID for anticoagulation Per cardiology, they will anticoagulate for 3-4wks before considering cardioversion if the patient is still in A-fib BMP and Mag in AM #acute congestive heart failure With reduced ejection fraction: Patient reports worsening shortness of breath, orthopnea but improving CXR 10/12 showing b/l small pleural effusions R>L -> given Lasix 20mg IV; with bibasilar rales again 10/13 AM repeating CXR for eval of prior noted effusions: personal comparison of images showing improvement in effusion O2 requirement improving: now on room air up to 2L satting at 92% or above 2D echo shows severely reduced systolic function, EF 20 to 25%, with global hypokinesis; prior TTE in Jul 2023 showing EF of 55% w/ mild tricuspid regurg and mild aortic insuffiency Metoprolol 150mg qAM Lisinopril held for now while metop increased; consider Entresto once sufficiently diuresed, as cardio recommends Compared to previous echo done in 2017, systolic function is now severely reduced, there is atrial fibrillation and also mitral regurgitation now more significant Monitor input and output, daily weight: 48.5kg (down from 50kg a few days prior) Cardiology on consult, appreciate recs #RLE dorsal foot pain, acute pain improving with initiation of indomethacin BID, suspecting possible gout flare; US showing subcutaneous edema - uric acid WNL, ESR WNL, CRP 1.75 (elevated) continue indomethacin PO for pain control, concomitant PPI for gastroprotection #Hypertension BP has been stable, can handle increased metop dosag #DM2 glucose down to 26 by POC in AM 10/08/25, given IV dextrose and discontinued insulin A1c 7.3 on 10/08/25 and POC glucose above 200 on 10/09/25 -> continue short- acting insulin to go with meals for better glycemic control BMP AM #Confusion/falls Patient may have some underlying dementia according to one of the daughters - PT/OT to continue seeing while inpatient, plan to discharge to acute rehab - 1:1 for supervision and ambulatory assistance, will require frequent bathroom trips due to ongoing diuresis Full code DVT prophylaxis Eliquis Admission and Anticipated Discharge Date Admission Date: October 05, 2025 Supervising Physician Co-Signing Physician Notes Patient seen and examined, chart reviewed, case discussed with Dr. Greco and I agree with the assessment and plan as above except as otherwise noted Labs and images reviewed Feels well this morning. No acute questions or concerns. Had a bowel movement this morning. Some pain on the right foot. Treated for new onset A-fib with RVR, is continued on Eliquis for anticoagulation. Irregularly irregular. Rate 60s morning, low 100s on reassessment. No palpitation/chest pain. metoprolol continued. She is pending SNF. Patient continues to no reuqire oxygen, will continue diruetics due to CHF. Imaging is confirming CHF. Better rate control with increased beta wendy dose ro help treat her A fib RVR. Patient showing some early signs of delirium, able to be reoriented. will monito r. Family at bedside and they are updated. Agree with above Subjective This morning, pt was sitting in her chair eating breakfast, in good spirits. Note improving pain of R foot. No shortness of breath or other breathing difficulties reported. No other concerning symptoms or pain reported Physical Exam Physical Exam: Gen: appearing in no acute distress, A&Ox3 CV: irregularly irregular though rate is well-controlled, no m/r/g Resp: slight bibasilar rales, otherwise clear to auscultation b/l, no wheeze or rhonchi MSK: RLE mid-dorsal foot soft tissue swelling, erythema, tenderness to palpation improved from prior exam; no LE edema, calves nontender to palpation Results & Data Results & Data Vital Signs (Past 12 Hours) Vital Signs Temp Pulse Pulse Resp BP Pulse Ox O2 Del Method 10/13/25 02:47 36.3 C L 122 H 18 137/110 H 96 Room Air 10/13/25 01:40 107 H 10/12/25 22:39 36.9 C 104 H 18 128/88 96 Room Air 10/12/25 19:45 Room Air 10/12/25 19:08 36.4 C L 101 H 18 133/80 97 Room Air Resident Activity Tracking Resident Involvement: Resident Care Provided Care Provided: Adult Hospital Medicine (4) Hyperlipidemia Hyperlipidemia type: unspecified Qualified Code(s): E78.5 - Hyperlipidemia, unspecified
[2025-10-13 07:12] LABS: Anion Gap 9.0 (3-11); Blood Urea Nitrogen 21.0 mg/dl (6-23); Calcium 8.7 mg/dl (8.6-10.3); Carbon Dioxide 28.0 mmol/L (21-32); Chloride 94.0 mmol/L (98-107); Creatinine Clr Calc Pharmacy 43.6 ml/min; Glucose 122.0 mg/dl (70-99(Fasting)); Potassium 4.1 mmol/L (3.5-5.1); Sodium 131.0 mmol/L (136-145)
[2025-10-13] MEDS: METOPROLOL SUCC 50MG EXT REL TAB PO SCH (08:08)
[2025-10-13 08:26] LABS: Magnesium 1.9 mg/dl (1.7-2.4)
[2025-10-13] MEDS ORDERED: MAGNESIUM OXIDE 400 MG TAB PO SCH (09:45)
--- NOTE | 2025-10-13 10:32 | XRay Report ---
Technique: PA and lateral views of the chest were obtained Comparison is made to the prior examination dated 10/05/2025 Findings: There is suspected left lung base atelectasis. The heart is mildly enlarged. No definite pneumothorax is seen. There are left larger than right pleural effusions No fracture is noted. No foreign body is seen Impression: 1. Left larger than right pleural effusions 2. Mild cardiomegaly 3. Mild left lung base opacity, likely due to atelectasis ACT 112: Positive. There are findings on this exam that require communication between the performing entity and the patient following Patient Test Result Information Act ([place] ACT 112) guidelines. Electronically signed by Ralph Warren 10-13-2025 10:31 AM
[2025-10-13] MEDS: MAGNESIUM SULFATE / D5W 1 GM/100 ML BAG IV SCH (10:49)
[2025-10-13] MEDS: FUROSEMIDE INJ 20 MG/2 ML VIAL IV ONE (13:20)
--- NOTE | 2025-10-14 06:52 | Hospitalist Progress Note ---
Date of Service October 14, 2025 Assessment & Plan (1) Atrial fibrillation with rapid ventricular response: (2) New onset a-fib: (3) HFrEF (heart failure with reduced ejection fraction): (4) Hyperlipidemia: Plan 85-year-old female with a history of paroxysmal atrial tachycardia, hypertension, type 2 diabetes who presents to the hospital worsening shortness of breath, admitted for new onset A-fib with RVR. Continued admission necessary for medical stabilization/optimization while pending inpatient rehab on discharge- [facility] vs [facility], pending acceptance. #New onset A-fib with RVR: No history of previous A-fib however has a history of paroxysmal atrial tachycardia Escalated to metoprolol succinate 150mg ER qAM; BP elevated overnight to 137/110 but question accuracy of diastolic reading; overnight rates generally around 11 0, up to 140 with a 10-beat run of VT Repleting mag with 2g mag IV in addition to morning 400mg PO magox Eliquis 2.5 mg BID for anticoagulation Per cardiology, they will anticoagulate for 3-4wks before considering cardioversion if the patient is still in A-fib BMP in AM #acute congestive heart failure With reduced ejection fraction: Patient reports worsening shortness of breath, orthopnea but improving CXR 10/12 showing b/l small pleural effusions R>L -> given Lasix 20mg IV; with bibasilar rales again 10/13 AM repeating CXR for eval of prior noted effusions: personal comparison of images showing improvement in effusion O2 requirement improving: now on room air up to 2L satting at 92% or above 2D echo shows severely reduced systolic function, EF 20 to 25%, with global hypokinesis; prior TTE in Jul 2023 showing EF of 55% w/ mild tricuspid regurg and mild aortic insuffiency Metoprolol 150mg qAM Lisinopril held for now while metop increased; consider Entresto once sufficiently diuresed, as cardio recommends Compared to previous echo done in 2017, systolic function is now severely reduced, there is atrial fibrillation and also mitral regurgitation now more significant Monitor input and output, daily weight: 47.8kg (down from 50kg a few days prior, 48.5kg 10/13) Cardiology on consult, appreciate recs #RLE dorsal foot pain, acute pain has much improved with indomethacin BID, suspecting possible gout flare; US showing subcutaneous edema - uric acid WNL, ESR WNL, CRP 1.75 (elevated) continue indomethacin PO for pain control, concomitant PPI for gastroprotection #Hypertension BP has been stable, can handle increased metop dosage #DM2 glucose down to 26 by POC in AM 10/08/25, given IV dextrose and discontinued insulin A1c 7.3 on 10/08/25 and POC glucose above 200 on 10/09/25 -> continue short- acting insulin to go with meals for better glycemic control BMP AM #Confusion/falls Patient may have some underlying dementia according to one of the daughters - PT/OT to continue seeing while inpatient, plan to discharge to acute rehab - 1:1 for supervision and ambulatory assistance, will require frequent bathroom trips due to ongoing diuresis Full code DVT prophylaxis Eliquis Admission and Anticipated Discharge Date Admission Date: October 05, 2025 Supervising Physician Co-Signing Physician Notes Patient seen and examined, chart reviewed, case discussed with Dr. Greco and I agree with the assessment and plan as above except as otherwise noted Labs and images reviewed Feels well this morning. No acute questions or concerns. Had a bowel movement this morning. Some pain on the right foot. Treated for new onset A-fib with RVR, is continued on Eliquis for anticoagulation. Irregularly irregular. Rate 60s morning, low 100s on reassessment. No palpitation/chest pain. metoprolol continued. She is pending SNF. Patient continues to no require oxygen, will continue diuretics due to CHF. Imaging is confirming CHF. DUe to low EF: patient will likely need ICD placement. will need to recheck ECHO as an outpatient. Afib RVR: Better rate control with increased beta wendy dose Acute metabolic encephalopathy: able to be reoriented, however confusion appears worse today. Family at bedside and they are updated. Agree with above Subjective This morning, pt was sitting in her chair eating breakfast, in good spirits. Note improving pain of R foot. No shortness of breath or other breathing difficulties reported. No other concerning symptoms or pain reported Physical Exam Physical Exam: Gen: appearing in no acute distress, A&Ox3 CV: irregularly irregular though rate is well-controlled, no m/r/g Resp: minimal bibasilar rales, otherwise clear to auscultation b/l, no wheeze or rhonchi MSK: RLE mid-dorsal foot soft tissue swelling, erythema, tenderness to palpation improved from prior exam; no LE edema, calves nontender to palpation Results & Data Results & Data Vital Signs (Past 12 Hours) Vital Signs Temp Pulse Pulse Resp BP Pulse Ox O2 Del Method 10/14/25 03:47 36.6 C 104 H 16 125/96 95 Room Air 10/13/25 22:39 36.6 C 101 H 16 133/102 H 95 Room Air 10/13/25 22:00 82 10/13/25 19:17 36.9 C 115 H 16 140/97 96 Room Air Resident Activity Tracking Resident Involvement: Resident Care Provided Care Provided: Adult Hospital Medicine (4) Hyperlipidemia Hyperlipidemia type: unspecified Qualified Code(s): E78.5 - Hyperlipidemia, unspecified
[2025-10-14 07:15] LABS: Hematocrit (blood only) 35.6 % (37.0-47.0); Hemoglobin 12.1 g/dL (12.0-16.0); Mean Corpuscular Hemoglobin 30.2 pg (25.0-34.0); Mean Corpuscular Volume 88.8 fL (80.0-100.0); Platelet Count 462 K/uL (130-400); RDW Standard Deviation 40.2 fL (36.4-46.3); Red Blood Count 4.01 M/uL (4.20-5.40); White Blood Count 7.21 K/ul (4.8-10.8)
[2025-10-14 07:37] LABS: Anion Gap 7.0 (3-11); Blood Urea Nitrogen 21.0 mg/dl (6-23); Calcium 8.3 mg/dl (8.6-10.3); Carbon Dioxide 32.0 mmol/L (21-32); Chloride 92.0 mmol/L (98-107); Creatinine Clr Calc Pharmacy 36.0 ml/min; Glucose 104.0 mg/dl (70-99(Fasting)); Potassium 4.0 mmol/L (3.5-5.1); Sodium 131.0 mmol/L (136-145)
[2025-10-15 05:57] LABS: Hematocrit (blood only) 35.0 % (37.0-47.0); Hemoglobin 12.0 g/dL (12.0-16.0); Mean Corpuscular Hemoglobin 30.2 pg (25.0-34.0); Mean Corpuscular Volume 88.2 fL (80.0-100.0); Platelet Count 451 K/uL (130-400); RDW Standard Deviation 39.3 fL (36.4-46.3); Red Blood Count 3.97 M/uL (4.20-5.40); White Blood Count 8.40 K/ul (4.8-10.8)
[2025-10-15 06:11] LABS: Anion Gap 9.0 (3-11); Blood Urea Nitrogen 24.0 mg/dl (6-23); Calcium 8.4 mg/dl (8.6-10.3); Carbon Dioxide 29.0 mmol/L (21-32); Chloride 92.0 mmol/L (98-107); Creatinine Clr Calc Pharmacy 46.7 ml/min; Glucose 120.0 mg/dl (70-99(Fasting)); Potassium 3.9 mmol/L (3.5-5.1); Sodium 130.0 mmol/L (136-145)
[2025-10-15] MEDS: POTASSIUM CHLORIDE 10 MEQ TABCR PO STA (08:31)
--- NOTE | 2025-10-15 08:50 | Cardiology Progress Note ---
Date of Service October 15, 2025 Assessment & Plan (1) Atrial fibrillation with rapid ventricular response: (2) New onset a-fib: (3) HFrEF (heart failure with reduced ejection fraction): (4) Hyperlipidemia: Plan Ms. Finch's heart rate is better controlled, though still mostly in the 90s. She is requiring 150 mg of metoprolol daily so her lisinopril has been held. I will order a dose of IV furosemide given her significantly elevated bnp, pleural effusion on CXR and complaints of chest pressure while lying in bed. I will have her get an EKG as well. We could consider switching her lisinopril to Entresto down the line once she is adequately diuresed and pushing heart failure GDMT. We will plan to PEARL/cardiovert given her worsening heart failure. I have ordered an EKG and if QT prolongation has resolved, will start amiodarone. This would allow us to back off of her metoprolol and make room for Entresto. She could possibly convert with amiodarone alone which poses a small risk for stroke but given her worsening heart failure and difficult to control rate and lower likelihood of converting with the few days of loading doses, Dr. Arteaga would prefer amiodarone be given for a few days prior to cardioversion to increase likelihood that patient will stay in sinus rhythm afterward. With her cognitive decline and advanced age, would try to hold off on invasive ischemic work up. She had only a very minor troponin spill with this event. Her EF reduction is most likely secondary to afib. Will re-evaluate EF after she is back in sinus for at least a month. Given the likelihood that her reduced EF is tachycardia induced, would also hold off on ICD discussion for now in the hopes that her EF will rebound with heart failure GDMT combined with sinus rhythm. Will arrange for EP eval for Watchman considerations after DC. Will also schedule for f/u in [address] Arteaga Case discussed with Dr. Arteaga who is in agreement. Admission and Anticipated Discharge Date Admission Date: October 05, 2025 Subjective Ms. Fallon appears comfortable but says "I don't know how I feel". She answers affirmatively that she is having chest discomfort but also then changes the the discussion to pain in her right foot when I ask her more questions. Nursing notes some complaints of chest discomfort over the weekend when she was up and moving about but similarly, she was unable to really give any details when asked further questions. She remains in afib on the monitor, rates in the 90s. Review of Systems Review of Systems: All systems reviewed & are unremarkable except as noted in HPI & below Physical Exam Constitutional: WD/WN, vitals as above Respiratory: normal respiratory effort, lungs clear to auscultation Cardiovascular: Rate/Rhythm: + abnormal rate and + abnormal rhythm Heart Sounds: no murmur Extremities: no edema Skin: no rashes, warm and dry Neurologic: moves all extremities and awake Psychiatric: Orientation: alert, oriented to person and oriented to place Results & Data Vital Signs (Past 12 Hours) Vital Signs Temp Pulse Pulse Resp BP Pulse Ox O2 Del Method 10/15/25 03:26 36.4 C L 96 H 18 117/90 94 Room Air 10/15/25 00:28 97 H 10/15/25 00:09 Room Air 10/14/25 23:42 37.0 C 104 H 18 126/91 93 Room Air (4) Hyperlipidemia Hyperlipidemia type: unspecified Qualified Code(s): E78.5 - Hyperlipidemia, unspecified
--- NOTE | 2025-10-15 09:39 | XRay Report ---
XR chest 2V PA/lateral CLINICAL HISTORY: trending of pleural effusion COMPARISON STUDY: 10/13/2025 FINDINGS: The cardiomediastinal contours remain stable. There are persistent small bilateral pleural effusions left greater than right with associated left basilar atelectasis/consolidation. The mid to upper lung zones remain clear. There is no overt pulmonary vascular congestion. IMPRESSION: 1. Persistent bilateral pleural effusions left greater than right with associated left basilar atelec tasis/consolidation ACT 112: Negative or not required by law. Electronically signed by: Satya Wilkinson M.D. 10/15/2025 9:37 AM
[2025-10-15] MEDS: FUROSEMIDE INJ 20 MG/2 ML VIAL IV ONE (10:08)
--- NOTE | 2025-10-15 11:05 | Hospitalist Progress Note ---
Date of Service October 15, 2025 Assessment & Plan (1) Atrial fibrillation with rapid ventricular response: (2) New onset a-fib: (3) HFrEF (heart failure with reduced ejection fraction): (4) Hyperlipidemia: Plan 85-year-old female with a history of paroxysmal atrial tachycardia, hypertension, type 2 diabetes who presents to the hospital worsening shortness of breath, admitted for new onset A-fib with RVR. Continued admission necessary for medical stabilization/optimization while pending inpatient rehab on discharge- [facility] vs [facility], pending acceptance. #New onset A-fib with RVR: No history of previous A-fib however has a history of paroxysmal atrial tachycardia Escalated to metoprolol succinate 150mg ER qAM; BP elevated overnight to 137/110 but question accuracy of diastolic reading; overnight rates generally around 110 , up to 140 with a 10-beat run of VT Repleting mag with 2g mag IV in addition to morning 400mg PO magox Eliquis 2.5 mg BID for anticoagulation Cardiology following, appreciate recs and interventions: Started pt on amiodarone 200mg BIDM for rhythm control as new EKG 10/15 showing QTc has shortened appropriately Pursuing PEARL/cardioversion on 10/18 #acute congestive heart failure With reduced ejection fraction: Patient reports worsening shortness of breath, orthopnea but improving CXR 10/12 showing b/l small pleural effusions R>L -> given Lasix 20mg IV; with bibasilar rales again 10/13 AM repeating CXR for eval of prior noted effusions: personal comparison of images showing improvement in effusion O2 requirement improving: now on room air up to 2L satting at 92% or above 2D echo shows severely reduced systolic function, EF 20 to 25%, with global hypokinesis; prior TTE in Jul 2023 showing EF of 55% w/ mild tricuspid regurg and mild aortic insuffiency Metoprolol 150mg qAM Will likely start Entresto with discontinuation of lisinopril after PEARL/cardioversion on 10/18 Compared to previous echo done in 2016, systolic function is now severely reduced, there is atrial fibrillation and also mitral regurgitation now more significant Monitor input and output, daily weight: 47.8kg (down from 50kg a few days prior, 48.5kg 10/13) Cardiology on consult, appreciate recs #RLE dorsal foot pain, acute pain has much improved with indomethacin BID, suspecting possible gout flare; US showing subcutaneous edema- clinically improving - uric acid WNL, ESR WNL, CRP 1.75 (elevated) Discontinuing indomethacin as majority of pain has resolved and pref to reduce risk for gastric irritation/ulcers #Hypertension BP has been stable, can handle increased metop dosage #DM2 glucose down to 26 by POC in AM 10/08/25, given IV dextrose and discontinued insulin A1c 7.3 on 10/08/25 and POC glucose above 200 on 10/09/25 -> continue short- acting insulin to go with meals for better glycemic control BMP AM #Confusion/falls Patient may have some underlying dementia according to one of the daughters - PT/OT to continue seeing while inpatient, plan to discharge to acute rehab - 1:1 for supervision and ambulatory assistance, will require frequent bathroom trips due to ongoing diuresis Full code DVT prophylaxis Eliquis Admission and Anticipated Discharge Date Admission Date: October 05, 2025 Supervising Physician Co-Signing Physician Notes I personally examined the patient and verified all alfred points of history and exam, discussed case, and agree with decision making with Dr Greco Feeling okay. Pleasantly confused. No shortness of breath whenever I see her. Appreciate cardiology input. Vitals noted, in general she is awake and alert seems to be easily confused no distress. HEENT normocephalic atraumatic mucous membranes moist. Breathing unlabored no accessory muscle use good effort. Skin without rashes pallor or icterus. Neuro without focal deficits. Acute on chronic HFrEF/acute on chronic systolic CHFcomplicated by A-fib with RVRongoing medical management. Appreciate cardiology input. Anticipate SNF when more stable. Gout flareno complaints of pain todaystop indomethacin. anticoagulated otherwise as above Subjective Seen and evaluated at bedside this AM. Stated she thought she was in a intermediate, but when reminded she's still in the hospital she remembered. Denies any chest pain or SOB at this time, states her R foot pain continues to improve. Physical Exam Physical Exam: Gen: appearing in no acute distress, A&Ox3 CV: irregularly irregular though rate is well-controlled, no m/r/g Resp: minimal bibasilar rales, otherwise clear to auscultation b/l, no wheeze or rhonchi MSK: RLE mild mid-dorsal foot soft tissue swelling, erythema, tenderness to palpation improved from prior exam; no LE edema, calves nontender to palpation Results & Data Results & Data Vital Signs (Past 12 Hours) Vital Signs Temp Pulse Pulse Resp BP Pulse Ox O2 Del Method 10/15/25 08:00 135/83 10/15/25 03:26 36.4 C L 96 H 18 117/90 94 Room Air 10/15/25 00:28 97 H 10/15/25 00:09 Room Air 10/14/25 23:42 37.0 C 104 H 18 126/91 93 Room Air Resident Activity Tracking Resident Involvement: Resident Care Provided Care Provided: Adult Hospital Medicine (4) Hyperlipidemia Hyperlipidemia type: unspecified Qualified Code(s): E78.5 - Hyperlipidemia, unspecified
--- NOTE | 2025-10-15 13:09 | Billing Data ---
Date of Service October 15, 2025 Coding Level of Care Code 46318 SUB INP/OBS CARE
--- NOTE | 2025-10-15 15:33 | Electrocardiogram Report ---
Test Reason : Blood Pressure : */* mmHG Vent. Rate : 93 BPM Atrial Rate : * BPM P-R Int : * ms QRS Dur : 90 ms QT Int : 384 ms P-R-T Axes : * -6 200 degrees QTcB Int : 477 ms Atrial fibrillation Minimal voltage criteria for LVH, may be normal variant Septal infarct (cited on or before 20-Jul-2023) T wave abnormality, consider anterolateral ischemia Abnormal ECG When compared with ECG of 07-Oct-2025 05:56, QT has shortened Confirmed by Rc Mayers ([id number]) on 10/15/2025 3:33:40 PM Referred By: REFERRED SELF Confirmed By: Rc Mayers
[2025-10-15] MEDS: AMIODARONE 200 MG TAB PO SCH (17:26)
--- NOTE | 2025-10-15 18:47 | Anesthesiology Consultation ---
Date of Service October 15, 2025 Assessment & Plan Chart Review Chart Review: Acceptable Risk for Surgery Consults Requested none History Surgery Operation Date: 10/18/25 10:00 Proposed Procedures p Transesophageal Echo w/Anesthesia - Shona Arteaga DO Height/Weight Height: 5 ft 3 in Weight: 50.8 kg Allergies Allergy/AdvReac Type Severity Reaction Status Date / Time No Known Drug Allergies Allergy Unknown Verified 01/20/24 17:47 pineapple AdvReac Abdominal Verified 10/09/25 16:28 Pain Medications Home Medications Medication Instructions Recorded Confirmed Last Taken levothyroxine 75 mcg tablet 25 mcg PO QAM 09/06/19 10/05/25 04/21/22 rosuvastatin 10 mg tablet 10 mg PO DAILY 07/20/23 10/05/25 Unknown lisinopril 20 mg tablet 0 mg PO DAILY 01/20/24 10/05/25 Unknown polyethylene glycol 3350 17 gram 17 g PO DAILY #30 ea 01/31/24 10/05/25 Unknown oral powder packet (Miralax) Active Medications Generic Name Dose Route Start Last Admin Trade Name Freq PRN Reason Stop Dose Admin Acetaminophen 650 mg 10/05/25 12:33 10/13/25 04:13 Acetaminophen 325 Mg Tab PO 11/04/25 12:32 650 mg Q4H PRN Administration Pain or Fever Amiodarone HCl 200 mg 10/15/25 17:00 10/15/25 17:26 Amiodarone 200 Mg Tab PO 11/14/25 16:59 200 mg BIDM RAMYA Administration Apixaban 2.5 mg 10/07/25 21:00 10/15/25 08:27 Apixaban 2.5 Mg Tab PO 11/06/25 20:59 2.5 mg BID RAMYA Administration Diclofenac Sodium 2 gm 10/10/25 10:15 10/15/25 17:27 Diclofenac Sod 1% Gel 100 Gm Tube EXT 11/09/25 10:14 2 gm Q4H RAMYA Administration Protocol Insulin Aspart 0 units 10/09/25 16:30 10/15/25 17:24 Insulin Aspart Per Unit Charge SC 11/08/25 16:29 2 units ACHS RAMYA Administration Latanoprost 1 drops 10/11/25 12:45 10/15/25 08:29 Latanoprost 0.005% Op Soln 2.5 Ml Btl OP 11/10/25 12:44 1 drops QAM RAMYA Administration Levothyroxine Sodium 25 mcg 10/06/25 06:30 10/15/25 06:33 Levothyroxine Sodium 25 Mcg Tablet PO 11/05/25 06:29 25 mcg DAILYBB RAMYA Administration Lisinopril 10 mg 10/09/25 09:00 10/09/25 08:51 Lisinopril 10 Mg Tab PO 11/08/25 08:59 10 mg DAILY RAMYA Administration Magnesium Oxide 400 mg 10/11/25 09:30 10/15/25 08:27 Magnesium Oxide 400 Mg Tab PO 11/10/25 09:29 400 mg QAM RAMYA Administration Pantoprazole Sodium 40 mg 10/12/25 12:15 10/15/25 08:27 Pantoprazole 40 Mg Tab PO 11/11/25 12:14 40 mg QAM RAMYA Administration Rosuvastatin Calcium 10 mg 10/06/25 09:00 10/15/25 08:27 Rosuvastatin Calcium 10 Mg Tab PO 11/05/25 08:59 10 mg DAILY RAMYA Administration Past Medical History Medical History Acute blood loss anemia Stomach ulcer Asthma well controlled per pt Depression Thyroid disorder Vulvitis History of syncope 2018 ER visit [facility]. Presented with elevated BP. Treated in ER and d/c. Syncopal episode upon returning to home. Believes r/t antihypertensives administered in ER. ? med compliance at home. Osteoarthritis Insomnia Poor historian Depression History of TIA (transient ischemic attack) pt poor historian. could not recall date of TIA. says it should be in records. "years ago" Glaucoma Hyperlipidemia COPD (chronic obstructive pulmonary disease) well controlled per pt report Hypothyroidism Past Family History Family History Other Family history non-contributory Hypertension Denies family history of Hearing loss No family history of adverse response to anesthesia No family history of bleeding disorder Heart disease Allergies Cancer Stroke Asthma Past Surgical History Surgical History Status post ORIF of fracture of ankle Left History of esophagogastroduodenoscopy (EGD) History of colonoscopy History of toe surgery BL great toe History of cataract surgery bilat Social History Smoking Status: Never smoker Do You Dip or Chew Tobacco: No Hx Alcohol Use: No Hx Substance Use: No substance use type: does not use Physical Exam Vital Signs Last Vital Signs Temp 36.7 C 10/15/25 15:00 Pulse 90 10/15/25 15:41 Resp 18 10/15/25 15:00 BP 132/96 10/15/25 15:00 Pulse Ox 97 10/15/25 15:00 O2 Del Method Room Air 10/15/25 15:00 O2 Flow Rate 2 10/09/25 08:14 Testing Laboratory Results 10/15/25 05:30 10/15/25 05:30 Hemoglobin A1c 7.3 % (4.5-5.6) H 10/08/25 05:44 10/15/25 10/15/25 10/15/25 16:13 11:05 07:09 POC Glucose 89 174 H 113 H
[2025-10-16 06:07] LABS: Anion Gap 10.0 (3-11); Blood Urea Nitrogen 25.0 mg/dl (6-23); Calcium 8.7 mg/dl (8.6-10.3); Carbon Dioxide 29.0 mmol/L (21-32); Chloride 92.0 mmol/L (98-107); Creatinine Clr Calc Pharmacy 38.8 ml/min; Glucose 120.0 mg/dl (70-99(Fasting)); Potassium 4.7 mmol/L (3.5-5.1); Sodium 131.0 mmol/L (136-145)
--- NOTE | 2025-10-16 07:31 | Hospitalist Progress Note ---
Date of Service October 16, 2025 Assessment & Plan (1) Atrial fibrillation with rapid ventricular response: (2) New onset a-fib: (3) HFrEF (heart failure with reduced ejection fraction): (4) Hyperlipidemia: Plan 85-year-old female with a history of paroxysmal atrial tachycardia, hypertension, type 2 diabetes who presents to the hospital worsening shortness of breath, admitted for new onset A-fib with RVR. Continued admission necessary for medical stabilization/optimization while pending inpatient rehab on discharge- [facility] vs [facility], pending acceptance. #New onset A-fib with RVR: No history of previous A-fib however has a history of paroxysmal atrial tachycardia Cardiology following, appreciate recs and interventions: Started pt on amiodarone 200mg BIDM for rhythm control as new EKG 10/15 showing QTc has shortened appropriately Metoprolol succinate dec to 125mg qAM day prior, heart rate has been slightly more elevated hovering in 110s, likely due to dec of metoprolol and amio blood levels not being up to therapeutic level Pursuing PEARL/cardioversion on 10/18 Eliquis 2.5 mg BID for anticoagulation #acute congestive heart failure With reduced ejection fraction: Patient reports worsening shortness of breath, orthopnea but improving CXR 10/12 showing b/l small pleural effusions R>L -> given Lasix 20mg IV; with bibasilar rales again 10/13 AM repeating CXR for eval of prior noted effusions: personal comparison of images showing improvement in effusion O2 requirement improving: now on room air up to 2L satting at 92% or above 2D echo shows severely reduced systolic function, EF 20 to 25%, with global hypokinesis; prior TTE in Jul 2023 showing EF of 55% w/ mild tricuspid regurg and mild aortic insuffiency Metoprolol 125mg qAM Will likely start Entresto with discontinuation of lisinopril after PEARL/cardioversion on 10/1810/16/25: given Lasix 20mg IV and starting spironolactone Compared to previous echo done in 2016, systolic function is now severely reduced, there is atrial fibrillation and also mitral regurgitation now more significant Monitor input and output, daily weight: 47.8kg (down from 50kg a few days prior, 48.5kg 10/13) Cardiology on consult, appreciate recs #RLE dorsal foot pain, acute pain has much improved with indomethacin BID, suspecting possible gout flare; US showing subcutaneous edema- clinically improving - uric acid WNL, ESR WNL, CRP 1.75 (elevated) Discontinued indomethacin as majority of pain has resolved and pref to reduce risk for gastric irritation/ulcers #Hypertension BP has been slightly elevated, likely due to dec in metoprolol dosage since started amiodarione, will monitor but likely to improve with therapeutic levels of amio #DM2 glucose down to 26 by POC in AM 10/08/25, given IV dextrose and discontinued insulin A1c 7.3 on 10/08/25 and POC glucose above 200 on 10/09/25 -> continue short- acting insulin to go with meals for better glycemic control BMP AM #Confusion/falls Patient may have some underlying dementia according to one of the daughters - PT/OT to continue seeing while inpatient, plan to discharge to acute rehab - 1:1 for supervision and ambulatory assistance, will require frequent bathroom trips due to ongoing diuresis Full code DVT prophylaxis Eliquis Admission and Anticipated Discharge Date Admission Date: October 05, 2025 Supervising Physician Co-Signing Physician Notes I personally examined the patient and verified all alfred points of history and exam, discussed case, and agree with decision making with Dr Greco Seems frustrated with weakness and dyspnea on exertion. A-fib is a little bit faster today. Vitals noted, in general she is awake and alert seems to be easily confused no distress. HEENT normocephalic atraumatic mucous membranes moist. Breathing unlabored no accessory muscle use good effort. Lungs without rales rhonchi or wheezes, but heart is noticeably more tachycardic. Skin without rashes pallor or icterus. Neuro without focal deficits. Acute on chronic HFrEF/acute on chronic systolic CHFcomplicated by A-fib with RVRongoing medical management. Appreciate cardiology input. Loading with amiodarone, for cardioversion on 10/18 and less she spontaneously converts before then. Anticipate SNF when more stable. Gout flareno complaints of pain today Off indomethacin since 10/15 anticoagulated otherwise as above Subjective Seen and evaluated at bedside this AM. Again thought she was in a halfway, but when reminded she's still in the hospital she remembered. Denies any chest pain or SOB at this time, states her R foot pain continues to improve despite being off the indomethacin. Physical Exam Physical Exam: Gen: appearing in no acute distress, A&Ox3 CV: irregularly irregular though rate is well-controlled, no m/r/g Resp: minimal bibasilar rales, otherwise clear to auscultation b/l, no wheeze or rhonchi MSK: RLE minimal mid-dorsal foot soft tissue swelling, erythema, tenderness to palpation improved from prior exam; no LE edema, calves nontender to palpation, no b/l LE edema Results & Data Results & Data Vital Signs (Past 12 Hours) Vital Signs Temp Pulse Pulse Resp BP Pulse Ox O2 Del Method 10/16/25 03:02 36.5 C 115 H 18 130/103 H 92 Room Air 10/15/25 22:40 36.8 C 108 H 18 136/100 95 Room Air 10/15/25 21:31 104 H 10/15/25 20:55 Room Air 10/15/25 20:47 94 H 138/100 10/15/25 19:54 103 H 10/15/25 19:37 36.4 C L 133 H 18 135/102 H 96 Room Air Resident Activity Tracking Resident Involvement: Resident Care Provided Care Provided: Adult Hospital Medicine (4) Hyperlipidemia Hyperlipidemia type: unspecified Qualified Code(s): E78.5 - Hyperlipidemia, unspecified
[2025-10-16] MEDS: METOPROLOL SUCC 50MG EXT REL TAB PO SCH (08:11)
[2025-10-16] MEDS: METOPROLOL SUCC 25MG EXT REL TAB PO SCH (08:47)
[2025-10-16] MEDS: FUROSEMIDE INJ 20 MG/2 ML VIAL IV ONE (08:48)
--- NOTE | 2025-10-16 09:05 | Cardiology Progress Note ---
Date of Service October 16, 2025 Assessment & Plan (1) Atrial fibrillation with rapid ventricular response: (2) New onset a-fib: (3) HFrEF (heart failure with reduced ejection fraction): (4) Hyperlipidemia: Plan Ms. Finch's heart rate is a little faster today 100-120s. I did decrease her metoprolol to 125 mg to accomodate starting amiodarone yesterday. The amiodarone will take some doses to load however and we may need to give an extra metoprolol 25 mg if her heart rate is not coming down after morning medications. Dr. Arteaga discussed cardioversion with patient's POA and daughter Soco yesterday who is agreeable. I discussed the procedure with Ms. Finch this morning. Plan is for PEARL/cardioversion Wednesday. Continue with diuresis. 20 mg IV furosemide ordered for this morning. When sufficiently diuresed, will switch out lisinopril for Entresto. I will add spironolactone for this morning given that we have blood pressure and kidney function room. With her cognitive decline and advanced age, would try to hold off on invasive ischemic work up. She had only a very minor troponin spill with this event although she does have ischemic changes on her EKG. Will re-evaluate EF after she is back in sinus for at least a month. Given the likelihood that her reduced EF is tachycardia induced, would also hold off on ICD discussion for now in the hopes that her EF will rebound with heart failure GDMT combined with sinus rhythm. Will arrange for EP eval for Watchman considerations after DC. Case discussed with Dr. Arteaga who is in agreement. Admission and Anticipated Discharge Date Admission Date: October 05, 2025 Subjective Ms. Finch continues to feel some pressure in her chest while laying in bed as well as feeling a bit short of breath. Her weight did come down quite a bit from yesterday hopefully indicating some fluid reduction. Her blood pressure is high this morning however. She continues in afib on the monitor Review of Systems Review of Systems: All systems reviewed & are unremarkable except as noted in HPI & below Physical Exam Constitutional: WD/WN, vitals as above Respiratory: normal respiratory effort, lungs clear to auscultation Cardiovascular: Rate/Rhythm: + abnormal rate and + abnormal rhythm Extremities: no edema Skin: no rashes, warm and dry Neurologic: moves all extremities and awake Psychiatric: Orientation: oriented to person and oriented to place Results & Data Vital Signs (Past 12 Hours) Vital Signs Temp Pulse Pulse Resp BP Pulse Ox O2 Del Method 10/16/25 08:03 36.4 C L 112 H 17 146/108 H 95 Room Air 10/16/25 03:02 36.5 C 115 H 18 130/103 H 92 Room Air 10/15/25 22:40 36.8 C 108 H 18 136/100 95 Room Air 10/15/25 21:31 104 H (4) Hyperlipidemia Hyperlipidemia type: unspecified Qualified Code(s): E78.5 - Hyperlipidemia, unspecified
[2025-10-16] MEDS: SPIRONOLACTONE 12.5 MG TAB PO SCH (09:57)
--- NOTE | 2025-10-16 11:10 | Billing Data ---
Date of Service October 16, 2025 Coding Level of Care Code 32842 SUB INP/OBS CARE
[2025-10-17 06:41] LABS: Anion Gap 9.0 (3-11); Calcium 8.7 mg/dl (8.6-10.3); Carbon Dioxide 27.0 mmol/L (21-32); Chloride 90.0 mmol/L (98-107); Potassium 4.1 mmol/L (3.5-5.1); Sodium 126.0 mmol/L (136-145)
[2025-10-17 06:46] LABS: Blood Urea Nitrogen 24.0 mg/dl (6-23); Creatinine Clr Calc Pharmacy 43.6 ml/min; Glucose 144.0 mg/dl (70-99(Fasting))
--- NOTE | 2025-10-17 06:50 | Hospitalist Progress Note ---
Date of Service October 17, 2025 Assessment & Plan (1) Atrial fibrillation with rapid ventricular response: (2) New onset a-fib: (3) HFrEF (heart failure with reduced ejection fraction): (4) Hyperlipidemia: Plan 85-year-old female with a history of paroxysmal atrial tachycardia, hypertension, type 2 diabetes who presents to the hospital worsening shortness of breath, admitted for new onset A-fib with RVR. Continued admission necessary for medical stabilization/optimization while pending inpatient rehab on discharge- Puja has said no; now pending [facility] vs [facility]. #A-fib with RVR: No history of previous A-fib however has a history of paroxysmal atrial tachycardia Rates still quite elevated this AM 10/17 into 120s last mag 1.9, has been receiving qAM oral mag but worried this is not enough, thus ordered 1g IV mag sulfate for ideal mag>2 Cardiology following, appreciate recs and interventions: Started pt on amiodarone 200mg BIDM for rhythm control as new EKG 10/15 showing QTc has shortened appropriately Metoprolol succinate dec to 125mg qAM day prior, heart rate has still been slightly more elevated hovering in 120s this morning (10/17), amio blood levels may still not be therapeutic Pursuing PEARL/cardioversion on 10/18 Eliquis 2.5 mg BID for anticoagulation #acute congestive heart failure With reduced ejection fraction: Patient reports worsening shortness of breath, orthopnea but improving CXR 10/12 showing b/l small pleural effusions R>L -> given Lasix 20mg IV; with bibasilar rales again 10/13 AM repeating CXR for eval of prior noted effusions: personal comparison of images showing improvement in effusion O2 requirement improving: now on room air up to 2L satting at 92% or above 2D echo shows severely reduced systolic function, EF 20 to 25%, with global hypokinesis; prior TTE in Jul 2023 showing EF of 55% w/ mild tricuspid regurg and mild aortic insufficiency Metoprolol 125mg qAM Will likely start Entresto with discontinuation of lisinopril after PEARL/cardioversion on 10/1810/16/25: given Lasix 20mg IV and started spironolactone -> this has caused some hyponatremia to 126 Compared to previous echo done in 2016, systolic function is now severely reduced, there is atrial fibrillation and also mitral regurgitation now more significant Monitor input and output, daily weight: 47.8kg (down from 50kg a few days prior, 48.5kg 10/13) Cardiology on consult, appreciate recs #Hyponatremia, acute 126 down from 131, likely 2/2 lasix and spironolactone given day prior, will not give further diuretics for now - depletional vs dilutional, unclear if depletional from diuretics as potassium is WNL, but this is likely the case - BMP in AM #RLE dorsal foot pain, acute pain has much improved with indomethacin BID, suspecting possible gout flare; US showing subcutaneous edema- clinically improving - uric acid WNL, ESR WNL, CRP 1.75 (elevated) Discontinued indomethacin as majority of pain has resolved and pref to reduce risk for gastric irritation/ulcers #Hypertension BP has been slightly elevated, likely due to dec in metoprolol dosage since started amiodarone, will monitor but likely to improve with therapeutic levels of amio #DM2 glucose down to 26 by POC in AM 10/08/25, given IV dextrose and discontinued insulin A1c 7.3 on 10/08/25 and POC glucose above 200 on 10/09/25 -> continue short- acting insulin to go with meals for better glycemic control BMP AM #Confusion/falls Patient may have some underlying dementia according to one of the daughters - PT/OT to continue seeing while inpatient, plan to discharge to acute rehab - 1:1 for supervision and ambulatory assistance, will require frequent bathroom trips due to ongoing diuresis Full code DVT prophylaxis Eliquis Admission and Anticipated Discharge Date Admission Date: October 05, 2025 Supervising Physician Co-Signing Physician Notes I personally examined the patient and verified all alfred points of history and exam, discussed case, and agree with decision making with Dr Greco sleeping comfortably d/w nursing no new issues doing a little better today other than slightly more erratic HR. Vitals noted, resting comfortably, in no distress. HEENT normocephalic atraumatic mucous membranes moist. Breathing unlabored no accessory muscle use good effort. Lungs without rales rhonchi or wheezes, but heart is noticeably more tachycardic. afib on monitor slightly faster than 100. Skin without rashes pallor or icterus. Neuro without focal deficits. Acute on chronic HFrEF/acute on chronic systolic CHFcomplicated by A-fib with RVRongoing medical management. Appreciate cardiology input. Loading with amiodarone, for cardioversion on 10/18 and less she spontaneously converts before then. hyponatremia most likely salt wasting from lasix +/- ?poor PO intake - but with acute/active CHF would hesitate to salt load right now - follow. probably hold off on further lasix today. Anticipate SNF when more stable. Gout flare- seems to have resolved. anticoagulated otherwise as above Subjective Seen and evaluated at bedside this AM. Notes she's having some throat discomfort, but no pain or difficulty swallowing. States she is in a building with lots of windows, however doesn't say she's in a hospital. Denies any chest pain or SOB at this time, states her R foot pain continues to be minimal Physical Exam Physical Exam: Gen: appearing in no acute distress, A&Ox3 CV: irregularly irregular though rate is well-controlled, no m/r/g Resp: minimal bibasilar rales, otherwise clear to auscultation b/l, no wheeze or rhonchi MSK: RLE minimal mid-dorsal foot soft tissue swelling, erythema, tenderness to palpation improved from prior exam; no LE edema, calves nontender to palpation, no b/l LE edema Results & Data Results & Data Vital Signs (Past 12 Hours) Vital Signs Temp Pulse Pulse Resp BP Pulse Ox O2 Del Method 10/17/25 02:54 106 H 10/17/25 02:41 36.4 C L 120 H 18 134/101 H 92 Room Air 10/16/25 22:09 36.3 C L 93 H 18 139/104 H 96 Room Air 10/16/25 22:03 95 H 10/16/25 21:28 Room Air 10/16/25 21:10 93 H 127/88 10/16/25 20:12 36.8 C 96 H 18 144/111 H 95 Room Air Resident Activity Tracking Resident Involvement: Resident Care Provided Care Provided: Adult Hospital Medicine (4) Hyperlipidemia Hyperlipidemia type: unspecified Qualified Code(s): E78.5 - Hyperlipidemia, unspecified
--- NOTE | 2025-10-17 09:24 | Billing Data ---
Date of Service October 17, 2025 Coding Level of Care Code 85853 SUB INP/OBS CARE
[2025-10-17] MEDS: MAGNESIUM SULFATE / D5W 1 GM/100 ML BAG IV SCH (10:04)
[2025-10-18 06:31] LABS: Anion Gap 6.0 (3-11); Blood Urea Nitrogen 23.0 mg/dl (6-23); Calcium 8.8 mg/dl (8.6-10.3); Carbon Dioxide 33.0 mmol/L (21-32); Chloride 91.0 mmol/L (98-107); Creatinine Clr Calc Pharmacy 36.5 ml/min; Glucose 121.0 mg/dl (70-99(Fasting)); Potassium 4.7 mmol/L (3.5-5.1); Sodium 130.0 mmol/L (136-145)
--- NOTE | 2025-10-18 06:39 | Hospitalist Progress Note ---
Date of Service October 18, 2025 Assessment & Plan (1) HFrEF (heart failure with reduced ejection fraction): (2) Tricuspid regurgitation: (3) Mitral regurgitation: (4) Frail elderly: (5) Risk for falls: (6) History of cardioversion: (7) Atrial fibrillation with rapid ventricular response: Plan 85-year-old female with a history of paroxysmal atrial tachycardia, hypertension, type 2 diabetes who presents to the hospital worsening shortness of breath, admitted for new onset A-fib with RVR. Continued admission necessary for continuous cardiac monitoring and medical optimization: underwent PEARL w/ cardioversion procedure today 10/18 [facility], successfully converted to NSR with 1o AV block. Still pending inpatient rehab on discharge- Puja has said no; now pending [facility] vs [facility]. #s/p cardioversion to normal sinus rhythm 10/18/25 No history of previous A-fib however has a history of paroxysmal atrial tachycardia Cardiology following, appreciate recs and interventions: 10/18 AM pt taken to [facility] for PEARL w/ cardioversion, successfully to normal sinus rhythm w/ 1st deg AV block, no further intervention needed Continuing on amiodarone 200mg BIDM for rhythm control, suggested to continue for 2 more weeks before decreasing to 200mg daily Reportedly good candidate for a Watchman procedure in the future Continue Eliquis 2.5 mg BID for anticoagulation #acute HFrEF #s/p A-fib with RVR CXR 10/12 showing b/l small pleural effusions R>L -> given Lasix 20mg IV; with bibasilar rales again 10/13 AM repeating CXR for eval of prior noted effusions: personal comparison of images showing improvement in effusion 2D echo shows severely reduced systolic function, EF 20 to 25%, with global hypokinesis; prior TTE in Jul 2023 showing EF of 55% w/ mild tricuspid regurg and mild aortic insufficiency Started Entresto 49/51mg BID with discontinuation of lisinopril after PEARL/cardioversion Compared to previous echo done in 2016, systolic function is now severely reduced, there is atrial fibrillation and also mitral regurgitation now more significant Monitor input and output, daily weight: 47.8kg (down from 50kg a few days prior, 48.5kg 10/13) Cardiology consulted, appreciate recs and interventions: Metoprolol dec to 100mg daily, started Entresto 49/51mg BID, Jardiance 25mg daily, spironolactone 12.5mg daily - may continue on NC 2L for now, but exam not reflecting worsening of CHF; order in to dec O2 as tolerated with O2 sat goal of 90% - BMP AM #Hyponatremia, improved appears stable/improving at 130 - BMP AM #RLE dorsal foot pain, acute pain has much improved with indomethacin BID, suspecting possible gout flare; US showing subcutaneous edema- clinically improving - uric acid WNL, ESR WNL, CRP 1.75 (elevated) Discontinued indomethacin as majority of pain has resolved and pref to reduce risk for gastric irritation/ulcers #Hypertension BP has been slightly elevated, likely due to dec in metoprolol dosage since started amiodarone, will monitor but likely to improve with therapeutic levels of amio #DM2 glucose down to 26 by POC in AM 10/08/25, given IV dextrose and discontinued insulin A1c 7.3 on 10/08/25 and POC glucose above 200 on 10/09/25 -> continue short- acting insulin to go with meals for better glycemic control BMP AM #Confusion/falls Patient may have some underlying dementia according to one of the daughters - PT/OT to continue seeing while inpatient, plan to discharge to acute rehab - 1:1 for supervision and ambulatory assistance, will require frequent bathroom trips due to ongoing diuresis Full code DVT prophylaxis Eliquis Admission and Anticipated Discharge Date Admission Date: October 05, 2025 Supervising Physician Co-Signing Physician Notes I personally examined the patient and verified all alfred points of history and exam, discussed case, and agree with decision making with Dr Greco No complaints. No shortness of breath. Family presentupdated to the best my ability and to their satisfaction. Vitals noted, Pleasant and in no distress. HEENT normocephalic atraumatic mucous membranes moist. Breathing unlabored no accessory muscle use. Lungs without rales rhonchi or wheezes, may be slightly diminished at bases but also has been laying down and resting and respiratory effort was moderate at best. Cardio no sinus occasional ectopy about 75 bpm rate. Skin without rashes pallor or icterus. Neuro without focal deficits. Acute on chronic HFrEF/acute on chronic systolic CHFcomplicated by A-fib with RVRongoing medical management. Appreciate cardiology input. amiodarone. Now sinus rhythm status post cardioversion. Wean oxygen. Lungs are clear. Continue to follow. Work on SNF placement. anticoagulated otherwise as above Subjective Seen and evaluated at bedside this PM after procedure. States she is feeling okay. Reports no concerns or pain at this time. Physical Exam Physical Exam: Gen: appearing in no acute distress, A&Ox3 CV: RRR, no m/r/g Resp: clear to auscultation b/l, no w/r/R MSK: RLE minimal mid-dorsal foot soft tissue swelling, erythema, tenderness to palpation continue to be improved from prior exams; no LE edema, calves nontender to palpation, no b/l LE edema Results & Data Results & Data Vital Signs (Past 12 Hours) Vital Signs Temp Pulse Resp BP BP Pulse Ox O2 Del Method 10/18/25 02:41 36.3 C L 105 H 20 132/92 99 Nasal Cannula 10/17/25 22:45 36.4 C L 93 H 22 128/93 100 Nasal Cannula 10/17/25 22:00 Room Air 10/17/25 19:12 36.2 C L 98 H 16 125/90 94 Room Air O2 Flow Rate 10/18/25 02:41 2.0 10/17/25 22:45 2.0 10/17/25 22:00 10/17/25 19:12 Resident Activity Tracking Resident Involvement: Resident Care Provided Care Provided: Adult Hospital Medicine
--- NOTE | 2025-10-18 09:20 | Cardioversion ---
Date of Service October 18, 2025 Electrical Cardioversion Rpt Electrical Cardioversion Report Elective DC cardioversion performed after informed consent was obtained from her daughters. Anesthesia provided sedation. After the PEARL confirmed no ELIER clot (there is very significant LA and ELIER smoke noted however), synchronous DC cardioversion at 200 J was performed x 2. There was a several second delay after the 2nd shock but she did convert to NSR. Frequent PACs were noted, which seemed to decrease after 5 minutes. Hemodynamically, she tolerated the procedure well. She did have a delayed recovery time with waking up after the procedure. There does not appear to be any focal changes suggestive of CVA. Would wait until patient is completely awake to feed. Post cardioversion ECG reviewed and shows NSR.
--- NOTE | 2025-10-18 09:35 | Anesthesiology Progress Note ---
Date of Service October 18, 2025 Anesthesia Post Procedure Vital Signs Vital Signs: Temp Pulse Pulse Resp BP BP Pulse Ox 10/18/25 09:15 63 18 137/90 98 10/18/25 09:00 68 18 137/88 98 10/18/25 08:45 65 18 132/87 98 10/18/25 08:30 71 18 139/100 94 10/18/25 08:25 59 L 18 111/72 100 10/18/25 07:43 36.8 C 112 H 18 153/110 H 91 10/18/25 07:00 100 H 10/18/25 02:41 36.3 C L 105 H 20 132/92 99 10/17/25 22:45 36.4 C L 93 H 22 128/93 100 10/17/25 22:00 10/17/25 19:12 36.2 C L 98 H 16 125/90 94 10/17/25 15:23 36.4 C L 80 21 128/88 95 10/17/25 14:23 79 10/17/25 12:00 10/17/25 10:34 36.4 C L 96 H 24 135/95 93 Pulse Ox O2 Del Method O2 Del Method O2 Flow Rate 10/18/25 09:15 Nasal Cannula 2 10/18/25 09:00 Nasal Cannula 2 10/18/25 08:45 Nasal Cannula 2 10/18/25 08:30 Nasal Cannula 2 10/18/25 08:25 Nasal Cannula 2 10/18/25 07:43 Nasal Cannula 2 10/18/25 07:00 10/18/25 02:41 Nasal Cannula 2.0 10/17/25 22:45 Nasal Cannula 2.0 10/17/25 22:00 Room Air 10/17/25 19:12 Room Air 10/17/25 15:23 Room Air 10/17/25 14:23 10/17/25 12:00 94 Room Air 10/17/25 10:34 Room Air Pain Intensity Right Foot: Pain Intensity: 5 Transfer of Care Handoff Completed per policy Notes Mental Status: alert / awake / arousable Patient Amnestic to Procedure: Yes Nausea / Vomiting: adequately controlled Pain: adequately controlled Airway Patency, RR, SpO2: stable & adequate BP & HR: stable & adequate Hydration State: stable & adequate Anesthetic Complications: no major complications apparent
[2025-10-18] MEDS: BENZOCAINE/TETRACAIN/BUTAM 50 APPLN/5 GM CAN EXT ONE ×2 (09:45)
[2025-10-18] MEDS: PROPOFOL IV EMULSION 10 MG/ML 20 ML VIAL IV ONE (09:45)
[2025-10-18] MEDS: KETAMINE HCL 10MG/ML SYR ONE (09:45)
[2025-10-18] MEDS: ETOMIDATE 2 MG/ML 20 ML VIAL IV ONE (09:45)
[2025-10-18] MEDS: PHENYLEPHRINE 100MCG/ML 5ML SYR ONE (09:45)
--- NOTE | 2025-10-18 11:08 | Electrocardiogram Report ---
Test Reason : Blood Pressure : */* mmHG Vent. Rate : 61 BPM Atrial Rate : 61 BPM P-R Int : 220 ms QRS Dur : 90 ms QT Int : 486 ms P-R-T Axes : 87 -12 250 degrees QTcB Int : 489 ms Sinus rhythm with 1st degree A-V block with Fusion complexes and Premature atrial complexes Minimal voltage criteria for LVH, may be normal variant ( Pillo product ) Septal infarct (cited on or before 20-Jul-2023) Abnormal ECG When compared with ECG of 15-Oct-2025 10:16, Sinus rhythm has replaced Atrial fibrillation Vent. rate has decreased by 32 bpm s/p DC Cardioversion Confirmed by Shona Arteaga ([id number]) on 10/18/2025 11:08:15 AM Referred By: REFERRED SELF Confirmed By: Shona Arteaga
--- NOTE | 2025-10-18 11:52 | Cardiology Progress Note ---
Date of Service October 18, 2025 Assessment & Plan (1) New onset a-fib: (2) HFrEF (heart failure with reduced ejection fraction): (3) Hyperlipidemia: (4) Paroxysmal atrial fibrillation: (5) Tricuspid regurgitation: (6) Mitral regurgitation: (7) Frail elderly: (8) Risk for falls: Plan Hopefully she will remain in NSR on the amiodarone. Would maintain 200mg bid x 2 more weeks then decrease to 200mg daily. Decrease Metoprolol to 100mg daily and add Entresto 49/51mg bid (she was previously on lisinopril and I think her BP will tolerate it. Will need labs rechecked in1 week. Cont Lasix. Would also add Jardiance for CHF. Maintain on Anticoagulation. She needs to be watched very carefully for falls. I think she is a very good candidate for a Watchman procedure in the future. Will arrange for EP consultation post DC here in [place] with Dr. Johnson. Family is aware that the procedure needs done in [place] however. She is to be DC to [place] after the hospital. If she remains stable overnight, I don't have issues with her DC. Thanks you for allowing me to participate in her care. I will follow up in the office in 1-2 weeks. I will also arrange for my office to send an MCOT monitor to whichever NH she goes to. Admission and Anticipated Discharge Date Admission Date: October 05, 2025 Subjective Seen and evaluated at bedside this AM prior to her PEARL and Cardioversion She denies complaints. Post CV, remains somewhat sedated, but waking up. Review of Systems Review of Systems: All systems reviewed & are unremarkable except as noted in HPI & below Physical Exam Respiratory: rales b/l Cardiovascular: heart rate now regular Results & Data Vital Signs (Past 12 Hours) Vital Signs Temp Pulse Pulse Resp BP BP Pulse Ox 10/18/25 11:34 36.9 C 69 18 128/83 100 10/18/25 09:43 36.8 C 10/18/25 09:39 70 16 149/100 H 97 10/18/25 09:15 63 18 137/90 98 10/18/25 09:00 68 18 137/88 98 10/18/25 08:45 65 18 132/87 98 10/18/25 08:30 71 18 139/100 94 10/18/25 08:25 59 L 18 111/72 100 10/18/25 07:43 36.8 C 112 H 18 153/110 H 91 10/18/25 07:00 100 H 10/18/25 02:41 36.3 C L 105 H 20 132/92 99 O2 Del Method O2 Flow Rate 10/18/25 11:34 Room Air 10/18/25 09:43 10/18/25 09:39 Nasal Cannula 2 10/18/25 09:15 Nasal Cannula 2 10/18/25 09:00 Nasal Cannula 2 10/18/25 08:45 Nasal Cannula 2 10/18/25 08:30 Nasal Cannula 2 10/18/25 08:25 Nasal Cannula 2 10/18/25 07:43 Nasal Cannula 2 10/18/25 07:00 10/18/25 02:41 Nasal Cannula 2.0 Laboratory Results Abnormal lab results 10/17/25 10/17/25 10/18/25 Range/Units 16:26 19:59 05:25 Sodium 130 L (136-145) mmol/L Chloride 91 L (98-107) mmol/L Carbon Dioxide 33 H (21-32) mmol/L BUN/Creatinine Ratio 28.0 H (10-20) Glucose 121 H (70-99(Fasting)) mg/dl POC Glucose 119 H 243 H (70-99) mg/dl 10/18/25 Range/Units 11:22 Sodium (136-145) mmol/L Chloride (98-107) mmol/L Carbon Dioxide (21-32) mmol/L BUN/Creatinine Ratio (10-20) Glucose (70-99(Fasting)) mg/dl POC Glucose 142 H (70-99) mg/dl Diagnostic Findings see PEARL and CV reports Medications Administered Current Inpatient Medications Acetaminophen (Acetaminophen 325 Mg Tab) 650 mg PO Q4H PRN PRN Reason: Pain or Fever Stop: 11/04/25 12:32 Last Admin: 10/17/25 07:57 Dose: 650 mg Amiodarone HCl (Amiodarone 200 Mg Tab) 200 [facility] [place] Stop: 11/14/25 16:59 Last Admin: 10/18/25 09:45 Dose: Not Given Apixaban (Apixaban 2.5 Mg Tab) 2.5 mg PO BID [facility] Stop: 11/06/25 20:59 Last Admin: 10/17/25 19:59 Dose: 2.5 mg Dextrose (Dextrose 50% 50 Ml Syringe) 25 - 50 ml IV UD PRN; Protocol PRN Reason: Hypoglycemia Protocol Stop: 11/07/25 07:29 Diclofenac Sodium (Diclofenac Sod 1% Gel 100 Gm Tube) 2 gm EXT Q4H PRN; Protocol PRN Reason: pain Stop: 11/09/25 10:14 Ephedrine Sulfate (Ephedrine Sulfate 50 Mg/Ml Amp) 5 mg IV Q5M PRN PRN Reason: PACU Use Only-SBP<90 mmHg Stop: 10/18/25 15:44 Glucagon (Glucagon For Inj 1 Mg Vial) 1 mg SQ UD PRN; Protocol PRN Reason: Hypoglycemia Protocol Stop: 11/07/25 07:29 Glucose (Glucose 40% Gel 15 Gm Tube) 15 - 30 gm PO UD PRN; Protocol PRN Reason: Hypoglycemia Protocol Stop: 11/07/25 07:29 Glucose (Glucose 10 Tab/Tube) 4 - 8 tab PO UD PRN; Protocol PRN Reason: Hypoglycemia Protocol Stop: 11/07/25 07:29 Insulin Aspart (Insulin Aspart Per Unit Charge) 0 units SC ACHS [facility] Stop: 11/08/25 16:29 Last Admin: 10/18/25 07:36 Dose: Not Given Latanoprost (Latanoprost 0.005% Op Soln 2.5 Ml Btl) 1 drops OP QAM [facility] Stop: 11/10/25 12:44 Last Admin: 10/17/25 07:55 Dose: 1 drops Levothyroxine Sodium (Levothyroxine Sodium 25 Mcg Tablet) 25 mcg PO DAILYBB [facility] Stop: 11/05/25 06:29 Last Admin: 10/18/25 06:08 Dose: 25 mcg Magnesium Oxide (Magnesium Oxide 400 Mg Tab) 400 mg [facility] [place] Stop: 11/10/25 09:29 Last Admin: 10/17/25 07:55 Dose: 400 mg Metoprolol Succinate (Metoprolol Succ 25mg Ext Rel Tab) 125 mg PO QAM [facility] Stop: 11/15/25 08:59 Last Admin: 10/17/25 07:56 Dose: 125 mg Miscellaneous (Carbohydrates For Hypoglycemia ) 15 - 30 gm PO UD PRN PRN Reason: Hypoglycemia Treatment Stop: 11/07/25 07:29 Pantoprazole Sodium (Pantoprazole 40 Mg Tab) 40 mg PO QAM [facility] Stop: 11/11/25 12:14 Last Admin: 10/17/25 07:58 Dose: 40 mg Rosuvastatin Calcium (Rosuvastatin Calcium 10 Mg Tab) 10 mg PO DAILY [facility] Stop: 11/05/25 08:59 Last Admin: 10/17/25 07:58 Dose: 10 mg Spironolactone (Spironolactone 12.5 Mg Tab) 12.5 mg PO DAILY [facility] Stop: 11/15/25 09:14 Last Admin: 10/17/25 07:57 Dose: 12.5 mg ECG Additional Comments: post CV ECG NSR LAD LAHB (3) Hyperlipidemia Hyperlipidemia type: unspecified Qualified Code(s): E78.5 - Hyperlipidemia, unspecified
[2025-10-18] MEDS: EMPAGLIFLOZIN 25 MG TAB PO SCH (15:30)
[2025-10-18] MEDS: VALSARTAN/SACUBITRIL 51/49 MG TAB PO SCH (15:30)
--- NOTE | 2025-10-18 18:11 | Billing Data ---
Date of Service October 18, 2025 Coding Level of Care Code 08804 SUB INP/OBS CARE
--- NOTE | 2025-10-18 23:31 | Billing Data ---
Date of Service October 12, 2025 Coding Level of Care Code 96818 INT INP/OBS CARE
--- NOTE | 2025-10-18 23:35 | Billing Data ---
Date of Service October 13, 2025 Coding Level of Care Code 37522 INT INP/OBS CARE
--- NOTE | 2025-10-18 23:40 | Billing Data ---
Date of Service October 14, 2025 Coding Level of Care Code 03024 SUB INP/OBS CARE MIN
--- NOTE | 2025-10-19 06:45 | Hospitalist Progress Note ---
Date of Service October 19, 2025 Assessment & Plan (1) HFrEF (heart failure with reduced ejection fraction): (2) Tricuspid regurgitation: (3) Mitral regurgitation: (4) Frail elderly: (5) Risk for falls: (6) History of cardioversion: (7) Atrial fibrillation with rapid ventricular response: Plan 85-year-old female with a history of paroxysmal atrial tachycardia, hypertension, type 2 diabetes who presents to the hospital worsening shortness of breath, admitted for new onset A-fib with RVR. Continued admission necessary for continuous cardiac monitoring and medical optimization: underwent PEARL w/ cardioversion procedure today 10/18 in general labor, successfully converted to NSR with 1o AV block. Still pending inpatient rehab on discharge- daughters want pt to go to [facility], did not like [facility] as much but they have a bed for her. Pending [facility] bed. #s/p cardioversion to normal sinus rhythm 10/18/25 No history of previous A-fib however has a history of paroxysmal atrial tachycardia Cardiology following, appreciate recs and interventions: 10/18 AM pt taken to general labor for PEARL w/ cardioversion, successfully to normal sinus rhythm w/ 1st deg AV block, no further intervention needed Continuing on amiodarone 200mg BIDM for rhythm control, suggested to continue for 2 more weeks before decreasing to 200mg daily Reportedly good candidate for a Watchman procedure in the future Continue Eliquis 2.5 mg BID for anticoagulation #acute HFrEF #s/p A-fib with RVR CXR 10/12 showing b/l small pleural effusions R>L -> given Lasix 20mg IV; with bibasilar rales again 10/13 AM repeating CXR for eval of prior noted effusions: personal comparison of images showing improvement in effusion 2D echo shows severely reduced systolic function, EF 20 to 25%, with global hypokinesis; prior TTE in Jul 2023 showing EF of 55% w/ mild tricuspid regurg and mild aortic insufficiency Started Entresto 49/51mg BID with discontinuation of lisinopril after PEARL/cardioversion Compared to previous echo done in 2016, systolic function is now severely reduced, there is atrial fibrillation and also mitral regurgitation now more significant Monitor input and output, daily weight: 47.8kg (down from 50kg a few days prior, 48.5kg 10/13) Cardiology consulted, appreciate recs and interventions: Metoprolol dec to 100mg daily, started Entresto 49/51mg BID, Jardiance 25mg daily, spironolactone 12.5mg daily - has been satting >90% consistently on room air - BMP AM #RLE dorsal foot pain, acute pain has much improved with indomethacin BID, suspecting possible gout flare; US showing subcutaneous edema- more painful again today - uric acid WNL, ESR WNL, CRP 1.75 (elevated) Given indomethacin again as pain has flared up again #Hyponatremia, improved appears stable/improved at 134 - BMP AM #Hypertension BP has been slightly elevated, leveling off now with amiodarone 200mg BID and metop succinate 100mg qAM #DM2 glucose down to 26 by POC in AM 10/08/25, given IV dextrose and discontinued insulin A1c 7.3 on 10/08/25 and POC glucose above 200 on 10/09/25 -> continue short- acting insulin to go with meals for better glycemic control Has been stable past several days BMP AM #Confusion/falls Patient may have some underlying dementia according to one of the daughters - PT/OT to continue seeing while inpatient, plan to discharge to acute rehab - 1:1 for supervision and ambulatory assistance, will require frequent bathroom trips due to ongoing diuresis Full code DVT prophylaxis Eliquis Admission and Anticipated Discharge Date Admission Date: October 05, 2025 Supervising Physician Co-Signing Physician Notes I personally examined the patient and verified all alfred points of history and exam, discussed case, and agree with decision making with Dr Greco no complaints whenever I see her. Breathing is okay. Just got around with therapyPT notes that she did better than previously. Vitals noted, Pleasant and in no distress. HEENT normocephalic atraumatic mucous membranes moist. Lungs clear without rales rhonchi or wheezes no accessory muscle use good effort. Cardio no sinus occasional ectopy about 75 bpm rate. Skin without r ashes pallor or icterus. Neuro without focal deficits. Acute on chronic HFrEF/acute on chronic systolic CHFcomplicated by A-fib with RVR Doing better overall. Status post cardioversion. Continue med management. Continue to follow. PT/OT eval and treat. Anticipate SNF placement. anticoagulated otherwise as above Subjective Seen and evaluated at bedside this AM, endorses feeling well. She had eaten all her oatmeal and was eating yogurt. Reports no SOB, chest pain, lightheadedness at this time. Does note her R foot is painful again. Physical Exam Physical Exam: Gen: appearing in no acute distress, A&Ox3 CV: RRR, no m/r/g Resp: clear to auscultation b/l, no w/r/R MSK: RLE mid-dorsal foot soft tissue swelling, erythema, tenderness to palpation worse from prior exam; no LE edema, calves nontender to palpation, no b/l LE edema Results & Data Results & Data Vital Signs (Past 12 Hours) Vital Signs Temp Pulse Pulse Resp BP Pulse Ox O2 Del Method 10/19/25 02:45 36.5 C 95 H 20 120/90 94 Room Air 10/18/25 22:19 76 10/18/25 22:03 36.5 C 83 24 124/78 95 Room Air 10/18/25 20:00 Room Air 10/18/25 19:36 36.4 C L 81 21 124/80 96 Room Air Resident Activity Tracking Resident Involvement: Resident Care Provided Care Provided: Adult Hospital Medicine
[2025-10-19 06:54] LABS: Anion Gap 8.0 (3-11); Blood Urea Nitrogen 22.0 mg/dl (6-23); Calcium 8.7 mg/dl (8.6-10.3); Carbon Dioxide 33.0 mmol/L (21-32); Chloride 93.0 mmol/L (98-107); Creatinine Clr Calc Pharmacy 35.4 ml/min; Glucose 102.0 mg/dl (70-99(Fasting)); Potassium 4.2 mmol/L (3.5-5.1); Sodium 134.0 mmol/L (136-145)
[2025-10-19] MEDS: METOPROLOL SUCC 50MG EXT REL TAB PO SCH (08:16)
--- NOTE | 2025-10-19 09:52 | Cardiology Progress Note ---
Date of Service October 19, 2025 Assessment & Plan (1) New onset a-fib: (2) HFrEF (heart failure with reduced ejection fraction): (3) Hyperlipidemia: (4) Paroxysmal atrial fibrillation: (5) Tricuspid regurgitation: (6) Mitral regurgitation: (7) Frail elderly: (8) Risk for falls: Plan Ms. Finch is in sinus rhythm with lots of atrial ectopy. Hopefully she will remain in NSR on the amiodarone. Would maintain 200mg bid x 2 more weeks then decrease to 200mg daily. Decrease Metoprolol to 100mg daily and add Entresto 49/51mg bid (she was previously on lisinopril and I think her BP will tolerate it. Will need labs rechecked in1 week. Cont Lasix. Would also add Jardiance for CHF. Maintain on Anticoagulation. She needs to be watched very carefully for falls. With her cognitive decline and advanced age, would try to hold off on invasive ischemic work up. She had only a very minor troponin spill with this event although she does have ischemic changes on her EKG. Will re-evaluate EF after she is back in sinus for at least a month. Given the likelihood that her reduced EF is tachycardia induced, would also hold off on ICD discussion for now in the hopes that her EF will rebound with heart failure GDMT combined with sinus rhythm. We could consider referral for Watchman in the future and arrange for EP consult after discharge. Dr. Arteaga will follow up in the office in 1-2 weeks. We will also arrange for the office to send an MCOT monitor to whichever NH she goes to. Admission and Anticipated Discharge Date Admission Date: October 05, 2025 Subjective Ms. Finch denies any chest pain or dyspnea today. She is in sinus rhythm on the monitor with lots of PACs. She does not feel any palpitations. Review of Systems Review of Systems: All systems reviewed & are unremarkable except as noted in HPI & below Physical Exam Constitutional: WD/WN, vitals as above Respiratory: normal respiratory effort, lungs clear to auscultation Cardiovascular: RRR, no murmur, no edema Skin: no rashes, warm and dry Neurologic: moves all extremities and awake Psychiatric: A+Ox3, euthymic affect Results & Data Vital Signs (Past 12 Hours) Vital Signs Temp Pulse Pulse Resp BP Pulse Ox O2 Del Method 10/19/25 07:49 36.9 C 95 H 17 137/87 93 Room Air 10/19/25 07:00 92 H 10/19/25 02:45 36.5 C 95 H 20 120/90 94 Room Air 10/18/25 22:19 76 10/18/25 22:03 36.5 C 83 24 124/78 95 Room Air (3) Hyperlipidemia Hyperlipidemia type: unspecified Qualified Code(s): E78.5 - Hyperlipidemia, unspecified
[2025-10-19] MEDS: INDOMETHACIN 25 MG CAP PO SCH (10:47)
--- NOTE | 2025-10-19 18:35 | Billing Data ---
Date of Service October 19, 2025 Coding Level of Care Code 50910 SUB INP/OBS CARE
[2025-10-19] MEDS: DICLOFENAC SOD 1% GEL 100 GM TUBE EXT PRN (22:19)
[2025-10-20 07:33] LABS: Anion Gap 7.0 (3-11); Blood Urea Nitrogen 17.0 mg/dl (6-23); Calcium 8.5 mg/dl (8.6-10.3); Carbon Dioxide 30.0 mmol/L (21-32); Chloride 96.0 mmol/L (98-107); Creatinine Clr Calc Pharmacy 38.7 ml/min; Glucose 106.0 mg/dl (70-99(Fasting)); Potassium 3.7 mmol/L (3.5-5.1); Sodium 133.0 mmol/L (136-145)
--- NOTE | 2025-10-20 08:25 | Hospitalist Progress Note ---
Date of Service October 20, 2025 Assessment & Plan (1) New onset a-fib: (2) HFrEF (heart failure with reduced ejection fraction): (3) Hyperlipidemia: (4) Paroxysmal atrial fibrillation: (5) Tricuspid regurgitation: (6) Mitral regurgitation: (7) Frail elderly: (8) Risk for falls: Plan 85-year-old female with a history of paroxysmal atrial tachycardia, hypertension, type 2 diabetes who presents to the hospital worsening shortness of breath, admitted for new onset A-fib with RVR. Continued admission necessary for continuous cardiac monitoring and medical optimization: underwent PEARL w/ cardioversion procedure today 10/18 in [facility] [employer], successfully converted to NSR with 1o AV block. Still pending inpatient rehab on discharge- daughters want pt to go to [facility], did not like [facility] as much but they have a bed for her. Pending [facility] bed. #s/p cardioversion to normal sinus rhythm 10/18/25 No history of previous A-fib however has a history of paroxysmal atrial tachycardia Cardiology following, appreciate recs and interventions: 10/18 AM pt taken to [facility] for PEARL w/ cardioversion, successfully to normal sinus rhythm w/ 1st deg AV block, no further intervention needed Continuing on amiodarone 200mg BIDM for rhythm control, suggested to continue for 2 more weeks before decreasing to 200mg daily Reportedly good candidate for a Watchman procedure in the future Continue Eliquis 2.5 mg BID for anticoagulation #acute HFrEF #s/p A-fib with RVR CXR 10/12 showing b/l small pleural effusions R>L -> given Lasix 20mg IV; with bibasilar rales again 10/13 AM repeating CXR for eval of prior noted effusions: personal comparison of images showing improvement in effusion 2D echo shows severely reduced systolic function, EF 20 to 25%, with global hypokinesis; prior TTE in Jul 2023 showing EF of 55% w/ mild tricuspid regurg and mild aortic insufficiency Started Entresto 49/51mg BID with discontinuation of lisinopril after PEARL/cardioversion Compared to previous echo done in 2016, systolic function is now severely reduced, there is atrial fibrillation and also mitral regurgitation now more significant Monitor input and output, daily weight: 47.8kg (down from 50kg a few days prior, 48.5kg 10/13) Cardiology consulted, appreciate recs and interventions: Metoprolol dec to 100mg daily, started Entresto 49/51mg BID, Jardiance 25mg daily, spironolactone 12.5mg daily - has been satting >90% consistently on room air - BMP AM #RLE dorsal foot pain, acute pain has much improved with indomethacin BID, suspecting possible gout flare; US showing subcutaneous edema- more painful again today - uric acid WNL, ESR WNL, CRP 1.75 (elevated) Given indomethacin again as pain has flared up. -On bedside (10/20/25) patient did not say anything about her R. foot. #Hyponatremia, improved appears stable/improved at 134 - BMP AM #Hypertension BP has been slightly elevated, leveling off now with amiodarone 200mg BID and metop succinate 100mg qAM #DM2 glucose down to 26 by POC in AM 10/08/25, given IV dextrose and discontinued insulin A1c 7.3 on 10/08/25 and POC glucose above 200 on 10/09/25 -> continue short- acting insulin to go with meals for better glycemic control Has been stable past several days BMP AM #Confusion/falls Patient may have some underlying dementia according to one of the daughters - PT/OT to continue seeing while inpatient, plan to discharge to acute rehab - 1:1 for supervision and ambulatory assistance, will require frequent bathroom trips due to ongoing diuresis Full code DVT prophylaxis Eliquis Admission and Anticipated Discharge Date Admission Date: October 05, 2025 Supervising Physician Co-Signing Physician Notes I personally examined the patient and verified all alfred points of history and exam, discussed case, and agree with decision making with Dr Walker Resting comfortably. Cardiology input appreciated. discussed with nursingno new needs, allowed to rest. Vitals noted, resting comfortably, no distress. Breathing unlabored no accessory muscle use good spontaneous effort. Acute on chronic HFrEF/acute on chronic systolic CHFcomplicated by A-fib with RVR Doing better overall. Status post cardioversion. Continue med management. appears to be tolerating well overall. Continue to follow. PT/OT eval and treat. Anticipate SNF placement. anticoagulated otherwise as above Subjective Patient is a very pleasant 85 year old female who looks well today. She was eating her grapes while at bedside. Denies any shortness of breath or chest pain. Review of Systems Review of Systems: as per Subjective HPI Physical Exam Constitutional: WD/WN, vitals as above Eyes: + anicteric sclerae and EOM intact bilat erally Respiratory: Auscultation: lungs clear to auscultation bilaterally (anterior aspect) Cardiovascular: Rate/Rhythm: + irregularly irregular Heart Sounds: no murmur Skin: no rashes, warm and dry Psychiatric: Eye Contact: good eye contact Speech: normal rate/rhythm/volume of speech Thought Process: goal directed thought process and linear/logical thought process Results & Data Results & Data Vital Signs (Past 12 Hours) Vital Signs Temp Pulse Pulse Resp BP Pulse Ox O2 Del Method 10/20/25 07:51 36.7 C 72 19 134/87 95 Room Air 10/20/25 07:41 86 10/20/25 02:24 37.1 C 82 16 113/85 998 H Room Air 10/19/25 22:38 36.6 C 81 18 133/92 93 Room Air 10/19/25 21:45 71 Laboratory Results 10/20/25 10/20/25 10/19/25 Range/Units 07:14 05:59 20:13 Sodium 133 L (136-145) mmol/L Potassium 3.7 (3.5-5.1) mmol/L Chloride 96 L (98-107) mmol/L Carbon Dioxide 30 (21-32) mmol/L Anion Gap 7 (3-11) BUN 17 (6-23) mg/dl Creatinine 0.78 (0.6-1.2) mg/dl Est Cr Clr Drug Dosing 38.7 ml/min eGFR 73.47 BUN/Creatinine Ratio 21.8 H (10-20) Glucose 106 H (70-99(Fasting)) mg/dl POC Glucose 98 135 H (70-99) mg/dl Calcium 8.5 L (8.6-10.3) mg/dl 10/19/25 10/19/25 Range/Units 16:35 11:23 Sodium (136-145) mmol/L Potassium (3.5-5.1) mmol/L Chloride (98-107) mmol/L Carbon Dioxide (21-32) mmol/L Anion Gap (3-11) BUN (6-23) mg/dl Creatinine (0.6-1.2) mg/dl Est Cr Clr Drug Dosing ml/min eGFR BUN/Creatinine Ratio (10-20) Glucose (70-99(Fasting)) mg/dl POC Glucose 136 H 161 H (70-99) mg/dl Calcium (8.6-10.3) mg/dl (3) Hyperlipidemia Hyperlipidemia type: unspecified Qualified Code(s): E78.5 - Hyperlipidemia, unspecified
--- NOTE | 2025-10-20 11:47 | Cardiology Progress Note ---
Date of Service October 20, 2025 Assessment & Plan (1) New onset a-fib: (2) HFrEF (heart failure with reduced ejection fraction): (3) Hyperlipidemia: (4) Paroxysmal atrial fibrillation: (5) Tricuspid regurgitation: (6) Mitral regurgitation: (7) Frail elderly: (8) Risk for falls: Plan Ms. Finch is in sinus rhythm with lots of atrial ectopy. Hopefully she will remain in NSR on the amiodarone. Would maintain 200mg bid x 2 more weeks then decrease to 200mg daily. Decrease Metoprolol to 100mg daily and add Entresto 49/51mg bid (she was previously on lisinopril and I think her BP will tolerate it. Will need labs rechecked in1 week. Cont Lasix. Would also add Jardiance for CHF. Maintain on Anticoagulation. She needs to be watched very carefully for falls. With her cognitive decline and advanced age, would try to hold off on invasive ischemic work up. She had only a very minor troponin spill with this event although she does have ischemic changes on her EKG. Will re-evaluate EF after she is back in sinus for at least a month. Given the likelihood that her reduced EF is tachycardia induced, would also hold off on ICD discussion for now in the hopes that her EF will rebound with heart failure GDMT combined with sinus rhythm. We could consider referral for Watchman in the future and arrange for EP consult after discharge. Dr. Arteaga will follow up in the office in 1-2 weeks. We will also arrange for the office to send an MCOT monitor to whichever NH she goes to. Admission and Anticipated Discharge Date Admission Date: October 05, 2025 Subjective Patient is a very pleasant 85 year old female who looks well today. She was eating her grapes while at bedside. Denies any shortness of breath or chest pain. Results & Data Vital Signs (Past 12 Hours) Vital Signs Temp Pulse Pulse Resp BP Pulse Ox O2 Del Method 10/20/25 07:51 36.7 C 72 19 134/87 95 Room Air 10/20/25 07:41 86 10/20/25 02:24 37.1 C 82 16 113/85 998 H Room Air Laboratory Results Abnormal lab results 10/19/25 10/19/25 10/20/25 Range/Units 16:35 20:13 05:59 Sodium 133 L (136-145) mmol/L Chloride 96 L (98-107) mmol/L BUN/Creatinine Ratio 21.8 H (10-20) Glucose 106 H (70-99(Fasting)) mg/dl POC Glucose 136 H 135 H (70-99) mg/dl Calcium 8.5 L (8.6-10.3) mg/dl 10/20/25 Range/Units 10:56 Sodium (136-145) mmol/L Chloride (98-107) mmol/L BUN/Creatinine Ratio (10-20) Glucose (70-99(Fasting)) mg/dl POC Glucose 136 H (70-99) mg/dl Calcium (8.6-10.3) mg/dl Medications Administered Current Inpatient Medications Acetaminophen (Acetaminophen 325 Mg Tab) 650 mg PO Q4H PRN PRN Reason: Pain or Fever Stop: 11/04/25 12:32 Last Admin: 10/17/25 07:57 Dose: 650 mg Amiodarone HCl (Amiodarone 200 Mg Tab) 200 mg PO BIDM [facility] Stop: 11/14/25 16:59 Last Admin: 10/20/25 08:33 Dose: 200 mg Apixaban (Apixaban 2.5 Mg Tab) 2.5 mg PO BID RAMYA Stop: 11/06/25 20:59 Last Admin: 10/20/25 08:34 Dose: 2.5 mg Dextrose (Dextrose 50% 50 Ml Syringe) 25 - 50 ml IV UD PRN; Protocol PRN Reason: Hypoglycemia Protocol Stop: 11/07/25 07:29 Diclofenac Sodium (Diclofenac Sod 1% Gel 100 Gm Tube) 2 gm EXT Q4H PRN; Protocol PRN Reason: pain Stop: 11/09/25 10:14 Last Admin: 10/20/25 06:31 Dose: 2 gm Empagliflozin (Empagliflozin 25 Mg Tab) 25 mg PO DAILY [facility] Stop: 11/17/25 11:59 Last Admin: 10/20/25 08:33 Dose: 25 mg Glucagon (Glucagon For Inj 1 Mg Vial) 1 mg SQ UD PRN; Protocol PRN Reason: Hypoglycemia Protocol Stop: 11/07/25 07:29 Glucose (Glucose 40% Gel 15 Gm Tube) 15 - 30 gm PO UD PRN; Protocol PRN Reason: Hypoglycemia Protocol Stop: 11/07/25 07:29 Glucose (Glucose 10 Tab/Tube) 4 - 8 tab PO UD PRN; Protocol PRN Reason: Hypoglycemia Protocol Stop: 11/07/25 07:29 Insulin Aspart (Insulin Aspart Per Unit Charge) 0 units SC ACHS [facility] Stop: 11/08/25 16:29 Last Admin: 10/20/25 08:30 Dose: 1 units Latanoprost (Latanoprost 0.005% Op Soln 2.5 Ml Btl) 1 drops OP QAM [facility] Stop: 11/10/25 12:44 Last Admin: 10/20/25 08:32 Dose: 1 drops Levothyroxine Sodium (Levothyroxine Sodium 25 Mcg Tablet) 25 mcg PO DAILYBB [facility] Stop: 11/05/25 06:29 Last Admin: 10/20/25 06:31 Dose: 25 mcg Magnesium Oxide (Magnesium Oxide 400 Mg Tab) [facility] Stop: 11/10/25 09:29 Last Admin: 10/20/25 08:32 Dose: 400 mg Metoprolol Succinate (Metoprolol Succ 50mg Ext Rel Tab) 100 mg PO [facility] Stop: 11/18/25 08:59 Last Admin: 10/20/25 08:34 Dose: 100 mg Miscellaneous (Carbohydrates For Hypoglycemia ) 15 - 30 gm PO UD PRN PRN Reason: Hypoglycemia Treatment Stop: 11/07/25 07:29 Pantoprazole Sodium (Pantoprazole 40 Mg Tab) 40 [facility] [place] Stop[facility] 11/11/25 12:14 Last Admin: 10/20/25 08:33 Dose: 40 mg Rosuvastatin Calcium (Rosuvastatin Calcium 10 Mg Tab) 10 mg PO DAILY [facility] Stop: 11/05/25 08:59 Last Admin: 10/20/25 08:33 Dose: 10 mg Sacubitril/Valsartan (Valsartan/Sacubitril 51/49 Mg Tab) 1 tab PO BID [facility] Stop: 11/17/25 11:59 Last Admin: 10/20/25 08:34 Dose: 1 tab Spironolactone (Spironolactone 12.5 Mg Tab) 12.5 mg PO DAILY [facility] Stop: 11/15/25 09:14 Last Admin: 10/20/25 08:32 Dose: 12.5 mg (3) Hyperlipidemia Hyperlipidemia type: unspecified Qualified Code(s): E78.5 - Hyperlipidemia, unspecified
--- NOTE | 2025-10-20 14:22 | Billing Data ---
Date of Service October 20, 2025 Coding Level of Care Code 80667 SUB INP/OBS CARE
[2025-10-21 06:48] LABS: Anion Gap 8.0 (3-11); Blood Urea Nitrogen 20.0 mg/dl (6-23); Calcium 8.4 mg/dl (8.6-10.3); Carbon Dioxide 29.0 mmol/L (21-32); Chloride 98.0 mmol/L (98-107); Creatinine Clr Calc Pharmacy 39.2 ml/min; Glucose 96.0 mg/dl (70-99(Fasting)); Potassium 4.1 mmol/L (3.5-5.1); Sodium 135.0 mmol/L (136-145)
--- NOTE | 2025-10-21 06:54 | Hospitalist Progress Note ---
Date of Service October 21, 2025 Assessment & Plan (1) New onset a-fib: (2) HFrEF (heart failure with reduced ejection fraction): (3) Hyperlipidemia: (4) Tricuspid regurgitation: (5) Mitral regurgitation: (6) Frail elderly: (7) Risk for falls: Plan 85-year-old female with a history of paroxysmal atrial tachycardia, hypertension, type 2 diabetes who presents to the hospital worsening shortness of breath, admitted for new onset A-fib with RVR. Continued admission necessary for continuous cardiac monitoring and medical optimization: underwent PEARL w/ cardioversion procedure 10/18 in [employer] employment [employer], successfully converted to NSR with 1o AV block. Still pending inpatient rehab on discharge- daughters want pt to go to [facility], did not like [facility] as much but they have a bed for her. Pending [facility] bed. #s/p cardioversion to normal sinus rhythm 10/18/25 No history of previous A-fib however has a history of paroxysmal atrial tachycardia Cardiology following, appreciate recs and interventions: 10/18 pt taken to [employer] for PEARL w/ cardioversion, successfully to normal sinus rhythm w/ 1st deg AV block, no further intervention needed Continuing on amiodarone 200mg BID for rhythm control, suggested to continue for 2 more weeks before decreasing to 200mg daily Reportedly good candidate for a Watchman procedure in the future Continue Eliquis 2.5 mg BID for anticoagulation #acute HFrEF #s/p A-fib with RVR CXR 10/12 showing b/l small pleural effusions R>L -> given Lasix 20mg IV; with bibasilar rales again 10/13 AM repeating CXR for eval of prior noted effusions: personal comparison of images showing improvement in effusion 2D echo shows severely reduced systolic function, EF 20 to 25%, with global hypokinesis; prior TTE in Jul 2023 showing EF of 55% w/ mild tricuspid regurg and mild aortic insufficiency Started Entresto 49/51mg BID with discontinuation of lisinopril after PEARL/cardioversion Compared to previous echo done in 2016, systolic function is now severely reduced, there is atrial fibrillation and also mitral regurgitation now more significant Monitor input and output, daily weights Cardiology on board, appreciate recs and interventions: Metoprolol 100mg daily, on Entresto 49/51mg BID, Jardiance 25mg daily, spironolactone 12.5mg daily - has been satting >90% consistently on room air - BMP AM #RLE dorsal foot pain, acute pain has much improved with indomethacin BID, suspecting possible gout flare; US showing subcutaneous edema- more painful again today - uric acid WNL, ESR WNL, CRP 1.75 -indomethacin bid prn #Hyponatremia, resolved appears stable/improved at 135 - BMP AM #DM2 glucose down to 26 by POC in AM 10/08/25, given IV dextrose and discontinued insulin A1c 7.3 on 10/08/25 and POC glucose above 200 on 10/09/25 -> continue short- acting insulin to go with meals for better glycemic control Has been stable past several days BMP AM #Confusion/falls Patient may have some underlying dementia according to one of the daughters - PT/OT to continue seeing while inpatient, plan to discharge to acute rehab - 1:1 for supervision and ambulatory assistance, will require frequent bathroom trips due to ongoing diuresis - encourage pt friendly room environment in setting of possible delirium, open window blinds, frequent reorientation as needed Full code DVT prophylaxis Eliquis Admission and Anticipated Discharge Date Admission Date: October 05, 2025 Supervising Physician Co-Signing Physician Notes I personally examined the patient and verified all alfred points of history and exam, discussed case, and agree with decision making with Dr Tony Feeling okay. No complaints. Hopeful for SNFnotes she would very much like to get out of the hospital. Vitals noted, resting comfortably, no distress. Breathing unlabored no accessory muscle use good spontaneous effort. Acute on chronic HFrEF/acute on chronic systolic CHFcomplicated by A-fib with RVR Doing better overall. Status post cardioversion. Has maintained sinus rhythm. Continue med management. appears to be tolerating well overall. Continue to follow. PT/OT eval and treat. Anticipate SNF placement. (Given waxing and waning delirium, I have not changed her room given that her delirium has generally not been agitated or dysphoric when she is deliriousif telemetry beds were to become in short supply, she is quite stable for medical status, but I did not want to risk provoking delirium by moving her room and thus we needed to given that she will hopefully be out of the hospital soon) anticoagulated otherwise as above Subjective No overnight events. Pt seen and examined this AM at bedside. She said she had trouble sleeping and woke up confused today. Overall, she feels better. Denies CP, palpitations/flutters/skipped beats, SOB, LH, dizziness. She is still having right sided foot pain located on dorsum of foot, relieved with indomethacin. Denies any trauma or injuries. Denies fever, chills, N/V, abdominal pain. Review of Systems Review of Systems: per HPI Physical Exam Physical Exam: GA: well groomed, well nourished in no apparent distress. AAOx3 HEENT: head normocephalic, atraumatic. EOMI RESP: vesicular breath sounds b/l. No wheezes, rhonchi, or rales CARDIOVASCULAR: S1 and S2 heard. No murmurs, rubs, or gallops. Radial pulses irregular GI: Normoactive bowel sounds, no tenderness or masses felt to palpation MSK: tenderness to palpation over right middle foot over phalanges, erythema to area as well SKIN: warm, dry, no edema PSYCH: appropriate mood and affect NEURO: no focal deficits. speech fluent Results & Data Results & Data Vital Signs (Past 12 Hours) Vital Signs Temp Pulse Pulse Resp BP BP Pulse Ox 10/21/25 04:18 36.6 C 81 17 127/75 94 10/21/25 00:03 36.6 C 89 126/83 95 10/20/25 22:28 79 10/20/25 20:07 36.6 C 79 17 130/87 97 O2 Del Method 10/21/25 04:18 Room Air 10/21/25 00:03 Room Air 10/20/25 22:28 10/20/25 20:07 Room Air Resident Activity Tracking Resident Involvement: Resident Care Provided Care Provided: Adult Hospital Medicine (3) Hyperlipidemia Hyperlipidemia type: unspecified Qualified Code(s): E78.5 - Hyperlipidemia, unspecified
--- NOTE | 2025-10-21 18:58 | Billing Data ---
Date of Service October 21, 2025 Coding Level of Care Code 14112 SUB INP/OBS CARE
[2025-10-22 06:56] LABS: Hematocrit (blood only) 40.5 % (37.0-47.0); Hemoglobin 13.1 g/dL (12.0-16.0); Immature Granulocytes # (auto) 0.02 K/uL (0.01-0.20); Immature Granulocytes % (auto) 0.3 %; Mean Corpuscular Hemoglobin 29.3 pg (25.0-34.0); Mean Corpuscular Volume 90.6 fL (80.0-100.0); Platelet Count 428 K/uL (130-400); RDW Standard Deviation 41.3 fL (36.4-46.3); Red Blood Count 4.47 M/uL (4.20-5.40); White Blood Count 6.66 K/ul (4.8-10.8)
[2025-10-22 07:39] LABS: Anion Gap 8.0 (3-11); Blood Urea Nitrogen 16.0 mg/dl (6-23); Calcium 8.6 mg/dl (8.6-10.3); Carbon Dioxide 28.0 mmol/L (21-32); Chloride 100.0 mmol/L (98-107); Creatinine Clr Calc Pharmacy 38.0 ml/min; Glucose 93.0 mg/dl (70-99(Fasting)); Potassium 4.2 mmol/L (3.5-5.1); Sodium 136.0 mmol/L (136-145)
--- NOTE | 2025-10-22 08:54 | Hospitalist Progress Note ---
Date of Service October 22, 2025 Assessment & Plan (1) New onset a-fib: (2) HFrEF (heart failure with reduced ejection fraction): (3) Hyperlipidemia: (4) Tricuspid regurgitation: (5) Mitral regurgitation: (6) Frail elderly: (7) Risk for falls: Plan 85-year-old female with a history of paroxysmal atrial tachycardia, hypertension, type 2 diabetes who presents to the hospital worsening shortness of breath, admitted for new onset A-fib with RVR. 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 [facility] #A-fib with RVR New onset A-fib this admission, though patient has an established history of paroxysmal atrial tachycardia s/p PEARL w/ cardioversion, converted to normal sinus rhythm w/ 1st deg AV block - has remained in NSR -Continue amiodarone 200mg BID for rhythm control, per cardiology - continue for total of 2 weeks (through 11/03) before decreasing to 200mg daily -Continue Eliquis 2.5 mg BID for anticoagulation -continue rate control with metoprolol -could consider a Watchman procedure as outpatient -Repeat labs and follow up with Dr. Arteaga within 1-2 weeks of discharge -Cardiology will set up outpatient event monitor #acute HFrEF CXR 10/12 showed b/l small pleural effusions R>L, responsive to diuresis 2D echo shows severely reduced systolic function, EF 20 to 25%, with global hypokinesis; prior TTE in Jul 2023 showed EF of 55% w/ mild tricuspid regurg and mild aortic insufficiency. Compared to previous echo, systolic function is now severely reduced, there is atrial fibrillation, and mitral regurgitation now more significant. Monitor input and output, daily weights Cardiology on board, appreciate recs and interventions: Metoprolol 100mg daily, Entresto 49/51mg BID, Jardiance 25mg daily, spironolactone 12.5mg daily - Repeat TTE after patient in NSR for one month - BMP AM #RLE dorsal foot pain, acute: - uric acid WNL, ESR WNL, CRP 1.75 - Indomethacin discontinued #Hyponatremia - resolved Stable BMP AM #DM2 A1c 7.3 BSG checks ACHS SSI #Confusion/falls Patient may have some underlying dementia according to one of the daughters - PT/OT to continue seeing while inpatient, plan to discharge to SNF - encourage pt friendly room environment in setting of possible delirium, open window blinds, frequent reorientation as needed Full code DVT prophylaxis Eliquis Admission and Anticipated Discharge Date Admission Date: October 05, 2025 Supervising Physician Co-Signing Physician Notes I personally examined the patient and verified alfred points of history and exam, discussed case, and agree with decision making and plan documented by Dr. Tony. Patient reports intermittent confusion throughout hospitalization. Feeling well from a cardiovascular standpoint. Plan is to proceed to SNF for rehab. Subjective No overnight events. Pt seen and examined this AM at bedside. Denies CP, palpitations/flutters/skipped beats, SOB, LH, dizziness. Denies fever, chills, N/V, abdominal pain. Review of Systems Review of Systems: per HPI Physical Exam Physical Exam: GA: well groomed, well nourished in no apparent distress. AAOx3 HEENT: head normocephalic, atraumatic. EOMI RESP: vesicular breath sounds b/l. No wheezes, rhonchi, or rales CARDIOVASCULAR: S1 and S2 heard. No murmurs, rubs, or gallops. Radial pulses regular GI: no tenderness or masses felt to palpation MSK: no abnormalities noted SKIN: warm, dry, no edema PSYCH: appropriate mood and affect NEURO: no focal deficits. speech fluent Results & Data Results & Data Vital Signs (Past 12 Hours) Vital Signs Temp Pulse Pulse Pulse Resp BP BP 10/22/25 07:18 36.7 C 71 17 133/78 10/22/25 04:19 36.5 C 65 16 130/74 10/22/25 00:05 36.7 C 75 16 124/79 10/21/25 22:23 73 10/21/25 21:00 Pulse Ox O2 Del Method 10/22/25 07:18 94 Room Air 10/22/25 04:19 94 Room Air 10/22/25 00:05 95 Room Air 10/21/25 22:23 10/21/25 21:00 Room Air Resident Activity Tracking Resident Involvement: Resident Care Provided Care Provided: Adult Hospital Medicine (3) Hyperlipidemia Hyperlipidemia type: unspecified Qualified Code(s): E78.5 - Hyperlipidemia, unspecified
--- NOTE | 2025-10-23 06:43 | Hospitalist Progress Note ---
Date of Service October 23, 2025 Assessment & Plan (1) New onset a-fib: (2) HFrEF (heart failure with reduced ejection fraction): (3) Hyperlipidemia: (4) Tricuspid regurgitation: (5) Mitral regurgitation: (6) Frail elderly: (7) Risk for falls: Plan 85-year-old female with a history of paroxysmal atrial tachycardia, hypertension, type 2 diabetes who presents to the hospital worsening shortness of breath, admitted for new onset A-fib with RVR. 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 [facility] #A-fib with RVR New onset A-fib this admission, though patient has an established history of paroxysmal atrial tachycardia s/p PEARL w/ cardioversion, converted to normal sinus rhythm w/ 1st deg AV block - has remained in NSR -Continue amiodarone 200mg BID for rhythm control, per cardiology - continue for total of 2 weeks (through 11/03) before decreasing to 200mg daily -Continue Eliquis 2.5 mg BID for anticoagulation -continue rate control with metoprolol -could consider a Watchman procedure as outpatient -Repeat labs and follow up with Dr. Arteaga within 1-2 weeks of discharge -Cardiology will set up outpatient event monitor #acute HFrEF CXR 10/12 showed b/l small pleural effusions R>L, responsive to diuresis 2D echo shows severely reduced systolic function, EF 20 to 25%, with global hypokinesis; prior TTE in Jul 2023 showed EF of 55% w/ mild tricuspid regurg and mild aortic insufficiency. Compared to previous echo, systolic function is now severely reduced, there is atrial fibrillation, and mitral regurgitation now more significant. Monitor input and output, daily weights Cardiology on board, appreciate recs and interventions: Metoprolol 100mg daily, Entresto 49/51mg BID, Jardiance 25mg daily, spironolactone 12.5mg daily - Repeat TTE after patient in NSR for one month - BMP AM #RLE dorsal foot pain, acute: - uric acid WNL, ESR WNL, CRP 1.75 - Indomethacin discontinued #Hyponatremia - resolved Stable BMP AM #DM2 A1c 7.3 BSG checks ACHS SSI #Confusion/falls Patient may have some underlying dementia according to one of the daughters - PT/OT to continue seeing while inpatient, plan to discharge to SNF - encourage pt friendly room environment in setting of possible delirium, open window blinds, frequent reorientation as needed Full code DVT prophylaxis Eliquis Admission and Anticipated Discharge Date Admission Date: October 05, 2025 Subjective No overnight events. Pt seen and examined this AM at bedside. Denies CP, palpitations/flutters/skipped beats, SOB, LH, dizziness. Denies fever, chills, N/V, abdominal pain. Review of Systems Review of Systems: per HPI Physical Exam Physical Exam: GA: well groomed, well nourished in no apparent distress. AAOx3 HEENT: head normocephalic, atraumatic. EOMI RESP: vesicular breath sounds b/l. No wheezes, rhonchi, or rales CARDIOVASCULAR: S1 and S2 heard. No murmurs, rubs, or gallops. Radial pulses regular GI: no tenderness or masses felt to palpation MSK: no abnormalities noted SKIN: warm, dry, no edema PSYCH: appropriate mood and affect NEURO: no focal deficits. speech fluent Results & Data Results & Data Vital Signs (Past 12 Hours) Vital Signs Temp Pulse Pulse Resp BP Pulse Ox O2 Del Method 10/23/25 03:12 36.5 C 74 16 123/69 93 Room Air 10/22/25 22:51 36.5 C 73 18 123/91 97 Room Air 10/22/25 21:44 72 (3) Hyperlipidemia Hyperlipidemia type: unspecified Qualified Code(s): E78.5 - Hyperlipidemia, unspecified
[2025-10-23 07:16] VITALS: RESP 17
[2025-10-23 07:18] LABS: Anion Gap 7.0 (3-11); Blood Urea Nitrogen 26.0 mg/dl (6-23); Calcium 8.8 mg/dl (8.6-10.3); Carbon Dioxide 28.0 mmol/L (21-32); Chloride 100.0 mmol/L (98-107); Creatinine Clr Calc Pharmacy 37.1 ml/min; Glucose 119.0 mg/dl (70-99(Fasting)); Potassium 4.2 mmol/L (3.5-5.1); Sodium 135.0 mmol/L (136-145)
--- NOTE | 2025-10-23 09:50 | Discharge Summary ---
Date of Service October 23, 2025 Admission HPI Per Admitting Provider This is an 85-year-old female from [place] with a history of hypertension, paroxysmal atrial tachycardia, type 2 diabetes, presents to the hospital on account of worsening shortness of breath. Most of the history was obtained through the daughter who was at the bedside. According to the daughter, over the past few days, patient has been having worsening shortness of breath, orthopnea. She denies chest pain no cough or fever. Upon arrival to the emergency department, she was found to be in A-fib with RVR. CT scan of the chest also showed evidence of pulmonary congestion. In the ED, she was started on Cardizem drip and will be admitted to the hospital for diuresis and further management. Principal Diagnosis Atrial Fibrillation Discharge Exam GA: well groomed, well nourished in no apparent distress. AAOx3 HEENT: head normocephalic, atraumatic. EOMI RESP: vesicular breath sounds b/l. No wheezes, rhonchi, or rales CARDIOVASCULAR: S1 and S2 heard. No murmurs, rubs, or gallops. Radial pulses regular GI: no tenderness or masses felt to palpation MSK: no abnormalities noted SKIN: warm, dry, no edema PSYCH: appropriate mood and affect NEURO: no focal deficits. speech fluent Discharge Data Allergies Allergy/AdvReac Type Severity Reaction Status Date / Time No Known Drug Allergies Allergy Unknown Verified 01/20/24 17:47 pineapple AdvReac Abdominal Verified 10/09/25 16:28 Pain Consultations 10/05/25 11:25 ED Decision to Admit Stat 10/06/25 07:26 Consult Cardiology Routine 10/15/25 11:31 Consult Anesthesiology Routine Procedures Performed Operation Date: 10/18/25 07:30 Actual Procedures s Echo Color Flow - Shona Arteaga DO p Echo Transesophageal - DO ramon Green Doppler Echo Limited/Follow Up - DO ramon Green Cardioversion - Shona Arteaga DO Ordered Studies 10/09/25 15:47 US venous doppler LE RT Urgent 10/09/25 15:49 US soft tissue ext ltd Routine Hospital Course (1) New onset a-fib: (2) HFrEF (heart failure with reduced ejection fraction): (3) Hyperlipidemia: (4) Tricuspid regurgitation: (5) Mitral regurgitation: (6) Frail elderly: (7) Risk for falls: Plan 85-year-old female with a history of paroxysmal atrial tachycardia, hypertension, type 2 diabetes who presents to the hospital worsening shortness of breath, admitted for new onset A-fib with RVR. Continued admission necessary for continuous cardiac monitoring and medical optimization: underwent PEARL w/ cardioversion procedure 10/18 in labeling strategist, successfully converted to NSR with 1o AV block. SNF auth pending for [facility]. #A-fib with RVR New onset A-fib this admission, though patient has an established history of paroxysmal atrial tachycardia s/p PEARL w/ cardioversion, converted to normal sinus rhythm w/ 1st deg AV block - has remained in NSR -Continue amiodarone 200mg BID for rhythm control, per cardiology - continue for total of 2 weeks (through 11/03) before decreasing to 200mg daily -Continue Eliquis 2.5 mg BID for anticoagulation -continue rate control with metoprolol -could consider a Watchman procedure as outpatient -Repeat labs and follow up with Dr. Arteaga within 1-2 weeks of discharge -Cardiology will set up outpatient event monitor #acute HFrEF CXR 10/12 showed b/l small pleural effusions R>L, responsive to diuresis 2D echo shows severely reduced systolic function, EF 20 to 25%, with global hypokinesis; prior TTE in Jul 2023 showed EF of 55% w/ mild tricuspid regurg and mild aortic insufficiency. Compared to previous echo, systolic function is now severely reduced, there is atrial fibrillation, and mitral regurgitation now more significant. Monitor input and output, daily weights Cardiology on board, appreciate recs and interventions: Metoprolol 100mg daily, Entresto 49/51mg BID, Jardiance 25mg daily, spironolactone 12.5mg daily - Repeat TTE after patient in NSR for one month #RLE dorsal foot pain, acute: - uric acid WNL, ESR WNL, CRP 1.75 - Indomethacin discontinued #Hyponatremia - resolved Stable #DM2 -resume home meds #Confusion/falls Patient may have some underlying dementia according to one of the daughters - PT/OT to continue seeing while inpatient, plan to discharge to SNF - encourage pt friendly room environment in setting of possible delirium, open window blinds, frequent reorientation as needed Full code DVT prophylaxis Eliquis Total Time Total Time Spent Total Time Spent (In Minutes): please see attending attestation Discharge Plan Discharge Items Patient Disposition: Transfer Inpatient Rehab Fac Reason For Visit: AFIB Discharge Diagnosis: new afib w/ RVR Condition on Discharge: Serious Activity: Per Instructions section Non-emergency contact: Primary Care Provider Call non-emergency contact if: your symptoms worsen and your pain is not controlled Follow-up/Referrals: Shona Arteaga DO [Physician] - Mark Wilburn MD [Primary Care Provider] - Alexander Greco DO [Resident] - Diet: Heart Healthy Addtl Attending Provider Instructions: You were admitted for new atrial fibrillation (sometimes shortened to "a-fib"), which was likely a cause of your progressing weakness and shortness of breath. This can sometimes trigger a fast heart rate, leading to poor circulation of fluids, often causing fluid to build up in legs and lungs. As your heart rate has been rather well controlled (we like to see consistently under 120bpm), and as you have improved exam findings, we feel comfortable to have you continue working on your strength at acute rehab. #A-fib with RVR New onset A-fib this admission, though patient has an established history of paroxysmal atrial tachycardia s/p PEARL w/ cardioversion, converted to normal sinus rhythm w/ 1st deg AV block - has remained in NSR -Continue amiodarone 200mg BID for rhythm control, per cardiology - continue for total of 2 weeks (through 11/03) before decreasing to 200mg daily -Continue Eliquis 2.5 mg BID for anticoagulation -continue rate control with metoprolol -could consider a Watchman procedure as outpatient -Repeat labs and follow up with Dr. Arteaga within 1-2 weeks of discharge -Cardiology will set up outpatient event monitor #acute HFrEF CXR 10/12 showed b/l small pleural effusions R>L, responsive to diuresis 2D echo shows severely reduced systolic function, EF 20 to 25%, with global hypokinesis; prior TTE in Jul 2023 showed EF of 55% w/ mild tricuspid regurg and mild aortic insufficiency. Compared to previous echo, systolic function is now severely reduced, there is atrial fibrillation, and mitral regurgitation now more significant. Monitor input and output, daily weights Cardiology on board, appreciate recs and interventions: Metoprolol 100mg daily, Entresto 49/51mg BID, Jardiance 25mg daily, spironolactone 12.5mg daily - Repeat TTE after patient in NSR for one month #RLE dorsal foot pain, acute: - uric acid WNL, ESR WNL, CRP 1.75 - Indomethacin discontinued #Hyponatremia - resolved Stable #DM2 A1c 7.3 BSG checks ACHS SSI #Confusion/falls Patient may have some underlying dementia according to one of the daughters - PT/OT to continue seeing while inpatient, plan to discharge to SNF - encourage pt friendly room environment in setting of possible delirium, open window blinds, frequent reorientation as needed DVT prophylaxis Eliquis Pending Studies at Discharge: No Stand-Alone Forms: My [facility] Skilled Items Patient informed of condition?: Yes DNR: No Discharge Level of Care: Skilled Communicable Disease: No Discharge Prognosis: Stable Lines: None Urinary Catheter: No Medications and DC Order Prescriptions: New amiodarone 200 mg Tablet 200 mg PO BIDM Qty: 30 0RF metoprolol succinate 50 mg Tablet Extended Release 24 Hr 100 mg PO QAM 30 Days Qty: 60 0RF spironolactone 25 mg Tablet 12.5 mg PO DAILY 30 Days Qty: 15 0RF Eliquis 2.5 mg Tablet 2.5 mg PO BID Qty: 60 0RF Jardiance 25 mg Tablet 25 mg PO DAILY Qty: 30 0RF sacubitril-valsartan [Entresto] 49-51 mg Tablet 1 tab PO BID 30 Days Qty: 60 0RF Continued levothyroxine 75 mcg Tablet 25 mcg PO QAM rosuvastatin 10 mg tablet 10 mg PO DAILY polyethylene glycol 3350 [Miralax] 17 gram Powder In Packet 17 g PO DAILY Qty: 30 1RF Patient Comments: 10/05- otc unable to verify Discontinued lisinopril 20 mg tablet 0 mg PO DAILY Patient Comments: 10/05-last filled 10/24/24 90 day supply #90 Discharge Orders: Discharge Order (Routine); Ordered 10/23/25 Ordered By: Reji Lawson/Other Patient Handouts: Type 2 Diabetes Admission Data Admit Date/Time: 10/05/25 11:31 Attending Provider: Joanne Alfonso Admit Provider: Alaina Mccormack Primary Care Provider: Mark Wilburn Other Providers: Alaina Mccormack; Shona Arteaga; Mike Luo at [place]; Alba Yu; Viki Roy; Kita Rodriguez; Lucia Mcdaniel; Sheldon Sullivan; Terrence Roblesif; Krunal Foster; Daniel Mello; Leela Lion; Wesley Barber; Juarez Fraser; Dada Hathaway; Ginny Hughes; Mehrdad Power; Vanessa Power; Theodore Alegre; Venus Lamb; Daren Zayas; Dayana Webster; Nina Saini; Ulises Bermudez; Monik Valladares; Jennifer Higginbotham A; Zamzam Washington; Rosa Maria Walker; Jasper Walker V; Scotty Hale; Viki Pozo; Isak Harden; Shirley Bustillos; Jasper Acharya; Miguel Hughes; Chidi Dietz; Lizbeth Higginbotham; Alka Sanchez; Jasper Hdz; Michoacano Hartmann.; Dunia Copeland; Maycol Ashraf; Georgie Hanson; Prema Reyes; Jose Crowley; Alexander Schwartz; Liset Moore; Krunal Benítez; Mandy Edge.; Zee Mena; Stone Maxwell; Sheldon Rivers Jr; Suzi White; Paola Mcguire A.; Eloisa Gibbons; Ulises An; Thaddeus Yoder.; Paola Rogers A.; Dany Thomas; Norberto Hoyt; Jb Adame; Chris Alfaro; Patrick Huizar; Heide Mcclure; Essie Guardado; Betty Tate; Isaura Courtney; Dave Laird Jr; Allyson Walker; Monik Hadley; Ty Wade; Mica Cardoza; Maia Lemons; Leela Denis; Roz Hughes; Jarad Gutierrez Other Interventions: Discharge Summary Assessment (RN) Last Done: 10/23/25 10:40 Supervising Physician Co-Signing Physician Notes I personally examined the patient and verified alfred points of history and exam, discussed case, and agree with decision making and plan documented by Dr. Tony. Patient is an 85-year-old female with pertinent past medical history of hypertension, paroxysmal atrial tachycardia, HFrEF, hyperlipidemia, and type 2 diabetes presenting to hospital with worsening shortness of breath and orthopnea, and admitted for new onset atrial fibrillation with rapid ventricular response. Patient was seen and managed by cardiology during hospitalization. Patient appears comfortable, lungs clear b/l to auscultation, regular rate and rhythm, no acute distress on exam. She is scheduled for follow-up following discharge with cardiology and they are arranging EP evaluation for consideration of Watchman procedure. [facility] after hospitalization. Total attending time 36 Resident Activity Tracking Resident Involvement: Resident Care Provided Care Provided: Adult Hospital Medicine
[2025-10-23 10:43] VITALS: BP 115/74; PULSE 73; TEMP 98.1; O2SAT 97
== END 2025-10-23 14:48 | DRG 308 ==
LOC: ED 09:51 → 2E 11:31 → SUATTDRO 11:31 → 2E 12:11